=== PATIENT | male | born 1995 | race Caucasian/White ===

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

== ENCOUNTER 2017-09-07 07:53 | Inpatient (IN) | payer MEDICAID ==
--- NOTE | 2017-09-07 08:22 | C.PDOC ---
History Of Present Illness 22 Y/O MALE PRESENTS TO ED WITH C/O NEW ONSET "HEART POUNDING" X 4 DAYS. "FEELS LIKE IT'S BEATING REALLY HARD". PATIENT CURRENTLY W RESIDUAL SX BUT NOT INTENSE PRIOR. INTERMIT. DENIES HEART RACING, ASSOC CP, DIZZY, [place]. 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 CONCERN POSSIBLE UTI DUE TO CLOUDY URINE. NO FEVER, ABD PAIN OR ANY OTHER COMPLAINT AT THIS TIME. NEPHRO @ [facility] "BUT I NO LONGER TO GO HER, I NEED A NEW RN ASSESSMENT" PMD SALEEB EXAM NAD NONTOXIC HEENT NEG LUNGS CTA B/L NO W/R/R CV RRR ABD SOFT NT ND NO R/G REMAINDER NEG Time Seen by Provider: 09/07/17 08:07 Chief Complaint (Nursing): Palpitations History Per: Patient History/Exam Limitations: no limitations Onset/Duration Of Symptoms: Days Current Symptoms Are (Timing): Still Present Past Medical History Reviewed: Historical Data, Nursing Documentation, Vital Signs Vital Signs: Last Vital Signs Temp 98.5 F 09/07/17 10:42 Pulse 63 09/07/17 10:42 Resp 18 09/07/17 10:42 BP 151/94 H 09/07/17 10:42 Pulse Ox 100 09/07/17 10:42 - Medical History PMH: Pneumonia, Chronic Kidney Disease Surgical History: No Surg Hx Family History: States: No Known Family Hx - Social History Hx Tobacco Use: No Hx Alcohol Use: No Hx Substance Use: No - Immunization History Hx Tetanus Toxoid Vaccination: (Unk) Hx Influenza Vaccination: No Hx Pneumococcal Vaccination: Yes Review Of Systems Constitutional: Negative for: Fever, Chills Cardiovascular: Positive for: Palpitations. Negative for: Chest Pain Respiratory: Negative for: Cough, Shortness of Breath Gastrointestinal: Negative for: Nausea, Vomiting, Abdominal Pain Skin: Negative for: Rash Physical Exam - Physical Exam Appears: Non-toxic, No Acute Distress Skin: Warm, Dry, No Rash Head: Atraumatic, Normacephalic Eye(s): bilateral: Normal Inspection Oral Mucosa: Moist Neck: Normal ROM, Supple Cardiovascular: Rhythm Regular Respiratory: Normal Breath Sounds, No Rales, No Rhonchi, No Wheezing Gastrointestinal/Abdominal: Soft, No Tenderness, No Guarding, No Rebound Extremity: Normal ROM, Capillary Refill (<2 Seconds) Neurological/Psych: Oriented x3, Normal Speech, Normal Cognition ED Course And Treatment - Laboratory Results Result Diagrams: 09/07/17 08:46 09/07/17 08:46 ECG: Interpreted By Me ECG Rhythm: Sinus Rhythm ECG Interpretation: Normal Interpretation Of ECG: TWI v2 Rate From EC (BPM) O2 Sat by Pulse Oximetry: 100 (RA) Progress - Re-Evaluation Re-evaluation Note: 09/07/17 09:34 exam unch VSS WORSENING BUN/CREAT COMPARED TO BASELINE, 2016. PT WO CURRENT RN ASSESSMENT D/W DR JONES C/F PMD. AWARE OF ER FINDINGS, WILL ADMIT. REQUESTS RENAL US. CONSULT DR STODDARD. 09/07/17 09:[address] CHEYENNE STODDARD, STATES DR. TANVIR STODDARD IS TANK SETTER TODAY, TO WAIT FOR HIS CALL BACK. DR STODDARD WAS PAGED @937 09/07/17 11:07 D/W DR Zully STODDARD AWARE OF ER FINDINGS WILL CONSULT - Data Reviewed Data Reviewed: Lab, Diagnostic imaging, EKG, Old records Disposition Counseled Patient/Family Regarding: Studies Performed, Diagnosis - Disposition Disposition: HOSPITALIZED Disposition Time: 09:37 Condition: STABLE - POA Present On Arrival: None - Clinical Impression Clinical Impression: Acute on chronic renal insufficiency, Palpitations - Scribe Statement The provider has reviewed the documentation as recorded by the Scribe Joni Jansen All medical record entries made by the Scribe were at my direction and personally dictated by me. I have reviewed the chart and agree that the record accurately reflects my personal performance of the history, physical exam, medical decision making, and the department course for this patient. I have also personally directed, reviewed, and agree with the discharge instructions and disposition. Decision To Admit - Pt Status Changed To: Hospital Disposition Of: Inpatient - Admit Certification Admit to Inpatient:: After my assessment, the patient will require hospitalization for at least two midnights. This is because of the severity of symptoms shown, intensity of services needed, and/or the medical risk in this patient being treated as an outpatient. - InPatient: Physician Admission Certification: I certify that this patient requires 2 or more midnights of care for the following reason:: SEE NOTE - . Bed Request Type: Telemetry Admitting Physician: Amaya Jones Patient Diagnosis: Acute on chronic renal insufficiency, Palpitations
[2017-09-07 08:46] LABS: VENOUS BLOOD GAS BASE EXCESS -7.5 mmol/L (0.0-2.0); VENOUS BLOOD GAS PCO2 37 mmHg (40-60); VENOUS BLOOD GAS PO2 42 mm/Hg (30-55)
--- NOTE | 2017-09-07 08:46 | RAD ---
PROCEDURE: CHEST RADIOGRAPH, 1 VIEW HISTORY: SOB COMPARISON: 11/30/2015 FINDINGS: LUNGS: Clear. PLEURA: No pneumothorax or pleural fluid seen. CARDIOVASCULAR: Normal. OSSEOUS STRUCTURES: No significant abnormalities. VISUALIZED UPPER ABDOMEN: Normal. OTHER FINDINGS: None. IMPRESSION: No active disease.
[2017-09-07 08:52] LABS: BASO # 0.1 K/uL (0.0-0.2); BASO % 0.9 % (0.0-2.0); EOS # 0.2 K/uL (0.0-0.7); EOS % 2.8 % (0.0-4.0); HEMOGLOBIN 10.7 g/dL (12.0-18.0); LYMPH # 1.7 K/uL (1.0-4.3); LYMPH % 29.3 % (20.0-40.0); MEAN CELL VOLUME 80.4 fL (80.0-94.0); MEAN CORPUSCULAR HEMOGLOBIN 27.6 pg (27.0-31.0); MEAN CORPUSCULAR HGB CONC 34.3 g/dL (33.0-37.0); MEAN PLATELET VOLUME 8.6 fL (7.2-11.7); MONO # 0.3 K/uL (0.0-0.8); MONO % 5.4 % (0.0-10.0); NEUT # 3.6 K/uL (1.8-7.0); NEUT % 61.6 % (50.0-75.0); RBC 3.89 Mil/uL (4.40-5.90); RED CELL DISTRIBUTION WIDTH 13.3 % (11.5-14.5); WHITE BLOOD COUNT 5.9 K/uL (4.8-10.8)
[2017-09-07 09:00] LABS: SQUAMOUS EPITHIAL < 1 /hpf (0-5); URINE BACTERIA OCC (<OCC); URINE BILIRUBIN NEGATIVE (NEGATIVE); URINE BLOOD 2+ (NEGATIVE); URINE CLARITY Hazy (Clear); URINE COLOR Red (YELLOW); URINE GLUCOSE (UA) NORMAL (Normal); URINE LEUKOCYTE ESTERASE 3+ Leu/uL (Negative); URINE PROTEIN 2+ mg/dL (NEGATIVE); URINE UROBILINOGEN NORMAL mg/dL (0.2-1.0)
[2017-09-07 09:12] LABS: ALB/GLOB RATIO 1.3 (1.0-2.1); ALBUMIN 4.6 g/dL (3.5-5.0); ALT/SGPT 21 U/L (21-72); AST/SGOT 23 U/L (17-59); BLOOD UREA NITROGEN 63 mg/dL (9-20)
[2017-09-07 09:22] LABS: GFR AFRICAN-AMERICAN 10; GFR NON-AFRICAN AMERICAN 9
--- NOTE | 2017-09-07 10:49 | US ---
Renal ultrasound History: Elevated creatinine level. Comparison: None available. Technique: Real-time sonography was performed through the abdomen. Findings: Right kidney: 14.5 x 8.5 x 8.4 centimeters. Moderate to severe right renal hydronephrosis. Thinning of the parenchymal cortex. Increased echogenicity of the renal parenchymal cortex suggestive for medical renal disease. Left kidney: 15.4 x 7.7 x 9.8 centimeters. Moderate to severe left renal hydronephrosis. Thinning of the parenchymal cortex. Increased echogenicity the renal parenchymal cortex suggestive for medical renal disease. Distended and thick-walled urinary bladder which appears somewhat coarse and trabeculated in appearance. Visualized aorta grossly preserved. Impression: 1. Moderate to severe bilateral renal hydronephrosis. 2. Cortical parenchymal thinning with increased echogenicity of the renal parenchymal cortex suggestive for medical renal disease. Clinical correlation. 3. Distended and thick-walled urinary bladder which appears somewhat coarse and trabeculated in appearance. Clinical correlation.
--- NOTE | 2017-09-07 12:31 | CP.PCM.HP ---
History of Present Illness - History of Present Illness History of Present Illness: pt came to er for sob and palpitation Present on Admission - Present on Admission Any Indicators Present on Admission: Yes Urinary Catheter: Yes Review of Systems - Review of Systems Systems not reviewed;Unavailable: Acuity of Condition, Unstable Vital Signs Review of Systems: bp hi - Constitutional Constitutional: As Per HPI - EENT Eyes: As Per HPI Ears: As Per HPI Nose/Mouth/Throat: As Per HPI - Cardiovascular Cardiovascular: Dyspnea, Palpitations - Respiratory Respiratory: Dyspnea - Gastrointestinal Gastrointestinal: As Per HPI - Genitourinary Additional comments: incontinanace - Reproductive: Male Reproductive:Male: As Per HPI - Musculoskeletal Musculoskeletal: As Per HPI - Integumentary Integumentary: As Per HPI - Neurological Neurological: As Per HPI - Psychiatric Psychiatric: As Per HPI - Endocrine Endocrine: As Per HPI Past Patient History - Infectious Disease Hx of Infectious Diseases: None - Past Medical History & Family History Past Medical History?: Yes - Past Social History Smoking Status: Never Smoked - CARDIAC Hx Cardiac Disorders: Yes Hx Hypertension: Yes - PULMONARY Hx Respiratory Disorders: Yes Hx Pneumonia: Yes - NEUROLOGICAL Hx Neurological Disorder: Yes (SEE COMMENT) Other/Comment: Spina Bifida, Tethered Spinal Cord - HEENT Hx HEENT Problems: No - RENAL Hx Chronic Kidney Disease: Yes - ENDOCRINE/METABOLIC Hx Endocrine Disorders: No - HEMATOLOGICAL/ONCOLOGICAL Hx Blood Disorders: No - INTEGUMENTARY Hx Dermatological Problems: No - MUSCULOSKELETAL/RHEUMATOLOGICAL Hx Musculoskeletal Disorders: No Hx Falls: No - GASTROINTESTINAL Hx Gastrointestinal Disorders: No - GENITOURINARY/GYNECOLOGICAL Hx Genitourinary Disorders: Yes Hx Urinary Tract Infection: Yes Other/Comment: SELF CATHETERIZE - PSYCHIATRIC Hx Psychophysiologic Disorder: No Hx Substance Use: No - SURGICAL HISTORY Hx Surgeries: Yes Other/Comment: Spinal cord repair - ANESTHESIA Hx Anesthesia: Yes Hx Anesthesia Reactions: No Meds Allergies/Adverse Reactions: Allergies Allergy/AdvReac Type Severity Reaction Status Date / Time No Known Allergies Allergy Verified 09/07/17 08:06 Physical Exam - Constitutional Appears: No Acute Distress - Head Exam Head Exam: ATRAUMATIC - Eye Exam Eye Exam: Normal appearance Pupil Exam: NORMAL ACCOMODATION - ENT Exam ENT Exam: Mucous Membranes Moist - Neck Exam Neck exam: Positive for: Normal Inspection - Respiratory Exam Respiratory Exam: Decreased Breath Sounds - Cardiovascular Exam Cardiovascular Exam: REGULAR RHYTHM - GI/Abdominal Exam GI & Abdominal Exam: Normal Bowel Sounds - Rectal Exam Rectal Exam: NORMAL INSPECTION - Exam Exam: NORMAL INSPECTION - Extremities Exam Extremities exam: Positive for: normal inspection - Back Exam Back exam: NORMAL INSPECTION - Neurological Exam Neurological exam: Alert, Normal Gait, Oriented x3 - Psychiatric Exam Psychiatric exam: Normal Affect - Skin Skin Exam: Normal Color Results - Vital Signs Recent Vital Signs: Last Vital Signs Temp 97.9 F 09/07/17 11:13 Pulse 61 09/07/17 11:22 Resp 18 09/07/17 11:13 BP 162/106 H 09/07/17 11:13 Pulse Ox 100 09/07/17 11:13 - Labs Result Diagrams: 09/07/17 08:46 09/07/17 08:46 Labs: Laboratory Results - last 24 hr 09/07/17 09/07/17 09/07/17 08:41 08:46 08:46 WBC 5.9 RBC 3.89 L Hgb 10.7 L D Hct 31.3 L MCV 80.4 MCH 27.6 MCHC 34.3 RDW 13.3 Plt Count 281 MPV 8.6 Neut % (Auto) 61.6 Lymph % (Auto) 29.3 [place] % (Auto) 5.4 Eos % (Auto) 2.8 Baso % (Auto) 0.9 Neut # (Auto) 3.6 Lymph # (Auto) 1.7 [place] # (Auto) 0.3 Eos # (Auto) 0.2 Baso # (Auto) 0.1 pO2 42 VBG pH 7.30 L VBG pCO2 37 L VBG HCO3 18.4 VBG Total CO2 19.3 L VBG O2 Sat (Calc) 80.6 H VBG Base Excess -7.5 L VBG Potassium 3.5 L Sodium 142.0 Chloride 111.0 H Glucose 98 Lactate 0.6 L Potassium Carbon Dioxide Anion Gap BUN Creatinine Est GFR ( Amer) Est GFR (Non-Af Amer) Random Glucose Calcium Phosphorus Magnesium Total Bilirubin AST ALT Alkaline Phosphatase Troponin I Total Protein Albumin Globulin Albumin/Globulin Ratio Venous Blood Potassium 3.5 L Urine Color Red Urine Clarity Hazy Urine pH 6.0 Ur Specific [place] 1.005 Urine Protein 2+ H Urine Glucose (UA) Normal Urine Ketones Negative Urine Blood 2+ H Urine Nitrate Negative Urine Bilirubin Negative Urine Urobilinogen Normal Ur Leukocyte Esterase 3+ H Urine WBC (Auto) 529 H Urine RBC (Auto) 31 H Ur Squamous Epith Cells < 1 Urine Bacteria Occ H 09/07/17 08:46 WBC RBC Hgb Hct MCV MCH MCHC RDW Plt Count MPV Neut % (Auto) Lymph % (Auto) [place] % (Auto) Eos % (Auto) Baso % (Auto) Neut # (Auto) Lymph # (Auto) [place] # (Auto) Eos # (Auto) Baso # (Auto) pO2 VBG pH VBG pCO2 VBG HCO3 VBG Total CO2 VBG O2 Sat (Calc) VBG Base Excess VBG Potassium Sodium 143 Chloride 107 Glucose Lactate Potassium 3.7 Carbon Dioxide 18 L Anion Gap 22 H BUN 63 H Creatinine 8.1 H* Est GFR ( Amer) 10 Est GFR (Non-Af Amer) 9 Random Glucose 105 Calcium 9.0 Phosphorus 7.8 H Magnesium 2.1 Total Bilirubin 0.7 AST 23 ALT 21 D Alkaline Phosphatase 121 Troponin I < 0.0120 Total Protein 8.1 Albumin 4.6 Globulin 3.5 Albumin/Globulin Ratio 1.3 Venous Blood Potassium Urine Color Urine Clarity Urine pH Ur Specific [place] Urine Protein Urine Glucose (UA) Urine Ketones Urine Blood Urine Nitrate Urine Bilirubin Urine Urobilinogen Ur Leukocyte Esterase Urine WBC (Auto) Urine RBC (Auto) Ur Squamous Epith Cells Urine Bacteria Assessment & Plan - Assessment and Plan (Free Text) Assessment: acute uti ac on renal faitiur aneamia htn Plan: as per orders - Date & Time Date: 09/07/17 Time: 12:33
[2017-09-07] MEDS: Sodium Chloride 0.45% 1,000 ML IV SCH (12:58)
--- NOTE | 2017-09-07 13:53 | CP.PCM.CON ---
History of Present Illness - History of Present Illness History of Present Illness: This patient who is 22 years of age male who presented with palpitation and he was found to have high BUN/creatinine. Patient with DX of spina Bifida with neurogenic bladder and he has been follow- up by nephrology at the [facility] in [place]. And he was told that he has serum creatinine elevated around 3 but not to this level 8 as noted today pt. catherize him self every three hr. last one now and more than liter drained Patient has no nausea or vomiting no diarrhea reported PMH neurogenic bladder ckd? spina bifida Review of Systems - Constitutional Constitutional: absent: Anorexia, Chills - EENT Nose/Mouth/Throat: absent: Epistaxis - Cardiovascular Cardiovascular: absent: Acrocyanosis - Respiratory Respiratory: absent: Cough - Gastrointestinal Gastrointestinal: Coffee Ground Emesis - Genitourinary Genitourinary: As Per HPI - Musculoskeletal Musculoskeletal: absent: Arthralgias, Atrophy, Loss of Height, Muscle Weakness - Neurological Neurological: absent: Abnormal Movements, Confusion, Focal Weakness - Endocrine Endocrine: absent: Change in Body Appearance - Hematologic/Lymphatic Hematologic: absent: Easy Bleeding Past Patient History - Infectious Disease Hx of Infectious Diseases: None - Past Medical History & Family History Past Medical History?: Yes - Past Social History Smoking Status: Never Smoked - CARDIAC Hx Cardiac Disorders: Yes Hx Hypertension: Yes - PULMONARY Hx Respiratory Disorders: Yes Hx Pneumonia: Yes - NEUROLOGICAL Hx Neurological Disorder: Yes (SEE COMMENT) Other/Comment: Spina Bifida, Tethered Spinal Cord - HEENT Hx HEENT Problems: No - RENAL Hx Chronic Kidney Disease: Yes - ENDOCRINE/METABOLIC Hx Endocrine Disorders: No - HEMATOLOGICAL/ONCOLOGICAL Hx Blood Disorders: No - INTEGUMENTARY Hx Dermatological Problems: No - MUSCULOSKELETAL/RHEUMATOLOGICAL Hx Musculoskeletal Disorders: No Hx Falls: No - GASTROINTESTINAL Hx Gastrointestinal Disorders: No - GENITOURINARY/GYNECOLOGICAL Hx Genitourinary Disorders: Yes Hx Urinary Tract Infection: Yes Other/Comment: SELF CATHETERIZE - PSYCHIATRIC Hx Psychophysiologic Disorder: No Hx Substance Use: No - SURGICAL HISTORY Hx Surgeries: Yes Other/Comment: Spinal cord repair - ANESTHESIA Hx Anesthesia: Yes Hx Anesthesia Reactions: No Meds Allergies/Adverse Reactions: Allergies Allergy/AdvReac Type Severity Reaction Status Date / Time No Known Allergies Allergy Verified 09/07/17 08:06 - Medications Medications: Current Medications Amlodipine Besylate (Norvasc) 5 mg PO DAILY [facility] Last Admin: 09/07/17 12:28 Dose: 5 mg Calcitriol (Rocaltrol) 0.25 mcg PO TID [facility] Ciprofloxacin (Cipro 400mg/200ml Dsw) 400 mg in 200 mls @ 200 mls/hr IVPB DAILY [facility] PRN Reason: Protocol Sodium Chloride (Sodium Chloride 0.45%) 1,000 mls @ 80 mls/hr IV .[id number] [facility] Last Admin: 09/07/17 12:58 Dose: 80 mls/hr Oxybutynin Chloride (Ditropan Tab) 5 mg PO TID [facility] Sodium Bicarbonate (Sodium Bicarbonate Tab) 325 mg PO TID [facility] Physical Exam - Constitutional Appears: No Acute Distress - ENT Exam ENT Exam: Mucous Membranes Moist - Neck Exam Neck exam: Negative for: Lymphadenopathy - Respiratory Exam Respiratory Exam: NORMAL BREATHING PATTERN - Cardiovascular Exam Cardiovascular Exam: REGULAR RHYTHM, RRR. absent: Gallop, JVD, Rubs - GI/Abdominal Exam GI & Abdominal Exam: Normal Bowel Sounds - Extremities Exam Extremities exam: Negative for: calf tenderness - Back Exam Back exam: absent: CVA tenderness (L) - Neurological Exam Neurological exam: Alert, Normal Gait - Psychiatric Exam Psychiatric exam: Normal Affect Results - Vital Signs Recent Vital Signs: Last Vital Signs Temp 97.9 F 09/07/17 11:13 Pulse 61 09/07/17 11:22 Resp 18 09/07/17 11:13 BP 162/106 H 09/07/17 11:13 Pulse Ox 100 09/07/17 11:13 - Labs Result Diagrams: 09/07/17 08:46 09/07/17 08:46 Labs: Laboratory Results - last 24 hr 09/07/17 09/07/17 09/07/17 08:41 08:46 08:46 WBC 5.9 RBC 3.89 L Hgb 10.7 L D Hct 31.3 L MCV 80.4 MCH 27.6 MCHC 34.3 RDW 13.3 Plt Count 281 MPV 8.6 Neut % (Auto) 61.6 Lymph % (Auto) 29.3 [place] % (Auto) 5.4 Eos % (Auto) 2.8 Baso % (Auto) 0.9 Neut # (Auto) 3.6 Lymph # (Auto) 1.7 [place] # (Auto) 0.3 Eos # (Auto) 0.2 Baso # (Auto) 0.1 pO2 42 VBG pH 7.30 L VBG pCO2 37 L VBG HCO3 18.4 VBG Total CO2 19.3 L VBG O2 Sat (Calc) 80.6 H VBG Base Excess -7.5 L VBG Potassium 3.5 L Sodium 142.0 Chloride 111.0 H Glucose 98 Lactate 0.6 L Potassium Carbon Dioxide Anion Gap BUN Creatinine Est GFR ( Amer) Est GFR (Non-Af Amer) Random Glucose Calcium Phosphorus Magnesium Total Bilirubin AST ALT Alkaline Phosphatase Troponin I Total Protein Albumin Globulin Albumin/Globulin Ratio Venous Blood Potassium 3.5 L Urine Color Red Urine Clarity Hazy Urine pH 6.0 Ur Specific [place] 1.005 Urine Protein 2+ H Urine Glucose (UA) Normal Urine Ketones Negative Urine Blood 2+ H Urine Nitrate Negative Urine Bilirubin Negative Urine Urobilinogen Normal Ur Leukocyte Esterase 3+ H Urine WBC (Auto) 529 H Urine RBC (Auto) 31 H Ur Squamous Epith Cells < 1 Urine Bacteria Occ H 09/07/17 08:46 WBC RBC Hgb Hct MCV MCH MCHC RDW Plt Count MPV Neut % (Auto) Lymph % (Auto) [place] % (Auto) Eos % (Auto) Baso % (Auto) Neut # (Auto) Lymph # (Auto) [place] # (Auto) Eos # (Auto) Baso # (Auto) pO2 VBG pH VBG pCO2 VBG HCO3 VBG Total CO2 VBG O2 Sat (Calc) VBG Base Excess VBG Potassium Sodium 143 Chloride 107 Glucose Lactate Potassium 3.7 Carbon Dioxide 18 L Anion Gap 22 H BUN 63 H Creatinine 8.1 H* Est GFR ( Amer) 10 Est GFR (Non-Af Amer) 9 Random Glucose 105 Calcium 9.0 Phosphorus 7.8 H Magnesium 2.1 Total Bilirubin 0.7 AST 23 ALT 21 D Alkaline Phosphatase 121 Troponin I < 0.0120 Total Protein 8.1 Albumin 4.6 Globulin 3.5 Albumin/Globulin Ratio 1.3 Venous Blood Potassium Urine Color Urine Clarity Urine pH Ur Specific [place] Urine Protein Urine Glucose (UA) Urine Ketones Urine Blood Urine Nitrate Urine Bilirubin Urine Urobilinogen Ur Leukocyte Esterase Urine WBC (Auto) Urine RBC (Auto) Ur Squamous Epith Cells Urine Bacteria Assessment & Plan (1) Acute on chronic renal insufficiency Assessment and Plan: acute on chronic CKD3?? obtructive uropathy henry. hydronephrosis secondary to neurogenic bladder pt. refused to have catheter now ,he is catharizing him self evry hour phos.,pth bmp in AM no need for HD now Status: Acute
[2017-09-07] MEDS: Ciprofloxacin 400mg/200ml D5W 400 MG/200 ML BAG IVPB SCH (14:06)
[2017-09-07] MEDS: SODIUM BICARBONATE 325 MG PO SCH (17:54)
[2017-09-07] MEDS: Bisacodyl 5mg EC Tab PO SCH (21:23)
[2017-09-08] MEDS: Sodium Chloride 0.45% 1,000 ML IV SCH ×3 (01:00→14:15)
[2017-09-08] MEDS: Ciprofloxacin 400mg/200ml D5W 400 MG/200 ML BAG IVPB SCH (09:10)
[2017-09-08] MEDS: SODIUM BICARBONATE 325 MG PO SCH ×3 (09:13→17:20)
[2017-09-08 09:15] LABS: ALB/GLOB RATIO 1.4 (1.0-2.1); ALBUMIN 4.5 g/dL (3.5-5.0); CALCIUM 9.1 mg/dl (8.6-10.4)
--- NOTE | 2017-09-08 09:39 | CP.PCM.PN ---
Subjective - Date & Time of Evaluation Date of Evaluation: 09/08/17 Time of Evaluation: 09:36 - Subjective Subjective: c/o of nausea he[place]ack afraid to eate Objective - Vital Signs/Intake and Output Vital Signs (last 24 hours): Temp Pulse Resp BP Pulse Ox 98 F 63 20 137/83 100 09/08/17 07:00 09/08/17 07:00 09/08/17 07:00 09/08/17 07:00 09/08/17 07:00 Intake and Output: 09/08/17 09/08/17 06:59 18:59 Intake Total 1640 Output Total 6520 Balance -4935 - Medications Medications: Current Medications Acetaminophen (Tylenol 325mg Tab) 650 mg PO Q6H PRN PRN Reason: Pain, moderate (4-7) Last Admin: 09/08/17 09:06 Dose: 650 mg Amlodipine Besylate (Norvasc) 10 mg PO DAILY [facility] Last Admin: 09/08/17 09:05 Dose: 10 mg Bisacodyl (Dulcolax) 10 mg PO HS [facility] Last Admin: 09/07/17 21:23 Dose: 10 mg Calcitriol (Rocaltrol) 0.25 mcg PO TID [facility] Last Admin: 09/08/17 09:08 Dose: 0.25 mcg Home Med (Patient's Own Medication) 1 tab PO TID [facility] Last Admin: 09/08/17 09:13 Dose: 1 tab Ciprofloxacin (Cipro 400mg/200ml Dsw) 400 mg in 200 mls @ 200 mls/hr IVPB DAILY [facility] PRN Reason: Protocol Last Admin: 09/08/17 09:10 Dose: 200 mls/hr Sodium Chloride (Sodium Chloride 0.45%) 1,000 mls @ 80 mls/hr IV .[id number] [facility] Last Admin: 09/08/17 03:04 Dose: 80 mls/hr Ondansetron HCl (Zofran Inj) 4 mg IVP Q6 PRN PRN Reason: Nausea/Vomiting Last Admin: 09/08/17 00:08 Dose: 4 mg Oxybutynin Chloride (Ditropan Tab) 5 mg PO TID [facility] Last Admin: 09/07/17 17:17 Dose: 5 mg - Labs Labs: 09/07/17 08:46 09/08/17 08:47 - Constitutional Appears: Non-toxic - Head Exam Head Exam: NORMAL INSPECTION - Eye Exam Eye Exam: Normal appearance Pupil Exam: NORMAL ACCOMODATION - ENT Exam ENT Exam: Normal Exam - Respiratory Exam Respiratory Exam: NORMAL BREATHING PATTERN - Cardiovascular Exam Cardiovascular Exam: REGULAR RHYTHM - GI/Abdominal Exam GI & Abdominal Exam: Soft - Exam Exam: NORMAL INSPECTION - Extremities Exam Extremities Exam: Normal Inspection - Back Exam Back Exam: NORMAL INSPECTION - Neurological Exam Neurological Exam: Alert, Normal Gait, Oriented x3 - Psychiatric Exam Psychiatric exam: Normal Affect - Skin Skin Exam: Normal Color Assessment and Plan - Assessment and Plan (Free Text) Assessment: ac on chronic renal failiur some improvement [place] uti Plan: cont curent treatment
--- NOTE | 2017-09-08 16:24 | CP.PCM.PN ---
Subjective - Date & Time of Evaluation Date of Evaluation: 09/08/17 Time of Evaluation: 16:23 - Subjective Subjective: renal follow up note no events overnight, cardoza + vss heent normal no jvd s1s2 present no resp distress abd soft BS+ skin normal psy cooperative cardoza + ao times 3, no fnd A&P: SHANEL/CKD/htn/spina bifida i have ordered a stat cmp today monitor I&Os no signs of uremia or volume overload bp ok Objective - Vital Signs/Intake and Output Vital Signs (last 24 hours): Temp Pulse Resp BP Pulse Ox 98 F 63 20 130/71 100 09/08/17 07:00 09/08/17 07:00 09/08/17 07:00 09/08/17 14:04 09/08/17 07:00 Intake and Output: 09/08/17 09/08/17 06:59 18:59 Intake Total 1640 Output Total 6504 2300 Balance -4935 -2300 - Medications Medications: Current Medications Acetaminophen (Tylenol 325mg Tab) 650 mg PO Q6H PRN PRN Reason: Pain, moderate (4-7) Last Admin: 09/08/17 09:06 Dose: 650 mg Amlodipine Besylate (Norvasc) 10 mg PO DAILY [facility] Last Admin: 09/08/17 09:05 Dose: 10 mg Bisacodyl (Dulcolax) 10 mg PO HS [facility] Last Admin: 09/07/17 21:23 Dose: 10 mg Calcitriol (Rocaltrol) 0.25 mcg PO TID [facility] Last Admin: 09/08/17 14:11 Dose: 0.25 mcg Enalapril Maleate (Vasotec) 10 mg PO DAILY [facility] Last Admin: 09/08/17 14:04 Dose: 10 mg Home Med (Patient's Own Medication) 1 tab PO TID [facility] Last Admin: 09/08/17 14:04 Dose: 1 tab Ciprofloxacin (Cipro 400mg/200ml Dsw) 400 mg in 200 mls @ 200 mls/hr IVPB DAILY [facility] PRN Reason: Protocol Last Admin: 09/08/17 09:10 Dose: 200 mls/hr Sodium Chloride (Sodium Chloride 0.45%) 1,000 mls @ 80 mls/hr IV .[id number] [facility] Last Admin: 09/08/17 14:15 Dose: 80 mls/hr Ondansetron HCl (Zofran Inj) 4 mg IVP Q6 PRN PRN Reason: Nausea/Vomiting Last Admin: 09/08/17 00:08 Dose: 4 mg Oxybutynin Chloride (Ditropan Tab) 5 mg PO TID [facility] Last Admin: 09/08/17 14:16 Dose: 5 mg - Labs Labs: 09/07/17 08:46 09/08/17 08:47
[2017-09-08] MEDS ORDERED: Oxycodone/Acetaminophen 5/325 mg Tab PO ONE (21:00)
[2017-09-08] MEDS: Bisacodyl 5mg EC Tab PO SCH (21:56)
[2017-09-09] MEDS: Sodium Chloride 0.45% 1,000 ML IV SCH ×3 (02:00→15:30)
[2017-09-09 08:23] LABS: URINE BACTERIA MANY (<OCC); URINE BILIRUBIN NEGATIVE (NEGATIVE); URINE BLOOD 1+ (NEGATIVE); URINE CLARITY Hazy (Clear); URINE GLUCOSE (UA) NORMAL (Normal); URINE LEUKOCYTE ESTERASE 3+ Leu/uL (Negative); URINE PROTEIN 3+ mg/dL (NEGATIVE); URINE UROBILINOGEN NORMAL mg/dL (0.2-1.0)
[2017-09-09 08:27] LABS: CALCIUM 9.1 mg/dl (8.6-10.4)
[2017-09-09 09:04] LABS: URINE COLOR YELLOW (YELLOW)
[2017-09-09] MEDS: SODIUM BICARBONATE 325 MG PO SCH ×3 (10:14→17:15)
[2017-09-09] MEDS: Ciprofloxacin 400mg/200ml D5W 400 MG/200 ML BAG IVPB SCH (10:16)
--- NOTE | 2017-09-09 10:36 | CP.PCM.PN ---
Subjective - Date & Time of Evaluation Date of Evaluation: 09/09/17 Time of Evaluation: 10:33 - Subjective Subjective: still has infection urin pain flank has foly cath on Objective - Vital Signs/Intake and Output Vital Signs (last 24 hours): Temp Pulse Resp BP Pulse Ox 97.7 F 64 20 129/71 100 09/08/17 23:10 09/08/17 23:10 09/08/17 23:10 09/09/17 10:11 09/08/17 23:10 Intake and Output: 09/09/17 09/09/17 06:59 18:59 Intake Total 1650 Output Total 4725 Balance -3075 - Medications Medications: Current Medications Acetaminophen (Tylenol 325mg Tab) 650 mg PO Q6H PRN PRN Reason: Pain, moderate (4-7) Last Admin: 09/08/17 09:06 Dose: 650 mg Amlodipine Besylate (Norvasc) 10 mg PO DAILY [facility] Last Admin: 09/09/17 10:12 Dose: 10 mg Bisacodyl (Dulcolax) 10 mg PO HS [facility] Last Admin: 09/08/17 21:56 Dose: 10 mg Calcitriol (Rocaltrol) 0.25 mcg PO TID [facility] Last Admin: 09/09/17 10:12 Dose: 0.25 mcg Enalapril Maleate (Vasotec) 10 mg PO DAILY [facility] Last Admin: 09/09/17 10:11 Dose: 10 mg Home Med (Patient's Own Medication) 1 tab PO TID [facility] Last Admin: 09/09/17 10:14 Dose: 1 tab Ciprofloxacin (Cipro 400mg/200ml Dsw) 400 mg in 200 mls @ 200 mls/hr IVPB DAILY [facility] PRN Reason: Protocol Last Admin: 09/09/17 10:16 Dose: 200 mls/hr Sodium Chloride (Sodium Chloride 0.45%) 1,000 mls @ 80 mls/hr IV .[id number] [facility] Last Admin: 09/09/17 03:15 Dose: 80 mls/hr Ceftriaxone Sodium (Rocephin Iv 1 Gm Duplex) 50 mls @ 100 mls/hr IVPB DAILY [facility] PRN Reason: Protocol Ondansetron HCl (Zofran Inj) 4 mg IVP Q6 PRN PRN Reason: Nausea/Vomiting Last Admin: 09/08/17 00:08 Dose: 4 mg Oxybutynin Chloride (Ditropan Tab) 5 mg PO TID [facility] Last Admin: 09/09/17 10:13 Dose: 5 mg - Labs Labs: 09/07/17 08:46 09/09/17 07:43 - Constitutional Appears: In Acute Distress - Head Exam Head Exam: NORMAL INSPECTION - Eye Exam Eye Exam: Normal appearance Pupil Exam: NORMAL ACCOMODATION - ENT Exam ENT Exam: Normal Exam - Neck Exam Neck Exam: Normal Inspection - Respiratory Exam Respiratory Exam: Clear to Ausculation Bilateral - Cardiovascular Exam Cardiovascular Exam: REGULAR RHYTHM - GI/Abdominal Exam GI & Abdominal Exam: Tenderness Additional comments: flank - Extremities Exam Extremities Exam: Normal Inspection - Back Exam Back Exam: NORMAL INSPECTION - Neurological Exam Neurological Exam: Alert, Oriented x3 - Psychiatric Exam Psychiatric exam: Normal Affect - Skin Skin Exam: Normal Color Assessment and Plan - Assessment and Plan (Free Text) Assessment: ac pyelonephritis ac kidney failiur on chronic spina bifida aneamia Plan: add rocephin for klepsiela infection
[2017-09-09] MEDS ORDERED: cefTRIAXone IV 1 gm in Dextros 50 ML IVPB SCH (11:30)
[2017-09-09] MEDS: Bisacodyl 5mg EC Tab PO SCH (21:52)
[2017-09-09] MEDS: Cefepime IV 1 gm in Dextrose 1 GM/50 ML BAG IVPB SCH (21:52)
[2017-09-10] MEDS: Sodium Chloride 0.45% 1,000 ML IV SCH (06:02)
[2017-09-10] MEDS: SODIUM BICARBONATE 325 MG PO SCH (09:43)
--- NOTE | 2017-09-10 11:59 | CP.PCM.CON ---
History of Present Illness - History of Present Illness History of Present Illness: 22 Y/O MALE PRESENTS TO ED WITH C/O NEW ONSET "HEART POUNDING" X 4 DAYS. "FEELS LIKE IT'S BEATING REALLY HARD". PATIENT CURRENTLY W RESIDUAL SX BUT NOT INTENSE PRIOR. INTERMIT. DENIES HEART RACING, ASSOC CP, DIZZY, NV. 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 CONCERN POSSIBLE UTI DUE TO CLOUDY URINE. NO FEVER, ABD PAIN OR ANY OTHER COMPLAINT AT THIS TIME. Review of Systems - Review of Systems All systems: reviewed and no additional remarkable complaints except Past Patient History - Infectious Disease Hx of Infectious Diseases: None - Past Medical History & Family History Past Medical History?: Yes - Past Social History Smoking Status: Never Smoked - CARDIAC Hx Cardiac Disorders: Yes Hx Hypertension: Yes - PULMONARY Hx Respiratory Disorders: Yes Hx Pneumonia: Yes - NEUROLOGICAL Hx Neurological Disorder: Yes (SEE COMMENT) Other/Comment: Spina Bifida, Tethered Spinal Cord - HEENT Hx HEENT Problems: No - RENAL Hx Chronic Kidney Disease: Yes - ENDOCRINE/METABOLIC Hx Endocrine Disorders: No - HEMATOLOGICAL/ONCOLOGICAL Hx Blood Disorders: No - INTEGUMENTARY Hx Dermatological Problems: No - MUSCULOSKELETAL/RHEUMATOLOGICAL Hx Musculoskeletal Disorders: No Hx Falls: No - GASTROINTESTINAL Hx Gastrointestinal Disorders: No - GENITOURINARY/GYNECOLOGICAL Hx Genitourinary Disorders: Yes Hx Urinary Tract Infection: Yes Other/Comment: SELF CATHETERIZE - PSYCHIATRIC Hx Psychophysiologic Disorder: No Hx Substance Use: No - SURGICAL HISTORY Hx Surgeries: Yes Other/Comment: Spinal cord repair - ANESTHESIA Hx Anesthesia: Yes Hx Anesthesia Reactions: No Meds Allergies/Adverse Reactions: Allergies Allergy/AdvReac Type Severity Reaction Status Date / Time No Known Allergies Allergy Verified 09/07/17 08:06 - Medications Medications: Current Medications Acetaminophen (Tylenol 325mg Tab) 650 mg PO Q6H PRN PRN Reason: Pain, moderate (4-7) Last Admin: 09/08/17 09:06 Dose: 650 mg Amlodipine Besylate (Norvasc) 10 mg PO DAILY [facility] Last Admin: 09/10/17 09:43 Dose: 10 mg Bisacodyl (Dulcolax) 10 mg PO HS [facility] Last Admin: 09/09/17 21:52 Dose: Not Given Calcitriol (Rocaltrol) 0.25 mcg PO TID [facility] Last Admin: 09/10/17 09:43 Dose: 0.25 mcg Home Med (Patient's Own Medication) 1 tab PO TID [facility] Last Admin: 09/10/17 09:43 Dose: 1 tab Sodium Chloride (Sodium Chloride 0.45%) 1,000 mls @ 80 mls/hr IV .[id number] [facility] Last Admin: 09/10/17 06:02 Dose: 80 mls/hr Cefepime HCl (Maxipime Iv 1 Gm Premix) 1 gm in 50 mls @ 100 mls/hr IVPB Q24H [facility] PRN Reason: Protocol Last Admin: 09/09/17 21:52 Dose: 100 mls/hr Ondansetron HCl (Zofran Inj) 4 mg IVP Q6 PRN PRN Reason: Nausea/Vomiting Last Admin: 09/08/17 00:08 Dose: 4 mg Oxybutynin Chloride (Ditropan Tab) 5 mg PO TID [facility] Last Admin: 09/10/17 09:43 Dose: 5 mg Physical Exam - Constitutional Appears: Chronically Ill - Head Exam Head Exam: ATRAUMATIC - Eye Exam Eye Exam: absent: Scleral icterus - ENT Exam ENT Exam: Mucous Membranes Dry, Normal External Ear Exam - Neck Exam Neck exam: Negative for: Lymphadenopathy - Respiratory Exam Respiratory Exam: Decreased Breath Sounds - Cardiovascular Exam Cardiovascular Exam: REGULAR RHYTHM - GI/Abdominal Exam GI & Abdominal Exam: Diminished Bowel Sounds, Soft. absent: Tenderness - Rectal Exam Rectal Exam: Deferred - Exam Exam: NORMAL INSPECTION - Extremities Exam Extremities exam: Negative for: pedal edema - Back Exam Back exam: absent: CVA tenderness (L), CVA tenderness (R) - Neurological Exam Neurological exam: Alert, CN II-XII Intact, Motor Sensory Deficit, Oriented x3 - Psychiatric Exam Psychiatric exam: Anxious - Skin Skin Exam: Dry Results - Vital Signs Recent Vital Signs: Last Vital Signs Temp 98.1 F 09/10/17 07:00 Pulse 65 09/10/17 07:00 Resp 20 09/10/17 07:00 BP 117/67 09/10/17 09:43 Pulse Ox 98 09/10/17 07:00 - Labs Result Diagrams: 09/07/17 08:46 09/09/17 07:43 Assessment & Plan (1) Spina bifida Status: Acute (2) Acute on chronic renal insufficiency Status: Acute (3) CKD (chronic kidney disease) Status: Acute (4) Urinary tract infection Status: Acute - Assessment and Plan (Free Text) Plan: iv rx ordered for uti non ESBL cont rx iv then po for 14 days
--- NOTE | 2017-09-10 13:08 | CP.PCM.PN ---
Subjective - Date & Time of Evaluation Date of Evaluation: 09/10/17 Time of Evaluation: 13:04 - Subjective Subjective: Nephrology Consultation Note Assessment: Stable Chronic Kidney Disease (N18.5) Stage 5 with ? mg proteinuria (R80.9) likely due to chronic obstructive uropathy neurogenic bladder, hx of spina bifida Anemia (D64.9), Hyperphosphatemia (E83.39), Secondary Hyperparathyroidism (E21.1 ), HTN (I12.9), metabolic acidosis UTI Plan No acute need for renal replacement therapy at this time but will need soon, pt was made aware. check labs today. Hypertension control with meds as ordered. hold ACEI/ARB due to advanced renal insuff Monitor Input/Output, daily weights and renal function with basic metabolic panel added nephrovite, iron supplements, sodium bicarb 1300mg TID and phos binders calcitriol lowered to 3 times/week continue with IVF Check urine analysis, spot protein/creatinine and albumin/creatinine ratio Check for 25-OH vitamin D, iPTH, phosphorus level. Iron studies as TSAT, Ferritin. Check Hep B and Hep C serology Dose meds/antibiotics for reduced GFR. Avoid fleets enema/magnesium based laxatives. Avoid nephrotoxins/NSAIDs/ iodinated contrast (unless needed emergently) Glycemic control Further work up for as per primary team Thanks for allowing me to participate in care of your patient. Will follow patient with you. Please call if any Qs. had d/w team Dr Julio Perez Office: [phone] Subjective: Noted events overnight. Patients feels okay. Denies chest pain, palpitation, shortness of breath, leg swelling. All other negative. making plenty of urine. self intermittent catheterization at home every 3-4 hrs. 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 reports decreased appetite x 1 month, denies loss of weight Physical Examination: General Appearance: Comfortable, in no acute respiratory distress, co-operative . Vitals reviewed and noted as below Head; Atraumatic, normocephalic ENT: no ulcers no thrush. Tongue is midline. Oropharynx: no rash or ulcers. EYES: Pupils are equal, round and reactive to light accommodation. Eye muscles and extraocular movement intact. Sclera is anicteric. Neck; supple no lymphadenopathy, no thyromegaly or bruit Lungs: Normal respiratory rate/effort. Breath sounds bilateral equal and clear Heart: Normal rate. s1s2 normal. No rub or gallop. Extremities: no edema. No varicose veins Neurological: Patient is alert, awake and oriented to person, place and time. No focal deficit. Strength bilateral appropriate and equal Skin: Warm and dry. Normal turgor. No rash. Palpitation: Normal elasticity for age Abdomen: Abdomen is soft. Bowel sounds +. There is no abdominal tenderness, no guarding/rigidity no organomegaly Psych: normal insight and normal affect/mood MSK: no joint tenderness or swelling. Digits and nails normal, no deformity : kidney or bladder not palpable. has cardoza Labs/imaging reviewed. Past medical history, past surgical history, family history, social history, allergy reviewed and noted as below Family hx: no hx of CKD. Rest non-contributory renal imaging: b/l moderate to sever hydronephrosis Objective - Vital Signs/Intake and Output Vital Signs (last 24 hours): Temp Pulse Resp BP Pulse Ox 98.1 F 65 20 117/67 98 09/10/17 07:00 09/10/17 07:00 09/10/17 07:00 09/10/17 09:43 09/10/17 07:00 Intake and Output: 09/10/17 09/10/17 06:59 18:59 Intake Total 1610 Output Total 4175 Balance -2565 - Medications Medications: Current Medications Acetaminophen (Tylenol 325mg Tab) 650 mg PO Q6H PRN PRN Reason: Pain, moderate (4-7) Last Admin: 09/08/17 09:06 Dose: 650 mg Amlodipine Besylate (Norvasc) 10 mg PO DAILY [facility] Last Admin: 09/10/17 09:43 Dose: 10 mg Bisacodyl (Dulcolax) 10 mg PO HS [facility] Last Admin: 09/09/17 21:52 Dose: Not Given Calcitriol (Rocaltrol) 0.25 mcg PO TTS [facility] Ferrous Gluconate (Fergon) 324 mg PO TID [facility] Sodium Chloride (Sodium Chloride 0.45%) 1,000 mls @ 80 mls/hr IV .[id number] [facility] Last Admin: 09/10/17 06:02 Dose: 80 mls/hr Cefepime HCl (Maxipime Iv 1 Gm Premix) 1 gm in 50 mls @ 100 mls/hr IVPB Q24H [facility] PRN Reason: Protocol Last Admin: 09/09/17 21:52 Dose: 100 mls/hr Ondansetron HCl (Zofran Inj) 4 mg IVP Q6 PRN PRN Reason: Nausea/Vomiting Last Admin: 09/08/17 00:08 Dose: 4 mg Oxybutynin Chloride (Ditropan Tab) 5 mg PO TID [facility] Last Admin: 09/10/17 09:43 Dose: 5 mg Sevelamer Carbonate (Renvela) 800 mg PO TIDCC [facility] Sodium Bicarbonate (Sodium Bicarbonate Tab) 1,300 mg PO TID [facility] Vitamin B Complex/Vit C/Folic Acid (Nephro-Edilberto) 1 tab PO 0800 [facility] - Labs Labs: 09/07/17 08:46 09/09/17 07:43
[2017-09-10 14:15] LABS: BASO # 0.1 K/uL (0.0-0.2); BASO % 1.9 % (0.0-2.0); EOS # 0.2 K/uL (0.0-0.7); EOS % 3.9 % (0.0-4.0); HEMOGLOBIN 10.2 g/dL (12.0-18.0); LYMPH # 1.3 K/uL (1.0-4.3); LYMPH % 30.3 % (20.0-40.0); MEAN CELL VOLUME 80.6 fL (80.0-94.0); MEAN CORPUSCULAR HEMOGLOBIN 27.7 pg (27.0-31.0); MEAN CORPUSCULAR HGB CONC 34.4 g/dL (33.0-37.0); MEAN PLATELET VOLUME 9.7 fL (7.2-11.7); MONO # 0.4 K/uL (0.0-0.8); MONO % 8.5 % (0.0-10.0); NEUT # 2.4 K/uL (1.8-7.0); NEUT % 55.4 % (50.0-75.0); NRBC % 0.1 % (0.0-2.0); RBC 3.69 Mil/uL (4.40-5.90); RED CELL DISTRIBUTION WIDTH 13.6 % (11.5-14.5); WHITE BLOOD COUNT 4.3 K/uL (4.8-10.8)
[2017-09-10 14:38] LABS: IRON 39 ug/dL (49-181)
[2017-09-10 14:42] LABS: BLOOD UREA NITROGEN 68 mg/dL (9-20); CALCIUM 8.6 mg/dl (8.6-10.4); GFR AFRICAN-AMERICAN 10; GFR NON-AFRICAN AMERICAN 8
[2017-09-10 15:00] LABS: % IRON SATURATION 15 (20-55); TOTAL IRON BINDING CAPACITY 259 ug/dL (250-450)
[2017-09-10 15:24] LABS: HEPATITIS B SURFACE AG Negative (NEGATIVE)
[2017-09-10 15:29] LABS: HEPATITIS B CORE AB NEGATIVE (NEGATIVE)
[2017-09-10 15:41] LABS: HEPATITIS C ANTIBODY NEGATIVE (NEGATIVE)
--- NOTE | 2017-09-10 16:43 | CP.PCM.PN ---
Subjective - Date & Time of Evaluation Date of Evaluation: 09/10/17 Time of Evaluation: 16:41 - Subjective Subjective: LESS FLANK PAIN LESS NAUSEA KLEBSIELA INF URIN Objective - Vital Signs/Intake and Output Vital Signs (last 24 hours): Temp Pulse Resp BP Pulse Ox 97.9 F 59 L 20 100/54 L 100 09/10/17 15:22 09/10/17 15:22 09/10/17 15:22 09/10/17 15:22 09/10/17 15:22 Intake and Output: 09/10/17 09/10/17 06:59 18:59 Intake Total 1610 Output Total 4175 2250 Balance -2565 -2250 - Medications Medications: Current Medications Acetaminophen (Tylenol 325mg Tab) 650 mg PO Q6H PRN PRN Reason: Pain, moderate (4-7) Last Admin: 09/08/17 09:06 Dose: 650 mg Amlodipine Besylate (Norvasc) 10 mg PO DAILY [facility] Last Admin: 09/10/17 09:43 Dose: 10 mg Bisacodyl (Dulcolax) 10 mg PO HS [facility] Last Admin: 09/09/17 21:52 Dose: Not Given Calcitriol (Rocaltrol) 0.25 mcg PO TTS [facility] Ferrous Gluconate (Fergon) 324 mg PO TID [facility] Last Admin: 09/10/17 14:26 Dose: 324 mg Cefepime HCl (Maxipime Iv 1 Gm Premix) 1 gm in 50 mls @ 100 mls/hr IVPB Q24H [facility] PRN Reason: Protocol Last Admin: 09/09/17 21:52 Dose: 100 mls/hr Ondansetron HCl (Zofran Inj) 4 mg IVP Q6 PRN PRN Reason: Nausea/Vomiting Last Admin: 09/08/17 00:08 Dose: 4 mg Oxybutynin Chloride (Ditropan Tab) 5 mg PO TID [facility] Last Admin: 09/10/17 14:26 Dose: 5 mg Sevelamer Carbonate (Renvela) 800 mg PO TIDCC [facility] Sodium Bicarbonate (Sodium Bicarbonate Tab) 1,300 mg PO TID [facility] Last Admin: 09/10/17 14:26 Dose: 1,300 mg Vitamin B Complex/Vit C/Folic Acid (Nephro-Edilberto) 1 tab PO 0800 [facility] - Labs Labs: 09/10/17 14:05 09/10/17 14:05 - Constitutional Appears: Non-toxic - Head Exam Head Exam: NORMAL INSPECTION - Eye Exam Eye Exam: Normal appearance Pupil Exam: NORMAL ACCOMODATION - ENT Exam ENT Exam: Normal Exam - Neck Exam Neck Exam: Full ROM - Respiratory Exam Respiratory Exam: Clear to Ausculation Bilateral - Cardiovascular Exam Cardiovascular Exam: REGULAR RHYTHM - GI/Abdominal Exam GI & Abdominal Exam: Normal Bowel Sounds - Rectal Exam Rectal Exam: NORMAL INSPECTION - Exam Exam: NORMAL INSPECTION - Back Exam Back Exam: NORMAL INSPECTION - Neurological Exam Neurological Exam: Oriented x3 - Psychiatric Exam Psychiatric exam: Normal Mood - Skin Skin Exam: Normal Color Assessment and Plan - Assessment and Plan (Free Text) Assessment: AC UTI KLEBSIELA INFECTION AC ON CHRONIC KINEY F Plan: PER ORDERS
--- NOTE | 2017-09-10 17:54 | CARD ---
APPROVED REPORT EKG Measurement Heart [id number] NM [id number] <Conclusion> Sinus bradycardia Otherwise normal ECG
--- NOTE | 2017-09-10 17:55 | CARD ---
APPROVED REPORT EKG Measurement Heart [id number] [place] [id number] [id number] <Conclusion> Normal sinus rhythm Minimal voltage criteria for LVH, may be normal variant Borderline ECG
[2017-09-10] MEDS: Bisacodyl 5mg EC Tab PO SCH (21:22)
[2017-09-10] MEDS: Cefepime IV 1 gm in Dextrose 1 GM/50 ML BAG IVPB SCH (21:23)
[2017-09-11 07:54] LABS: BASO # 0.1 K/uL (0.0-0.2); BASO % 1.2 % (0.0-2.0); EOS # 0.3 K/uL (0.0-0.7); EOS % 5.9 % (0.0-4.0); HEMOGLOBIN 10.2 g/dL (12.0-18.0); LYMPH # 1.7 K/uL (1.0-4.3); LYMPH % 32.7 % (20.0-40.0); MEAN CELL VOLUME 79.6 fL (80.0-94.0); MEAN CORPUSCULAR HEMOGLOBIN 27.8 pg (27.0-31.0); MEAN CORPUSCULAR HGB CONC 34.9 g/dL (33.0-37.0); MEAN PLATELET VOLUME 8.7 fL (7.2-11.7); MONO # 0.4 K/uL (0.0-0.8); MONO % 7.9 % (0.0-10.0); NEUT # 2.7 K/uL (1.8-7.0); NEUT % 52.3 % (50.0-75.0); NRBC % 0.1 % (0.0-2.0); RBC 3.65 Mil/uL (4.40-5.90); RED CELL DISTRIBUTION WIDTH 13.2 % (11.5-14.5); WHITE BLOOD COUNT 5.1 K/uL (4.8-10.8)
[2017-09-11 09:14] LABS: CALCIUM 9.1 mg/dl (8.6-10.4)
[2017-09-11] MEDS: Multivitamin Vitamin B Complex (Nephro-Vite) Tab PO SCH (09:33)
--- NOTE | 2017-09-11 12:24 | CP.PCM.PN ---
Subjective - Date & Time of Evaluation Date of Evaluation: 09/11/17 Time of Evaluation: 12:22 - Subjective Subjective: seen today with nephrology feels beter but creatini is worse will need perotineal dialysis explained to pt Objective - Vital Signs/Intake and Output Vital Signs (last 24 hours): Temp Pulse Resp BP Pulse Ox 98.0 F 62 20 129/78 97 09/11/17 08:53 09/11/17 08:53 09/11/17 08:53 09/11/17 08:53 09/11/17 08:53 Intake and Output: 09/11/17 09/11/17 06:59 18:59 Intake Total 1220 Output Total 3600 Balance -2380 - Medications Medications: Current Medications Acetaminophen (Tylenol 325mg Tab) 650 mg PO Q6H PRN PRN Reason: Pain, moderate (4-7) Last Admin: 09/08/17 09:06 Dose: 650 mg Amlodipine Besylate (Norvasc) 10 mg PO DAILY [facility] Last Admin: 09/11/17 09:29 Dose: 10 mg Bisacodyl (Dulcolax) 10 mg PO HS [facility] Last Admin: 09/10/17 21:22 Dose: 10 mg Calcitriol (Rocaltrol) 0.25 mcg PO TTS [facility] Last Admin: 09/11/17 09:29 Dose: 0.25 mcg Ferrous Gluconate (Fergon) 324 mg PO TID [facility] Last Admin: 09/11/17 09:40 Dose: 324 mg Cefepime HCl (Maxipime Iv 1 Gm Premix) 1 gm in 50 mls @ 100 mls/hr IVPB Q24H [facility] PRN Reason: Protocol Last Admin: 09/10/17 21:23 Dose: 100 mls/hr Ondansetron HCl (Zofran Inj) 4 mg IVP Q6 PRN PRN Reason: Nausea/Vomiting Last Admin: 09/10/17 18:14 Dose: 4 mg Oxybutynin Chloride (Ditropan Tab) 5 mg PO TID [facility] Last Admin: 09/11/17 09:40 Dose: 5 mg Sevelamer Carbonate (Renvela) 1,600 mg PO TIDCC [facility] Last Admin: 09/11/17 12:05 Dose: 1,600 mg Sodium Bicarbonate (Sodium Bicarbonate Tab) 1,300 mg PO TID [facility] Last Admin: 09/11/17 09:28 Dose: 1,300 mg Vitamin B Complex/Vit C/Folic Acid (Nephro-Edilberto) 1 tab PO 0800 [facility] Last Admin: 09/11/17 09:33 Dose: 1 tab - Labs Labs: 09/11/17 07:45 09/11/17 07:45 - Constitutional Appears: Non-toxic - Head Exam Head Exam: NORMAL INSPECTION - Eye Exam Eye Exam: Normal appearance Pupil Exam: NORMAL ACCOMODATION - ENT Exam ENT Exam: Mucous Membranes Moist - Neck Exam Neck Exam: Normal Inspection - Respiratory Exam Respiratory Exam: NORMAL BREATHING PATTERN - Cardiovascular Exam Cardiovascular Exam: REGULAR RHYTHM - GI/Abdominal Exam GI & Abdominal Exam: Normal Bowel Sounds - Extremities Exam Extremities Exam: Full ROM - Back Exam Back Exam: NORMAL INSPECTION - Neurological Exam Neurological Exam: Oriented x3 - Psychiatric Exam Psychiatric exam: Normal Affect Assessment and Plan - Assessment and Plan (Free Text) Assessment: ac uti klebseila ac on chronic renal failiur cont curent treatment Plan: as per orders
--- NOTE | 2017-09-11 12:50 | CP.PCM.PN ---
Subjective - Date & Time of Evaluation Date of Evaluation: 09/11/17 Time of Evaluation: 09:00 - Subjective Subjective: seen on rounds cultures reviewed Objective - Vital Signs/Intake and Output Vital Signs (last 24 hours): Temp Pulse Resp BP Pulse Ox 98.0 F 62 20 129/78 97 09/11/17 08:53 09/11/17 08:53 09/11/17 08:53 09/11/17 08:53 09/11/17 08:53 Intake and Output: 09/11/17 09/11/17 06:59 18:59 Intake Total 1220 Output Total 3600 Balance -2380 - Medications Medications: Current Medications Acetaminophen (Tylenol 325mg Tab) 650 mg PO Q6H PRN PRN Reason: Pain, moderate (4-7) Last Admin: 09/08/17 09:06 Dose: 650 mg Amlodipine Besylate (Norvasc) 10 mg PO DAILY [facility] Last Admin: 09/11/17 09:29 Dose: 10 mg Bisacodyl (Dulcolax) 10 mg PO HS [facility] Last Admin: 09/10/17 21:22 Dose: 10 mg Calcitriol (Rocaltrol) 0.25 mcg PO TTS [facility] Last Admin: 09/11/17 09:29 Dose: 0.25 mcg Ferrous Gluconate (Fergon) 324 mg PO TID [facility] Last Admin: 09/11/17 09:40 Dose: 324 mg Cefepime HCl (Maxipime Iv 1 Gm Premix) 1 gm in 50 mls @ 100 mls/hr IVPB Q24H [facility] PRN Reason: Protocol Last Admin: 09/10/17 21:23 Dose: 100 mls/hr Ondansetron HCl (Zofran Inj) 4 mg IVP Q6 PRN PRN Reason: Nausea/Vomiting Last Admin: 09/10/17 18:14 Dose: 4 mg Oxybutynin Chloride (Ditropan Tab) 5 mg PO TID [facility] Last Admin: 09/11/17 09:40 Dose: 5 mg Sevelamer Carbonate (Renvela) 1,600 mg PO TIDCC [facility] Last Admin: 09/11/17 12:05 Dose: 1,600 mg Sodium Bicarbonate (Sodium Bicarbonate Tab) 1,300 mg PO TID [facility] Last Admin: 09/11/17 09:28 Dose: 1,300 mg Vitamin B Complex/Vit C/Folic Acid (Nephro-Edilberto) 1 tab PO 0800 [facility] Last Admin: 09/11/17 09:33 Dose: 1 tab - Labs Labs: 09/11/17 07:45 09/11/17 07:45 - Constitutional Appears: Well - Head Exam Head Exam: ATRAUMATIC, NORMAL INSPECTION, NORMOCEPHALIC - Eye Exam Eye Exam: EOMI, Normal appearance, PERRL Pupil Exam: NORMAL ACCOMODATION, PERRL - ENT Exam ENT Exam: Mucous Membranes Moist, Normal Exam - Neck Exam Neck Exam: Full ROM, Normal Inspection. absent: Lymphadenopathy - Respiratory Exam Respiratory Exam: Clear to Ausculation Bilateral, NORMAL BREATHING PATTERN - Cardiovascular Exam Cardiovascular Exam: REGULAR RHYTHM, +S1, +S2. absent: Murmur - GI/Abdominal Exam GI & Abdominal Exam: Soft, Normal Bowel Sounds. absent: Tenderness - Rectal Exam Rectal Exam: NORMAL INSPECTION - Exam Exam: NORMAL INSPECTION - Extremities Exam Extremities Exam: Full ROM, Normal Capillary Refill, Normal Inspection. absent : Joint Swelling, Pedal Edema - Back Exam Back Exam: NORMAL INSPECTION - Neurological Exam Neurological Exam: Alert, Awake, CN II-XII Intact, Normal Gait, Oriented x3 - Psychiatric Exam Psychiatric exam: Normal Affect, Normal Mood - Skin Skin Exam: Dry, Intact, Normal Color, Warm Assessment and Plan (1) Spina bifida Status: Acute (2) Acute on chronic renal insufficiency Status: Acute (3) CKD (chronic kidney disease) Status: Acute (4) Urinary tract infection Status: Acute - Assessment and Plan (Free Text) Assessment: cont antibiotics
[2017-09-11 14:11] LABS: SQUAMOUS EPITHIAL < 1 /hpf (0-5); URINE BACTERIA RARE (<OCC)
[2017-09-11 14:18] LABS: URINE BILIRUBIN NEGATIVE (NEGATIVE); URINE CLARITY Hazy (Clear); URINE COLOR YELLOW (YELLOW); URINE GLUCOSE (UA) 100 mg/dL (Normal)
[2017-09-11 14:19] LABS: URINE BLOOD LARGE (NEGATIVE); URINE LEUKOCYTE ESTERASE MODERATE Leu/uL (Negative); URINE PROTEIN 100 mg/dL (NEGATIVE); URINE UROBILINOGEN 0.2 mg/dL (0.2-1.0)
--- NOTE | 2017-09-11 16:54 | CP.PCM.PN ---
Subjective - Date & Time of Evaluation Date of Evaluation: 09/11/17 Time of Evaluation: 16:52 - Subjective Subjective: Nephrology Consultation Note Assessment: Stable Chronic Kidney Disease (N18.5) Stage 5 with ? mg proteinuria (R80.9) likely due to chronic obstructive uropathy neurogenic bladder, hx of spina bifida Anemia (D64.9), Hyperphosphatemia (E83.39), Secondary Hyperparathyroidism (E21.1 ), HTN (I12.9), metabolic acidosis UTI Plan dialysis options d/w pt and he is interested in PD. once okay from ID perspective in regards to UTI treatment, surgery consult for PD catheter insertion. can be planned as outpt as well. will plan for PD initiation in next few weeks. written material about HD/PD provided to pt. repeat UA and urine cx. Hypertension control with meds as ordered. hold ACEI/ARB due to advanced renal insuff Monitor Input/Output, daily weights and renal function with basic metabolic panel added nephrovite, iron supplements, sodium bicarb 1300mg TID and phos binders calcitriol lowered to 3 times/week Check urine analysis, spot protein/creatinine and albumin/creatinine ratio Check for 25-OH vitamin D, iPTH, phosphorus level. Iron studies as TSAT, Ferritin. Check Hep B and Hep C serology Dose meds/antibiotics for reduced GFR. Avoid fleets enema/magnesium based laxatives. Avoid nephrotoxins/NSAIDs/ iodinated contrast (unless needed emergently) Glycemic control Further work up for as per primary team Thanks for allowing me to participate in care of your patient. Will follow patient with you. Please call if any Qs. had d/w team Dr Julio Perez Office: [phone] Subjective: Noted events overnight. Patients feels okay. Denies chest pain, palpitation, shortness of breath, leg swelling. All other negative. making plenty of urine. self intermittent catheterization at home every 3-4 hrs. 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 reports decreased appetite x 1 month, denies loss of weight Physical Examination: General Appearance: Comfortable, in no acute respiratory distress, co-operative . Vitals reviewed and noted as below Head; Atraumatic, normocephalic ENT: no ulcers no thrush. Tongue is midline. Oropharynx: no rash or ulcers. EYES: Pupils are equal, round and reactive to light accommodation. Eye muscles and extraocular movement intact. Sclera is anicteric. Neck; supple no lymphadenopathy, no thyromegaly or bruit Lungs: Normal respiratory rate/effort. Breath sounds bilateral equal and clear Heart: Normal rate. s1s2 normal. No rub or gallop. Extremities: no edema. No varicose veins Neurological: Patient is alert, awake and oriented to person, place and time. No focal deficit. Strength bilateral appropriate and equal Skin: Warm and dry. Normal turgor. No rash. Palpitation: Normal elasticity for age Abdomen: Abdomen is soft. Bowel sounds +. There is no abdominal tenderness, no guarding/rigidity no organomegaly Psych: normal insight and normal affect/mood MSK: no joint tenderness or swelling. Digits and nails normal, no deformity : kidney or bladder not palpable. has cardoza Labs/imaging reviewed. Past medical history, past surgical history, family history, social history, allergy reviewed and noted as below Family hx: no hx of CKD. Rest non-contributory renal imaging: b/l moderate to sever hydronephrosis Objective - Vital Signs/Intake and Output Vital Signs (last 24 hours): Temp Pulse Resp BP Pulse Ox 98.3 F 71 20 110/60 98 09/11/17 16:15 09/11/17 16:15 09/11/17 16:15 09/11/17 16:15 09/11/17 16:15 Intake and Output: 09/11/17 09/11/17 06:59 18:59 Intake Total 1220 660 Output Total 3600 1800 Balance -2380 -1140 - Medications Medications: Current Medications Acetaminophen (Tylenol 325mg Tab) 650 mg PO Q6H PRN PRN Reason: Pain, moderate (4-7) Last Admin: 09/08/17 09:06 Dose: 650 mg Amlodipine Besylate (Norvasc) 10 mg PO DAILY [facility] Last Admin: 09/11/17 09:29 Dose: 10 mg Bisacodyl (Dulcolax) 10 mg PO HS [facility] Last Admin: 09/10/17 21:22 Dose: 10 mg Calcitriol (Rocaltrol) 0.25 mcg PO TTS [facility] Last Admin: 09/11/17 09:29 Dose: 0.25 mcg Ferrous Gluconate (Fergon) 324 mg PO TID [facility] Last Admin: 09/11/17 13:30 Dose: 324 mg Cefepime HCl (Maxipime Iv 1 Gm Premix) 1 gm in 50 mls @ 100 mls/hr IVPB Q24H [facility] PRN Reason: Protocol Last Admin: 09/10/17 21:23 Dose: 100 mls/hr Ondansetron HCl (Zofran Inj) 4 mg IVP Q6 PRN PRN Reason: Nausea/Vomiting Last Admin: 09/10/17 18:14 Dose: 4 mg Oxybutynin Chloride (Ditropan Tab) 5 mg PO TID [facility] Last Admin: 09/11/17 13:29 Dose: 5 mg Sevelamer Carbonate (Renvela) 1,600 mg PO TIDCC [facility] Last Admin: 09/11/17 12:05 Dose: 1,600 mg Sodium Bicarbonate (Sodium Bicarbonate Tab) 1,300 mg PO TID [facility] Last Admin: 09/11/17 13:30 Dose: 1,300 mg Vitamin B Complex/Vit C/Folic Acid (Nephro-Edilberto) 1 tab PO 0800 [facility] Last Admin: 09/11/17 09:33 Dose: 1 tab - Labs Labs: 09/11/17 07:45 09/11/17 07:45
[2017-09-11] MEDS: Cefepime IV 1 gm in Dextrose 1 GM/50 ML BAG IVPB SCH (21:15)
[2017-09-11] MEDS: Bisacodyl 5mg EC Tab PO SCH (21:15)
[2017-09-12 08:03] LABS: URINE BACTERIA MOD (<OCC); URINE BILIRUBIN NEGATIVE (NEGATIVE); URINE BLOOD 2+ (NEGATIVE); URINE CLARITY Hazy (Clear); URINE COLOR Yellow (YELLOW); URINE GLUCOSE (UA) NORMAL (Normal); URINE LEUKOCYTE ESTERASE 3+ Leu/uL (Negative); URINE PROTEIN 2+ mg/dL (NEGATIVE); URINE UROBILINOGEN NORMAL mg/dL (0.2-1.0)
[2017-09-12 08:10] LABS: CALCIUM 9.3 mg/dl (8.6-10.4)
[2017-09-12] MEDS: Multivitamin Vitamin B Complex (Nephro-Vite) Tab PO SCH (08:11)
--- NOTE | 2017-09-12 10:33 | CP.PCM.PN ---
Subjective - Date & Time of Evaluation Date of Evaluation: 09/12/17 Time of Evaluation: 10:30 - Subjective Subjective: feels sharp chest pain l side increase with deep breath still has burning urin repeat ua still infection Objective - Vital Signs/Intake and Output Vital Signs (last 24 hours): Temp Pulse Resp BP Pulse Ox 97.9 F 72 20 100/64 98 09/12/17 07:00 09/12/17 07:00 09/12/17 07:00 09/12/17 07:00 09/12/17 07:00 Intake and Output: 09/12/17 09/12/17 06:59 18:59 Intake Total 100 Output Total 3750 Balance -3650 - Medications Medications: Current Medications Acetaminophen (Tylenol 325mg Tab) 650 mg PO Q6H PRN PRN Reason: Pain, moderate (4-7) Last Admin: 09/08/17 09:06 Dose: 650 mg Bisacodyl (Dulcolax) 10 mg PO HS [facility] Last Admin: 09/11/17 21:15 Dose: Not Given Calcitriol (Rocaltrol) 0.25 mcg PO TTS [facility] Last Admin: 09/11/17 09:29 Dose: 0.25 mcg Ferrous Gluconate (Fergon) 324 mg PO TID [facility] Last Admin: 09/12/17 09:59 Dose: 324 mg Cefepime HCl (Maxipime Iv 1 Gm Premix) 1 gm in 50 mls @ 100 mls/hr IVPB Q24H [facility] PRN Reason: Protocol Last Admin: 09/11/17 21:15 Dose: 100 mls/hr Ondansetron HCl (Zofran Inj) 4 mg IVP Q6 PRN PRN Reason: Nausea/Vomiting Last Admin: 09/10/17 18:14 Dose: 4 mg Oxybutynin Chloride (Ditropan Tab) 5 mg PO TID [facility] Last Admin: 09/12/17 09:59 Dose: 5 mg Sevelamer Carbonate (Renvela) 1,600 mg PO TIDCC [facility] Last Admin: 09/12/17 08:11 Dose: 1,600 mg Sodium Bicarbonate (Sodium Bicarbonate Tab) 1,300 mg PO TID [facility] Last Admin: 09/12/17 09:59 Dose: 1,300 mg Vitamin B Complex/Vit C/Folic Acid (Nephro-Edilberto) 1 tab PO 0800 [facility] Last Admin: 09/12/17 08:11 Dose: 1 tab - Labs Labs: 09/11/17 07:45 09/12/17 06:51 - Constitutional Appears: Non-toxic - Head Exam Head Exam: NORMAL INSPECTION - Eye Exam Eye Exam: Normal appearance Pupil Exam: NORMAL ACCOMODATION - ENT Exam ENT Exam: Mucous Membranes Moist - Neck Exam Neck Exam: Full ROM - Respiratory Exam Respiratory Exam: Decreased Breath Sounds - Cardiovascular Exam Cardiovascular Exam: REGULAR RHYTHM - GI/Abdominal Exam GI & Abdominal Exam: Soft - Extremities Exam Extremities Exam: Full ROM - Back Exam Back Exam: NORMAL INSPECTION - Neurological Exam Neurological Exam: Normal Gait, Oriented x3 - Psychiatric Exam Psychiatric exam: Normal Affect - Skin Skin Exam: Normal Color Assessment and Plan - Assessment and Plan (Free Text) Assessment: uti klebsiela infection spina bifida real failiur cont current treatment
--- NOTE | 2017-09-12 12:18 | CP.PCM.PN ---
Subjective - Date & Time of Evaluation Date of Evaluation: 09/12/17 Time of Evaluation: 12:17 - Subjective Subjective: Nephrology Consultation Note Assessment: Stable Chronic Kidney Disease (N18.5) Stage 5 with ? mg proteinuria (R80.9) likely due to chronic obstructive uropathy neurogenic bladder, hx of spina bifida Anemia (D64.9), Hyperphosphatemia (E83.39), Secondary Hyperparathyroidism (E21.1 ), HTN (I12.9), metabolic acidosis UTI Plan dialysis options d/w pt and he is interested in PD. once okay from ID perspective in regards to UTI treatment, surgery consult for PD catheter insertion. can be planned as outpt as well. will plan for PD initiation in next few weeks. written material about HD/PD provided to pt. Hypertension control with meds as ordered. hold ACEI/ARB due to advanced renal insuff.d/c norvasc as well Monitor Input/Output, daily weights and renal function with basic metabolic panel added nephrovite, iron supplements, sodium bicarb 1300mg TID and phos binders calcitriol lowered to 3 times/week Check urine analysis, spot protein/creatinine and albumin/creatinine ratio Dose meds/antibiotics for reduced GFR. Avoid fleets enema/magnesium based laxatives. Avoid nephrotoxins/NSAIDs/ iodinated contrast (unless needed emergently) Glycemic control Further work up for as per primary team Thanks for allowing me to participate in care of your patient. Will follow patient with you. Please call if any Qs. had d/w team Dr Julio Perez Office: [phone] Subjective: Noted events overnight. Patients feels okay. Denies chest pain, palpitation, shortness of breath, leg swelling. All other negative. making plenty of urine. self intermittent catheterization at home every 3-4 hrs. 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 reports decreased appetite x 1 month, denies loss of weight. feels appetite better except AM nausea. able to eat 3 meals/day Physical Examination: General Appearance: Comfortable, in no acute respiratory distress, co-operative . Vitals reviewed and noted as below Head; Atraumatic, normocephalic ENT: no ulcers no thrush. Tongue is midline. Oropharynx: no rash or ulcers. EYES: Pupils are equal, round and reactive to light accommodation. Eye muscles and extraocular movement intact. Sclera is anicteric. Neck; supple no lymphadenopathy, no thyromegaly or bruit Lungs: Normal respiratory rate/effort. Breath sounds bilateral equal and clear Heart: Normal rate. s1s2 normal. No rub or gallop. Extremities: no edema. No varicose veins Neurological: Patient is alert, awake and oriented to person, place and time. No focal deficit. Strength bilateral appropriate and equal Skin: Warm and dry. Normal turgor. No rash. Palpitation: Normal elasticity for age Abdomen: Abdomen is soft. Bowel sounds +. There is no abdominal tenderness, no guarding/rigidity no organomegaly Psych: normal insight and normal affect/mood MSK: no joint tenderness or swelling. Digits and nails normal, no deformity : kidney or bladder not palpable. has cardoza Labs/imaging reviewed. Past medical history, past surgical history, family history, social history, allergy reviewed and noted as below Family hx: no hx of CKD. Rest non-contributory renal imaging: b/l moderate to sever hydronephrosis Objective - Vital Signs/Intake and Output Vital Signs (last 24 hours): Temp Pulse Resp BP Pulse Ox 97.9 F 72 20 100/64 98 09/12/17 07:00 09/12/17 07:00 09/12/17 07:00 09/12/17 07:00 09/12/17 07:00 Intake and Output: 09/12/17 09/12/17 06:59 18:59 Intake Total 100 Output Total 3750 Balance -3650 - Medications Medications: Current Medications Acetaminophen (Tylenol 325mg Tab) 650 mg PO Q6H PRN PRN Reason: Pain, moderate (4-7) Last Admin: 09/08/17 09:06 Dose: 650 mg Bisacodyl (Dulcolax) 10 mg PO HS [facility] Last Admin: 09/11/17 21:15 Dose: Not Given Calcitriol (Rocaltrol) 0.25 mcg PO TTS [facility] Last Admin: 09/11/17 09:29 Dose: 0.25 mcg Ferrous Gluconate (Fergon) 324 mg PO TID [facility] Last Admin: 09/12/17 09:59 Dose: 324 mg Cefepime HCl (Maxipime Iv 1 Gm Premix) 1 gm in 50 mls @ 100 mls/hr IVPB Q24H [facility] PRN Reason: Protocol Last Admin: 09/11/17 21:15 Dose: 100 mls/hr Ondansetron HCl (Zofran Inj) 4 mg IVP Q6 PRN PRN Reason: Nausea/Vomiting Last Admin: 09/10/17 18:14 Dose: 4 mg Oxybutynin Chloride (Ditropan Tab) 5 mg PO TID [facility] Last Admin: 09/12/17 09:59 Dose: 5 mg Sevelamer Carbonate (Renvela) 1,600 mg PO TIDCC [facility] Last Admin: 09/12/17 08:11 Dose: 1,600 mg Sodium Bicarbonate (Sodium Bicarbonate Tab) 1,300 mg PO TID [facility] Last Admin: 09/12/17 09:59 Dose: 1,300 mg Vitamin B Complex/Vit C/Folic Acid (Nephro-Edilberto) 1 tab PO 0800 [facility] Last Admin: 09/12/17 08:11 Dose: 1 tab - Labs Labs: 09/11/17 07:45 09/12/17 06:51
[2017-09-12] MEDS: Bisacodyl 5mg EC Tab PO SCH (21:39)
[2017-09-12] MEDS: Cefepime IV 1 gm in Dextrose 1 GM/50 ML BAG IVPB SCH (21:39)
[2017-09-13] MEDS: Multivitamin Vitamin B Complex (Nephro-Vite) Tab PO SCH (08:12)
--- NOTE | 2017-09-13 11:36 | CP.PCM.PN ---
Subjective - Date & Time of Evaluation Date of Evaluation: 09/13/17 Time of Evaluation: 11:34 - Subjective Subjective: Nephrology Consultation Note Assessment: Stable Chronic Kidney Disease (N18.5) Stage 5 with 3 gm proteinuria (R80.9) likely due to chronic obstructive uropathy neurogenic bladder, hx of spina bifida Anemia (D64.9), Hyperphosphatemia (E83.39), Secondary Hyperparathyroidism (E21.1 ), HTN (I12.9), metabolic acidosis UTI Plan dialysis options d/w pt and he is interested in PD. urine cx negative, surgery consult for PD catheter insertion if able to do before d/c otherwise can be planned as outpt as well. will plan for PD initiation in next few weeks. written material about HD/PD provided to pt. he has no further questions on PD. he is motivated and willing to do PD. Hypertension control with meds as ordered. hold ACEI/ARB due to advanced renal insuff.d/c norvasc as well Monitor Input/Output, daily weights and renal function with basic metabolic panel added nephrovite, iron supplements, sodium bicarb 1300mg TID and phos binders calcitriol lowered to 3 times/week Dose meds/antibiotics for reduced GFR. Avoid fleets enema/magnesium based laxatives. Avoid nephrotoxins/NSAIDs/ iodinated contrast (unless needed emergently) Glycemic control Further work up for as per primary team Thanks for allowing me to participate in care of your patient. Will follow patient with you. Please call if any Qs. had d/w team Dr Julio Perez Office: [phone] Subjective: Noted events overnight. Patients feels okay. Denies chest pain, palpitation, shortness of breath, leg swelling. All other negative. making plenty of urine. self intermittent catheterization at home every 3-4 hrs. 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 reports decreased appetite x 1 month, denies loss of weight. feels appetite better except AM nausea. able to eat 3 meals/day Physical Examination: General Appearance: Comfortable, in no acute respiratory distress, co-operative . Vitals reviewed and noted as below Head; Atraumatic, normocephalic ENT: no ulcers no thrush. Tongue is midline. Oropharynx: no rash or ulcers. EYES: Pupils are equal, round and reactive to light accommodation. Eye muscles and extraocular movement intact. Sclera is anicteric. Neck; supple no lymphadenopathy, no thyromegaly or bruit Lungs: Normal respiratory rate/effort. Breath sounds bilateral equal and clear Heart: Normal rate. s1s2 normal. No rub or gallop. Extremities: no edema. No varicose veins Neurological: Patient is alert, awake and oriented to person, place and time. No focal deficit. Strength bilateral appropriate and equal Skin: Warm and dry. Normal turgor. No rash. Palpitation: Normal elasticity for age Abdomen: Abdomen is soft. Bowel sounds +. There is no abdominal tenderness, no guarding/rigidity no organomegaly Psych: normal insight and normal affect/mood MSK: no joint tenderness or swelling. Digits and nails normal, no deformity : kidney or bladder not palpable. has cardoza Labs/imaging reviewed. Past medical history, past surgical history, family history, social history, allergy reviewed and noted as below Family hx: no hx of CKD. Rest non-contributory renal imaging: b/l moderate to sever hydronephrosis Objective - Vital Signs/Intake and Output Vital Signs (last 24 hours): Temp Pulse Resp BP Pulse Ox 98.0 F 59 L 20 126/80 100 09/13/17 07:55 09/13/17 07:55 09/13/17 07:55 09/13/17 07:55 09/13/17 07:55 Intake and Output: 09/13/17 09/13/17 06:59 18:59 Output Total 3950 Balance -3950 - Medications Medications: Current Medications Acetaminophen (Tylenol 325mg Tab) 650 mg PO Q6H PRN PRN Reason: Pain, moderate (4-7) Last Admin: 09/08/17 09:06 Dose: 650 mg Bisacodyl (Dulcolax) 10 mg PO HS [facility] Last Admin: 09/12/17 21:39 Dose: Not Given Calcitriol (Rocaltrol) 0.25 mcg PO TTS [facility] Last Admin: 09/13/17 09:34 Dose: 0.25 mcg Ferrous Gluconate (Fergon) 324 mg PO TID [facility] Last Admin: 09/13/17 09:34 Dose: 324 mg Cefepime HCl (Maxipime Iv 1 Gm Premix) 1 gm in 50 mls @ 100 mls/hr IVPB Q24H [facility] PRN Reason: Protocol Last Admin: 09/12/17 21:39 Dose: 100 mls/hr Ondansetron HCl (Zofran Inj) 4 mg IVP Q6 PRN PRN Reason: Nausea/Vomiting Last Admin: 09/13/17 08:12 Dose: 4 mg Oxybutynin Chloride (Ditropan Tab) 5 mg PO TID [facility] Last Admin: 09/13/17 09:34 Dose: 5 mg Sevelamer Carbonate (Renvela) 1,600 mg PO TIDCC [facility] Last Admin: 09/13/17 08:12 Dose: 1,600 mg Sodium Bicarbonate (Sodium Bicarbonate Tab) 1,300 mg PO TID [facility] Last Admin: 09/13/17 09:34 Dose: 1,300 mg Vitamin B Complex/Vit C/Folic Acid (Nephro-Edilberto) 1 tab PO 0800 [facility] Last Admin: 09/13/17 08:12 Dose: 1 tab - Labs Labs: 09/11/17 07:45 09/12/17 06:51
--- NOTE | 2017-09-13 13:20 | CP.PCM.CON ---
<Adán Cope - Last Filed: 09/13/17 13:34> History of Present Illness - History of Present Illness History of Present Illness: General Surgery Consult Note for Dr. Michael CC: heart palpitations, chest pain, and SOB 22M patient with PMHx of spina bifida and chronic kidney disease presents to [facility] with heart palpitations, chest pain and SOB. Patient states chest pain began last sunday (09/06/17). Pain is described as sharp, waxing and waning, and 1/10 on pain scale. Pain is localized to the Left 5th rib- mid-axillary and does not radiate. Pain worsens with deep inspiration and is relieved with the blood pressure medicine administered at the hospital. General surgery consulted for peritoneal dialysis catheter insertion. At time of examination patient denied chest pain, SOB, abdominal pain, n/v/d. 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 Fam Hx: Father- diabetes, hernia sx, and pacemaker. Mother- high BP, Aunt ( father's side)-kidney failure. Hospitalizations: pneumonia 2016 at [facility] Meds: see MAR Review of Systems - Review of Systems Review of Systems: 12 pt ROS unremarkable, except as stated in HPI Past Patient History - Infectious Disease Hx of Infectious Diseases: None - Past Medical History & Family History Past Medical History?: Yes - Past Social History Smoking Status: Never Smoked - CARDIAC Hx Cardiac Disorders: Yes Hx Hypertension: Yes - PULMONARY Hx Respiratory Disorders: Yes Hx Pneumonia: Yes - NEUROLOGICAL Hx Neurological Disorder: Yes (SEE COMMENT) Other/Comment: Spina Bifida, Tethered Spinal Cord - HEENT Hx HEENT Problems: No - RENAL Hx Chronic Kidney Disease: Yes - ENDOCRINE/METABOLIC Hx Endocrine Disorders: No - HEMATOLOGICAL/ONCOLOGICAL Hx Blood Disorders: No - INTEGUMENTARY Hx Dermatological Problems: No - MUSCULOSKELETAL/RHEUMATOLOGICAL Hx Musculoskeletal Disorders: No Hx Falls: No - GASTROINTESTINAL Hx Gastrointestinal Disorders: No - GENITOURINARY/GYNECOLOGICAL Hx Genitourinary Disorders: Yes Hx Urinary Tract Infection: Yes Other/Comment: SELF CATHETERIZE - PSYCHIATRIC Hx Psychophysiologic Disorder: No Hx Substance Use: No - SURGICAL HISTORY Hx Surgeries: Yes Other/Comment: Spinal cord repair - ANESTHESIA Hx Anesthesia: Yes Hx Anesthesia Reactions: No Meds Allergies/Adverse Reactions: Allergies Allergy/AdvReac Type Severity Reaction Status Date / Time No Known Allergies Allergy Verified 09/07/17 08:06 - Medications Medications: Current Medications Acetaminophen (Tylenol 325mg Tab) 650 mg PO Q6H PRN PRN Reason: Pain, moderate (4-7) Last Admin: 09/08/17 09:06 Dose: 650 mg Bisacodyl (Dulcolax) 10 mg PO HS [facility] Last Admin: 09/12/17 21:39 Dose: Not Given Calcitriol (Rocaltrol) 0.25 mcg PO TTS [facility] Last Admin: 09/13/17 09:34 Dose: 0.25 mcg Ferrous Gluconate (Fergon) 324 mg PO TID [facility] Last Admin: 09/13/17 13:13 Dose: 324 mg Cefepime HCl (Maxipime Iv 1 Gm Premix) 1 gm in 50 mls @ 100 mls/hr IVPB Q24H [facility] PRN Reason: Protocol Last Admin: 09/12/17 21:39 Dose: 100 mls/hr Ondansetron HCl (Zofran Inj) 4 mg IVP Q6 PRN PRN Reason: Nausea/Vomiting Last Admin: 09/13/17 08:12 Dose: 4 mg Oxybutynin Chloride (Ditropan Tab) 5 mg PO TID [facility] Last Admin: 09/13/17 13:13 Dose: 5 mg Sevelamer Carbonate (Renvela) 1,600 mg PO TIDCC [facility] Last Admin: 09/13/17 11:49 Dose: 1,600 mg Sodium Bicarbonate (Sodium Bicarbonate Tab) 1,300 mg PO TID [facility] Last Admin: 09/13/17 13:13 Dose: 1,300 mg Vitamin B Complex/Vit C/Folic Acid (Nephro-Edilberto) 1 tab PO 0800 [facility] Last Admin: 09/13/17 08:12 Dose: 1 tab Physical Exam - Constitutional Appears: Non-toxic, No Acute Distress - Head Exam Head Exam: NORMOCEPHALIC - Eye Exam Eye Exam: Normal appearance - ENT Exam ENT Exam: Mucous Membranes Moist - Respiratory Exam Respiratory Exam: NORMAL BREATHING PATTERN - Cardiovascular Exam Cardiovascular Exam: +S1, +S2 - GI/Abdominal Exam GI & Abdominal Exam: Soft. absent: Distended, Firm, Guarding, Rigid, Tenderness - Neurological Exam Neurological exam: Alert, Oriented x3 - Psychiatric Exam Psychiatric exam: Normal Mood - Skin Skin Exam: Dry, Intact, Warm Results - Vital Signs Recent Vital Signs: Last Vital Signs Temp 98.0 F 09/13/17 07:55 Pulse 59 L 09/13/17 07:55 Resp 20 09/13/17 07:55 BP 126/80 09/13/17 07:55 Pulse Ox 100 09/13/17 07:55 - Labs Result Diagrams: 09/11/17 07:45 09/12/17 06:51 Assessment & Plan - Assessment and Plan (Free Text) Assessment: 22M with CKD Plan: Will plan for peritoneal dialysis catheter insertion on Sunday09/17/2017 Keep NPO p MN on 09/16/2017 F/u labs Hold anti-coagulation prior to surgery D/w Dr. Fernanda Nick PGY3 <Michael Michael B - Last Filed: 09/13/17 21:10> Results - Vital Signs Recent Vital Signs: Last Vital Signs Temp 97.4 F L 09/13/17 15:31 Pulse 64 09/13/17 15:31 Resp 18 09/13/17 15:31 BP 112/71 09/13/17 15:31 Pulse Ox 99 09/13/17 15:31 - Labs Result Diagrams: 09/11/17 07:45 09/12/17 06:51 Attending/Attestation - Attestation I have personally seen and examined this patient.: Yes I have fully participated in the care of the patient.: Yes I have reviewed all pertinent clinical information: Yes Notes (Text): Pt was seen and examined at bedside Agree with above note and assessment Pt with ESRD and UTI Abdomen : Soft, NT, ND Labs and radiology reviewed Ass: ESRD, UTI Plan: Elective Lap Peritoneal Dialysis catheter placement C.w current mx OR on Sunday Consent Plan d.w pt in detail Risk and benefit explained in detail.
[2017-09-13 16:34] VITALS: BP 112/71; PULSE 64; RESP 18; TEMP 97.4; O2SAT 99
--- NOTE | 2017-09-13 18:04 | CP.PCM.PN ---
Subjective - Date & Time of Evaluation Date of Evaluation: 09/13/17 Time of Evaluation: 18:01 - Subjective Subjective: pt feels beter vss lung cleare [id number] abd soft urin culture neg seen by steffanie for abdominal acsis for dialysis Objective - Vital Signs/Intake and Output Vital Signs (last 24 hours): Temp Pulse Resp BP Pulse Ox 97.4 F L 64 18 112/71 99 09/13/17 15:31 09/13/17 15:31 09/13/17 15:31 09/13/17 15:31 09/13/17 15:31 Intake and Output: 09/13/17 09/13/17 06:59 18:59 Intake Total 400 Output Total 3950 1700 Balance -3950 -1300 - Medications Medications: Current Medications Acetaminophen (Tylenol 325mg Tab) 650 mg PO Q6H PRN PRN Reason: Pain, moderate (4-7) Last Admin: 09/08/17 09:06 Dose: 650 mg Bisacodyl (Dulcolax) 10 mg PO HS [facility] Last Admin: 09/12/17 21:39 Dose: Not Given Calcitriol (Rocaltrol) 0.25 mcg PO TTS [facility] Last Admin: 09/13/17 09:34 Dose: 0.25 mcg Ferrous Gluconate (Fergon) 324 mg PO TID [facility] Last Admin: 09/13/17 17:37 Dose: 324 mg Cefepime HCl (Maxipime Iv 1 Gm Premix) 1 gm in 50 mls @ 100 mls/hr IVPB Q24H [facility] PRN Reason: Protocol Last Admin: 09/12/17 21:39 Dose: 100 mls/hr Ondansetron HCl (Zofran Inj) 4 mg IVP Q6 PRN PRN Reason: Nausea/Vomiting Last Admin: 09/13/17 08:12 Dose: 4 mg Oxybutynin Chloride (Ditropan Tab) 5 mg PO TID [facility] Last Admin: 09/13/17 17:37 Dose: 5 mg Sevelamer Carbonate (Renvela) 1,600 mg PO TIDCC [facility] Last Admin: 09/13/17 17:37 Dose: 1,600 mg Sodium Bicarbonate (Sodium Bicarbonate Tab) 1,300 mg PO TID [facility] Last Admin: 09/13/17 17:37 Dose: 1,300 mg Vitamin B Complex/Vit C/Folic Acid (Nephro-Edilberto) 1 tab PO 0800 [facility] Last Admin: 09/13/17 08:12 Dose: 1 tab - Labs Labs: 09/11/17 07:45 09/12/17 06:51 - Constitutional Appears: Non-toxic - Head Exam Head Exam: NORMAL INSPECTION - Eye Exam Eye Exam: Normal appearance Pupil Exam: NORMAL ACCOMODATION - ENT Exam ENT Exam: Normal Exam - Neck Exam Neck Exam: Normal Inspection - Respiratory Exam Respiratory Exam: Clear to Ausculation Bilateral - Cardiovascular Exam Cardiovascular Exam: REGULAR RHYTHM - GI/Abdominal Exam GI & Abdominal Exam: Normal Bowel Sounds - Rectal Exam Rectal Exam: NORMAL INSPECTION - Exam Exam: NORMAL INSPECTION External exam: NORMAL EXTERNAL EXAM - Extremities Exam Extremities Exam: Normal Capillary Refill - Back Exam Back Exam: NORMAL INSPECTION - Neurological Exam Neurological Exam: Normal Gait, Oriented x3 - Psychiatric Exam Psychiatric exam: Normal Affect - Skin Skin Exam: Normal Color Assessment and Plan - Assessment and Plan (Free Text) Assessment: ac uti improved ac on crf will need dialysis spina bifida Plan: will d/c home today to see steffanie on sunday
--- NOTE | 2017-09-13 18:04 | CP.PCM.PN ---
Subjective - Date & Time of Evaluation Date of Evaluation: 09/13/17 Time of Evaluation: 09:00 - Subjective Subjective: events noted cultures repeated will need dialysis - options discussed Objective - Vital Signs/Intake and Output Vital Signs (last 24 hours): Temp Pulse Resp BP Pulse Ox 97.4 F L 64 18 112/71 99 09/13/17 15:31 09/13/17 15:31 09/13/17 15:31 09/13/17 15:31 09/13/17 15:31 Intake and Output: 09/13/17 09/13/17 06:59 18:59 Intake Total 400 Output Total 3950 1700 Balance -3950 -1300 - Medications Medications: Current Medications Acetaminophen (Tylenol 325mg Tab) 650 mg PO Q6H PRN PRN Reason: Pain, moderate (4-7) Last Admin: 09/08/17 09:06 Dose: 650 mg Bisacodyl (Dulcolax) 10 mg PO HS [facility] Last Admin: 09/12/17 21:39 Dose: Not Given Calcitriol (Rocaltrol) 0.25 mcg PO TTS [facility] Last Admin: 09/13/17 09:34 Dose: 0.25 mcg Ferrous Gluconate (Fergon) 324 mg PO TID [facility] Last Admin: 09/13/17 17:37 Dose: 324 mg Cefepime HCl (Maxipime Iv 1 Gm Premix) 1 gm in 50 mls @ 100 mls/hr IVPB Q24H [facility] PRN Reason: Protocol Last Admin: 09/12/17 21:39 Dose: 100 mls/hr Ondansetron HCl (Zofran Inj) 4 mg IVP Q6 PRN PRN Reason: Nausea/Vomiting Last Admin: 09/13/17 08:12 Dose: 4 mg Oxybutynin Chloride (Ditropan Tab) 5 mg PO TID [facility] Last Admin: 09/13/17 17:37 Dose: 5 mg Sevelamer Carbonate (Renvela) 1,600 mg PO TIDCC [facility] Last Admin: 09/13/17 17:37 Dose: 1,600 mg Sodium Bicarbonate (Sodium Bicarbonate Tab) 1,300 mg PO TID [facility] Last Admin: 09/13/17 17:37 Dose: 1,300 mg Vitamin B Complex/Vit C/Folic Acid (Nephro-Edilberto) 1 tab PO 0800 [facility] Last Admin: 09/13/17 08:12 Dose: 1 tab - Labs Labs: 09/11/17 07:45 09/12/17 06:51 - Constitutional Appears: Non-toxic, Chronically Ill - Head Exam Head Exam: NORMOCEPHALIC - Eye Exam Eye Exam: PERRL - ENT Exam ENT Exam: Mucous Membranes Dry - Neck Exam Neck Exam: absent: Lymphadenopathy - Respiratory Exam Respiratory Exam: Decreased Breath Sounds - Cardiovascular Exam Cardiovascular Exam: REGULAR RHYTHM - GI/Abdominal Exam GI & Abdominal Exam: Distended - Rectal Exam Rectal Exam: Deferred - Exam Exam: NORMAL INSPECTION - Extremities Exam Extremities Exam: absent: Pedal Edema - Back Exam Back Exam: absent: CVA tenderness (L), CVA tenderness (R) - Neurological Exam Neurological Exam: Alert, Awake, Oriented x3 Assessment and Plan (1) Spina bifida Status: Acute (2) Acute on chronic renal insufficiency Status: Acute (3) CKD (chronic kidney disease) Status: Acute (4) Urinary tract infection Status: Acute - Assessment and Plan (Free Text) Assessment: cont iv then po antibiotics
== END 2017-09-13 19:11 | disposition home or self-care (01) | DRG 316 ==
LOC: C.ER 07:53 → C.9E 09:40 → C.6T 10:07
PROVIDERS: ADMIT Internal Medicine; ATTEND Internal Medicine
DX: N17.9 Acute kidney failure, unspecified (principal); N39.0 Urinary tract infection, site not specified; Q05.9 Spina bifida, unspecified; I12.0 Hypertensive chronic kidney disease with stage 5 chronic kidney disease or end stage renal disease; N31.9 Neuromuscular dysfunction of bladder, unspecified; E87.2 Acidosis; N18.5 Chronic kidney disease, stage 5; N25.81 Secondary hyperparathyroidism of renal origin; E83.39 Other disorders of phosphorus metabolism; N13.30 Unspecified hydronephrosis; D64.9 Anemia, unspecified; Z87.440 Personal history of urinary (tract) infections; Z87.01 Personal history of pneumonia (recurrent); Z83.3 Family history of diabetes mellitus

== ENCOUNTER 2017-09-17 09:39 | Day surgery (SDC) | payer MEDICAID ==
[2017-09-17 11:22] LABS: CALCIUM 9.5 mg/dl (8.6-10.4)
[2017-09-17] MEDS ORDERED: Lidocaine/Epinephrine 1% 1:100000 10 ML IJ ONE (16:34)
[2017-09-17] MEDS ORDERED: ceFAZolin IV 1 gm in Dextrose 2 GM/100 ML BAG IVPB ONE (16:34)
[2017-09-17] MEDS ORDERED: Bupivacaine 0.25% 20 ML INJ IJ ONE (16:34)
[2017-09-17] MEDS ORDERED: Midazolam 2 MG/2 ML VIAL ONE (16:55)
[2017-09-17] MEDS ORDERED: Succinylcholine Chloride 20 mg/ml Syr (5 ml) IV ONE (16:56)
[2017-09-17] MEDS ORDERED: Propofol 10 mg/ml Inj (20 ML) ONE ×2 (16:56→17:18)
[2017-09-17] MEDS ORDERED: Rocuronium 10 mg/ml (5 ml) ONE (16:56)
[2017-09-17] MEDS ORDERED: Neostigmine Methylsulfate 3mg/3ml Syringe IV ONE (17:51)
[2017-09-17] MEDS ORDERED: HYDROmorphone 0.5 mg/0.5 ml ISec IVP ONE (18:15)
[2017-09-17] MEDS: HYDROmorphone 0.5 mg/0.5 ml ISec IVP PRN ×3 (18:33→19:14)
[2017-09-17 19:04] VITALS: O2SAT 99
[2017-09-17] MEDS ORDERED: HYDROmorphone 0.5 mg/0.5 ml ISec IVP PRN (19:54)
[2017-09-17] MEDS ORDERED: HYDROmorphone 1 mg/ml ISec IVP STA (19:55)
[2017-09-17] MEDS ORDERED: HYDROmorphone 1 mg/ml ISec ONE (19:56)
[2017-09-17] MEDS ORDERED: Oxycodone/Acetaminophen 5/325 mg Tab PO PRN (19:58)
--- NOTE | 2017-09-17 20:10 | PCM.SURG1 ---
Surgeon's Initial Post Op Note - Surgeon's Notes Surgeon: Dr. Michael Plastic Surgery Manager: Dr. Cope PGY3 Type of Anesthesia: General Endo Pre-Operative Diagnosis: ESRD Operative Findings: see operative report Post-Operative Diagnosis: see operative report Operation Performed: pertioneal dialysis catheter insertion. omentopexy Specimen/Specimens Removed: none Estimated Blood Loss: EBL {In ML}: 30 Blood Products Given: N/A Drains Used: No Drains Post-Op Condition: Good Date of Surgery/Procedure: 09/17/17 Time of Surgery/Procedure: 16:30
[2017-09-17 21:09] VITALS: BP 151/105; PULSE 76; RESP 6; TEMP 98.4
--- NOTE | 2017-09-18 21:41 | OP ---
PROCEDURE DATE: 09/17/2017 PREOPERATIVE DIAGNOSES: 1. End-stage renal disease. 2. Spina bifida. POSTOPERATIVE DIAGNOSES: 1. End-stage renal disease. 2. Spina bifida. PROCEDURES DONE: 1. Laparoscopic peritoneal dialysis catheter placement. 2. Laparoscopic omentopexy. SURGEON: Michael Michael MD. ASSISTANTS: ÓSCAR Machado and Adán Cope, PGY-2 resident. TYPE OF ANESTHESIA: General endotracheal tube anesthesia. ESTIMATED BLOOD LOSS: Around 10 mL. DRAIN: The peritoneal catheter was placed to gravity drain. PATHOLOGY: None. COMPLICATIONS: None. INTRAOPERATIVE FINDINGS: The patient had very thin omentum, and there was no abnormality detected in the abdomen. INTRAOPERATIVE STEPS: The 22-year-old male who was diagnosed with end-stage renal disease and the patient needed home dialysis because the patient is in college. The patient was consented for laparoscopic peritoneal dialysis catheter placement, brought to the OR, placed supine on the operating table. After induction of the anesthesia, the abdomen was prepped and draped in the usual sterile fashion. The right upper quadrant incision was made after incising the skin, subcutaneous tissue, and the fascia. The peritoneal cavity was entered. Pneumo was created. Another two 5 mm port was placed in the right upper quadrant and right flank and now the incision was made in the left upper quadrant and 8 mm port was placed tangentially. The catheter was turned over to make sure both cushions of the catheter stay in the fascial level and the catheter was situated in the pelvis. The pelvic fixation suture was taken with 2-0 Prolene to prevent the movement of the pelvis and now the omentum was very thin and omentum was taken in the upper part of the abdomen and sutured with anterior abdominal wall with the transfascial fixation, and after proper hemostasis, all the ports were taken under vision. Pneumo was deflated. Now the catheter at the subcutaneous level was tunneled again to bring out from the fresh small incision, and port site was closed at all the port site with 2-0 Vicryl and skin with 4-0 Monocryl. The catheter was fixed to the subcu at the 8 mm port site with 2-0 silk suture and dry sterile dressing was applied. The patient tolerated the procedure well. Count of the instrument and gauze was correct. There was no apparent complication. The patient was extubated in the OR and sent to the postanesthesia care unit in stable condition. Michael Michael MD
== END 2017-09-17 20:55 | disposition home or self-care (01) ==
LOC: C.SDS 09:39
PROVIDERS: ATTEND Surgery Surgical Critical Care
DX: N18.6 End stage renal disease (principal); Q05.9 Spina bifida, unspecified
CPT/HCPCS: 36415; 49324; 49326; 80048; J0690; J1170; J2001; J2250; J2405; J2704; J2710; J3010; J7040

== ENCOUNTER 2017-10-01 12:26 | Inpatient (IN) | payer MEDICAID ==
[2017-10-01 12:36] VITALS: BMI 25.5
[2017-10-01] MEDS ORDERED: Sodium Chloride 0.9% 500 ML IV ONE ×2 (13:13→13:25)
[2017-10-01] MEDS ORDERED: Morphine 4 MG/ML VIAL ONE (13:25)
[2017-10-01 13:47] LABS: BASO % 0.3 % (0.0-2.0); EOS % 0.7 % (0.0-4.0); HEMOGLOBIN 10.9 g/dL (12.0-18.0); LYMPH % 14.6 % (20.0-40.0); MEAN CELL VOLUME 79.8 fL (80.0-94.0); MEAN CORPUSCULAR HEMOGLOBIN 27.7 pg (27.0-31.0); MEAN CORPUSCULAR HGB CONC 34.7 g/dL (33.0-37.0); MEAN PLATELET VOLUME 8.3 fL (7.2-11.7); MONO # 0.4 K/uL (0.0-0.8); MONO % 6.2 % (0.0-10.0); NEUT # 5.5 K/uL (1.8-7.0); NEUT % 78.2 % (50.0-75.0); NRBC % 0.1 % (0.0-2.0); RBC 3.93 Mil/uL (4.40-5.90)
--- NOTE | 2017-10-01 13:47 | RAD ---
Date of service: 10/01/2017 PROCEDURE: Radiographs of the chest and abdomen (obstructive series) HISTORY: abd pain COMPARISON: Correlations made to CT scan of the abdomen pelvis dated 11/27/2015. TECHNIQUE: AP radiograph of the chest, with upright and supine radiographs of the abdomen. FINDINGS: CHEST: Lungs: Clear. Cardiovascular: Normal size heart. No pulmonary vascular congestion. Pleura: No pleural fluid. No pneumothorax. Other findings: None. ABDOMEN AND PELVIS: Bowel: Prominent amount of retained colonic stool. Free air: None. Bones: Bifid L4 and L5 posterior elements. Other findings: Left sided abdominal peritoneal dialysis catheter with tip in the pelvis. IMPRESSION: Unremarkable radiographs of chest and abdomen. Prominent amount of retained colonic stool.
[2017-10-01 14:05] LABS: ALB/GLOB RATIO 1.3 (1.0-2.1); ALBUMIN 4.7 g/dL (3.5-5.0)
--- NOTE | 2017-10-01 14:35 | CT ---
Date of service: 10/01/2017 PROCEDURE: CT Abdomen and Pelvis without intravenous contrast HISTORY: RLQ x 2 days, ? AP COMPARISON: 11/27/2015. TECHNIQUE: CT scan of the abdomen and pelvis was performed without administration of intravenous contrast. Oral contrast was not administered. Coronal and sagittal reformatted images were obtained. . Radiation dose: Total exam DLP = 512.72 mGy-cm. This CT exam was performed using one or more of the following dose reduction techniques: Automated exposure control, adjustment of the mA and/or kV according to patient size, and/or use of iterative reconstruction technique. FINDINGS: LOWER THORAX: The visualized lungs are clear. LIVER: Normal in size. No intrahepatic ductal dilatation. GALLBLADDER AND BILE DUCTS: No calcified gallstones. No biliary dilatation PANCREAS: Normal in size. No ductal dilatation. SPLEEN: There is mild splenomegaly. ADRENALS: Normal in size. No discrete nodule. KIDNEYS AND URETERS: Normal in size without nephrolithiasis. Severe bilateral hydronephrosis, progressed since the prior examination. VASCULATURE: No aortic aneurysm. BOWEL: The small bowel loops are normal in caliber. There is large amount of stool in the colon with fecal impaction in the sigmoid colon and rectum. No bowel dilatation or wall thickening. No bowel obstruction. APPENDIX: Normal appendix. PERITONEUM: No free fluid. No free air. A left-sided drainage catheter terminates in the right lower quadrant. LYMPH NODES: No enlarged lymph nodes. BLADDER: The urinary bladder is well distended and there is severe circumferential mural thickening of the urinary bladder wall. There are bilateral large diverticula. REPRODUCTIVE: The prostate gland is normal in size BONES: No acute fracture. Again seen are osseous changes of renal osteodystrophy. OTHER FINDINGS: None. IMPRESSION: 1. No acute abdominal or pelvic abnormality. 2. Interval progression of bilateral hydronephrosis, now most severe. 3. Severe constipation and fecal impaction in the sigmoid colon and rectum. 4. Chronic cystitis. 5. Mild splenomegaly.
--- NOTE | 2017-10-01 14:49 | C.PDOC ---
History Of Present Illness 22 year old male, whose PMHx includes spina bifida, presents to the ED for evaluation of right lower quadrant abdominal pain which has been worsening over the past 2 days. Patient had a peritoneal dialysis catheter placed in his left lower abdomen on 09/17/17. 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 Patient has had multiple stool impactions in the past due to spina bifida, and often needs to self disimpact. Patient states he took Miralax and Lactulose aggressively yesterday without passing stool today. Patient has been taking Percocet occasionally for his back pain over the last 2 weeks, which has been making his constipation worse. Patient takes Colace twice/day. Patient states he has normal rectal and perineal sensation. He denies fever, chills. Time Seen by Provider: 10/01/17 13:03 Chief Complaint (Nursing): Abdominal Pain History Per: Patient History/Exam Limitations: no limitations Onset/Duration Of Symptoms: Days Current Symptoms Are (Timing): Still Present Location Of Pain/Discomfort: RLQ Quality Of Discomfort: "Pain" Associated Symptoms: Constipation. denies: Fever, Chills Additional History Per: Patient Past Medical History Reviewed: Historical Data, Nursing Documentation, Vital Signs Vital Signs: Last Vital Signs Temp 98.5 F 10/01/17 12:36 Pulse 87 10/01/17 15:08 Resp 18 10/01/17 15:08 BP 151/96 H 10/01/17 15:08 Pulse Ox 95 10/01/17 15:40 - Medical History PMH: HTN, Pneumonia, Chronic Kidney Disease Surgical History: No Surg Hx Family History: States: Unknown Family Hx - Social History Hx Tobacco Use: No Hx Alcohol Use: No Hx Substance Use: No - Immunization History Hx Tetanus Toxoid Vaccination: (Unk) Hx Influenza Vaccination: No Hx Pneumococcal Vaccination: Yes Review Of Systems Constitutional: Negative for: Fever, Chills Gastrointestinal: Positive for: Abdominal Pain (right lower quadrant ), Constipation Physical Exam - Physical Exam Appears: Non-toxic, Other (in moderate distress ) Skin: Normal Color, Warm, Dry Head: Atraumatic, Normacephalic Eye(s): bilateral: Normal Inspection Oral Mucosa: Moist Neck: Supple Chest: Symmetrical, No Deformity, No Tenderness Cardiovascular: Rhythm Regular, No Murmur Respiratory: Normal Breath Sounds, No Rales, No Rhonchi, No Wheezing Gastrointestinal/Abdominal: Soft, Tenderness (right lower quadrant ), No Guarding, No Rebound, No Other (psoas sign ) Extremity: Normal ROM, Capillary Refill (less than 2 seconds ) Neurological/Psych: Oriented x3, Normal Speech, Normal Cognition ED Course And Treatment - Laboratory Results Result Diagrams: 10/01/17 13:44 10/01/17 13:44 Lab Interpretation: Abnormal (c/w Peritoneal dialysis, creat down from baseline 8.8 prior to starting dialysis. K+ wnl) O2 Sat by Pulse Oximetry: 95 (on RA) Pulse Ox Interpretation: Normal - Radiology CXR: Interpreted by Me CXR Interpretation: Yes: No Acute Disease - Other Rad abd x 2 X-Ray: Interpreted by Me (+FOS (more in RLQ)) Progress Note: Bloodwork, urinalysis, Obstructive Series Abdomen, CT A/P ordered. Morphine IVP, Toradol IVP, and IV Fluids given. Case discussed with surgical scrub technologist, who will evaluate the patient at bedside. [id number]: enema with Fleets x 2, Soap Suds enema with protracted dwell times without satisfactory BM. 1744: d/w Dr. Amaya Jones- prior adm MD for Dr. Marianna li to admit. Will write agressive bowel regimen and NO narcotics as inpt. Reevaluation Time: 14:47 Reassessment Condition: Improved Medical Decision Making Medical Decision Making: constipation more in RLQ and NO AP (CT visualized as normal) Avoid laxatives with Mg+ in dialysis Unable to digitally disempact (Unreachable) and no relief with enemas. LOW susp of peritonitis as pt with focused and not generalized abd discomfort, no fever nor leukocytosis PD: ? effectiveness after 2 weeks of therapy with persistently elevated creat outpatient f/u w PMD/Renal Acute on chronic constipation and rectal/sigmoid impaction recent exacerbation due to dietary indescretions/poor insight (5 hot dogs on 12 of September) and recent increased use of Percocet for chronic back pains and placement of LLQ Abd PD Catheter. Disposition Doctor Will See Patient In The: Hospital Counseled Patient/Family Regarding: Studies Performed, Diagnosis - Disposition Referrals: Amaya Jones MD [Staff Provider] - Michael Michael MD [Staff Provider] - Disposition: HOSPITALIZED Disposition Time: 14:49 Condition: GOOD Additional Instructions: Take lactulose to relieve your constipation: Take 30 cc's (one tablespoon) every 2 hours until satisfactory bowel movement and constipation relieved. Chronic Constipation: Avoid narcotic pain relievers like Percocet- VERY STRONG and provoke SEVERE Constipation Take Colace 100 mg tablets twice a day to help PREVENT constipation Diet and exercise changes: Eat 7 fresh fruits and vegetables a day Avoid rice/bread which are VERY constipating. Prescriptions: Docusate [Colace] 100 mg PO BID #60 cap Lactulose 20 gm PO TID PRN #200 ml PRN Reason: Constipation Instructions: Kidney Failure, Constipation, Adult (DC) Forms: [employer] ([place]) - Clinical Impression Clinical Impression: Constipation, CKD (chronic kidney disease), Peritoneal dialysis catheter in place, Fecal impaction of colon - Scribe Statement The provider has reviewed the documentation as recorded by the Scribe (Noemí Vera) Provider Attestation: All medical record entries made by the Scribe were at my direction and personally dictated by me. I have reviewed the chart and agree that the record accurately reflects my personal performance of the history, physical exam, medical decision making, and the department course for this patient. I have also personally directed, reviewed, and agree with the discharge instructions and disposition.
[2017-10-01 14:54] LABS: URINE BILIRUBIN NEGATIVE (NEGATIVE); URINE BLOOD 1+ (NEGATIVE); URINE CLARITY Hazy (Clear); URINE COLOR Yellow (YELLOW); URINE GLUCOSE (UA) NORMAL (Normal); URINE LEUKOCYTE ESTERASE 3+ Leu/uL (Negative); URINE PROTEIN 2+ mg/dL (NEGATIVE); URINE UROBILINOGEN NORMAL mg/dL (0.2-1.0)
[2017-10-01 15:07] LABS: SQUAMOUS EPITHIAL 3 /hpf (0-5); URINE AMORPHOUS SEDIMENT MODERATE /ul (<OCC); URINE BACTERIA MANY (<OCC)
[2017-10-01] MEDS ORDERED: Lidocaine 2% Jelly (Uro-Jet) ONE (15:13)
--- NOTE | 2017-10-01 15:49 | CP.PCM.CON ---
<Serafin Johnson - Last Filed: 10/01/17 15:40> History of Present Illness - History of Present Illness History of Present Illness: General Surgery Consult Note for Dr. Michael CC: Abdominal Pain This is a 22M patient with PMHx of spina bifida and chronic kidney disease presents to [facility] with abdominal pain for 2 days. He reports that yesterday the pain was in his back. However today it is in his right lower quadrant. He reports that he can feel his peritoneal dialysis catheter and that the pain is at the tip of his catheter. He denies any fevers or chills at home. At time of examination patient denied chest pain, SOB, abdominal pain, n/v/d. 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 Fam Hx: Father- diabetes, hernia sx, and pacemaker. Mother- high BP, Aunt ( father's side)-kidney failure. Hospitalizations: pneumonia 2016 at [facility] Meds: see MAR Review of Systems - Review of Systems All systems: reviewed and no additional remarkable complaints except - Constitutional Constitutional: absent: Anorexia, Chills - EENT Eyes: absent: Blurred Vision, Change in Vision - Cardiovascular Cardiovascular: absent: Chest Pain, Dyspnea - Respiratory Respiratory: absent: Cough, Dyspnea - Gastrointestinal Gastrointestinal: absent: Belching, Heartburn, Nausea, Vomiting - Genitourinary Genitourinary: absent: Difficulty Urinating, Dysuria - Integumentary Integumentary: absent: Dry Skin, Skin Pain Past Patient History - Infectious Disease Hx of Infectious Diseases: None - Past Medical History & Family History Past Medical History?: Yes - Past Social History Smoking Status: Never Smoked - CARDIAC Hx Hypertension: Yes - PULMONARY Hx Pneumonia: Yes - NEUROLOGICAL Hx Neurological Disorder: Yes (SEE COMMENT) Other/Comment: Spina Bifida, Tethered Spinal Cord - HEENT Hx HEENT Problems: No - RENAL Hx Chronic Kidney Disease: Yes - ENDOCRINE/METABOLIC Hx Endocrine Disorders: No - HEMATOLOGICAL/ONCOLOGICAL Hx Blood Disorders: No - INTEGUMENTARY Hx Dermatological Problems: No - MUSCULOSKELETAL/RHEUMATOLOGICAL Hx Musculoskeletal Disorders: No Hx Falls: No Other/Comment: Spina Bipida - GASTROINTESTINAL Hx Gastrointestinal Disorders: No - GENITOURINARY/GYNECOLOGICAL Hx Genitourinary Disorders: Yes Hx Urinary Tract Infection: Yes Other/Comment: SELF CATHETERIZE - PSYCHIATRIC Hx Substance Use: No - SURGICAL HISTORY Hx Surgeries: Yes Other/Comment: Spinal cord repair - ANESTHESIA Hx Anesthesia: Yes Hx Anesthesia Reactions: No Meds Home Medications: Home Medication List Medication Instructions Recorded Confirmed Type Docusate [Colace] 100 mg PO BID #60 cap 10/01/17 Rx Lactulose 20 gm PO TID PRN #200 ml 10/01/17 Rx Allergies/Adverse Reactions: Allergies Allergy/AdvReac Type Severity Reaction Status Date / Time No Known Allergies Allergy Verified 10/01/17 12:34 Physical Exam - Constitutional Appears: Non-toxic, No Acute Distress - Head Exam Head Exam: ATRAUMATIC, NORMOCEPHALIC - Eye Exam Eye Exam: EOMI, Normal appearance - ENT Exam ENT Exam: Mucous Membranes Moist - Respiratory Exam Respiratory Exam: NORMAL BREATHING PATTERN - Cardiovascular Exam Cardiovascular Exam: REGULAR RHYTHM. absent: +S1, +S2 - GI/Abdominal Exam GI & Abdominal Exam: Soft, Tenderness. absent: Distended, Firm, Guarding, Hernia, Rebound, Rigid - Back Exam Back exam: NORMAL INSPECTION - Neurological Exam Neurological exam: Alert, Oriented x3 - Psychiatric Exam Psychiatric exam: Normal Affect, Normal Mood - Skin Skin Exam: Dry, Intact Results - Vital Signs Recent Vital Signs: Last Vital Signs Temp 98.5 F 10/01/17 12:36 Pulse 87 10/01/17 15:08 Resp 18 10/01/17 15:08 BP 151/96 H 10/01/17 15:08 Pulse Ox 95 10/01/17 15:38 - Labs Result Diagrams: 10/01/17 13:44 10/01/17 13:44 Labs: Laboratory Results - last 24 hr 10/01/17 10/01/17 10/01/17 13:44 13:44 14:20 WBC 7.0 RBC 3.93 L Hgb 10.9 L Hct 31.3 L MCV 79.8 L MCH 27.7 MCHC 34.7 RDW 13.0 Plt Count 267 D MPV 8.3 Neut % (Auto) 78.2 H Lymph % (Auto) 14.6 L Sac % (Auto) 6.2 Eos % (Auto) 0.7 Baso % (Auto) 0.3 Neut # (Auto) 5.5 Lymph # (Auto) 1.0 Sac # (Auto) 0.4 Eos # (Auto) 0.0 Baso # (Auto) 0.0 Sodium 144 Potassium 4.1 Chloride 100 Carbon Dioxide 24 Anion Gap 24 H BUN 48 H Creatinine 7.8 H* Est GFR ( Amer) 11 Est GFR (Non-Af Amer) 9 Random Glucose 111 H Calcium 10.0 Total Bilirubin 0.7 AST 13 L D ALT 16 L Alkaline Phosphatase 111 Total Protein 8.4 H Albumin 4.7 Globulin 3.7 Albumin/Globulin Ratio 1.3 Lipase 92 Urine Color Yellow Urine Clarity Hazy Urine pH 6.0 Ur Specific [place] 1.008 Urine Protein 2+ H Urine Glucose (UA) Normal Urine Ketones Negative Urine Blood 1+ H Urine Nitrate Positive H Urine Bilirubin Negative Urine Urobilinogen Normal Ur Leukocyte Esterase 3+ H Urine WBC (Auto) 95 H Urine RBC (Auto) 10 H Ur Squamous Epith Cells 3 Amorphous Sediment Moderate H Urine Bacteria Many H - Imaging and Cardiology CT scan - abdomen Status: Image reviewed by me, Report reviewed by me Assessment & Plan - Assessment and Plan (Free Text) Assessment: 22M with spinabifida on dialysis presenting with abdominal pain likely secondary to constipation Plan: NPO except meds IVF Pain control Soap suds enema Further recs per Dr. Fernanda Johnson PGY3 <Michael Michael - Last Filed: 10/02/17 14:46> Meds - Medications Medications: Current Medications Acetaminophen (Tylenol 325mg Tab) 650 mg PO Q6 PRN PRN Reason: Temp > 101.0 Last Admin: 10/01/17 21:22 Dose: 650 mg Metronidazole (Flagyl) 500 mg in 100 mls @ 100 mls/hr IVPB Q8H SIMONE PRN Reason: Protocol Last Admin: 10/02/17 12:49 Dose: 100 mls/hr Cefepime HCl (Maxipime Iv 1 Gm Premix) 1 gm in 50 mls @ 100 mls/hr IVPB DAILY SIMONE PRN Reason: Protocol Last Admin: 10/02/17 09:45 Dose: 100 mls/hr Ketorolac Tromethamine (Toradol) 15 mg IVP Q6 PRN PRN Reason: Pain, moderate (4-7) Last Admin: 10/01/17 20:56 Dose: 15 mg Ondansetron HCl (Zofran Inj) 4 mg IVP Q6 PRN PRN Reason: Nausea/Vomiting Last Admin: 10/01/17 20:55 Dose: 4 mg Results - Vital Signs Recent Vital Signs: Last Vital Signs Temp 97.9 F 10/02/17 07:40 Pulse 72 10/02/17 07:40 Resp 20 10/02/17 07:40 BP 121/71 10/02/17 07:40 Pulse Ox 99 10/02/17 07:40 - Labs Result Diagrams: 10/01/17 13:44 10/01/17 13:44 Labs: Laboratory Results - last 24 hr 10/01/17 14:20 Urine Color Yellow Urine Clarity Hazy Urine pH 6.0 Ur Specific [place] 1.008 Urine Protein 2+ H Urine Glucose (UA) Normal Urine Ketones Negative Urine Blood 1+ H Urine Nitrate Positive H Urine Bilirubin Negative Urine Urobilinogen Normal Ur Leukocyte Esterase 3+ H Urine WBC (Auto) 95 H Urine RBC (Auto) 10 H Ur Squamous Epith Cells 3 Amorphous Sediment Moderate H Urine Bacteria Many H Attending/Attestation - Attestation I have personally seen and examined this patient.: Yes I have fully participated in the care of the patient.: Yes I have reviewed all pertinent clinical information: Yes Notes (Text): Pt was seen and examined at bedside Agree with above note and assessment Pt with upper abdominal pain and Nausea Abdomen: Soft, mild tender. Non distended Labs and radiology reviewed Ass: Severe Constipation Golytely clear liquid diet Avoid narcotics Plan d.w pt in detail Risk and benefit explained in detail.
[2017-10-01] MEDS ORDERED: HYDROmorphone 0.5 mg/0.5 ml ISec IVP PRN (16:03)
[2017-10-01] MEDS ORDERED: POLYETHYLENE GLYCOL 3350 17 GM/Dose PACKET PO SCH (18:00)
--- NOTE | 2017-10-01 18:37 | CP.PCM.HP ---
History of Present Illness - History of Present Illness History of Present Illness: pt came in abd pain unable to move his bowel for 2 weeks feels cold Present on Admission - Present on Admission Any Indicators Present on Admission: No Review of Systems - Review of Systems Systems not reviewed;Unavailable: Acuity of Condition - Constitutional Constitutional: Fatigue - EENT Eyes: As Per HPI Ears: As Per HPI Nose/Mouth/Throat: As Per HPI - Cardiovascular Cardiovascular: As Per HPI - Respiratory Respiratory: As Per HPI - Gastrointestinal Gastrointestinal: Abdominal Pain, Bloating, Change in Stool Character, Constipation Additional comments: fecal impaction - Genitourinary Genitourinary: As Per HPI Additional comments: had abdominal cath put in for peritonial dialysis - Reproductive: Male Reproductive:Male: As Per HPI - Musculoskeletal Musculoskeletal: As Per HPI - Integumentary Integumentary: As Per HPI - Neurological Neurological: As Per HPI - Psychiatric Psychiatric: As Per HPI - Endocrine Endocrine: As Per HPI - Hematologic/Lymphatic Hematologic: As Per HPI Past Patient History - Infectious Disease Hx of Infectious Diseases: None - Past Medical History & Family History Past Medical History?: Yes - Past Social History Smoking Status: Never Smoked - CARDIAC Hx Hypertension: Yes - PULMONARY Hx Pneumonia: Yes - NEUROLOGICAL Hx Neurological Disorder: Yes (SEE COMMENT) Other/Comment: Spina Bifida, Tethered Spinal Cord - HEENT Hx HEENT Problems: No - RENAL Hx Chronic Kidney Disease: Yes - ENDOCRINE/METABOLIC Hx Endocrine Disorders: No - HEMATOLOGICAL/ONCOLOGICAL Hx Blood Disorders: No - INTEGUMENTARY Hx Dermatological Problems: No - MUSCULOSKELETAL/RHEUMATOLOGICAL Hx Musculoskeletal Disorders: No Hx Falls: No Other/Comment: Spina Bipida - GASTROINTESTINAL Hx Gastrointestinal Disorders: No - GENITOURINARY/GYNECOLOGICAL Hx Genitourinary Disorders: Yes Hx Urinary Tract Infection: Yes Other/Comment: SELF CATHETERIZE - PSYCHIATRIC Hx Substance Use: No - SURGICAL HISTORY Hx Surgeries: Yes Other/Comment: Spinal cord repair - ANESTHESIA Hx Anesthesia: Yes Hx Anesthesia Reactions: No Meds Home Medications: Home Medication List Medication Instructions Recorded Confirmed Type Docusate [Colace] 100 mg PO BID #60 cap 10/01/17 Rx Lactulose 20 gm PO TID PRN #200 ml 10/01/17 Rx Allergies/Adverse Reactions: Allergies Allergy/AdvReac Type Severity Reaction Status Date / Time No Known Allergies Allergy Verified 10/01/17 12:34 Physical Exam - Constitutional Appears: In Acute Distress - Head Exam Head Exam: ATRAUMATIC - Eye Exam Eye Exam: Normal appearance Pupil Exam: NORMAL ACCOMODATION - ENT Exam ENT Exam: Mucous Membranes Moist - Neck Exam Neck exam: Positive for: Full Rom - Respiratory Exam Respiratory Exam: NORMAL BREATHING PATTERN - Cardiovascular Exam Cardiovascular Exam: REGULAR RHYTHM - GI/Abdominal Exam GI & Abdominal Exam: Distended, Tenderness - Rectal Exam Rectal Exam: Fecal Impaction - Exam Exam: NORMAL INSPECTION - Back Exam Back exam: NORMAL INSPECTION - Neurological Exam Neurological exam: Alert, Normal Gait, Oriented x3 - Psychiatric Exam Psychiatric exam: Normal Affect - Skin Skin Exam: Dry, Normal Color Results - Vital Signs Recent Vital Signs: Last Vital Signs Temp 99.2 F 10/01/17 17:41 Pulse 76 10/01/17 17:41 Resp 18 10/01/17 17:41 BP 141/83 10/01/17 17:41 Pulse Ox 100 10/01/17 17:41 - Labs Result Diagrams: 10/01/17 13:44 10/01/17 13:44 Labs: Laboratory Results - last 24 hr 10/01/17 10/01/17 10/01/17 13:44 13:44 14:20 WBC 7.0 RBC 3.93 L Hgb 10.9 L Hct 31.3 L MCV 79.8 L MCH 27.7 MCHC 34.7 RDW 13.0 Plt Count 267 D MPV 8.3 Neut % (Auto) 78.2 H Lymph % (Auto) 14.6 L [place] % (Auto) 6.2 Eos % (Auto) 0.7 Baso % (Auto) 0.3 Neut # (Auto) 5.5 Lymph # (Auto) 1.0 [place] # (Auto) 0.4 Eos # (Auto) 0.0 Baso # (Auto) 0.0 Sodium 144 Potassium 4.1 Chloride 100 Carbon Dioxide 24 Anion Gap 24 H BUN 48 H Creatinine 7.8 H* Est GFR ( Amer) 11 Est GFR (Non-Af Amer) 9 Random Glucose 111 H Calcium 10.0 Total Bilirubin 0.7 AST 13 L D ALT 16 L Alkaline Phosphatase 111 Total Protein 8.4 H Albumin 4.7 Globulin 3.7 Albumin/Globulin Ratio 1.3 Lipase 92 Urine Color Yellow Urine Clarity Hazy Urine pH 6.0 Ur Specific [place] 1.008 Urine Protein 2+ H Urine Glucose (UA) Normal Urine Ketones Negative Urine Blood 1+ H Urine Nitrate Positive H Urine Bilirubin Negative Urine Urobilinogen Normal Ur Leukocyte Esterase 3+ H Urine WBC (Auto) 95 H Urine RBC (Auto) 10 H Ur Squamous Epith Cells 3 Amorphous Sediment Moderate H Urine Bacteria Many H Assessment & Plan - Assessment and Plan (Free Text) Assessment: acute abd pain fecal impaction renal failiure aneamia Plan: gi consult nephrology consult - Date & Time Date: 10/01/17 Time: 18:40
[2017-10-01] MEDS ORDERED: Magnesium Citrate Oral SOL (300 ml) PO ONE (19:01)
[2017-10-01] MEDS ORDERED: Magnesium Citrate Oral SOL (300 ml) ONE ×2 (20:14→20:40)
[2017-10-01] MEDS ORDERED: Mineral Oil Enema 135 ml RC ONE (21:00)
[2017-10-01] MEDS ORDERED: metroNIDAZOLE IV 500 mg/100 ml 500 MG/100 ML BAG ONE (21:29)
[2017-10-01] MEDS: metroNIDAZOLE IV 500 mg/100 ml 500 MG/100 ML BAG IVPB SCH (22:19)
[2017-10-02] MEDS: metroNIDAZOLE IV 500 mg/100 ml 500 MG/100 ML BAG IVPB SCH ×3 (04:37→21:29)
[2017-10-02] MEDS ORDERED: Mineral Oil Enema 135 ml RC ONE (06:00)
[2017-10-02] MEDS ORDERED: Peg-Electrolyte Oral Soln 4L (Golytely) PO ONE (06:54)
--- NOTE | 2017-10-02 07:28 | CP.PCM.PN ---
<Serafin Johnson - Last Filed: 10/02/17 07:26> Subjective - Date & Time of Evaluation Date of Evaluation: 10/02/17 Time of Evaluation: 07:26 - Subjective Subjective: General Surgery Progress Note for Dr. Michael This 22M was seen and examine this AM at bedside. No acute events overnight. He reports small volume BM after receiving an enema. He reports he has not received go-lytly yet. No new complaints at this time. Reports minor improvement in pain. Objective - Vital Signs/Intake and Output Vital Signs (last 24 hours): Temp Pulse Resp BP Pulse Ox 99.4 F 92 H 20 136/77 100 10/02/17 00:00 10/02/17 00:00 10/02/17 00:00 10/02/17 00:00 10/02/17 00:00 - Medications Medications: Current Medications Acetaminophen (Tylenol 325mg Tab) 650 mg PO Q6 PRN PRN Reason: Temp > 101.0 Last Admin: 10/01/17 21:22 Dose: 650 mg Metronidazole (Flagyl) 500 mg in 100 mls @ 100 mls/hr IVPB Q8H SIMONE PRN Reason: Protocol Last Admin: 10/02/17 04:37 Dose: 100 mls/hr Cefepime HCl 1 gm/ Sodium (Chloride) 50 mls @ 100 mls/hr IVPB DAILY SIMONE PRN Reason: Protocol Ketorolac Tromethamine (Toradol) 15 mg IVP Q6 PRN PRN Reason: Pain, moderate (4-7) Last Admin: 10/01/17 20:56 Dose: 15 mg Ondansetron HCl (Zofran Inj) 4 mg IVP Q6 PRN PRN Reason: Nausea/Vomiting Last Admin: 10/01/17 20:55 Dose: 4 mg - Labs Labs: 10/01/17 13:44 10/01/17 13:44 - Constitutional Appears: Non-toxic, No Acute Distress - Head Exam Head Exam: ATRAUMATIC, NORMOCEPHALIC - Eye Exam Eye Exam: EOMI - ENT Exam ENT Exam: Mucous Membranes Moist - Respiratory Exam Respiratory Exam: NORMAL BREATHING PATTERN - Cardiovascular Exam Cardiovascular Exam: +S1, +S2 - GI/Abdominal Exam GI & Abdominal Exam: Soft, Tenderness. absent: Distended, Firm, Guarding, Rigid - Neurological Exam Neurological Exam: Alert, Awake - Psychiatric Exam Psychiatric exam: Normal Affect, Normal Mood - Skin Skin Exam: Dry, Intact Assessment and Plan - Assessment and Plan (Free Text) Assessment: 22M with neurodeficits secondary to spina bifida, with renal failure presenting with severe constipation. Golytley Soap suds enemas q6 NPO IVF Avoid narcotics Further recs per Dr. Fernanda Betancourt Emilematti PGY3 <Michael Michael - Last Filed: 10/02/17 14:51> Objective - Vital Signs/Intake and Output Vital Signs (last 24 hours): Temp Pulse Resp BP Pulse Ox 97.9 F 72 20 121/71 99 10/02/17 07:40 10/02/17 07:40 10/02/17 07:40 10/02/17 07:40 10/02/17 07:40 - Medications Medications: Current Medications Acetaminophen (Tylenol 325mg Tab) 650 mg PO Q6 PRN PRN Reason: Temp > 101.0 Last Admin: 10/01/17 21:22 Dose: 650 mg Metronidazole (Flagyl) 500 mg in 100 mls @ 100 mls/hr IVPB Q8H SIMONE PRN Reason: Protocol Last Admin: 10/02/17 12:49 Dose: 100 mls/hr Cefepime HCl (Maxipime Iv 1 Gm Premix) 1 gm in 50 mls @ 100 mls/hr IVPB DAILY SIMONE PRN Reason: Protocol Last Admin: 10/02/17 09:45 Dose: 100 mls/hr Ketorolac Tromethamine (Toradol) 15 mg IVP Q6 PRN PRN Reason: Pain, moderate (4-7) Last Admin: 10/01/17 20:56 Dose: 15 mg Ondansetron HCl (Zofran Inj) 4 mg IVP Q6 PRN PRN Reason: Nausea/Vomiting Last Admin: 10/01/17 20:55 Dose: 4 mg - Labs Labs: 10/01/17 13:44 10/01/17 13:44 Attending/Attestation - Attestation I have personally seen and examined this patient.: Yes I have fully participated in the care of the patient.: Yes I have reviewed all pertinent clinical information, including history, physical exam and plan: Yes Notes (Text): Pt was seen and examined at bedside Agree with above note and assessment Pt is improving clinically Pt had BM and passing gas Pt can be DC home today with Colace and Miralax. Plan d.w pt in detail
--- NOTE | 2017-10-02 09:18 | CP.PCM.CON ---
History of Present Illness - History of Present Illness History of Present Illness: GI Fellow PGY4, Consult note. Consulted for severe constipation and fecal impaction. Joey Plunkett is a very pleasant 22yo M with hx of Spina Bifida, neurogenic bladder cause ESRD on PD presenting with worsening abdominal pain and fever. Patient had PD placed recently, and requiring opiate pain meds. He has had constipation before and usually uses Miralax, lactulose, and Colace. For the last two weeks he has not had a BM and had not been using laxatives except for colace until two days ago. 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 He received an enema without good effect. Now, he has been given GoLytely. He admits passing flatus and denies n/v. PMHx - see above. PSHx - PD cath, back surgery for Spina Bifida at . 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 Denies alcohol and tobacco. 12pt ROS completed and negative except for above. Past Patient History - Infectious Disease Hx of Infectious Diseases: None - Past Medical History & Family History Past Medical History?: Yes - Past Social History Smoking Status: Never Smoked - CARDIAC Hx Hypertension: Yes - PULMONARY Hx Pneumonia: Yes - NEUROLOGICAL Hx Neurological Disorder: Yes (SEE COMMENT) Other/Comment: Spina Bifida, Tethered Spinal Cord - HEENT Hx HEENT Problems: No - RENAL Hx Chronic Kidney Disease: Yes - ENDOCRINE/METABOLIC Hx Endocrine Disorders: No - HEMATOLOGICAL/ONCOLOGICAL Hx Blood Disorders: No - INTEGUMENTARY Hx Dermatological Problems: No - MUSCULOSKELETAL/RHEUMATOLOGICAL Hx Musculoskeletal Disorders: No Hx Falls: No Other/Comment: Spina Bipida - GASTROINTESTINAL Hx Gastrointestinal Disorders: No - GENITOURINARY/GYNECOLOGICAL Hx Genitourinary Disorders: Yes Hx Urinary Tract Infection: Yes Other/Comment: SELF CATHETERIZE - PSYCHIATRIC Hx Substance Use: No - SURGICAL HISTORY Hx Surgeries: Yes Other/Comment: Spinal cord repair - ANESTHESIA Hx Anesthesia: Yes Hx Anesthesia Reactions: No Meds Home Medications: Home Medication List Medication Instructions Recorded Confirmed Type Docusate [Colace] 100 mg PO BID #60 cap 10/01/17 Rx Lactulose 20 gm PO TID PRN #200 ml 10/01/17 Rx Allergies/Adverse Reactions: Allergies Allergy/AdvReac Type Severity Reaction Status Date / Time No Known Allergies Allergy Verified 10/01/17 12:34 - Medications Medications: Current Medications Acetaminophen (Tylenol 325mg Tab) 650 mg PO Q6 PRN PRN Reason: Temp > 101.0 Last Admin: 10/01/17 21:22 Dose: 650 mg Metronidazole (Flagyl) 500 mg in 100 mls @ 100 mls/hr IVPB Q8H SIMONE PRN Reason: Protocol Last Admin: 10/02/17 04:37 Dose: 100 mls/hr Cefepime HCl 1 gm/ Sodium (Chloride) 50 mls @ 100 mls/hr IVPB DAILY SIMONE PRN Reason: Protocol Ketorolac Tromethamine (Toradol) 15 mg IVP Q6 PRN PRN Reason: Pain, moderate (4-7) Last Admin: 10/01/17 20:56 Dose: 15 mg Ondansetron HCl (Zofran Inj) 4 mg IVP Q6 PRN PRN Reason: Nausea/Vomiting Last Admin: 10/01/17 20:55 Dose: 4 mg Physical Exam - Constitutional Appears: Well, Non-toxic, No Acute Distress - Head Exam Head Exam: ATRAUMATIC, NORMAL INSPECTION - Eye Exam Eye Exam: EOMI, Normal appearance - ENT Exam ENT Exam: Mucous Membranes Moist, Normal Exam - Respiratory Exam Respiratory Exam: Clear to Auscultation Bilateral, NORMAL BREATHING PATTERN. absent: Wheezes - Cardiovascular Exam Cardiovascular Exam: REGULAR RHYTHM, +S1, +S2 - GI/Abdominal Exam GI & Abdominal Exam: Normal Bowel Sounds, Soft, Tenderness. absent: Distended - Rectal Exam Rectal Exam: Deferred - Extremities Exam Extremities exam: Positive for: normal inspection - Neurological Exam Neurological exam: Alert, CN II-XII Intact, Oriented x3 - Psychiatric Exam Psychiatric exam: Normal Affect, Normal Mood - Skin Skin Exam: Dry, Normal Color Results - Vital Signs Recent Vital Signs: Last Vital Signs Temp 97.9 F 10/02/17 07:40 Pulse 72 10/02/17 07:40 Resp 20 10/02/17 07:40 BP 121/71 10/02/17 07:40 Pulse Ox 99 10/02/17 07:40 - Labs Result Diagrams: 10/01/17 13:44 10/01/17 13:44 Labs: Laboratory Results - last 24 hr 10/01/17 10/01/17 10/01/17 13:44 13:44 14:20 WBC 7.0 RBC 3.93 L Hgb 10.9 L Hct 31.3 L MCV 79.8 L MCH 27.7 MCHC 34.7 RDW 13.0 Plt Count 267 D MPV 8.3 Neut % (Auto) 78.2 H Lymph % (Auto) 14.6 L [place] % (Auto) 6.2 Eos % (Auto) 0.7 Baso % (Auto) 0.3 Neut # (Auto) 5.5 Lymph # (Auto) 1.0 [place] # (Auto) 0.4 Eos # (Auto) 0.0 Baso # (Auto) 0.0 Sodium 144 Potassium 4.1 Chloride 100 Carbon Dioxide 24 Anion Gap 24 H BUN 48 H Creatinine 7.8 H* Est GFR ( Amer) 11 Est GFR (Non-Af Amer) 9 Random Glucose 111 H Calcium 10.0 Total Bilirubin 0.7 AST 13 L D ALT 16 L Alkaline Phosphatase 111 Total Protein 8.4 H Albumin 4.7 Globulin 3.7 Albumin/Globulin Ratio 1.3 Lipase 92 Urine Color Yellow Urine Clarity Hazy Urine pH 6.0 Ur Specific [place] 1.008 Urine Protein 2+ H Urine Glucose (UA) Normal Urine Ketones Negative Urine Blood 1+ H Urine Nitrate Positive H Urine Bilirubin Negative Urine Urobilinogen Normal Ur Leukocyte Esterase 3+ H Urine WBC (Auto) 95 H Urine RBC (Auto) 10 H Ur Squamous Epith Cells 3 Amorphous Sediment Moderate H Urine Bacteria Many H Assessment & Plan - Assessment and Plan (Free Text) Assessment: 22M with hx of spina bifida presenting with fecal impaction #Fecal impaction #Chronic constipation #Neurogenic bladder - self cath #Hydronephrosis #ESRD on PD #Presumed Chronic microcytic anemia due to CKD. Plan: -Afeb/HDS -continue supportive care -Continue GoLytely -Continue as needed mineral oil or soap suds enema. AVOID Sodium/phos fleet enemas in this ESRD patient. -If no progress after GoLytely we will need to do colonoscopy tomorrow for disimpaction. -Educated on consistent use of Miralax at home to avoid constipation.
[2017-10-02] MEDS: Cefepime IV 1 gm in Dextrose 1 GM/50 ML BAG IVPB SCH (09:45)
--- NOTE | 2017-10-02 11:31 | CP.PCM.CON ---
History of Present Illness - History of Present Illness History of Present Illness: Nephrology Consultation Note Assessment: Stable fecal impaction, severe constipation ? UTI b/l severe hydronephrosis Chronic Kidney Disease (N18.5) Stage 5 with 3 gm proteinuria (R80.9) likely due to chronic obstructive uropathy neurogenic bladder, hx of spina bifida Anemia (D64.9), Hyperphosphatemia (E83.39), Secondary Hyperparathyroidism (E21.1 ), HTN (I12.9), metabolic acidosis Plan plan for PD initiation in next few weeks as outpt. no acute need for it at present Hypertension control without meds Monitor Input/Output, daily weights and renal function with basic metabolic panel indwelling cardoza catheter ordered ID and GI following plan for phos binder once GI symptoms better defer iron supplements due to constipation bicarb and Hb acceptable Dose meds/antibiotics for reduced GFR. Avoid fleets enema/magnesium based laxatives. Avoid nephrotoxins/NSAIDs/ iodinated contrast (unless needed emergently) Glycemic control Further work up for as per primary team Thanks for allowing me to participate in care of your patient. Will follow patient with you. Please call if any Qs. had d/w team Dr Julio Perez Office: [phone] CC: pain abdomen reason for consult: ESRD HPI: pt is a 22 M with CKD 5 (s/p PD catheter 09/17/[address] Michael) due to chronic obstructive uropathy managed by pt as self intermittent catheterization at home, spina bifida neurogenic bladder came with severe constipation, fecal impaction and pain abdomen. pt now has BM and feels better but still c/o pain abdomen makes urine. appetite low. febrile on day of presentation pt had started going to outpt HD unit and got catheter flushed once ROS: Denies chest pain, palpitation, shortness of breath, leg swelling. All other negative. making plenty of urine. self intermittent catheterization at home. 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 reports decreased appetite x 1 month, denies loss of weight. Physical Examination: General Appearance: Comfortable, in no acute respiratory distress, co-operative . Vitals reviewed and noted as below Head; Atraumatic, normocephalic ENT: no ulcers no thrush. Tongue is midline. Oropharynx: no rash or ulcers. EYES: Pupils are equal, round and reactive to light accommodation. Eye muscles and extraocular movement intact. Sclera is anicteric. Neck; supple no lymphadenopathy, no thyromegaly or bruit Lungs: Normal respiratory rate/effort. Breath sounds bilateral equal and clear Heart: Normal rate. s1s2 normal. No rub or gallop. Extremities: no edema. No varicose veins Neurological: Patient is alert, awake and oriented to person, place and time. No focal deficit. Strength bilateral appropriate and equal Skin: Warm and dry. Normal turgor. No rash. Palpitation: Normal elasticity for age Abdomen: Abdomen is soft. Bowel sounds +. There is mild abdominal tenderness, no guarding/rigidity no organomegaly. has PD catheter, exit site clean Psych: normal insight and normal affect/mood MSK: no joint tenderness or swelling. Digits and nails normal, no deformity : kidney not palpable. bladder distended Labs/imaging reviewed. Past medical history, past surgical history, family history, social history, allergy reviewed and noted as below Family hx: no hx of CKD. Rest non-contributory renal imaging: b/l severe hydronephrosis last TSAT 15% Ferritin 130 Vit D 27 PTH 353 Past Patient History - Infectious Disease Hx of Infectious Diseases: None - Past Medical History & Family History Past Medical History?: Yes - Past Social History Smoking Status: Never Smoked - CARDIAC Hx Hypertension: Yes - PULMONARY Hx Pneumonia: Yes - NEUROLOGICAL Hx Neurological Disorder: Yes (SEE COMMENT) Other/Comment: Spina Bifida, Tethered Spinal Cord - HEENT Hx HEENT Problems: No - RENAL Hx Chronic Kidney Disease: Yes - ENDOCRINE/METABOLIC Hx Endocrine Disorders: No - HEMATOLOGICAL/ONCOLOGICAL Hx Blood Disorders: No - INTEGUMENTARY Hx Dermatological Problems: No - MUSCULOSKELETAL/RHEUMATOLOGICAL Hx Musculoskeletal Disorders: No Hx Falls: No Other/Comment: Spina Bipida - GASTROINTESTINAL Hx Gastrointestinal Disorders: No - GENITOURINARY/GYNECOLOGICAL Hx Genitourinary Disorders: Yes Hx Urinary Tract Infection: Yes Other/Comment: SELF CATHETERIZE - PSYCHIATRIC Hx Substance Use: No - SURGICAL HISTORY Hx Surgeries: Yes Other/Comment: Spinal cord repair - ANESTHESIA Hx Anesthesia: Yes Hx Anesthesia Reactions: No Meds Home Medications: Home Medication List Medication Instructions Recorded Confirmed Type Docusate [Colace] 100 mg PO BID #60 cap 10/01/17 Rx Lactulose 20 gm PO TID PRN #200 ml 10/01/17 Rx Allergies/Adverse Reactions: Allergies Allergy/AdvReac Type Severity Reaction Status Date / Time No Known Allergies Allergy Verified 10/01/17 12:34 - Medications Medications: Current Medications Acetaminophen (Tylenol 325mg Tab) 650 mg PO Q6 PRN PRN Reason: Temp > 101.0 Last Admin: 10/01/17 21:22 Dose: 650 mg Metronidazole (Flagyl) 500 mg in 100 mls @ 100 mls/hr IVPB Q8H SIMONE PRN Reason: Protocol Last Admin: 10/02/17 04:37 Dose: 100 mls/hr Cefepime HCl (Maxipime Iv 1 Gm Premix) 1 gm in 50 mls @ 100 mls/hr IVPB DAILY SIMONE PRN Reason: Protocol Last Admin: 10/02/17 09:45 Dose: 100 mls/hr Ketorolac Tromethamine (Toradol) 15 mg IVP Q6 PRN PRN Reason: Pain, moderate (4-7) Last Admin: 10/01/17 20:56 Dose: 15 mg Ondansetron HCl (Zofran Inj) 4 mg IVP Q6 PRN PRN Reason: Nausea/Vomiting Last Admin: 10/01/17 20:55 Dose: 4 mg Results - Vital Signs Recent Vital Signs: Last Vital Signs Temp 97.9 F 10/02/17 07:40 Pulse 72 10/02/17 07:40 Resp 20 10/02/17 07:40 BP 121/71 10/02/17 07:40 Pulse Ox 99 10/02/17 07:40 - Labs Result Diagrams: 10/01/17 13:44 10/01/17 13:44 Labs: Laboratory Results - last 24 hr 10/01/17 10/01/17 10/01/17 13:44 13:44 14:20 WBC 7.0 RBC 3.93 L Hgb 10.9 L Hct 31.3 L MCV 79.8 L MCH 27.7 MCHC 34.7 RDW 13.0 Plt Count 267 D MPV 8.3 Neut % (Auto) 78.2 H Lymph % (Auto) 14.6 L [place] % (Auto) 6.2 Eos % (Auto) 0.7 Baso % (Auto) 0.3 Neut # (Auto) 5.5 Lymph # (Auto) 1.0 [place] # (Auto) 0.4 Eos # (Auto) 0.0 Baso # (Auto) 0.0 Sodium 144 Potassium 4.1 Chloride 100 Carbon Dioxide 24 Anion Gap 24 H BUN 48 H Creatinine 7.8 H* Est GFR ( Amer) 11 Est GFR (Non-Af Amer) 9 Random Glucose 111 H Calcium 10.0 Total Bilirubin 0.7 AST 13 L D ALT 16 L Alkaline Phosphatase 111 Total Protein 8.4 H Albumin 4.7 Globulin 3.7 Albumin/Globulin Ratio 1.3 Lipase 92 Urine Color Yellow Urine Clarity Hazy Urine pH 6.0 Ur Specific [place] 1.008 Urine Protein 2+ H Urine Glucose (UA) Normal Urine Ketones Negative Urine Blood 1+ H Urine Nitrate Positive H Urine Bilirubin Negative Urine Urobilinogen Normal Ur Leukocyte Esterase 3+ H Urine WBC (Auto) 95 H Urine RBC (Auto) 10 H Ur Squamous Epith Cells 3 Amorphous Sediment Moderate H Urine Bacteria Many H
--- NOTE | 2017-10-02 12:06 | CP.PCM.PN ---
Subjective - Date & Time of Evaluation Date of Evaluation: 10/02/17 Time of Evaluation: 12:05 - Subjective Subjective: pt had fever 102 last night had watery bowel movements this morning abd alma panterajamir Objective - Vital Signs/Intake and Output Vital Signs (last 24 hours): Temp Pulse Resp BP Pulse Ox 97.9 F 72 20 121/71 99 10/02/17 07:40 10/02/17 07:40 10/02/17 07:40 10/02/17 07:40 10/02/17 07:40 - Medications Medications: Current Medications Acetaminophen (Tylenol 325mg Tab) 650 mg PO Q6 PRN PRN Reason: Temp > 101.0 Last Admin: 10/01/17 21:22 Dose: 650 mg Metronidazole (Flagyl) 500 mg in 100 mls @ 100 mls/hr IVPB Q8H SIMONE PRN Reason: Protocol Last Admin: 10/02/17 04:37 Dose: 100 mls/hr Cefepime HCl (Maxipime Iv 1 Gm Premix) 1 gm in 50 mls @ 100 mls/hr IVPB DAILY SIMONE PRN Reason: Protocol Last Admin: 10/02/17 09:45 Dose: 100 mls/hr Ketorolac Tromethamine (Toradol) 15 mg IVP Q6 PRN PRN Reason: Pain, moderate (4-7) Last Admin: 10/01/17 20:56 Dose: 15 mg Ondansetron HCl (Zofran Inj) 4 mg IVP Q6 PRN PRN Reason: Nausea/Vomiting Last Admin: 10/01/17 20:55 Dose: 4 mg - Labs Labs: 10/01/17 13:44 10/01/17 13:44 - Constitutional Appears: In Acute Distress - Head Exam Head Exam: NORMOCEPHALIC - Eye Exam Pupil Exam: NORMAL ACCOMODATION - ENT Exam ENT Exam: Mucous Membranes Moist - Neck Exam Neck Exam: Full ROM - Respiratory Exam Respiratory Exam: Clear to Ausculation Bilateral - Cardiovascular Exam Cardiovascular Exam: REGULAR RHYTHM - GI/Abdominal Exam GI & Abdominal Exam: Tenderness - Rectal Exam Rectal Exam: Deferred - Extremities Exam Extremities Exam: Normal Inspection - Back Exam Back Exam: NORMAL INSPECTION - Neurological Exam Neurological Exam: Alert, Normal Gait, Oriented x3 - Psychiatric Exam Psychiatric exam: Normal Mood - Skin Skin Exam: Normal Color Assessment and Plan - Assessment and Plan (Free Text) Assessment: ac abd pain fecal impaction fevere r/o sepses renal failiur Plan: as per orders
--- NOTE | 2017-10-02 12:50 | CP.PCM.CON ---
History of Present Illness - History of Present Illness History of Present Illness: 22M patient with PMHx of spina bifida and chronic kidney disease presents to [facility] with abdominal pain for 2 days. He reports that yesterday the pain was in his back. However today it is in his right lower quadrant. He reports that he can feel his peritoneal dialysis catheter and that the pain is at the tip of his catheter. 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 Fam Hx: Father- diabetes, hernia sx, and pacemaker. Mother- high BP, Aunt ( father's side)-kidney failure. Hospitalizations: pneumonia 2016 at [facility] Meds: see MAR Review of Systems - Review of Systems All systems: reviewed and no additional remarkable complaints except - Constitutional Constitutional: absent: Anorexia, Chills - EENT Eyes: absent: Blurred Vision, Change in Vision - Cardiovascular Cardiovascular: absent: Chest Pain, Dyspnea - Respiratory Respiratory: absent: Cough, Dyspnea - Gastrointestinal Gastrointestinal: absent: Belching, Heartburn, Nausea, Vomiting - Genitourinary Genitourinary: absent: Difficulty Urinating, Dysuria - Integumentary Integumentary: absent: Dry Skin, Skin Pain Past Patient History - Infectious Disease Hx of Infectious Diseases: None - Past Medical History & Family History Past Medical History?: Yes - Past Social History Smoking Status: Never Smoked - CARDIAC Hx Hypertension: Yes - PULMONARY Hx Pneumonia: Yes - NEUROLOGICAL Hx Neurological Disorder: Yes (SEE COMMENT) Other/Comment: Spina Bifida, Tethered Spinal Cord - HEENT Hx HEENT Problems: No - RENAL Hx Chronic Kidney Disease: Yes - ENDOCRINE/METABOLIC Hx Endocrine Disorders: No - HEMATOLOGICAL/ONCOLOGICAL Hx Blood Disorders: No - INTEGUMENTARY Hx Dermatological Problems: No - MUSCULOSKELETAL/RHEUMATOLOGICAL Hx Musculoskeletal Disorders: No Hx Falls: No Other/Comment: Spina Bipida - GASTROINTESTINAL Hx Gastrointestinal Disorders: No - GENITOURINARY/GYNECOLOGICAL Hx Genitourinary Disorders: Yes Hx Urinary Tract Infection: Yes Other/Comment: SELF CATHETERIZE - PSYCHIATRIC Hx Substance Use: No - SURGICAL HISTORY Hx Surgeries: Yes Other/Comment: Spinal cord repair - ANESTHESIA Hx Anesthesia: Yes Hx Anesthesia Reactions: No Meds Home Medications: Home Medication List Medication Instructions Recorded Confirmed Type Docusate [Colace] 100 mg PO BID #60 cap 10/01/17 Rx Lactulose 20 gm PO TID PRN #200 ml 10/01/17 Rx Allergies/Adverse Reactions: Allergies Allergy/AdvReac Type Severity Reaction Status Date / Time No Known Allergies Allergy Verified 10/01/17 12:34 - Medications Medications: Current Medications Acetaminophen (Tylenol 325mg Tab) 650 mg PO Q6 PRN PRN Reason: Temp > 101.0 Last Admin: 10/01/17 21:22 Dose: 650 mg Metronidazole (Flagyl) 500 mg in 100 mls @ 100 mls/hr IVPB Q8H SIMONE PRN Reason: Protocol Last Admin: 10/02/17 04:37 Dose: 100 mls/hr Cefepime HCl (Maxipime Iv 1 Gm Premix) 1 gm in 50 mls @ 100 mls/hr IVPB DAILY SIMONE PRN Reason: Protocol Last Admin: 10/02/17 09:45 Dose: 100 mls/hr Ketorolac Tromethamine (Toradol) 15 mg IVP Q6 PRN PRN Reason: Pain, moderate (4-7) Last Admin: 10/01/17 20:56 Dose: 15 mg Ondansetron HCl (Zofran Inj) 4 mg IVP Q6 PRN PRN Reason: Nausea/Vomiting Last Admin: 10/01/17 20:55 Dose: 4 mg Physical Exam - Constitutional Appears: Chronically Ill - Head Exam Head Exam: NORMAL INSPECTION - Eye Exam Eye Exam: PERRL - ENT Exam ENT Exam: Mucous Membranes Dry - Neck Exam Neck exam: Negative for: Lymphadenopathy - Respiratory Exam Respiratory Exam: Decreased Breath Sounds - Cardiovascular Exam Cardiovascular Exam: REGULAR RHYTHM - GI/Abdominal Exam GI & Abdominal Exam: Diminished Bowel Sounds - Rectal Exam Rectal Exam: Deferred - Exam Exam: NORMAL INSPECTION - Extremities Exam Extremities exam: Negative for: pedal edema - Back Exam Back exam: absent: CVA tenderness (L), CVA tenderness (R) - Neurological Exam Neurological exam: Alert, CN II-XII Intact, Oriented x3, Reflexes Normal - Psychiatric Exam Psychiatric exam: Normal Mood - Skin Skin Exam: Dry Results - Vital Signs Recent Vital Signs: Last Vital Signs Temp 97.9 F 10/02/17 07:40 Pulse 72 10/02/17 07:40 Resp 20 10/02/17 07:40 BP 121/71 10/02/17 07:40 Pulse Ox 99 10/02/17 07:40 - Labs Result Diagrams: 10/01/17 13:44 10/01/17 13:44 Labs: Laboratory Results - last 24 hr 10/01/17 10/01/17 10/01/17 13:44 13:44 14:20 WBC 7.0 RBC 3.93 L Hgb 10.9 L Hct 31.3 L MCV 79.8 L MCH 27.7 MCHC 34.7 RDW 13.0 Plt Count 267 D MPV 8.3 Neut % (Auto) 78.2 H Lymph % (Auto) 14.6 L [place] % (Auto) 6.2 Eos % (Auto) 0.7 Baso % (Auto) 0.3 Neut # (Auto) 5.5 Lymph # (Auto) 1.0 [place] # (Auto) 0.4 Eos # (Auto) 0.0 Baso # (Auto) 0.0 Sodium 144 Potassium 4.1 Chloride 100 Carbon Dioxide 24 Anion Gap 24 H BUN 48 H Creatinine 7.8 H* Est GFR ( Amer) 11 Est GFR (Non-Af Amer) 9 Random Glucose 111 H Calcium 10.0 Total Bilirubin 0.7 AST 13 L D ALT 16 L Alkaline Phosphatase 111 Total Protein 8.4 H Albumin 4.7 Globulin 3.7 Albumin/Globulin Ratio 1.3 Lipase 92 Urine Color Yellow Urine Clarity Hazy Urine pH 6.0 Ur Specific [place] 1.008 Urine Protein 2+ H Urine Glucose (UA) Normal Urine Ketones Negative Urine Blood 1+ H Urine Nitrate Positive H Urine Bilirubin Negative Urine Urobilinogen Normal Ur Leukocyte Esterase 3+ H Urine WBC (Auto) 95 H Urine RBC (Auto) 10 H Ur Squamous Epith Cells 3 Amorphous Sediment Moderate H Urine Bacteria Many H Assessment & Plan (1) CKD (chronic kidney disease) Status: Acute (2) Fecal impaction of colon Status: Acute (3) Peritoneal dialysis catheter in place Status: Acute (4) Abdominal pain Status: Acute (5) Acute on chronic renal insufficiency Status: Acute (6) Fever Status: Acute - Assessment and Plan (Free Text) Assessment: cont iv antibiotics
[2017-10-02] MEDS ORDERED: Bisacodyl 5mg EC Tab PO ONE (18:00)
[2017-10-03] MEDS: metroNIDAZOLE IV 500 mg/100 ml 500 MG/100 ML BAG IVPB SCH ×3 (04:44→20:36)
[2017-10-03] MEDS: Cefepime IV 1 gm in Dextrose 1 GM/50 ML BAG IVPB SCH (09:49)
--- NOTE | 2017-10-03 10:57 | CP.PCM.PN ---
Subjective - Date & Time of Evaluation Date of Evaluation: 10/03/17 Time of Evaluation: 10:52 - Subjective Subjective: Progress Note for Dr Michael 22M seen and evaluated this morning at bedside. No acute events overnight. Pt had 10 bowel movements yesterday, none today. Still complaining of mild lower quadrant pain that has improved. Denies f/c, n/v/d. Objective - Vital Signs/Intake and Output Vital Signs (last 24 hours): Temp Pulse Resp BP Pulse Ox 98 F 51 L 20 137/91 H 100 10/03/17 07:39 10/03/17 07:39 10/03/17 07:39 10/03/17 07:39 10/03/17 07:39 Intake and Output: 10/03/17 10/03/17 06:59 18:59 Output Total 1500 Balance -1500 - Medications Medications: Current Medications Acetaminophen (Tylenol 325mg Tab) 650 mg PO Q6 PRN PRN Reason: Temp > 101.0 Last Admin: 10/02/17 17:15 Dose: 650 mg Metronidazole (Flagyl) 500 mg in 100 mls @ 100 mls/hr IVPB Q8H SIMONE PRN Reason: Protocol Last Admin: 10/03/17 04:44 Dose: 100 mls/hr Ketorolac Tromethamine (Toradol) 15 mg IVP Q6 PRN PRN Reason: Pain, moderate (4-7) Last Admin: 10/02/17 18:37 Dose: 15 mg Ondansetron HCl (Zofran Inj) 4 mg IVP Q6 PRN PRN Reason: Nausea/Vomiting Last Admin: 10/03/17 07:38 Dose: 4 mg - Labs Labs: 10/01/17 13:44 10/01/17 13:44 - Constitutional Appears: Well, Non-toxic, No Acute Distress - Head Exam Head Exam: ATRAUMATIC, NORMAL INSPECTION, NORMOCEPHALIC - Respiratory Exam Respiratory Exam: Clear to Ausculation Bilateral, NORMAL BREATHING PATTERN - Cardiovascular Exam Cardiovascular Exam: REGULAR RHYTHM, +S1, +S2. absent: Murmur - GI/Abdominal Exam GI & Abdominal Exam: Soft, Tenderness, Normal Bowel Sounds - Neurological Exam Neurological Exam: Alert, Awake, Oriented x3 - Psychiatric Exam Psychiatric exam: Normal Affect, Normal Mood Assessment and Plan - Assessment and Plan (Free Text) Assessment: 22M w/ fecal impaction Plan: Per GI - no colonoscopy today, abdominal xray ordered if no improvement GI will do colonoscopy Clear liquids today Monitor bowel function C/w IV antibiotics per ID further recs per Dr. Andriy Ross PGY1
--- NOTE | 2017-10-03 11:22 | CP.PCM.PN ---
Subjective - Date & Time of Evaluation Date of Evaluation: 10/03/17 Time of Evaluation: 11:20 - Subjective Subjective: feels codie moved his bowel few huy less discomfort no fever Objective - Vital Signs/Intake and Output Vital Signs (last 24 hours): Temp Pulse Resp BP Pulse Ox 98 F 51 L 20 137/91 H 100 10/03/17 07:39 10/03/17 07:39 10/03/17 07:39 10/03/17 07:39 10/03/17 07:39 Intake and Output: 10/03/17 10/03/17 06:59 18:59 Output Total 1500 Balance -1500 - Medications Medications: Current Medications Acetaminophen (Tylenol 325mg Tab) 650 mg PO Q6 PRN PRN Reason: Temp > 101.0 Last Admin: 10/02/17 17:15 Dose: 650 mg Metronidazole (Flagyl) 500 mg in 100 mls @ 100 mls/hr IVPB Q8H SIMONE PRN Reason: Protocol Last Admin: 10/03/17 04:44 Dose: 100 mls/hr Ketorolac Tromethamine (Toradol) 15 mg IVP Q6 PRN PRN Reason: Pain, moderate (4-7) Last Admin: 10/02/17 18:37 Dose: 15 mg Ondansetron HCl (Zofran Inj) 4 mg IVP Q6 PRN PRN Reason: Nausea/Vomiting Last Admin: 10/03/17 07:38 Dose: 4 mg - Labs Labs: 10/01/17 13:44 10/01/17 13:44 - Constitutional Appears: Non-toxic - Head Exam Head Exam: NORMAL INSPECTION - Eye Exam Eye Exam: Normal appearance Pupil Exam: NORMAL ACCOMODATION - ENT Exam ENT Exam: Normal Exam - Neck Exam Neck Exam: Full ROM - Respiratory Exam Respiratory Exam: Clear to Ausculation Bilateral - Cardiovascular Exam Cardiovascular Exam: REGULAR RHYTHM - GI/Abdominal Exam GI & Abdominal Exam: Tenderness - Extremities Exam Extremities Exam: Full ROM, Normal Capillary Refill - Neurological Exam Neurological Exam: Alert, Normal Gait, Oriented x3 - Psychiatric Exam Psychiatric exam: Normal Affect - Skin Skin Exam: Normal Color Assessment and Plan - Assessment and Plan (Free Text) Assessment: ac abd pain s/p fecal impaction fever Plan: cont as per orders
--- NOTE | 2017-10-03 12:22 | CP.PCM.PN ---
Subjective - Date & Time of Evaluation Date of Evaluation: 10/03/17 Time of Evaluation: 08:15 - Subjective Subjective: GI Fellow PGY4, Progress note. Patient seen and examined. No Complaints or acute overnight events. Patient had several BMs lastnight. Improved abdominal pain, distension. 12pt ROS completed and negative except for above. Objective - Vital Signs/Intake and Output Vital Signs (last 24 hours): Temp Pulse Resp BP Pulse Ox 98 F 51 L 20 137/91 H 100 10/03/17 07:39 10/03/17 07:39 10/03/17 07:39 10/03/17 07:39 10/03/17 07:39 Intake and Output: 10/03/17 10/03/17 06:59 18:59 Output Total 1500 Balance -1500 - Medications Medications: Current Medications Acetaminophen (Tylenol 325mg Tab) 650 mg PO Q6 PRN PRN Reason: Temp > 101.0 Last Admin: 10/02/17 17:15 Dose: 650 mg Metronidazole (Flagyl) 500 mg in 100 mls @ 100 mls/hr IVPB Q8H SIMONE PRN Reason: Protocol Last Admin: 10/03/17 04:44 Dose: 100 mls/hr Ketorolac Tromethamine (Toradol) 15 mg IVP Q6 PRN PRN Reason: Pain, moderate (4-7) Last Admin: 10/02/17 18:37 Dose: 15 mg Ondansetron HCl (Zofran Inj) 4 mg IVP Q6 PRN PRN Reason: Nausea/Vomiting Last Admin: 10/03/17 07:38 Dose: 4 mg - Labs Labs: 10/01/17 13:44 10/01/17 13:44 - Constitutional Appears: Well, Non-toxic, No Acute Distress - Head Exam Head Exam: ATRAUMATIC, NORMAL INSPECTION - Eye Exam Eye Exam: EOMI, Normal appearance - ENT Exam ENT Exam: Mucous Membranes Moist, Normal Exam - Respiratory Exam Respiratory Exam: Clear to Ausculation Bilateral, NORMAL BREATHING PATTERN. absent: Wheezes - Cardiovascular Exam Cardiovascular Exam: REGULAR RHYTHM, +S1, +S2 - GI/Abdominal Exam GI & Abdominal Exam: Soft, Normal Bowel Sounds. absent: Tenderness - Extremities Exam Extremities Exam: Normal Inspection - Neurological Exam Neurological Exam: Awake, CN II-XII Intact, Oriented x3 - Psychiatric Exam Psychiatric exam: Normal Affect, Normal Mood - Skin Skin Exam: Dry, Intact Assessment and Plan - Assessment and Plan (Free Text) Assessment: 22M with hx of spina bifida presenting with fecal impaction #Fecal impaction #Chronic constipation #UTI #Neurogenic bladder - self cath #Hydronephrosis #ESRD on PD #Presumed Chronic microcytic anemia due to CKD. Plan: -Afeb/HDS -CT abdomen findings noted. -continue supportive care -Continue osmotic laxatives, Miralax. -Dulcolax -Abdominal xray tomorrow to evaluate stool content compared to admission. -Clear liquid diet. -NPO past midnight for possible colonoscopy if xray does not show improvement in stool content. -Continue as needed mineral oil or soap suds enema. AVOID Sodium/phos and Mg citrate fleet enemas in this ESRD patient. -Educated on consistent use of Miralax at home to avoid constipation.
[2017-10-03] MEDS ORDERED: POLYETHYLENE GLYCOL 3350 17 GM/Dose PACKET PO SCH (12:30)
[2017-10-03] MEDS ORDERED: Bisacodyl 5mg EC Tab PO ONE (12:42)
[2017-10-03] MEDS ORDERED: Peg-Electrolyte Oral Soln 4L (Golytely) PO ONE (12:43)
--- NOTE | 2017-10-03 14:43 | CP.PCM.PN ---
Subjective - Date & Time of Evaluation Date of Evaluation: 10/03/17 Time of Evaluation: 14:42 - Subjective Subjective: Nephrology Consultation Note Assessment: Stable fecal impaction, severe constipation ? UTI b/l severe hydronephrosis Chronic Kidney Disease (N18.5) Stage 5 with 3 gm proteinuria (R80.9) likely due to chronic obstructive uropathy neurogenic bladder, hx of spina bifida Anemia (D64.9), Hyperphosphatemia (E83.39), Secondary Hyperparathyroidism (E21.1 ), HTN (I12.9), metabolic acidosis Plan plan for PD initiation in next few weeks as outpt. no acute need for it at present Hypertension control without meds Monitor Input/Output, daily weights and renal function with basic metabolic panel indwelling cardoza catheter ordered ID and GI following plan for phos binder once GI symptoms better defer iron supplements due to constipation bicarb and Hb acceptable Dose meds/antibiotics for reduced GFR. Avoid fleets enema/magnesium based laxatives. Avoid nephrotoxins/NSAIDs/ iodinated contrast (unless needed emergently) Glycemic control Further work up for as per primary team Thanks for allowing me to participate in care of your patient. Will follow patient with you. Please call if any Qs. had d/w team Dr Julio Perez Office: [phone] CC: pain abdomen reason for consult: ESRD HPI: pt is a 22 M with CKD 5 (s/p PD catheter 09/17/[address] Michael) due to chronic obstructive uropathy managed by pt as self intermittent catheterization at home, spina bifida neurogenic bladder came with severe constipation, fecal impaction and pain abdomen. pt now has BM and feels better but still c/o pain abdomen makes urine. appetite low. febrile on day of presentation pt had started going to outpt HD unit and got catheter flushed once ROS: Denies chest pain, palpitation, shortness of breath, leg swelling. All other negative. making plenty of urine. self intermittent catheterization at home. 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 reports decreased appetite x 1 month, denies loss of weight. feels better. had BM. Physical Examination: General Appearance: Comfortable, in no acute respiratory distress, co-operative . Vitals reviewed and noted as below Head; Atraumatic, normocephalic ENT: no ulcers no thrush. Tongue is midline. Oropharynx: no rash or ulcers. EYES: Pupils are equal, round and reactive to light accommodation. Eye muscles and extraocular movement intact. Sclera is anicteric. Neck; supple no lymphadenopathy, no thyromegaly or bruit Lungs: Normal respiratory rate/effort. Breath sounds bilateral equal and clear Heart: Normal rate. s1s2 normal. No rub or gallop. Extremities: no edema. No varicose veins Neurological: Patient is alert, awake and oriented to person, place and time. No focal deficit. Strength bilateral appropriate and equal Skin: Warm and dry. Normal turgor. No rash. Palpitation: Normal elasticity for age Abdomen: Abdomen is soft. Bowel sounds +. There is no abdominal tenderness, no guarding/rigidity no organomegaly. has PD catheter, exit site clean Psych: normal insight and normal affect/mood MSK: no joint tenderness or swelling. Digits and nails normal, no deformity : kidney not palpable. has cardoza Labs/imaging reviewed. Past medical history, past surgical history, family history, social history, allergy reviewed and noted as below Family hx: no hx of CKD. Rest non-contributory renal imaging: b/l severe hydronephrosis last TSAT 15% Ferritin 130 Vit D 27 PTH 353 Objective - Vital Signs/Intake and Output Vital Signs (last 24 hours): Temp Pulse Resp BP Pulse Ox 98 F 51 L 20 137/91 H 100 10/03/17 07:39 10/03/17 07:39 10/03/17 07:39 10/03/17 07:39 10/03/17 07:39 Intake and Output: 10/03/17 10/03/17 06:59 18:59 Output Total 1500 Balance -1500 - Medications Medications: Current Medications Acetaminophen (Tylenol 325mg Tab) 650 mg PO Q6 PRN PRN Reason: Temp > 101.0 Last Admin: 10/02/17 17:15 Dose: 650 mg Metronidazole (Flagyl) 500 mg in 100 mls @ 100 mls/hr IVPB Q8H SIMONE PRN Reason: Protocol Last Admin: 10/03/17 12:42 Dose: 100 mls/hr Ketorolac Tromethamine (Toradol) 15 mg IVP Q6 PRN PRN Reason: Pain, moderate (4-7) Last Admin: 10/02/17 18:37 Dose: 15 mg Ondansetron HCl (Zofran Inj) 4 mg IVP Q6 PRN PRN Reason: Nausea/Vomiting Last Admin: 10/03/17 14:06 Dose: 4 mg - Labs Labs: 10/01/17 13:44 10/01/17 13:44
--- NOTE | 2017-10-03 17:09 | CP.PCM.PN ---
Subjective - Date & Time of Evaluation Date of Evaluation: 10/03/17 Time of Evaluation: 10:00 - Subjective Subjective: events noted cultures neg thus far temps down Objective - Vital Signs/Intake and Output Vital Signs (last 24 hours): Temp Pulse Resp BP Pulse Ox 98.1 F 54 L 20 150/88 100 10/03/17 15:35 10/03/17 15:35 10/03/17 15:35 10/03/17 15:35 10/03/17 15:35 Intake and Output: 10/03/17 10/03/17 06:59 18:59 Output Total 1500 1025 Balance -1500 -1025 - Medications Medications: Current Medications Acetaminophen (Tylenol 325mg Tab) 650 mg PO Q6 PRN PRN Reason: Temp > 101.0 Last Admin: 10/02/17 17:15 Dose: 650 mg Metronidazole (Flagyl) 500 mg in 100 mls @ 100 mls/hr IVPB Q8H SIMONE PRN Reason: Protocol Last Admin: 10/03/17 12:42 Dose: 100 mls/hr Ketorolac Tromethamine (Toradol) 15 mg IVP Q6 PRN PRN Reason: Pain, moderate (4-7) Last Admin: 10/02/17 18:37 Dose: 15 mg Ondansetron HCl (Zofran Inj) 4 mg IVP Q6 PRN PRN Reason: Nausea/Vomiting Last Admin: 10/03/17 14:06 Dose: 4 mg - Labs Labs: 10/01/17 13:44 10/01/17 13:44 - Constitutional Appears: Non-toxic, Chronically Ill - Head Exam Head Exam: NORMOCEPHALIC - Eye Exam Eye Exam: PERRL - ENT Exam ENT Exam: Mucous Membranes Dry - Neck Exam Neck Exam: absent: Lymphadenopathy - Respiratory Exam Respiratory Exam: Decreased Breath Sounds - Cardiovascular Exam Cardiovascular Exam: REGULAR RHYTHM - GI/Abdominal Exam GI & Abdominal Exam: Distended Assessment and Plan (1) CKD (chronic kidney disease) Status: Acute (2) Fecal impaction of colon Status: Acute (3) Peritoneal dialysis catheter in place Status: Acute (4) Abdominal pain Status: Acute (5) Acute on chronic renal insufficiency Status: Acute (6) Fever Status: Acute
[2017-10-04] MEDS: metroNIDAZOLE IV 500 mg/100 ml 500 MG/100 ML BAG IVPB SCH ×3 (04:29→22:02)
[2017-10-04 07:10] LABS: BASO % 0.9 % (0.0-2.0); EOS # 0.3 K/uL (0.0-0.7); EOS % 5.8 % (0.0-4.0); HEMOGLOBIN 8.7 g/dL (12.0-18.0); LYMPH # 1.2 K/uL (1.0-4.3); LYMPH % 25.3 % (20.0-40.0); MEAN CELL VOLUME 79.8 fL (80.0-94.0); MEAN CORPUSCULAR HEMOGLOBIN 27.6 pg (27.0-31.0); MEAN CORPUSCULAR HGB CONC 34.6 g/dL (33.0-37.0); MEAN PLATELET VOLUME 8.9 fL (7.2-11.7); MONO # 0.4 K/uL (0.0-0.8); MONO % 8.3 % (0.0-10.0); NEUT # 2.9 K/uL (1.8-7.0); NEUT % 59.7 % (50.0-75.0); RBC 3.17 Mil/uL (4.40-5.90); RED CELL DISTRIBUTION WIDTH 12.2 % (11.5-14.5); WHITE BLOOD COUNT 4.9 K/uL (4.8-10.8)
[2017-10-04 07:29] LABS: ALB/GLOB RATIO 1.3 (1.0-2.1); ALBUMIN 3.6 g/dL (3.5-5.0)
--- NOTE | 2017-10-04 07:49 | CP.PCM.PN ---
Subjective - Date & Time of Evaluation Date of Evaluation: 10/04/17 Time of Evaluation: 07:45 - Subjective Subjective: Progress Note for Dr. Michael 22M seen and evaluated this morning at bedside. Pt is to go for colonoscopy tomorrow. No acute events overnight. 3 loose BM and passing flatus overnight. No complaints of pain in the lower quadrant. Denies f/c, n/v, SOB, CP, or urinary symptoms. Objective - Vital Signs/Intake and Output Vital Signs (last 24 hours): Temp Pulse Resp BP Pulse Ox 98 F 56 L 20 146/88 99 10/03/17 23:28 10/03/17 23:28 10/03/17 23:28 10/03/17 23:28 10/03/17 23:28 Intake and Output: 10/04/17 10/04/17 06:59 18:59 Output Total 1000 Balance -1000 - Medications Medications: Current Medications Acetaminophen (Tylenol 325mg Tab) 650 mg PO Q6 PRN PRN Reason: Temp > 101.0 Last Admin: 10/02/17 17:15 Dose: 650 mg Metronidazole (Flagyl) 500 mg in 100 mls @ 100 mls/hr IVPB Q8H SIMONE PRN Reason: Protocol Last Admin: 10/04/17 04:29 Dose: 100 mls/hr Ketorolac Tromethamine (Toradol) 15 mg IVP Q6 PRN PRN Reason: Pain, moderate (4-7) Last Admin: 10/02/17 18:37 Dose: 15 mg Ondansetron HCl (Zofran Inj) 4 mg IVP Q6 PRN PRN Reason: Nausea/Vomiting Last Admin: 10/03/17 22:29 Dose: 4 mg - Labs Labs: 10/04/17 07:00 10/04/17 07:00 - Constitutional Appears: Well, Non-toxic, No Acute Distress - Head Exam Head Exam: ATRAUMATIC, NORMAL INSPECTION, NORMOCEPHALIC - Respiratory Exam Respiratory Exam: Clear to Ausculation Bilateral, NORMAL BREATHING PATTERN - Cardiovascular Exam Cardiovascular Exam: REGULAR RHYTHM, +S1, +S2. absent: Murmur - GI/Abdominal Exam GI & Abdominal Exam: Soft, Tenderness, Normal Bowel Sounds - Rectal Exam Rectal Exam: Deferred - Neurological Exam Neurological Exam: Alert, Awake, Oriented x3 - Psychiatric Exam Psychiatric exam: Normal Affect, Normal Mood - Skin Skin Exam: Dry, Intact, Normal Color, Warm Assessment and Plan - Assessment and Plan (Free Text) Assessment: 22M w/ fecal impaction Plan: Monitor bowel function Moreno 1200cc output GI recs - NPO for colonoscopy tomorrow IV Abx per ID c/w pain management further recs per Dr. Fernnada Ross PGY1
[2017-10-04] MEDS ORDERED: Ferric Sodium Gluconat Complex 62.5 mg/5 ml Vial IVPB SCH (10:00)
[2017-10-04] MEDS ORDERED: Epoetin Alfa 4000 UNIT/ML Inj SC SCH (10:00)
--- NOTE | 2017-10-04 10:32 | CP.PCM.PN ---
Subjective - Date & Time of Evaluation Date of Evaluation: 10/04/17 Time of Evaluation: 07:25 - Subjective Subjective: GI Fellow PGY4, progress note. Abdominal pain is improving but still present. Had watery BMs yesterday with GoLytely. Denies nausea, vomiting, fever. 12pt ROS negative except for above. Objective - Vital Signs/Intake and Output Vital Signs (last 24 hours): Temp Pulse Resp BP Pulse Ox 98.4 F 58 L 20 123/74 100 10/04/17 08:40 10/04/17 08:40 10/04/17 08:40 10/04/17 08:40 10/04/17 08:40 Intake and Output: 10/04/17 10/04/17 06:59 18:59 Output Total 1000 Balance -1000 - Medications Medications: Current Medications Acetaminophen (Tylenol 325mg Tab) 650 mg PO Q6 PRN PRN Reason: Temp > 101.0 Last Admin: 10/02/17 17:15 Dose: 650 mg Epoetin Sundar (Procrit) 8,000 unit SC TTS SIMONE Metronidazole (Flagyl) 500 mg in 100 mls @ 100 mls/hr IVPB Q8H SIMONE PRN Reason: Protocol Last Admin: 10/04/17 04:29 Dose: 100 mls/hr Ferric Sodium Gluconate Complex 125 mg/ Sodium Chloride 110 mls @ 110 mls/hr IVPB 1600 SIMONE Stop: 10/11/17 16:01 Ketorolac Tromethamine (Toradol) 15 mg IVP Q6 PRN PRN Reason: Pain, moderate (4-7) Last Admin: 10/02/17 18:37 Dose: 15 mg Mineral Oil (Fleet Mineral Oil Enema) 135 ml RC ONCE ONE Stop: 10/04/17 10:27 Ondansetron HCl (Zofran Inj) 4 mg IVP Q6 PRN PRN Reason: Nausea/Vomiting Last Admin: 10/03/17 22:29 Dose: 4 mg - Labs Labs: 10/04/17 07:00 10/04/17 07:00 - Constitutional Appears: Non-toxic, No Acute Distress - Head Exam Head Exam: ATRAUMATIC, NORMAL INSPECTION - Eye Exam Eye Exam: Normal appearance - ENT Exam ENT Exam: Normal Exam - Respiratory Exam Respiratory Exam: Clear to Ausculation Bilateral, NORMAL BREATHING PATTERN. absent: Wheezes - Cardiovascular Exam Cardiovascular Exam: REGULAR RHYTHM, +S1, +S2 - GI/Abdominal Exam GI & Abdominal Exam: Soft, Normal Bowel Sounds. absent: Distended, Tenderness - Extremities Exam Extremities Exam: Normal Inspection - Neurological Exam Neurological Exam: Alert, CN II-XII Intact, Oriented x3 - Psychiatric Exam Psychiatric exam: Normal Affect, Normal Mood - Skin Skin Exam: Dry, Normal Color Assessment and Plan - Assessment and Plan (Free Text) Assessment: 22M with hx of spina bifida presenting with fecal impaction #Fecal impaction #Chronic constipation #UTI #Neurogenic bladder - self cath #Hydronephrosis #ESRD on PD #Presumed Chronic microcytic anemia due to CKD. Plan: -Afeb/HDS -CT abdomen findings noted. -continue supportive care -Abd xray improved but still with dilation no official read yet. -Mineral enema -Clear liquid diet. -NPO past midnight for colonoscopy tomorrow. No colonoscopy today, still with stool contents on xray. -Continue as needed mineral oil or soap suds enema. AVOID Sodium/phos and Mg citrate fleet enemas in this ESRD patient. -Educated on consistent use of Miralax at home to avoid constipation.
[2017-10-04] MEDS ORDERED: Mineral Oil Enema 135 ml RC ONE (10:45)
--- NOTE | 2017-10-04 11:03 | RAD ---
Date of service: 10/04/2017 HISTORY: Constipation, colonic stool COMPARISON: CT scan of the abdomen pelvis dated 10/01/2017. FINDINGS: BOWEL: Interval decrease in amount of retained stool. No obstruction. No free air. BONES: Bifid L4 and L5 posterior elements. OTHER FINDINGS: Left-sided abdominal peritoneal dialysis catheter redemonstrated. IMPRESSION: Decrease in amount of retained colonic stool.
[2017-10-04] MEDS ORDERED: Magnesium Citrate Oral SOL (300 ml) PO ONE (13:00)
--- NOTE | 2017-10-04 13:30 | CP.PCM.PN ---
Subjective - Date & Time of Evaluation Date of Evaluation: 10/04/17 Time of Evaluation: 13:28 - Subjective Subjective: Nephrology Consultation Note Assessment: Stable fecal impaction, severe constipation ? UTI b/l severe hydronephrosis Chronic Kidney Disease (N18.5) Stage 5 with 3 gm proteinuria (R80.9) likely due to chronic obstructive uropathy neurogenic bladder, hx of spina bifida Anemia (D64.9), Hyperphosphatemia (E83.39), Secondary Hyperparathyroidism (E21.1 ), HTN (I12.9), metabolic acidosis Plan plan for PD initiation in next few weeks as outpt. no acute need for it at present Hypertension control without meds Monitor Input/Output, daily weights and renal function with basic metabolic panel indwelling cardoza catheter ordered ID and GI following plan for phos binder once GI symptoms better defer oral iron supplements due to constipation. started IV iron and epogen bicarb and Hb acceptable Dose meds/antibiotics for reduced GFR. Avoid fleets enema/magnesium based laxatives. Avoid nephrotoxins/NSAIDs/ iodinated contrast (unless needed emergently) Glycemic control Further work up for as per primary team Thanks for allowing me to participate in care of your patient. Will follow patient with you. Please call if any Qs. had d/w team Dr Julio Perez Office: [phone] CC: pain abdomen better reason for consult: ESRD HPI: pt is a 22 M with CKD 5 (s/p PD catheter 09/17/[address] Michael) due to chronic obstructive uropathy managed by pt as self intermittent catheterization at home, spina bifida neurogenic bladder came with severe constipation, fecal impaction and pain abdomen. pt now has BM and feels better but still c/o pain abdomen makes urine. appetite low. febrile on day of presentation pt had started going to outpt HD unit and got catheter flushed once ROS: Denies chest pain, palpitation, shortness of breath, leg swelling. All other negative. making plenty of urine. self intermittent catheterization at home. 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 reports decreased appetite x 1 month, denies loss of weight. feels better. had BM. Physical Examination: General Appearance: Comfortable, in no acute respiratory distress, co-operative . Vitals reviewed and noted as below Head; Atraumatic, normocephalic ENT: no ulcers no thrush. Tongue is midline. Oropharynx: no rash or ulcers. EYES: Pupils are equal, round and reactive to light accommodation. Eye muscles and extraocular movement intact. Sclera is anicteric. Neck; supple no lymphadenopathy, no thyromegaly or bruit Lungs: Normal respiratory rate/effort. Breath sounds bilateral equal and clear Heart: Normal rate. s1s2 normal. No rub or gallop. Extremities: no edema. No varicose veins Neurological: Patient is alert, awake and oriented to person, place and time. No focal deficit. Strength bilateral appropriate and equal Skin: Warm and dry. Normal turgor. No rash. Palpitation: Normal elasticity for age Abdomen: Abdomen is soft. Bowel sounds +. There is no abdominal tenderness, no guarding/rigidity no organomegaly. has PD catheter, exit site clean Psych: normal insight and normal affect/mood MSK: no joint tenderness or swelling. Digits and nails normal, no deformity : kidney not palpable. has cardoza Labs/imaging reviewed. Past medical history, past surgical history, family history, social history, allergy reviewed and noted as below Family hx: no hx of CKD. Rest non-contributory renal imaging: b/l severe hydronephrosis last TSAT 15% Ferritin 130 Vit D 27 PTH 353 Objective - Vital Signs/Intake and Output Vital Signs (last 24 hours): Temp Pulse Resp BP Pulse Ox 98.4 F 58 L 20 123/74 100 10/04/17 08:40 10/04/17 08:40 10/04/17 08:40 10/04/17 08:40 10/04/17 08:40 Intake and Output: 10/04/17 10/04/17 06:59 18:59 Output Total 1000 Balance -1000 - Medications Medications: Current Medications Acetaminophen (Tylenol 325mg Tab) 650 mg PO Q6 PRN PRN Reason: Temp > 101.0 Last Admin: 10/02/17 17:15 Dose: 650 mg Bisacodyl (Dulcolax) 10 mg PO ONCE ONE Stop: 10/04/17 18:01 Epoetin Sundar (Procrit) 8,000 unit SC TTS SIMONE Last Admin: 10/04/17 11:46 Dose: 8,000 unit Metronidazole (Flagyl) 500 mg in 100 mls @ 100 mls/hr IVPB Q8H SIMONE PRN Reason: Protocol Last Admin: 10/04/17 04:29 Dose: 100 mls/hr Ferric Sodium Gluconate Complex 125 mg/ Sodium Chloride 110 mls @ 110 mls/hr IVPB 1600 SIMONE Stop: 10/11/17 16:01 Ketorolac Tromethamine (Toradol) 15 mg IVP Q6 PRN PRN Reason: Pain, moderate (4-7) Last Admin: 10/02/17 18:37 Dose: 15 mg Ondansetron HCl (Zofran Inj) 4 mg IVP Q6 PRN PRN Reason: Nausea/Vomiting Last Admin: 10/03/17 22:29 Dose: 4 mg - Labs Labs: 10/04/17 07:00 10/04/17 07:00
[2017-10-04] MEDS: Ferric Sodium Gluconat Complex 125 MG in Sodium Chloride 0.9% 100 ML IVPB SCH (17:57)
[2017-10-04] MEDS ORDERED: metroNIDAZOLE IV 500 mg/100 ml 500 MG/100 ML BAG IV SCH (18:00)
[2017-10-04] MEDS ORDERED: Bisacodyl 5mg EC Tab PO ONE (18:00)
--- NOTE | 2017-10-04 18:22 | CP.PCM.PN ---
Subjective - Date & Time of Evaluation Date of Evaluation: 10/04/17 Time of Evaluation: 18:19 - Subjective Subjective: hbg droped to 8.5 able to go to bathroom will have colonoscopy in am culters pending Objective - Vital Signs/Intake and Output Vital Signs (last 24 hours): Temp Pulse Resp BP Pulse Ox 98.2 F 59 L 20 128/83 100 10/04/17 15:00 10/04/17 15:00 10/04/17 15:00 10/04/17 15:00 10/04/17 15:00 Intake and Output: 10/04/17 10/04/17 06:59 18:59 Intake Total 920 Output Total 1000 1075 Balance -1000 -155 - Medications Medications: Current Medications Acetaminophen (Tylenol 325mg Tab) 650 mg PO Q6 PRN PRN Reason: Temp > 101.0 Last Admin: 10/02/17 17:15 Dose: 650 mg Epoetin Sundar (Procrit) 8,000 unit SC TTS SIMONE Last Admin: 10/04/17 11:46 Dose: 8,000 unit Metronidazole (Flagyl) 500 mg in 100 mls @ 100 mls/hr IVPB Q8H SIMONE PRN Reason: Protocol Last Admin: 10/04/17 13:31 Dose: 100 mls/hr Ferric Sodium Gluconate Complex 125 mg/ Sodium Chloride 110 mls @ 110 mls/hr IVPB 1600 SIMONE Stop: 10/11/17 16:01 Last Admin: 10/04/17 17:57 Dose: 110 mls/hr Ketorolac Tromethamine (Toradol) 15 mg IVP Q6 PRN PRN Reason: Pain, moderate (4-7) Last Admin: 10/02/17 18:37 Dose: 15 mg Ondansetron HCl (Zofran Inj) 4 mg IVP Q6 PRN PRN Reason: Nausea/Vomiting Last Admin: 10/03/17 22:29 Dose: 4 mg - Labs Labs: 10/04/17 07:00 10/04/17 07:00 - Constitutional Appears: Non-toxic - Head Exam Head Exam: NORMAL INSPECTION - Eye Exam Eye Exam: Normal appearance Pupil Exam: NORMAL ACCOMODATION - ENT Exam ENT Exam: Normal Exam - Respiratory Exam Respiratory Exam: Clear to Ausculation Bilateral - Cardiovascular Exam Cardiovascular Exam: REGULAR RHYTHM - GI/Abdominal Exam GI & Abdominal Exam: Tenderness - Rectal Exam Rectal Exam: NORMAL INSPECTION - Exam Exam: NORMAL INSPECTION - Extremities Exam Extremities Exam: Normal Capillary Refill - Back Exam Back Exam: NORMAL INSPECTION - Skin Skin Exam: Pallor Assessment and Plan - Assessment and Plan (Free Text) Assessment: aneamia renal failiur stool impaction constipation Plan: as per orders
[2017-10-05] MEDS: metroNIDAZOLE IV 500 mg/100 ml 500 MG/100 ML BAG IVPB SCH (04:32)
[2017-10-05 07:35] LABS: EOS # 0.2 K/uL (0.0-0.7); EOS % 4.5 % (0.0-4.0); HEMOGLOBIN 9.1 g/dL (12.0-18.0); LYMPH # 1.2 K/uL (1.0-4.3); LYMPH % 25.5 % (20.0-40.0); MEAN CELL VOLUME 79.8 fL (80.0-94.0); MEAN CORPUSCULAR HEMOGLOBIN 27.4 pg (27.0-31.0); MEAN CORPUSCULAR HGB CONC 34.3 g/dL (33.0-37.0); MEAN PLATELET VOLUME 8.7 fL (7.2-11.7); MONO # 0.3 K/uL (0.0-0.8); RBC 3.31 Mil/uL (4.40-5.90); RED CELL DISTRIBUTION WIDTH 12.5 % (11.5-14.5); WHITE BLOOD COUNT 4.8 K/uL (4.8-10.8)
[2017-10-05 08:24] VITALS: O2SAT 100
[2017-10-05 08:55] LABS: ALB/GLOB RATIO 1.2 (1.0-2.1); ALBUMIN 3.7 g/dL (3.5-5.0); CALCIUM 9.2 mg/dl (8.6-10.4)
[2017-10-05] MEDS ORDERED: Sodium Chloride 0.9% 1,000 ML IV SCH (09:45)
[2017-10-05] MEDS ORDERED: Propofol 10 mg/ml Inj (20 ML) ONE ×3 (10:07→10:50)
[2017-10-05] MEDS ORDERED: cefTRIAXone IV 1 gm in Dextros 50 ML IVPB STA ×2 (10:53→12:17)
--- NOTE | 2017-10-05 10:54 | CP.PCM.PN ---
Subjective - Date & Time of Evaluation Date of Evaluation: 10/05/17 Time of Evaluation: 10:52 - Subjective Subjective: having coloscopy has urinary infection Objective - Vital Signs/Intake and Output Vital Signs (last 24 hours): Temp Pulse Resp BP Pulse Ox 98.3 F 60 20 135/81 100 10/05/17 10:37 10/05/17 10:37 10/05/17 10:37 10/05/17 10:37 10/05/17 10:37 Intake and Output: 10/05/17 10/05/17 06:59 18:59 Intake Total 450 0 Output Total 2800 Balance -2350 0 - Medications Medications: Current Medications Acetaminophen (Tylenol 325mg Tab) 650 mg PO Q6 PRN PRN Reason: Temp > 101.0 Last Admin: 10/02/17 17:15 Dose: 650 mg Epoetin Sundar (Procrit) 8,000 unit SC TTS SIMONE Last Admin: 10/04/17 11:46 Dose: 8,000 unit Metronidazole (Flagyl) 500 mg in 100 mls @ 100 mls/hr IVPB Q8H SIMONE PRN Reason: Protocol Last Admin: 10/05/17 04:32 Dose: 100 mls/hr Ferric Sodium Gluconate Complex 125 mg/ Sodium Chloride 110 mls @ 110 mls/hr IVPB 1600 SIMONE Stop: 10/11/17 16:01 Last Admin: 10/04/17 17:57 Dose: 110 mls/hr Sodium Chloride (Sodium Chloride 0.9%) 1,000 mls @ 10 mls/hr IV .Q24H SIMONE Ondansetron HCl (Zofran Inj) 4 mg IVP Q6 PRN PRN Reason: Nausea/Vomiting Last Admin: 10/04/17 18:51 Dose: 4 mg - Labs Labs: 10/05/17 07:21 10/05/17 07:21 - Constitutional Appears: Non-toxic - Head Exam Head Exam: NORMAL INSPECTION - Eye Exam Eye Exam: Normal appearance Pupil Exam: NORMAL ACCOMODATION - ENT Exam ENT Exam: Mucous Membranes Moist - Neck Exam Neck Exam: Normal Inspection - Respiratory Exam Respiratory Exam: Clear to Ausculation Bilateral - Cardiovascular Exam Cardiovascular Exam: REGULAR RHYTHM - GI/Abdominal Exam GI & Abdominal Exam: Tenderness, Normal Bowel Sounds - Extremities Exam Extremities Exam: Full ROM - Back Exam Back Exam: NORMAL INSPECTION - Neurological Exam Neurological Exam: Normal Gait - Psychiatric Exam Psychiatric exam: Normal Affect - Skin Skin Exam: Normal Color Assessment and Plan - Assessment and Plan (Free Text) Assessment: abd pain ac urosepses s/p fecal impaction add iv rocephin Plan: start
[2017-10-05 12:03] VITALS: RESP 20
--- NOTE | 2017-10-05 12:35 | CP.PCM.PN ---
Subjective - Date & Time of Evaluation Date of Evaluation: 10/05/17 Time of Evaluation: 12:33 - Subjective Subjective: Nephrology Consultation Note Assessment: Stable fecal impaction, severe constipation ? UTI b/l severe hydronephrosis Chronic Kidney Disease (N18.5) Stage 5 with 3 gm proteinuria (R80.9) likely due to chronic obstructive uropathy neurogenic bladder, hx of spina bifida Anemia (D64.9), Hyperphosphatemia (E83.39), Secondary Hyperparathyroidism (E21.1 ), HTN (I12.9), metabolic acidosis Plan plan for PD initiation in next few weeks as outpt. no acute need for it at present Hypertension control without meds Monitor Input/Output, daily weights and renal function with basic metabolic panel indwelling cardoza catheter ordered ID and GI following plan for phos binder once GI symptoms better, switched to phoslo 667 mg 2 cap TID with meals at d/c as pt felt constipated with renvela defer oral iron supplements due to constipation. started IV iron and epogen bicarb and Hb acceptable. can continue with sodium bicarb 650 mg bid and calcitriol 0.25 mcg 3 times a week at d/c Dose meds/antibiotics for reduced GFR. Avoid phos based fleets enema/magnesium based laxatives. Avoid nephrotoxins/NSAIDs/ iodinated contrast (unless needed emergently) Glycemic control Further work up for as per primary team Thanks for allowing me to participate in care of your patient. Will follow patient with you. Please call if any Qs. had d/w team Dr Julio Perez Office: [phone] CC: pain abdomen better reason for consult: ESRD HPI: pt is a 22 M with CKD 5 (s/p PD catheter 09/17/[address] Michael) due to chronic obstructive uropathy managed by pt as self intermittent catheterization at home, spina bifida neurogenic bladder came with severe constipation, fecal impaction and pain abdomen. pt now has BM and feels better but still c/o pain abdomen makes urine. appetite low. febrile on day of presentation pt had started going to outpt HD unit and got catheter flushed once ROS: Denies chest pain, palpitation, shortness of breath, leg swelling. All other negative. making plenty of urine. self intermittent catheterization at home. used to f/up with a peds personal assistant. reports decreased appetite x 1 month, denies loss of weight. feels better. had BM. s/p colonoscopy 10/05/17 Physical Examination: General Appearance: Comfortable, in no acute respiratory distress, co-operative . Vitals reviewed and noted as below Head; Atraumatic, normocephalic ENT: no ulcers no thrush. Tongue is midline. Oropharynx: no rash or ulcers. EYES: Pupils are equal, round and reactive to light accommodation. Eye muscles and extraocular movement intact. Sclera is anicteric. Neck; supple no lymphadenopathy, no thyromegaly or bruit Lungs: Normal respiratory rate/effort. Breath sounds bilateral equal and clear Heart: Normal rate. s1s2 normal. No rub or gallop. Extremities: no edema. No varicose veins Neurological: Patient is alert, awake and oriented to person, place and time. No focal deficit. Strength bilateral appropriate and equal Skin: Warm and dry. Normal turgor. No rash. Palpitation: Normal elasticity for age Abdomen: Abdomen is soft. Bowel sounds +. There is no abdominal tenderness, no guarding/rigidity no organomegaly. has PD catheter, exit site clean Psych: normal insight and normal affect/mood MSK: no joint tenderness or swelling. Digits and nails normal, no deformity : kidney not palpable. has cardoza Labs/imaging reviewed. Past medical history, past surgical history, family history, social history, allergy reviewed and noted as below Family hx: no hx of CKD. Rest non-contributory renal imaging: b/l severe hydronephrosis last TSAT 15% Ferritin 130 Vit D 27 PTH 353 Objective - Vital Signs/Intake and Output Vital Signs (last 24 hours): Temp Pulse Resp BP Pulse Ox 98 F 59 L 20 140/80 100 10/05/17 12:00 10/05/17 12:00 10/05/17 12:00 10/05/17 12:00 10/05/17 12:00 Intake and Output: 10/05/17 10/05/17 06:59 18:59 Intake Total 450 375 Output Total 2800 950 Balance -8660 -575 - Medications Medications: Current Medications Acetaminophen (Tylenol 325mg Tab) 650 mg PO Q6 PRN PRN Reason: Temp > 101.0 Last Admin: 10/02/17 17:15 Dose: 650 mg Epoetin Sundar (Procrit) 8,000 unit SC TTS [facility] Last Admin: 10/04/17 11:46 Dose: 8,000 unit Metronidazole (Flagyl) 500 mg in 100 mls @ 100 mls/hr IVPB Q8H SIMONE PRN Reason: Protocol Last Admin: 10/05/17 04:32 Dose: 100 mls/hr Ferric Sodium Gluconate Complex 125 mg/ Sodium Chloride 110 mls @ 110 mls/hr IVPB 1600 SIMONE Stop: 10/11/17 16:01 Last Admin: 10/04/17 17:57 Dose: 110 mls/hr Sodium Chloride (Sodium Chloride 0.9%) 1,000 mls @ 10 mls/hr IV .Q24H [facility] Ceftriaxone Sodium (Rocephin Iv 1 Gm Duplex) 50 mls @ 100 mls/hr IVPB STAT STA PRN Reason: Protocol Stop: 10/05/17 12:46 Ondansetron HCl (Zofran Inj) 4 mg IVP Q6 PRN PRN Reason: Nausea/Vomiting Last Admin: 10/04/17 18:51 Dose: 4 mg Polyethylene Glycol (Miralax) 17 gm PO BID SIMONE - Labs Labs: 10/05/17 07:21 10/05/17 07:21
[2017-10-05] MEDS ORDERED: metroNIDAZOLE IV 500 mg/100 ml 500 MG/100 ML BAG IVPB SCH (13:15)
[2017-10-05 15:38] VITALS: BP 137/75; PULSE 73; TEMP 98.1
[2017-10-05] MEDS: Ferric Sodium Gluconat Complex 125 MG in Sodium Chloride 0.9% 100 ML IVPB SCH (16:18)
--- NOTE | 2017-10-05 16:35 | CP.PCM.PN ---
Subjective - Date & Time of Evaluation Date of Evaluation: 10/05/17 Time of Evaluation: 16:35 Objective - Vital Signs/Intake and Output Vital Signs (last 24 hours): Temp Pulse Resp BP Pulse Ox 98.1 F 73 20 137/75 100 10/05/17 15:35 10/05/17 15:35 10/05/17 15:35 10/05/17 15:35 10/05/17 15:35 Intake and Output: 10/05/17 10/05/17 06:59 18:59 Intake Total 450 375 Output Total 2800 1825 Balance -2350 -1450 - Medications Medications: Current Medications Acetaminophen (Tylenol 325mg Tab) 650 mg PO Q6 PRN PRN Reason: Temp > 101.0 Last Admin: 10/02/17 17:15 Dose: 650 mg Epoetin Sundar (Procrit) 8,000 unit SC TTS [facility] Last Admin: 10/04/17 11:46 Dose: 8,000 unit Ferric Sodium Gluconate Complex 125 mg/ Sodium Chloride 110 mls @ 110 mls/hr IVPB 1600 SIMONE Stop: 10/11/17 16:01 Last Admin: 10/05/17 16:18 Dose: Not Given Sodium Chloride (Sodium Chloride 0.9%) 1,000 mls @ 10 mls/hr IV .Q24H SIMONE Metronidazole (Flagyl) 500 mg in 100 mls @ 100 mls/hr IVPB Q8H SIMONE PRN Reason: Protocol Last Admin: 10/05/17 14:07 Dose: 100 mls/hr Ondansetron HCl (Zofran Inj) 4 mg IVP Q6 PRN PRN Reason: Nausea/Vomiting Last Admin: 10/04/17 18:51 Dose: 4 mg Polyethylene Glycol (Miralax) 17 gm PO BID SIMONE - Labs Labs: 10/05/17 07:21 10/05/17 07:21 Assessment and Plan - Assessment and Plan (Free Text) Assessment: FOLLOW UP WITH DR MADDEN AND DR HAMEED IN 1-2 WEEK ---CALL FOR APPOINTMENT Take lactulose to relieve your constipation: Take 30 cc's (one tablespoon) every 2 hours until satisfactory bowel movement and constipation relieved. Chronic Constipation: Avoid narcotic pain relievers like Percocet- VERY STRONG and provoke SEVERE Constipation Take Colace 100 mg tablets twice a day to help PREVENT constipation Diet and exercise changes: Eat 7 fresh fruits and vegetables a day Avoid rice/bread which are VERY constipating. NEW PRESCRIPTION GIVEN FROM [facility] PHOSLO 667 MG 2 CAP TID NEPHROVITE 1 TAB DAILY SODIUM BICARB 650 MG 1 TAB BID ACTIVITY TOLERATED CALL DR MADDEN OR GO TO THE EMERGENCY ROOM IF SYMPTOM RETURN OR WORSENING
[2017-10-05] MEDS ORDERED: POLYETHYLENE GLYCOL 3350 17 GM/Dose PACKET PO SCH (18:00)
== END 2017-10-05 16:55 | disposition home or self-care (01) | DRG 551 ==
LOC: C.ER 12:26 → C.9E 16:52 → C.5S 21:56
PROVIDERS: ADMIT Internal Medicine; ATTEND Internal Medicine
PROC: 0D9E8ZX Drainage of Large Intestine, Via Natural or Artificial Opening Endoscopic, Diagnostic (ICD-10-PCS; 2017-10-05)
PROC: 0DBE8ZX Excision of Large Intestine, Via Natural or Artificial Opening Endoscopic, Diagnostic (ICD-10-PCS; principal; 2017-10-05 10:35)
DX: K59.09 Other constipation (principal); N17.9 Acute kidney failure, unspecified; Q05.9 Spina bifida, unspecified; I12.0 Hypertensive chronic kidney disease with stage 5 chronic kidney disease or end stage renal disease; N18.6 End stage renal disease; N31.2 Flaccid neuropathic bladder, not elsewhere classified; N13.30 Unspecified hydronephrosis; E87.2 Acidosis; N39.0 Urinary tract infection, site not specified; N25.81 Secondary hyperparathyroidism of renal origin; N13.8 Other obstructive and reflux uropathy; D63.1 Anemia in chronic kidney disease; Z99.2 Dependence on renal dialysis

== ENCOUNTER 2017-10-10 13:12 | Emergency (ER) | payer MEDICAID ==
[2017-10-10 13:12] VITALS: BMI 25.5
[2017-10-10] MEDS ORDERED: Morphine 4 MG/ML VIAL ONE (14:16)
--- NOTE | 2017-10-10 14:26 | RAD ---
Date of service: 10/10/2017 PROCEDURE: CHEST RADIOGRAPH, 1 VIEW HISTORY: Pain upon deep breathing, h/o Peritoneal catheter COMPARISON: 09/07/2017 FINDINGS: LUNGS: Clear. PLEURA: No pneumothorax or pleural fluid seen. CARDIOVASCULAR: Normal. OSSEOUS STRUCTURES: No significant abnormalities. VISUALIZED UPPER ABDOMEN: Normal. OTHER FINDINGS: None. IMPRESSION: No active disease.
[2017-10-10 14:34] LABS: BASO # 0.1 K/uL (0.0-0.2); BASO % 0.5 % (0.0-2.0); EOS # 0.1 K/uL (0.0-0.7); EOS % 1.2 % (0.0-4.0); HEMOGLOBIN 11.3 g/dL (12.0-18.0); LYMPH # 1.2 K/uL (1.0-4.3); LYMPH % 12.3 % (20.0-40.0); MEAN CELL VOLUME 81.4 fL (80.0-94.0); MEAN CORPUSCULAR HEMOGLOBIN 27.5 pg (27.0-31.0); MEAN CORPUSCULAR HGB CONC 33.8 g/dL (33.0-37.0); MEAN PLATELET VOLUME 7.8 fL (7.2-11.7); MONO # 0.4 K/uL (0.0-0.8); MONO % 4.3 % (0.0-10.0); NEUT # 7.8 K/uL (1.8-7.0); NEUT % 81.7 % (50.0-75.0); RBC 4.1 Mil/uL (4.40-5.90); RED CELL DISTRIBUTION WIDTH 12.8 % (11.5-14.5); WHITE BLOOD COUNT 9.5 K/uL (4.8-10.8)
[2017-10-10 14:49] LABS: INR 1.3; PROTHROMBIN TIME 13.8 SECONDS (9.7-12.2)
[2017-10-10 15:11] LABS: ALBUMIN 4.6 g/dL (3.5-5.0); CALCIUM 9.7 mg/dl (8.6-10.4)
[2017-10-10 15:12] LABS: ALB/GLOB RATIO 1.4 (1.0-2.1)
[2017-10-10] MEDS ORDERED: Iohexol 240 (50 ml) PO STA (15:34)
[2017-10-10] MEDS ORDERED: Iohexol 240 (50 ml) ONE (15:39)
--- NOTE | 2017-10-10 16:12 | CP.PCM.CON ---
<Adán Cope - Last Filed: 10/10/17 16:16> History of Present Illness - History of Present Illness History of Present Illness: 22M w/ PMH of spina bifida and CKD S/P peritoneal dialysis catheter placement POD8 presents to [facility] ED with sharp, constant, generalized, abdominal pain that started today while at the dialysis center. He reports his pain began suddenly after an attempt to flush his peritoneal dialysis catheter. He reports noticing clots coming out during the flushing process. He denies vomiting although experiencing nausea. Denies headache/dizzines, chest pain, SOB. Denies fever, chill, or night sweats. 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 Fam Hx: Father- diabetes, hernia sx, and pacemaker. Mother- high BP, Aunt ( father's side)-kidney failure. Hospitalizations: pneumonia 2016 at [facility] Meds: see MAR Review of Systems - Review of Systems Review of Systems: 12pt ROS unremarkable except as stated in HPI Past Patient History - Infectious Disease Hx of Infectious Diseases: None - Past Medical History & Family History Past Medical History?: Yes - Past Social History Smoking Status: Never Smoked - CARDIAC Hx Hypertension: Yes - PULMONARY Hx Pneumonia: Yes - NEUROLOGICAL Hx Neurological Disorder: Yes Other/Comment: Spina Bifida, Tethered Spinal Cord - HEENT Hx HEENT Problems: No - RENAL Hx Chronic Kidney Disease: Yes Hx Dialysis: Yes Type of Dialysis Access: Peritoneal Dialysis Hx Neurogenic Bladder: Yes Hx Renal Failure: Yes - ENDOCRINE/METABOLIC Hx Endocrine Disorders: No - HEMATOLOGICAL/ONCOLOGICAL Hx Blood Disorders: No - INTEGUMENTARY Hx Dermatological Problems: No - MUSCULOSKELETAL/RHEUMATOLOGICAL Hx Musculoskeletal Disorders: No Hx Falls: No Other/Comment: Spina Bipida - GASTROINTESTINAL Hx Gastrointestinal Disorders: No - GENITOURINARY/GYNECOLOGICAL Hx Genitourinary Disorders: Yes Hx Urinary Tract Infection: Yes Other/Comment: SELF CATHETERIZE - PSYCHIATRIC Hx Substance Use: No - SURGICAL HISTORY Hx Surgeries: Yes Other/Comment: Spinal cord repair (Spina Bifida) - ANESTHESIA Hx Anesthesia: Yes Hx Anesthesia Reactions: No Meds Allergies/Adverse Reactions: Allergies Allergy/AdvReac Type Severity Reaction Status Date / Time No Known Allergies Allergy Verified 10/01/17 12:34 Physical Exam - Constitutional Appears: Agitated - Head Exam Head Exam: ATRAUMATIC, NORMAL INSPECTION, NORMOCEPHALIC - Eye Exam Eye Exam: EOMI - ENT Exam ENT Exam: Mucous Membranes Moist, Normal Exam - Respiratory Exam Respiratory Exam: NORMAL BREATHING PATTERN. absent: Chest Wall Tenderness, Decreased Breath Sounds, Wheezes - Cardiovascular Exam Cardiovascular Exam: REGULAR RHYTHM, +S1, +S2. absent: Bradycardia, Tachycardia - GI/Abdominal Exam GI & Abdominal Exam: Normal Bowel Sounds, Soft. absent: Firm, Tenderness - Rectal Exam Rectal Exam: Deferred - Extremities Exam Extremities exam: Positive for: normal inspection - Neurological Exam Neurological exam: Alert, Normal Gait, Oriented x3 - Psychiatric Exam Psychiatric exam: Normal Affect, Normal Mood - Skin Skin Exam: Dry, Intact, Normal Color, Warm Results - Vital Signs Recent Vital Signs: Last Vital Signs Temp 97.9 F 10/10/17 15:30 Pulse 88 10/10/17 15:30 Resp 20 10/10/17 15:30 BP 122/77 10/10/17 15:30 Pulse Ox 100 10/10/17 15:30 - Labs Result Diagrams: 10/10/17 14:28 10/10/17 14:28 Labs: Laboratory Results - last 24 hr 10/10/17 10/10/17 10/10/17 14:28 14:28 14:28 WBC 9.5 D RBC 4.10 L Hgb 11.3 L D Hct 33.3 L MCV 81.4 MCH 27.5 MCHC 33.8 RDW 12.8 Plt Count 329 D MPV 7.8 Neut % (Auto) 81.7 H Lymph % (Auto) 12.3 L [place] % (Auto) 4.3 Eos % (Auto) 1.2 Baso % (Auto) 0.5 Neut # (Auto) 7.8 H Lymph # (Auto) 1.2 [place] # (Auto) 0.4 Eos # (Auto) 0.1 Baso # (Auto) 0.1 PT 13.8 H INR 1.3 APTT 35 H Sodium 143 Potassium 4.2 Chloride 106 Carbon Dioxide 22 Anion Gap 19 BUN 35 H Creatinine 7.2 H Est GFR ( Amer) 12 Est GFR (Non-Af Amer) 10 Random Glucose 99 Calcium 9.7 Total Bilirubin 0.3 AST 15 L D ALT 13 L D Alkaline Phosphatase 101 Total Protein 7.9 Albumin 4.6 Globulin 3.3 Albumin/Globulin Ratio 1.4 Lipase 148 Assessment & Plan - Assessment and Plan (Free Text) Assessment: 22M presents with generalized abdominal pain s/p peritoneal dialysis placement POD 8 Plan: CT abdomen/pelvis with Oral Contrast flush PD catheter with Cathflo analgesics PRN f/u with Dr. Michael in office on 10/11 D/w Dr. Fernanda Nick PGY3 <Michael Michael B - Last Filed: 10/12/17 10:56> Results - Vital Signs Recent Vital Signs: Last Vital Signs Temp 99.9 F H 10/10/17 18:54 Pulse 97 H 10/10/17 18:54 Resp 16 10/10/17 18:54 BP 143/88 10/10/17 18:54 Pulse Ox 100 10/10/17 18:58 - Labs Result Diagrams: 10/10/17 14:28 10/10/17 14:28 Attending/Attestation - Attestation I have personally seen and examined this patient.: Yes I have fully participated in the care of the patient.: Yes I have reviewed all pertinent clinical information: Yes Notes (Text): Pt was seen and examined at bedside Agree with above note and assessment Pt with abdominal pain after PD Catheter aspiration At present, No abdominal pain Catheter is working with saline flush Use Cathflo if needed Pt can be DC home f.u in office Plan d.w pt in detail Risk and benefit explained in detail.
--- NOTE | 2017-10-10 17:20 | CT ---
Date of service: 10/10/2017 PROCEDURE: CT Abdomen and Pelvis with contrast HISTORY: PD catheter placement COMPARISON: 10/01/2017 TECHNIQUE: CT scan of the abdomen and pelvis was performed without administration of intravenous contrast. Oral contrast was administered. Coronal and sagittal reformatted images were obtained. Radiation dose: Total exam DLP = 475.55 mGy-cm. This CT exam was performed using one or more of the following dose reduction techniques: Automated exposure control, adjustment of the mA and/or kV according to patient size, and/or use of iterative reconstruction technique. FINDINGS: LOWER THORAX: The lung bases are clear. Small left pleural effusion. LIVER: There is mild hepatomegaly. No gross lesion or ductal dilatation. GALLBLADDER AND BILE DUCTS: No calcified gallstones. PANCREAS: Normal in size. No gross lesion or ductal dilatation. SPLEEN: Mild splenomegaly. ADRENALS: No discrete nodule. KIDNEYS AND URETERS: There is renal cortical atrophy. There is redemonstration of severe bilateral hydronephrosis and severe dilatation of renal pelves, worse on the left. No nephrolithiasis. VASCULATURE: Unremarkable. No aortic aneurysm. BOWEL: The small bowel loops are normal in caliber. There is moderate amount of stool in the colon. No bowel dilatation or obstruction. APPENDIX: Normal appendix. PERITONEUM: No free fluid. No free air. There is interval placement of a peritoneal dialysis catheter terminating in the right lower quadrant. LYMPH NODES: No enlarged lymph nodes. BLADDER: There is severe circumferential mural thickening of the urinary bladder wall. REPRODUCTIVE: Unremarkable. BONES: No acute fracture. Osseous changes of renal osteodystrophy. OTHER FINDINGS: None. IMPRESSION: 1. No acute abdominal or pelvic abnormality. 2. Left-sided peritoneal dialysis catheter terminates in the right lower quadrant. 3. Severe bilateral hydronephrosis with dilatation of renal pelves, worse on the left. 4. Mild hepatosplenomegaly. 5. Osseous changes of renal osteodystrophy. 6. Small left pleural effusion.
--- NOTE | 2017-10-10 18:50 | C.PDOC ---
History Of Present Illness Pt went to a center to have his recently placed peritoneal dialysis catheter flushed. They had difficulty flushing it and the pt developed pain. Time Seen by Provider: 10/10/17 13:30 Chief Complaint (Nursing): Abdominal Pain History Per: Patient Onset/Duration Of Symptoms: Hrs (today) Current Symptoms Are (Timing): Still Present Severity: Moderate Quality Of Discomfort: "Pain" Exacerbating Factors: Movement, Deep Breaths Additional History Per: Prior Records Past Medical History Reviewed: Historical Data, Nursing Documentation, Vital Signs Vital Signs: Last Vital Signs Temp 97.9 F 10/10/17 15:30 Pulse 94 H 10/10/17 17:45 Resp 18 10/10/17 17:45 BP 134/87 10/10/17 17:45 Pulse Ox 100 10/10/17 17:45 - Medical History PMH: HTN, Pneumonia, Chronic Kidney Disease Other PMH: Spina Bifida Other Surgeries: PD catheter placement - [facility] Procedures DRAINAGE OF LARGE INTESTINE, ENDO, DIAGN (10/01/17) EXCISION OF LARGE INTESTINE, ENDO, DIAGN (10/01/17) Family History: States: Unknown Family Hx - Social History Hx Tobacco Use: No Hx Alcohol Use: No Hx Substance Use: No - Immunization History Hx Tetanus Toxoid Vaccination: (Unk) Hx Influenza Vaccination: No Hx Pneumococcal Vaccination: Yes Review Of Systems Except As Marked, All Systems Reviewed And Found Negative. Constitutional: Negative for: Fever, Weakness Respiratory: Negative for: Shortness of Breath Gastrointestinal: Positive for: Nausea, Abdominal Pain. Negative for: Vomiting Musculoskeletal: Negative for: Neck Pain, Back Pain Skin: Negative for: Rash Physical Exam - Physical Exam Appears: Chronically Ill, Other (Uncomfortable) Skin: Normal Color, Warm, Dry Head: Atraumatic, Normacephalic Eye(s): bilateral: PERRL, EOMI Neck: Normal ROM, Supple Chest: Symmetrical, No Deformity Cardiovascular: Rhythm Regular Respiratory: Normal Breath Sounds, No Accessory Muscle Use Gastrointestinal/Abdominal: Soft, Tenderness (very mild), No Distention, No Guarding, No Rebound Back: No CVA Tenderness Extremity: Normal ROM, No Pedal Edema, No Calf Tenderness Neurological/Psych: Oriented x3, Normal Motor, Normal Sensation ED Course And Treatment - Laboratory Results Result Diagrams: 10/10/17 14:28 10/10/17 14:28 Lab Interpretation: No Changes Compared To Prior Results O2 Sat by Pulse Oximetry: 100 Pulse Ox Interpretation: Normal - Radiology CXR: Viewed By Me, Read By Radiologist CXR Interpretation: Yes: No Acute Disease - CT Scan/US CT abd/pelv Other Rad Studies (CT/US): Read By Radiologist, Radiology Report Reviewed CT/US Interpretation: IMPRESSION: 1. No acute abdominal or pelvic abnormality. 2. Left-sided peritoneal dialysis catheter terminates in the right lower quadrant. 3. Severe bilateral hydronephrosis with dilatation of renal pelves, worse on the left. 4. Mild hepatosplenomegaly. 5. Osseous changes of renal osteodystrophy. 6. Small left pleural effusion. Progress Note: Pt was seen by the surgical assist who injected TPA into catheter. Pt states that pain has not improved after procedure. Disposition Discussed With DrSunshine: Michael Michael Comment: I discussed with him pt's presentation and test results. He states that it is safe to discharge pt home even though pain has not resolved. He will see pt in his office tomorrow. Doctor Will See Patient In The: Office Counseled Patient/Family Regarding: Studies Performed, Diagnosis, Need For Followup - Disposition Referrals: Michael Michael MD [Staff Provider] - Disposition: HOME/ ROUTINE Disposition Time: 18:55 Condition: FAIR Additional Instructions: Follow up with your surgeon tomorrow. Return to the ER if you develop fever, vomiting, worsening of symptoms or if you have any other concerns. Instructions: Peritoneal Dialysis Catheter Placement (DC) - Clinical Impression Clinical Impression: Abdominal pain, Peritoneal dialysis catheter in situ
[2017-10-10 18:55] VITALS: BP 143/88; PULSE 97; RESP 16; TEMP 99.9
[2017-10-10 18:56] VITALS: O2SAT 100
== END 2017-10-10 19:13 | disposition home or self-care (01) ==
LOC: C.ER 13:12
DX: R10.84 Generalized abdominal pain (principal); Z99.2 Dependence on renal dialysis
CPT/HCPCS: 71045; 74176; 80053; 83690; 85025; 85610; 85730; 96374; 96375; 96376; 99285; C9113; J2270; J2405; J2997; Q9966

== ENCOUNTER 2017-10-15 15:13 | Inpatient (IN) | payer MEDICAID ==
[2017-10-15 15:13] VITALS: BMI 25.5
[2017-10-15] MEDS ORDERED: Sodium Chloride 0.9% 1,000 ML IV ONE (15:44)
[2017-10-15] MEDS ORDERED: Morphine 4 MG/ML VIAL ONE (16:06)
[2017-10-15] MEDS ORDERED: Sodium Chloride 0.9% 1,000 ML ONE (16:06)
[2017-10-15 16:07] LABS: BASO # 0.1 K/uL (0.0-0.2); BASO % 0.5 % (0.0-2.0); EOS # 0.1 K/uL (0.0-0.7); EOS % 1.1 % (0.0-4.0); HEMOGLOBIN 11.2 g/dL (12.0-18.0); LYMPH # 2.3 K/uL (1.0-4.3); LYMPH % 18.2 % (20.0-40.0); MEAN CELL VOLUME 80.5 fL (80.0-94.0); MEAN CORPUSCULAR HEMOGLOBIN 27.5 pg (27.0-31.0); MEAN CORPUSCULAR HGB CONC 34.2 g/dL (33.0-37.0); MEAN PLATELET VOLUME 7.9 fL (7.2-11.7); MONO # 0.5 K/uL (0.0-0.8); NEUT # 9.7 K/uL (1.8-7.0); NEUT % 76.2 % (50.0-75.0); RBC 4.06 Mil/uL (4.40-5.90); RED CELL DISTRIBUTION WIDTH 13.2 % (11.5-14.5); WHITE BLOOD COUNT 12.7 K/uL (4.8-10.8)
--- NOTE | 2017-10-15 16:36 | RAD ---
Date of service: 10/15/2017 PROCEDURE: Radiographs of the chest and abdomen (obstructive series) HISTORY: Abdominal pain COMPARISON: Comparison made with prior chest radiograph and CT scan abdomen pelvis 10/10/2017 both dated yoli 10/10/2017 TECHNIQUE: AP radiograph of the chest, with upright and supine radiographs of the abdomen. FINDINGS: CHEST: Lungs: Clear. Cardiovascular: Normal size heart. No pulmonary vascular congestion. Pleura: No pleural fluid. No pneumothorax. Other findings: None. ABDOMEN AND PELVIS: Bowel: Unremarkable bowel gas pattern. Findings suggest mild ileus . In addition, there is a moderate amount of stool seen in the right colon suggesting mild localized fecal retention/constipation. Free air: None. Bones: Unremarkable. Other findings: In situ peritoneal dialysis catheter again noted. IMPRESSION: Unremarkable radiographs of chest. In situ peritoneal dialysis catheter again noted. Mild ileus with what also appears represent mild localized fecal retention constipation right colon.
[2017-10-15 16:38] LABS: ALB/GLOB RATIO 1.2 (1.0-2.1); ALBUMIN 4.6 g/dL (3.5-5.0); CALCIUM 9.7 mg/dl (8.6-10.4)
[2017-10-15 17:07] LABS: URINE BACTERIA OCC (<OCC); URINE BILIRUBIN NEGATIVE (NEGATIVE); URINE BLOOD 1+ (NEGATIVE); URINE CLARITY Hazy (Clear); URINE COLOR Yellow (YELLOW); URINE GLUCOSE (UA) NORMAL (Normal); URINE LEUKOCYTE ESTERASE 3+ Leu/uL (Negative); URINE PROTEIN 2+ mg/dL (NEGATIVE); URINE UROBILINOGEN NORMAL mg/dL (0.2-1.0)
--- NOTE | 2017-10-15 17:44 | C.PDOC ---
History Of Present Illness 22 y/o male with PMHx of spina bifida, presents to the ED complaining of abdominal pain, worsened after attempting peritoneal dialysis in the outpatient center today. Patient has had multiple recent evals for the same, most recently on 10/10. He has extensive history of recurrent UTIs and chronic constipation, and self-catheterizes at home due to PMHx of spina bifida and atonic bladder. Patient states he had a UTI recently, though urine was not checked here on the last visit. 10/10 CT scan was remarkable only for extensive constipation. Patient reports using minimal narcotics for his chronic back pain. States he has been taking Miralax at home, but has loose stools. Otherwise patient has no chest pain, SOB, fever, chills, nausea, vomiting, weakness, numbness, or other complaints. Time Seen by Provider: 10/15/17 15:36 Chief Complaint (Nursing): Abdominal Pain History Per: Patient History/Exam Limitations: no limitations Onset/Duration Of Symptoms: Days Current Symptoms Are (Timing): Worse Associated Symptoms: Constipation Past Medical History Reviewed: Historical Data, Nursing Documentation, Vital Signs Vital Signs: Last Vital Signs Temp 100.1 F H 10/15/17 17:39 Pulse 95 H 10/15/17 17:39 Resp 18 10/15/17 17:39 BP 127/73 10/15/17 17:39 Pulse Ox 98 10/15/17 18:05 - Medical History PMH: HTN, Pneumonia, Chronic Kidney Disease Other PMH: Spina bifida, neurogenic bladder - [facility] Procedures DRAINAGE OF LARGE INTESTINE, ENDO, DIAGN (10/01/17) EXCISION OF LARGE INTESTINE, ENDO, DIAGN (10/01/17) Family History: States: Unknown Family Hx - Social History Hx Tobacco Use: No Hx Alcohol Use: No Hx Substance Use: No - Immunization History Hx Tetanus Toxoid Vaccination: (Unk) Hx Influenza Vaccination: No Hx Pneumococcal Vaccination: Yes Review Of Systems Except As Marked, All Systems Reviewed And Found Negative. Constitutional: Negative for: Fever, Chills, Sweats Cardiovascular: Negative for: Chest Pain Respiratory: Negative for: Shortness of Breath Gastrointestinal: Positive for: Abdominal Pain, Constipation. Negative for: Nausea, Vomiting, Diarrhea Physical Exam - Physical Exam Appears: In Acute Distress (in moderate to severe distress) Skin: Normal Color, Warm, Dry Head: Atraumatic, Normacephalic Eye(s): bilateral: Normal Inspection Oral Mucosa: Moist Neck: Normal ROM, Supple Chest: Symmetrical Cardiovascular: Rhythm Regular, No Murmur Respiratory: Normal Breath Sounds, No Rales, No Rhonchi, No Wheezing Gastrointestinal/Abdominal: Bowel Sounds (Dull to percussion throughout, diminished bowel sounds), Soft, Tenderness (diffuse abdominal tenderness), No Guarding, Other (PD catheter in LLQ, no surrounding erythema) Extremity: Bilateral: Atraumatic, Normal Color And Temperature Neurological/Psych: Oriented x3, Normal Speech ED Course And Treatment - Laboratory Results Result Diagrams: 10/15/17 16:03 10/15/17 16:03 Lab Interpretation: Abnormal (UA 371 WBC's) O2 Sat by Pulse Oximetry: 98 (RA) Pulse Ox Interpretation: Normal - Radiology CXR: Interpreted by Me CXR Interpretation: Yes: No Acute Disease - Other Rad abd x 2 X-Ray: Interpreted by Me (+ icn), Read By Radiologist (increased stool, ilius) Progress Note: rocephin IV, morphine Reevaluation Time: 18:07 Reassessment Condition: Improved - Physician Consult Information Time Consulting Physician Contacted: 18:04 Physician Contacted: Amaya Jones Outcome Of Conversation: 1700: d/w Surgical Eze- will consult. 1800: d/w Dr. Amaya Jones- PMD-ok to admit. Medical Decision Making Medical Decision Making: Initial Impression: 22 y/o male with abd pain, worsened s/p peritoneal dialysis Initial Plan: * Labs * EKG * X-ray obstructive series * IV fluids * Morphine 6 mg IVP Labs reviewed, WBC elevated at 13k. Paged Dr. Jones to consult DDX: SBP: failed manipulations of the peritoneal dialysis catheter increased risk 2 g Rocephin IV empirically BC and UC sent consider culture of peritoneal fluid UTI/Pyelo: Chronic UTI, leukocytosis, may be Pyelo Chronic constipation: related to diet/immobility/chronic narcotics large stool and ilius on belly films agressive bowel regimen Disposition Doctor Will See Patient In The: Hospital Counseled Patient/Family Regarding: Studies Performed, Diagnosis - Disposition Disposition: HOSPITALIZED Disposition Time: 18:10 Condition: GOOD Forms: C-nario (Bengali) - Clinical Impression Clinical Impression: Peritoneal dialysis catheter in situ, Abdominal discomfort, UTI (urinary tract infection) - Scribe Statement The provider has reviewed the documentation as recorded by the Scribe (Lili Mora) Provider Attestation: All medical record entries made by the Scribe were at my direction and personally dictated by me. I have reviewed the chart and agree that the record accurately reflects my personal performance of the history, physical exam, medical decision making, and the department course for this patient. I have also personally directed, reviewed, and agree with the discharge instructions and disposition.
--- NOTE | 2017-10-15 17:50 | CP.PCM.CON ---
<Adán Cope - Last Filed: 10/15/17 20:53> History of Present Illness - History of Present Illness History of Present Illness: 22M with PMH of spina bifida and CKD s/p peritoneal dialysis catheter placement [id number] presents with persistent nonradiating, sharp lower abdominal pain that began last night. Patient experienced 2 bouts of non-bloody bilious vomiting overnight with associated nausea. He slight aching pain worsene upon completion of his miralax prescription 2 days ago. Pain worsens with deep breaths and rapid breathing. His last BM was 2 nights ago. Patient reports chills and night sweats beginning last night associated with his pain. His symptoms worsened acutely this morning after attempt to flush his dialysis catheter at the dialysis center. PMH: spina bifida, CKD PSH: spina bifida surgery, PDC placement NKDA Review of Systems - Review of Systems Review of Systems: 12 point ROS reviewed and unremarkable except as stated in HPI Past Patient History - Infectious Disease Hx of Infectious Diseases: None - Past Medical History & Family History Past Medical History?: Yes - Past Social History Smoking Status: Never Smoked - CARDIAC Hx Hypertension: Yes - PULMONARY Hx Pneumonia: Yes - NEUROLOGICAL Hx Neurological Disorder: Yes Other/Comment: Spina Bifida, Tethered Spinal Cord - HEENT Hx HEENT Problems: No - RENAL Hx Chronic Kidney Disease: Yes - ENDOCRINE/METABOLIC Hx Endocrine Disorders: No - HEMATOLOGICAL/ONCOLOGICAL Hx Blood Disorders: No - INTEGUMENTARY Hx Dermatological Problems: No - MUSCULOSKELETAL/RHEUMATOLOGICAL Hx Musculoskeletal Disorders: No Hx Falls: No Other/Comment: Spina Bipida - GASTROINTESTINAL Hx Gastrointestinal Disorders: No - GENITOURINARY/GYNECOLOGICAL Hx Genitourinary Disorders: Yes Hx Urinary Tract Infection: Yes Other/Comment: SELF CATHETERIZE - PSYCHIATRIC Hx Psychophysiologic Disorder: No Hx Substance Use: No - SURGICAL HISTORY Hx Surgeries: Yes Other/Comment: Spinal cord repair (Spina Bifida) - ANESTHESIA Hx Anesthesia: Yes Hx Anesthesia Reactions: No Meds Allergies/Adverse Reactions: Allergies Allergy/AdvReac Type Severity Reaction Status Date / Time No Known Allergies Allergy Verified 10/01/17 12:34 Physical Exam - Constitutional Appears: No Acute Distress, Agitated - Head Exam Head Exam: ATRAUMATIC, NORMAL INSPECTION, NORMOCEPHALIC - Eye Exam Eye Exam: EOMI - ENT Exam ENT Exam: Mucous Membranes Moist, Normal Exam - Respiratory Exam Respiratory Exam: NORMAL BREATHING PATTERN. absent: Decreased Breath Sounds, Respiratory Distress - Cardiovascular Exam Cardiovascular Exam: REGULAR RHYTHM, +S1, +S2. absent: Bradycardia, Irregular Rhythm - GI/Abdominal Exam GI & Abdominal Exam: Guarding, Tenderness. absent: Distended, Organomegaly, Pulsatile Mass - Neurological Exam Neurological exam: Alert, Oriented x3 - Psychiatric Exam Psychiatric exam: Normal Affect, Normal Mood - Skin Skin Exam: Dry, Intact, Normal Color, Warm Results - Vital Signs Recent Vital Signs: Last Vital Signs Temp 100.1 F H 10/15/17 17:39 Pulse 95 H 10/15/17 17:39 Resp 18 10/15/17 17:39 BP 127/73 10/15/17 17:39 Pulse Ox 98 10/15/17 15:21 - Labs Result Diagrams: 10/15/17 16:03 10/15/17 16:03 Labs: Laboratory Results - last 24 hr 10/15/17 10/15/17 10/15/17 16:03 16:03 16:40 WBC 12.7 H RBC 4.06 L Hgb 11.2 L Hct 32.7 L MCV 80.5 MCH 27.5 MCHC 34.2 RDW 13.2 Plt Count 548 H D MPV 7.9 Neut % (Auto) 76.2 H Lymph % (Auto) 18.2 L [place] % (Auto) 4.0 Eos % (Auto) 1.1 Baso % (Auto) 0.5 Neut # (Auto) 9.7 H Lymph # (Auto) 2.3 [place] # (Auto) 0.5 Eos # (Auto) 0.1 Baso # (Auto) 0.1 Sodium 143 Potassium 3.7 Chloride 102 Carbon Dioxide 21 L Anion Gap 24 H BUN 57 H Creatinine 8.1 H* Est GFR ( Amer) 10 Est GFR (Non-Af Amer) 9 Random Glucose 160 H Calcium 9.7 Total Bilirubin 0.5 AST 12 L ALT 18 L D Alkaline Phosphatase 94 Total Protein 8.3 Albumin 4.6 Globulin 3.7 Albumin/Globulin Ratio 1.2 Lipase 133 Urine Color Yellow Urine Clarity Hazy Urine pH 6.0 Ur Specific [place] 1.010 Urine Protein 2+ H Urine Glucose (UA) Normal Urine Ketones Negative Urine Blood 1+ H Urine Nitrate Negative Urine Bilirubin Negative Urine Urobilinogen Normal Ur Leukocyte Esterase 3+ H Urine WBC (Auto) 371 H Urine RBC (Auto) 20 H Urine Bacteria Occ H Assessment & Plan - Assessment and Plan (Free Text) Assessment: 22M presents with persistent lower abdominal pain 2/2 clogged peritoneal dialysis catheter Plan: NPO past midnight IV abx analgesics prn OR in AM for removal of peritoneal dialysis catheter Patient opting for AV Fistula creation further recs as per Dr. Brigido Nick PGY3 <Michael Michael - Last Filed: 10/17/17 16:47> Meds - Medications Medications: Current Medications Acetaminophen (Tylenol 325mg Tab) 650 mg PO Q6 PRN PRN Reason: Fever >100.4 F Last Admin: 10/16/17 20:15 Dose: 650 mg Amlodipine Besylate (Norvasc) 5 mg PO DAILY [facility] Last Admin: 10/17/17 10:49 Dose: 5 mg Calcitriol (Rocaltrol) 0.25 mcg PO MWF [facility] Last Admin: 10/17/17 10:00 Dose: 0.25 mcg Calcium Acetate (Phoslo) 667 mg PO TIDCC [facility] Last Admin: 10/17/17 12:24 Dose: Not Given Epoetin Sundar (Procrit) 10,000 unit SC TTS [facility] Heparin Sodium (Porcine) (Heparin) 5,000 units SC Q12 [facility] Last Admin: 10/17/17 10:49 Dose: Not Given Hydromorphone HCl (Dilaudid) 0.5 mg IVP Q15M PRN PRN Reason: Pain, severe (8-10) Stop: 10/17/17 17:00 Last Admin: 10/17/17 15:26 Dose: 0.5 mg Ciprofloxacin (Cipro 400mg/200ml Dsw) 400 mg in 200 mls @ 133 mls/hr IVPB Q24H [facility] PRN Reason: Protocol Last Admin: 10/16/17 20:48 Dose: 133 mls/hr Metronidazole (Flagyl) 250 mg in 50 mls @ 100 mls/hr IVPB Q8H [facility] PRN Reason: Protocol Stop: 10/20/17 21:01 Last Admin: 10/17/17 13:00 Dose: 50 mls Morphine Sulfate (Morphine) 2 mg IV Q6 PRN PRN Reason: Pain, severe (8-10) Ondansetron HCl (Zofran Inj) 4 mg IVP Q6H PRN PRN Reason: nausea/vomiting Last Admin: 10/15/17 21:53 Dose: 4 mg Ondansetron HCl (Zofran Inj) 4 mg IVP ONCE PRN PRN Reason: Nausea/Vomiting Stop: 10/17/17 17:00 Oxycodone HCl (Oxycodone Immediate Release Tab) 5 mg PO Q6 PRN PRN Reason: Pain, moderate (4-7) Last Admin: 10/17/17 09:03 Dose: 5 mg Polyethylene Glycol (Miralax) 17 gm PO QPM SIMONE Sodium Bicarbonate (Sodium Bicarbonate Tab) 1,300 mg PO BID SIMONE Last Admin: 10/17/17 10:49 Dose: 1,300 mg Vitamin B Complex/Vit C/Folic Acid (Nephro-Edilberto) 1 tab PO 0800 SIMONE Last Admin: 10/17/17 08:08 Dose: Not Given Results - Vital Signs Recent Vital Signs: Last Vital Signs Temp 98.2 F 10/17/17 08:00 Pulse 77 10/17/17 08:00 Resp 20 10/17/17 08:00 BP 141/92 H 10/17/17 08:00 Pulse Ox 98 10/17/17 08:00 - Labs Result Diagrams: 10/17/17 06:22 10/17/17 06:22 Labs: Laboratory Results - last 24 hr 10/17/17 10/17/17 06:22 06:22 WBC 9.8 RBC 3.25 L Hgb 8.9 L Hct 25.7 L MCV 79.1 L MCH 27.5 MCHC 34.8 RDW 13.5 Plt Count 321 MPV 8.1 Sodium 140 Potassium 3.6 Chloride 104 Carbon Dioxide 20 L Anion Gap 19 BUN 57 H Creatinine 7.2 H Est GFR ( Amer) 12 Est GFR (Non-Af Amer) 10 Random Glucose 106 Calcium 9.3 Phosphorus 6.7 H Attending/Attestation - Attestation I have personally seen and examined this patient.: Yes I have fully participated in the care of the patient.: Yes I have reviewed all pertinent clinical information: Yes Notes (Text): Pt was seen and examined at bedside Agree with above note and assessment Pt with Lower abdominal pain and tenderness Abdomen : Soft, distended, Mild tender Labs and radiology reviewed Ass: Malfunctioning PD catheter Plan :OR for Lap PD catheter removal tomorrow IV antibiotics Consent NPO, IVF Plan d.w pt in detail Risk and benefit explained in detail.
[2017-10-15] MEDS ORDERED: cefTRIAXone IV 1 gm in Dextros 50 ML IV ONE (18:01)
[2017-10-15] MEDS ORDERED: cefTRIAXone IV 1 gm in Dextros 50 ML IVPB ONE ×2 (18:57→19:15)
[2017-10-15] MEDS: Ciprofloxacin 400mg/200ml D5W 400 MG/200 ML BAG IVPB SCH (21:29)
[2017-10-15] MEDS ORDERED: Ciprofloxacin 400mg/200ml D5W 400 MG/200 ML BAG IVPB ONE (21:31)
[2017-10-15] MEDS: HYDROmorphone 0.5 mg/0.5 ml ISec IVP PRN (21:52)
[2017-10-15] MEDS: metroNIDAZOLE IV 250mg/50 ml 250 MG/50 ML BAG IVPB SCH (23:00)
[2017-10-16] MEDS: HYDROmorphone 0.5 mg/0.5 ml ISec IVP PRN ×5 (05:16→17:11)
[2017-10-16] MEDS: metroNIDAZOLE IV 250mg/50 ml 250 MG/50 ML BAG IVPB SCH ×3 (05:19→20:07)
[2017-10-16] MEDS ORDERED: Dextrose 5%/0.45% NS 1,000 ML IV SCH (06:00)
[2017-10-16 06:05] LABS: HEMOGLOBIN 9.5 g/dL (12.0-18.0); MEAN CELL VOLUME 79.3 fL (80.0-94.0); MEAN CORPUSCULAR HEMOGLOBIN 27.6 pg (27.0-31.0); MEAN CORPUSCULAR HGB CONC 34.8 g/dL (33.0-37.0); MEAN PLATELET VOLUME 8.1 fL (7.2-11.7); RBC 3.43 Mil/uL (4.40-5.90); RED CELL DISTRIBUTION WIDTH 13.2 % (11.5-14.5); WHITE BLOOD COUNT 10.2 K/uL (4.8-10.8)
[2017-10-16 07:16] LABS: CALCIUM 9.6 mg/dl (8.6-10.4)
[2017-10-16] MEDS ORDERED: Bupivacaine 0.25% 20 ML INJ IJ ONE (07:26)
[2017-10-16] MEDS ORDERED: Lidocaine/Epinephrine 1% 1:100000 10 ML IJ ONE (07:27)
[2017-10-16] MEDS ORDERED: Midazolam 2 MG/2 ML VIAL ONE (08:12)
[2017-10-16] MEDS ORDERED: Propofol 10 mg/ml Inj (20 ML) ONE (08:12)
[2017-10-16] MEDS ORDERED: Succinylcholine Chloride 20 mg/ml Syr (5 ml) IV ONE (08:15)
[2017-10-16] MEDS ORDERED: Rocuronium 10 mg/ml (10 ml) ONE (08:15)
[2017-10-16] MEDS ORDERED: HYDROmorphone 0.5 mg/0.5 ml ISec IVP PRN (08:23)
[2017-10-16] MEDS ORDERED: Neostigmine Methylsulfate 3mg/3ml Syringe IV ONE (09:52)
--- NOTE | 2017-10-16 10:22 | PCM.SURG1 ---
Surgeon's Initial Post Op Note - Surgeon's Notes Surgeon: Dr. Michael Integration Consultant: Dr. Lima PGY-4, Ren Brasher OMS-III Type of Anesthesia: General Endo, Local Pre-Operative Diagnosis: Non functioning peritoneal dialysis catheter Operative Findings: Extensive small bowel adhesions, pelvic abscess, severe foreign body inflammatory reaction Post-Operative Diagnosis: Pelvic abscess, extensive adhesions, foreign body reaction due to peritoneal dialysis catheter Operation Performed: Laparoscopic removal of peritoneal dialysis catheter, lysis of adhesions, drainage of pelvic abscess Specimen/Specimens Removed: Tenckhoff catheter, abscess capsule Estimated Blood Loss: EBL {In ML}: 10 Blood Products Given: N/A Drains Used: Jesús Post-Op Condition: Fair Date of Surgery/Procedure: 10/16/17 Time of Surgery/Procedure: 08:00
--- NOTE | 2017-10-16 10:52 | CP.PCM.HP ---
History of Present Illness - History of Present Illness History of Present Illness: pt came to ed for abd pain vomiting and fever Present on Admission - Present on Admission Any Indicators Present on Admission: No Review of Systems - Review of Systems Systems not reviewed;Unavailable: Acuity of Condition - Constitutional Constitutional: Excessive Sweating, Fatigue - EENT Eyes: As Per HPI Ears: As Per HPI Nose/Mouth/Throat: As Per HPI - Cardiovascular Cardiovascular: As Per HPI - Respiratory Respiratory: As Per HPI - Gastrointestinal Gastrointestinal: Abdominal Pain, Change in Bowel Habits, Nausea, Vomiting - Genitourinary Genitourinary: Dysuria, Flank Pain, Urinary Frequency, Freq UTI - Musculoskeletal Musculoskeletal: As Per HPI - Integumentary Integumentary: As Per HPI - Neurological Neurological: As Per HPI - Psychiatric Psychiatric: As Per HPI - Endocrine Endocrine: As Per HPI - Hematologic/Lymphatic Hematologic: As Per HPI Past Patient History - Infectious Disease Hx of Infectious Diseases: None - Past Medical History & Family History Past Medical History?: Yes - Past Social History Smoking Status: Never Smoked - CARDIAC Hx Hypertension: No - PULMONARY Hx Pneumonia: Yes - NEUROLOGICAL Hx Neurological Disorder: Yes Other/Comment: Spina Bifida, Tethered Spinal Cord - HEENT Hx HEENT Problems: No - RENAL Hx Chronic Kidney Disease: Yes Type of Dialysis Access: PD cath - ENDOCRINE/METABOLIC Hx Endocrine Disorders: No - HEMATOLOGICAL/ONCOLOGICAL Hx Blood Disorders: No - INTEGUMENTARY Hx Dermatological Problems: No - MUSCULOSKELETAL/RHEUMATOLOGICAL Hx Musculoskeletal Disorders: No Hx Falls: No Other/Comment: Spina Bipida - GASTROINTESTINAL Hx Gastrointestinal Disorders: No - GENITOURINARY/GYNECOLOGICAL Hx Genitourinary Disorders: Yes Hx Urinary Tract Infection: Yes Other/Comment: SELF CATHETERIZE - PSYCHIATRIC Hx Psychophysiologic Disorder: No Hx Substance Use: No - SURGICAL HISTORY Hx Surgeries: Yes Other/Comment: Spinal cord repair (Spina Bifida) - ANESTHESIA Hx Anesthesia: Yes Hx Anesthesia Reactions: No Hx Malignant Hyperthermia: No Has any member of the family had a problem w/ anesthesia?: No Meds Allergies/Adverse Reactions: Allergies Allergy/AdvReac Type Severity Reaction Status Date / Time No Known Allergies Allergy Verified 10/01/17 12:34 Physical Exam - Constitutional Appears: In Acute Distress - Head Exam Head Exam: ATRAUMATIC - Eye Exam Eye Exam: Normal appearance Pupil Exam: NORMAL ACCOMODATION - ENT Exam ENT Exam: Normal Exam - Neck Exam Neck exam: Positive for: Normal Inspection - Respiratory Exam Respiratory Exam: NORMAL BREATHING PATTERN - GI/Abdominal Exam GI & Abdominal Exam: Diminished Bowel Sounds, Distended, Normal Bowel Sounds, Tenderness - Extremities Exam Extremities exam: Positive for: normal inspection - Back Exam Back exam: NORMAL INSPECTION Results - Vital Signs Recent Vital Signs: Last Vital Signs Temp 97 F L 10/16/17 09:52 Pulse 76 10/16/17 10:15 Resp 18 10/16/17 10:15 BP 147/84 10/16/17 10:15 Pulse Ox 100 10/16/17 10:15 - Labs Result Diagrams: 10/16/17 05:57 10/16/17 05:57 Labs: Laboratory Results - last 24 hr 10/15/17 10/15/17 10/15/17 16:03 16:03 16:40 WBC 12.7 H RBC 4.06 L Hgb 11.2 L Hct 32.7 L MCV 80.5 MCH 27.5 MCHC 34.2 RDW 13.2 Plt Count 548 H D MPV 7.9 Neut % (Auto) 76.2 H Lymph % (Auto) 18.2 L [place] % (Auto) 4.0 Eos % (Auto) 1.1 Baso % (Auto) 0.5 Neut # (Auto) 9.7 H Lymph # (Auto) 2.3 [place] # (Auto) 0.5 Eos # (Auto) 0.1 Baso # (Auto) 0.1 APTT Sodium 143 Potassium 3.7 Chloride 102 Carbon Dioxide 21 L Anion Gap 24 H BUN 57 H Creatinine 8.1 H* Est GFR ( Amer) 10 Est GFR (Non-Af Amer) 9 Random Glucose 160 H Calcium 9.7 Total Bilirubin 0.5 AST 12 L ALT 18 L D Alkaline Phosphatase 94 Total Protein 8.3 Albumin 4.6 Globulin 3.7 Albumin/Globulin Ratio 1.2 Lipase 133 Urine Color Yellow Urine Clarity Hazy Urine pH 6.0 Ur Specific [place] 1.010 Urine Protein 2+ H Urine Glucose (UA) Normal Urine Ketones Negative Urine Blood 1+ H Urine Nitrate Negative Urine Bilirubin Negative Urine Urobilinogen Normal Ur Leukocyte Esterase 3+ H Urine WBC (Auto) 371 H Urine RBC (Auto) 20 H Urine Bacteria Occ H 10/16/17 10/16/17 10/16/17 05:57 05:57 05:57 WBC 10.2 RBC 3.43 L Hgb 9.5 L Hct 27.2 L MCV 79.3 L MCH 27.6 MCHC 34.8 RDW 13.2 Plt Count 359 D MPV 8.1 Neut % (Auto) Lymph % (Auto) [place] % (Auto) Eos % (Auto) Baso % (Auto) Neut # (Auto) Lymph # (Auto) [place] # (Auto) Eos # (Auto) Baso # (Auto) APTT 34 Sodium 140 Potassium 4.3 Chloride 104 Carbon Dioxide 19 L Anion Gap 21 H BUN 57 H Creatinine 7.0 H Est GFR ( Amer) 12 Est GFR (Non-Af Amer) 10 Random Glucose 111 H Calcium 9.6 Total Bilirubin AST ALT Alkaline Phosphatase Total Protein Albumin Globulin Albumin/Globulin Ratio Lipase Urine Color Urine Clarity Urine pH Ur Specific [place] Urine Protein Urine Glucose (UA) Urine Ketones Urine Blood Urine Nitrate Urine Bilirubin Urine Urobilinogen Ur Leukocyte Esterase Urine WBC (Auto) Urine RBC (Auto) Urine Bacteria Assessment & Plan - Assessment and Plan (Free Text) Assessment: ac abd pain vomiting renal failiure failiur of peritoneal dialysis fever r/o sepses Plan: or today - Date & Time Date: 10/16/17
[2017-10-16] MEDS ORDERED: Epoetin Alfa 4000 UNIT/ML Inj SC SCH (11:15)
--- NOTE | 2017-10-16 15:30 | CP.PCM.CON ---
History of Present Illness - History of Present Illness History of Present Illness: Nephrology Consultation Note Assessment: critical PD catheter dysfunction with extensive foreign body reaction and ? pelvic abscess s/p removal 10/16/17 b/l severe hydronephrosis Chronic Kidney Disease (N18.5) Stage 5 with 3 gm proteinuria (R80.9) likely due to chronic obstructive uropathy neurogenic bladder, hx of spina bifida Anemia (D64.9), Hyperphosphatemia (E83.39), Secondary Hyperparathyroidism (E21.1 ), HTN (I12.9), metabolic acidosis Plan no acute need for dialysis at present. vascular consult for AVF. hopefully can wait for AVF to mature for dialysis initiation Hypertension controlled usually without meds, will monitor and add norvasc 5 mg if needed Monitor Input/Output, daily weights and renal function with basic metabolic panel indwelling cardoza catheter ordered plan for phos binder once GI symptoms better, as phoslo 667 mg 2 cap TID with meals, check phos level in AM defer oral iron supplements due to constipation. started epogen. IV iron deferred due to concerns for infection added sodium bicarb 1300 mg bid and calcitriol 0.25 mcg 3 times a week at d/c Dose meds/antibiotics for reduced GFR. Avoid phos based fleets enema/magnesium based laxatives. Avoid nephrotoxins/NSAIDs/ iodinated contrast (unless needed emergently) Glycemic control Further work up for as per primary team Thanks for allowing me to participate in care of your patient. Will follow patient with you. Please call if any Qs. had d/w team Dr Julio Perez Office: [phone] CC: pain abdomen reason for consult: ESRD HPI: pt is a 22 M with CKD 5 (s/p PD catheter 09/17/[address] Michael) due to chronic obstructive uropathy managed by pt as self intermittent catheterization at home, spina bifida neurogenic bladder came with worsening pain abdomen with fever/chills s/p PD catheter removal 10/16/17. pt feels better now. pt had PD catheter dysfunction, s/p tPA but yesterday wasn't functioning again and had significant pain with flushing in PD unit. he doesn't want PD and rather wants HD makes urine. appetite low for last 2 days otherwise had gotten better. 10/16/17: PD catheter was removed as intra-op showed extensive foreign body reaction and ? pelvic abscess ROS: Denies chest pain, palpitation, shortness of breath, leg swelling. All other negative. making urine. self intermittent catheterization at home. reports decreased appetite x 2 better but better earlier, denies loss of weight. s/p colonoscopy 10/05/17 Physical Examination: General Appearance: Comfortable, in no acute respiratory distress, co-operative . Vitals reviewed and noted as below Head; Atraumatic, normocephalic ENT: no ulcers no thrush. Tongue is midline. Oropharynx: no rash or ulcers. EYES: Pupils are equal, round and reactive to light accommodation. Eye muscles and extraocular movement intact. Sclera is anicteric. Neck; supple no lymphadenopathy, no thyromegaly or bruit Lungs: Normal respiratory rate/effort. Breath sounds bilateral equal and clear Heart: Normal rate. s1s2 normal. No rub or gallop. Extremities: no edema. No varicose veins Neurological: Patient is alert, awake and oriented to person, place and time. No focal deficit. Strength bilateral appropriate and equal Skin: Warm and dry. Normal turgor. No rash. Palpitation: Normal elasticity for age Abdomen: Abdomen is soft. Bowel sounds +. There is abdominal tenderness, no guarding/rigidity no organomegaly. has drain + Psych: normal insight and normal affect/mood MSK: no joint tenderness or swelling. Digits and nails normal, no deformity : kidney not palpable. has cardoza Labs/imaging reviewed. Past medical history, past surgical history, family history, social history, allergy reviewed and noted as below Family hx: no hx of CKD. Rest non-contributory renal imaging: b/l severe hydronephrosis last TSAT 15% Ferritin 130 Vit D 27 PTH 353 Past Patient History - Infectious Disease Hx of Infectious Diseases: None - Past Medical History & Family History Past Medical History?: Yes - Past Social History Smoking Status: Never Smoked - CARDIAC Hx Hypertension: No - PULMONARY Hx Pneumonia: Yes - NEUROLOGICAL Hx Neurological Disorder: Yes Other/Comment: Spina Bifida, Tethered Spinal Cord - HEENT Hx HEENT Problems: No - RENAL Hx Chronic Kidney Disease: Yes Type of Dialysis Access: PD cath - ENDOCRINE/METABOLIC Hx Endocrine Disorders: No - HEMATOLOGICAL/ONCOLOGICAL Hx Blood Disorders: No - INTEGUMENTARY Hx Dermatological Problems: No - MUSCULOSKELETAL/RHEUMATOLOGICAL Hx Musculoskeletal Disorders: No Hx Falls: No Other/Comment: Spina Bipida - GASTROINTESTINAL Hx Gastrointestinal Disorders: No - GENITOURINARY/GYNECOLOGICAL Hx Genitourinary Disorders: Yes Hx Urinary Tract Infection: Yes Other/Comment: SELF CATHETERIZE - PSYCHIATRIC Hx Psychophysiologic Disorder: No Hx Substance Use: No - SURGICAL HISTORY Hx Surgeries: Yes Other/Comment: Spinal cord repair (Spina Bifida) - ANESTHESIA Hx Anesthesia: Yes Hx Anesthesia Reactions: No Hx Malignant Hyperthermia: No Has any member of the family had a problem w/ anesthesia?: No Meds Allergies/Adverse Reactions: Allergies Allergy/AdvReac Type Severity Reaction Status Date / Time No Known Allergies Allergy Verified 10/01/17 12:34 - Medications Medications: Current Medications Acetaminophen (Tylenol 325mg Tab) 650 mg PO Q6 PRN PRN Reason: Fever >100.4 F Last Admin: 10/16/17 01:20 Dose: 650 mg Epoetin Sundar (Procrit) 4,000 unit SC TTS [facility] Heparin Sodium (Porcine) (Heparin) 5,000 units SC Q12 [facility] Last Admin: 10/16/17 09:51 Dose: Not Given Hydromorphone HCl (Dilaudid) 0.5 mg IVP Q6H PRN PRN Reason: Pain, moderate (4-7) Last Admin: 10/16/17 05:16 Dose: 0.5 mg Ciprofloxacin (Cipro 400mg/200ml Dsw) 400 mg in 200 mls @ 133 mls/hr IVPB Q24H [facility] PRN Reason: Protocol Last Admin: 10/15/17 21:29 Dose: 133 mls/hr Metronidazole (Flagyl) 250 mg in 50 mls @ 100 mls/hr IVPB Q8H [facility] PRN Reason: Protocol Stop: 10/20/17 21:01 Last Admin: 10/16/17 14:00 Dose: 100 mls/hr Dextrose/Sodium Chloride (Dextrose 5%/0.45% Ns 1000 Ml) 1,000 mls @ 80 mls/hr IV .[id number] [facility] Last Admin: 10/16/17 05:21 Dose: 80 mls/hr Ondansetron HCl (Zofran Inj) 4 mg IVP Q6H PRN PRN Reason: nausea/vomiting Last Admin: 10/15/17 21:53 Dose: 4 mg Sodium Bicarbonate (Sodium Bicarbonate Tab) 1,300 mg PO BID [facility] Last Admin: 10/16/17 12:12 Dose: 1,300 mg Vitamin B Complex/Vit C/Folic Acid (Nephro-Edilberto) 1 tab PO 0800 [facility] Results - Vital Signs Recent Vital Signs: Last Vital Signs Temp 97 F L 10/16/17 11:53 Pulse 81 10/16/17 11:45 Resp 13 10/16/17 11:45 BP 147/90 10/16/17 11:45 Pulse Ox 99 10/16/17 11:45 - Labs Result Diagrams: 10/16/17 05:57 10/16/17 05:57 Labs: Laboratory Results - last 24 hr 10/15/17 10/15/17 10/15/17 16:03 16:03 16:40 WBC 12.7 H RBC 4.06 L Hgb 11.2 L Hct 32.7 L MCV 80.5 MCH 27.5 MCHC 34.2 RDW 13.2 Plt Count 548 H D MPV 7.9 Neut % (Auto) 76.2 H Lymph % (Auto) 18.2 L Cecil % (Auto) 4.0 Eos % (Auto) 1.1 Baso % (Auto) 0.5 Neut # (Auto) 9.7 H Lymph # (Auto) 2.3 Cecil # (Auto) 0.5 Eos # (Auto) 0.1 Baso # (Auto) 0.1 APTT Sodium 143 Potassium 3.7 Chloride 102 Carbon Dioxide 21 L Anion Gap 24 H BUN 57 H Creatinine 8.1 H* Est GFR ( Amer) 10 Est GFR (Non-Af Amer) 9 Random Glucose 160 H Calcium 9.7 Total Bilirubin 0.5 AST 12 L ALT 18 L D Alkaline Phosphatase 94 Total Protein 8.3 Albumin 4.6 Globulin 3.7 Albumin/Globulin Ratio 1.2 Lipase 133 Urine Color Yellow Urine Clarity Hazy Urine pH 6.0 Ur Specific [place] 1.010 Urine Protein 2+ H Urine Glucose (UA) Normal Urine Ketones Negative Urine Blood 1+ H Urine Nitrate Negative Urine Bilirubin Negative Urine Urobilinogen Normal Ur Leukocyte Esterase 3+ H Urine WBC (Auto) 371 H Urine RBC (Auto) 20 H Urine Bacteria Occ H 10/16/17 10/16/17 10/16/17 05:57 05:57 05:57 WBC 10.2 RBC 3.43 L Hgb 9.5 L Hct 27.2 L MCV 79.3 L MCH 27.6 MCHC 34.8 RDW 13.2 Plt Count 359 D MPV 8.1 Neut % (Auto) Lymph % (Auto) Cecil % (Auto) Eos % (Auto) Baso % (Auto) Neut # (Auto) Lymph # (Auto) Cecil # (Auto) Eos # (Auto) Baso # (Auto) APTT 34 Sodium 140 Potassium 4.3 Chloride 104 Carbon Dioxide 19 L Anion Gap 21 H BUN 57 H Creatinine 7.0 H Est GFR ( Amer) 12 Est GFR (Non-Af Amer) 10 Random Glucose 111 H Calcium 9.6 Total Bilirubin AST ALT Alkaline Phosphatase Total Protein Albumin Globulin Albumin/Globulin Ratio Lipase Urine Color Urine Clarity Urine pH Ur Specific [place] Urine Protein Urine Glucose (UA) Urine Ketones Urine Blood Urine Nitrate Urine Bilirubin Urine Urobilinogen Ur Leukocyte Esterase Urine WBC (Auto) Urine RBC (Auto) Urine Bacteria
[2017-10-16 15:43] VITALS: RESP 20
[2017-10-16] MEDS: oxyCODONE 5 mg Immediate Release Tab PO PRN (18:54)
[2017-10-16] MEDS: Ciprofloxacin 400mg/200ml D5W 400 MG/200 ML BAG IVPB SCH (20:48)
[2017-10-17] MEDS: oxyCODONE 5 mg Immediate Release Tab PO PRN ×3 (02:29→20:05)
[2017-10-17] MEDS: metroNIDAZOLE IV 250mg/50 ml 250 MG/50 ML BAG IVPB SCH ×3 (04:45→21:21)
--- NOTE | 2017-10-17 05:09 | OP ---
Copied To: Michael Michael MD Attending MD: Michael Michael MD PROCEDURE DATE: 10/16/2017 PREOPERATIVE DIAGNOSES: 1. Malfunctioning peritoneal dialysis catheter. 2. Abdominal pain. POSTOPERATIVE DIAGNOSES: 1. Malfunctioning peritoneal dialysis catheter. 2. Pelvic abscess. 3. Extensive postinfectious adhesion. PROCEDURES DONE: 1. Removal of peritoneal dialysis catheter. 2. Laparoscopic extensive lysis of adhesion. 3. Laparoscopic drainage of pelvic abscess. SURGEON: Michael Michael MD AUXILIARY POWERPLANT OPERATOR: Nina Lima DO, PGY-4 resident. ANESTHESIA: General endotracheal tube anesthesia. ESTIMATED BLOOD LOSS: Around 20 mL. DRAIN: A 19-Armenian Brake drain was placed. COMPLICATIONS: None. INTRAOPERATIVE FINDINGS: The patient had a pelvic abscess with extensive peritoneal adhesion of the small bowel to the anterior abdominal wall, omentum to the anterior abdominal wall. The peritoneal dialysis catheter was taken out from the subcu dermal, and it was sent off the table for the pathology. Complications none. DESCRIPTION OF PROCEDURE: On intraoperative steps, this is a 22-year-old male who was diagnosed with a malfunctioning of the peritoneal dialysis catheter. The patient was consented for removal of the peritoneal catheter. The patient was brought to the OR, placed supine on the operating table. After induction of the anesthesia, the abdomen was prepped and draped in the usual sterile fashion. The laparoscopy was done after entering the peritoneal cavity from the right upper quadrant incision, and the patient was found to have extensive peritoneal adhesion. First, extensive lysis of adhesion was done. There was a pus in the left paracolic gutter that was drained. There was a pelvic abscess that was also drained, and the pelvic abscess cavity wall was debrided and it was sent off the table for the pathology. After that, the catheter was taken out. The peritoneal cavity was suction irrigated. After proper hemostasis, a 19-Armenian Jesús drain was placed, and the drain was secured to the skin. All the ports were taken out under vision. Pneumo was deflated. Umbilical port site and all the port sites were closed in two layers, subcu with a 2-0 Vicryl, skin with a 4-0 Monocryl. Dry sterile dressing was applied. The patient tolerated the procedure well. Counts of the instruments and gauze were correct. There were no apparent complications. The patient was extubated in the OR and sent to the postanesthesia care unit in stable condition. Michael Michael MD
[2017-10-17 06:31] LABS: HEMOGLOBIN 8.9 g/dL (12.0-18.0); MEAN CELL VOLUME 79.1 fL (80.0-94.0); MEAN CORPUSCULAR HEMOGLOBIN 27.5 pg (27.0-31.0); MEAN CORPUSCULAR HGB CONC 34.8 g/dL (33.0-37.0); MEAN PLATELET VOLUME 8.1 fL (7.2-11.7); RBC 3.25 Mil/uL (4.40-5.90); RED CELL DISTRIBUTION WIDTH 13.5 % (11.5-14.5); WHITE BLOOD COUNT 9.8 K/uL (4.8-10.8)
[2017-10-17 07:41] LABS: CALCIUM 9.3 mg/dl (8.6-10.4)
[2017-10-17] MEDS: Multivitamin Vitamin B Complex (Nephro-Vite) Tab PO SCH (08:08)
--- NOTE | 2017-10-17 11:16 | CP.PCM.PN ---
Subjective - Date & Time of Evaluation Date of Evaluation: 10/17/17 Time of Evaluation: 11:14 - Subjective Subjective: had surgery removal of abd peritoneal dialysis cath c/o of alot of abd pain has drin drainig sanguinous fluid Objective - Vital Signs/Intake and Output Vital Signs (last 24 hours): Temp Pulse Resp BP Pulse Ox 98.2 F 77 20 141/92 H 98 10/17/17 08:00 10/17/17 08:00 10/17/17 08:00 10/17/17 08:00 10/17/17 08:00 Intake and Output: 10/17/17 10/17/17 06:59 18:59 Intake Total 650 260 Output Total 460 1560 Balance 190 -1300 - Medications Medications: Current Medications Acetaminophen (Tylenol 325mg Tab) 650 mg PO Q6 PRN PRN Reason: Fever >100.4 F Last Admin: 10/16/17 20:15 Dose: 650 mg Amlodipine Besylate (Norvasc) 5 mg PO DAILY [facility] Last Admin: 10/17/17 10:49 Dose: 5 mg Calcitriol (Rocaltrol) 0.25 mcg PO MWF [facility] Last Admin: 10/17/17 10:00 Dose: 0.25 mcg Calcium Acetate (Phoslo) 667 mg PO TIDCC [facility] Epoetin Sundar (Procrit) 10,000 unit SC TTS [facility] Heparin Sodium (Porcine) (Heparin) 5,000 units SC Q12 [facility] Last Admin: 10/17/17 10:49 Dose: Not Given Ciprofloxacin (Cipro 400mg/200ml Dsw) 400 mg in 200 mls @ 133 mls/hr IVPB Q24H [facility] PRN Reason: Protocol Last Admin: 10/16/17 20:48 Dose: 133 mls/hr Metronidazole (Flagyl) 250 mg in 50 mls @ 100 mls/hr IVPB Q8H [facility] PRN Reason: Protocol Stop: 10/20/17 21:01 Last Admin: 10/17/17 04:45 Dose: 100 mls/hr Ondansetron HCl (Zofran Inj) 4 mg IVP Q6H PRN PRN Reason: nausea/vomiting Last Admin: 10/15/17 21:53 Dose: 4 mg Oxycodone HCl (Oxycodone Immediate Release Tab) 5 mg PO Q6 PRN PRN Reason: Pain, moderate (4-7) Last Admin: 10/17/17 09:03 Dose: 5 mg Sodium Bicarbonate (Sodium Bicarbonate Tab) 1,300 mg PO BID [facility] Last Admin: 10/17/17 10:49 Dose: 1,300 mg Vitamin B Complex/Vit C/Folic Acid (Nephro-Edilberto) 1 tab PO 0800 [facility] Last Admin: 10/17/17 08:08 Dose: Not Given - Labs Labs: 10/17/17 06:22 10/17/17 06:22 APTT 34 SECONDS (21-34) 10/16/17 05:57 - Constitutional Appears: Non-toxic, In Acute Distress - Head Exam Head Exam: NORMAL INSPECTION - Eye Exam Eye Exam: Normal appearance Pupil Exam: NORMAL ACCOMODATION - ENT Exam ENT Exam: Normal Exam - Neck Exam Neck Exam: Full ROM - Respiratory Exam Respiratory Exam: Decreased Breath Sounds - Cardiovascular Exam Cardiovascular Exam: REGULAR RHYTHM - GI/Abdominal Exam GI & Abdominal Exam: Tenderness, Diminished Bowel Sounds - Extremities Exam Extremities Exam: Normal Inspection - Back Exam Back Exam: NORMAL INSPECTION - Psychiatric Exam Psychiatric exam: Depressed - Skin Skin Exam: Normal Color Assessment and Plan - Assessment and Plan (Free Text) Assessment: acute urosepses renal failiur removal of non functioning abd cath pain spina bifida Plan: as per orders
[2017-10-17] MEDS ORDERED: HEPARIN-NS 5,000 UNITS/500 ML 5,000 UNIT/500 ML BAG IV ONE (11:55)
--- NOTE | 2017-10-17 12:08 | CP.PCM.PN ---
Subjective - Date & Time of Evaluation Date of Evaluation: 10/17/17 Time of Evaluation: 12:07 - Subjective Subjective: Nephrology Consultation Note Assessment: stable PD catheter dysfunction with extensive foreign body reaction and ? pelvic abscess s/p removal 10/16/17 b/l severe hydronephrosis Chronic Kidney Disease (N18.5) Stage 5 with 3 gm proteinuria (R80.9) likely due to chronic obstructive uropathy neurogenic bladder, hx of spina bifida Anemia (D64.9), Hyperphosphatemia (E83.39), Secondary Hyperparathyroidism (E21.1 ), HTN (I12.9), metabolic acidosis Plan no acute need for dialysis at present. vascular consult for AVF appreciated. hopefully can wait for AVF to mature for dialysis initiation Hypertension control; added norvasc 5 mg for now Monitor Input/Output, daily weights and renal function with basic metabolic panel indwelling cardoza catheter continue added phoslo 667 mg 1 cap TID with meals defer oral iron supplements due to constipation. started epogen. IV iron deferred due to concerns for infection added sodium bicarb 1300 mg bid and calcitriol 0.25 mcg 3 times a week at d/c Dose meds/antibiotics for reduced GFR. Avoid phos based fleets enema/magnesium based laxatives. Avoid nephrotoxins/NSAIDs/ iodinated contrast (unless needed emergently) Glycemic control Further work up for as per primary team Thanks for allowing me to participate in care of your patient. Will follow patient with you. Please call if any Qs. had d/w team Dr Julio Perez Office: [phone] CC: pain abdomen reason for consult: ESRD HPI: pt is a 22 M with CKD 5 (s/p PD catheter 09/17/[address] Michael) due to chronic obstructive uropathy managed by pt as self intermittent catheterization at home, spina bifida neurogenic bladder came with worsening pain abdomen with fever/chills s/p PD catheter removal 10/16/17. pt feels better now. pt had PD catheter dysfunction, s/p tPA but yesterday wasn't functioning again and had significant pain with flushing in PD unit. he doesn't want PD and rather wants HD makes urine. appetite low for last 2 days otherwise had gotten better. 10/16/17: PD catheter was removed as intra-op showed extensive foreign body reaction and ? pelvic abscess ROS: Denies chest pain, palpitation, leg swelling. c/o pain abdomen and SOB due to pain All other negative. making urine. self intermittent catheterization at home. Physical Examination: General Appearance: uncomfortable, in no acute respiratory distress, co- operative . Vitals reviewed and noted as below Head; Atraumatic, normocephalic ENT: no ulcers no thrush. Tongue is midline. Oropharynx: no rash or ulcers. EYES: Pupils are equal, round and reactive to light accommodation. Eye muscles and extraocular movement intact. Sclera is anicteric. Neck; supple no lymphadenopathy, no thyromegaly or bruit Lungs: Normal respiratory rate/effort. Breath sounds bilateral equal and clear Heart: Normal rate. s1s2 normal. No rub or gallop. Extremities: no edema. No varicose veins Neurological: Patient is alert, awake and oriented to person, place and time. No focal deficit. Strength bilateral appropriate and equal Skin: Warm and dry. Normal turgor. No rash. Palpitation: Normal elasticity for age Abdomen: Abdomen is soft. Bowel sounds +. There is abdominal tenderness, no guarding/rigidity no organomegaly. has drain + Psych: normal insight and normal affect/mood MSK: no joint tenderness or swelling. Digits and nails normal, no deformity : kidney not palpable. has cardoza Labs/imaging reviewed. Past medical history, past surgical history, family history, social history, allergy reviewed and noted as below Family hx: no hx of CKD. Rest non-contributory renal imaging: b/l severe hydronephrosis last TSAT 15% Ferritin 130 Vit D 27 PTH 353 Objective - Vital Signs/Intake and Output Vital Signs (last 24 hours): Temp Pulse Resp BP Pulse Ox 98.2 F 77 20 141/92 H 98 10/17/17 08:00 10/17/17 08:00 10/17/17 08:00 10/17/17 08:00 10/17/17 08:00 Intake and Output: 10/17/17 10/17/17 06:59 18:59 Intake Total 650 260 Output Total 460 1560 Balance 190 -1300 - Medications Medications: Current Medications Acetaminophen (Tylenol 325mg Tab) 650 mg PO Q6 PRN PRN Reason: Fever >100.4 F Last Admin: 10/16/17 20:15 Dose: 650 mg Amlodipine Besylate (Norvasc) 5 mg PO DAILY [facility] Last Admin: 10/17/17 10:49 Dose: 5 mg Calcitriol (Rocaltrol) 0.25 mcg PO MWF [facility] Last Admin: 10/17/17 10:00 Dose: 0.25 mcg Calcium Acetate (Phoslo) 667 mg PO TIDCC [facility] Epoetin Sundar (Procrit) 10,000 unit SC TTS [facility] Heparin Sodium (Porcine) (Heparin) 5,000 units SC Q12 [facility] Last Admin: 10/17/17 10:49 Dose: Not Given Ciprofloxacin (Cipro 400mg/200ml Dsw) 400 mg in 200 mls @ 133 mls/hr IVPB Q24H [facility] PRN Reason: Protocol Last Admin: 10/16/17 20:48 Dose: 133 mls/hr Metronidazole (Flagyl) 250 mg in 50 mls @ 100 mls/hr IVPB Q8H [facility] PRN Reason: Protocol Stop: 10/20/17 21:01 Last Admin: 10/17/17 04:45 Dose: 100 mls/hr Morphine Sulfate (Morphine) 2 mg IV Q6 PRN PRN Reason: Pain, severe (8-10) Ondansetron HCl (Zofran Inj) 4 mg IVP Q6H PRN PRN Reason: nausea/vomiting Last Admin: 10/15/17 21:53 Dose: 4 mg Oxycodone HCl (Oxycodone Immediate Release Tab) 5 mg PO Q6 PRN PRN Reason: Pain, moderate (4-7) Last Admin: 10/17/17 09:03 Dose: 5 mg Sodium Bicarbonate (Sodium Bicarbonate Tab) 1,300 mg PO BID [facility] Last Admin: 10/17/17 10:49 Dose: 1,300 mg Vitamin B Complex/Vit C/Folic Acid (Nephro-Edilberto) 1 tab PO 0800 [facility] Last Admin: 10/17/17 08:08 Dose: Not Given - Labs Labs: 10/17/17 06:22 10/17/17 06:22 APTT 34 SECONDS (21-34) 10/16/17 05:57
[2017-10-17] MEDS ORDERED: Sodium Chloride 0.9% 500 ML IV ONE (12:45)
[2017-10-17] MEDS ORDERED: Propofol 10 mg/ml Inj (20 ML) ONE ×2 (12:55→13:22)
[2017-10-17] MEDS ORDERED: Midazolam 2 MG/2 ML VIAL ONE (12:55)
--- NOTE | 2017-10-17 15:03 | PCM.SURG1 ---
Surgeon's Initial Post Op Note - Surgeon's Notes Surgeon: Dr. Mandel Soaker: Dr. Cope PGY3, Brandy SAMPSON Type of Anesthesia: General LMA Pre-Operative Diagnosis: ESRD Operative Findings: see op report Post-Operative Diagnosis: same Operation Performed: Left AVF creation Specimen/Specimens Removed: none Estimated Blood Loss: EBL {In ML}: 10 Blood Products Given: N/A Drains Used: No Drains Post-Op Condition: Good Date of Surgery/Procedure: 10/17/17 Time of Surgery/Procedure: 14:00
[2017-10-17] MEDS: HYDROmorphone 0.5 mg/0.5 ml ISec IVP PRN ×2 (15:11→15:26)
--- NOTE | 2017-10-17 15:11 | VASCLAB ---
Date of service: 10/17/2017 PROCEDURE: Bilateral Upper Extremity Venous Mapping HISTORY: Vein mapping, ESRD, Pre-op AV Fistula PRIORS: None. TECHNIQUE: Bilateral upper extremity, internal jugular, subclavian, axillary, brachial, ulnar, radial, basilic and upper cephalic veins were evaluated. Flow was assessed with color Doppler, compressibility, assessment of phasic flow and augmentation response. Report prepared by BRICE Martinez FINDINGS: RIGHT: 1. Internal Jugular Vein: Compressibility - Fully compressible: Thrombus - None : Flow - Phasic 2. Subclavian Vein:Compressibility - Fully compressible: Thrombus - None : Flow - Phasic 3. Axillary Vein: Compressibility - Fully compressible: Thrombus - None 4. Brachial Vein: Compressibility - Fully compressible: Thrombus - None 5. Ulnar Vein:Compressibility - Fully compressible: Thrombus - None 6. Radial Vein:Compressibility - Fully compressible: Thrombus - None 7. Cephalic Vein: Compressibility - Fully compressible: thrombus - None 7.1. Upper Arm: Proximal Diameter: 0.25cm. Mid Diameter: 0.31cm. Distal Diameter: 0.19cm. 7.2. Forearm: Proximal Diameter: 0.19cm. Mid Diameter:0.17cm. Distal Diameter: 0.28cm 8. Basilic Vein:Compressibility - Fully compressible: thrombus - None 8.1. Upper Arm:Proximal Diameter: 0.46cm. Mid Diameter: 0.52cm. Distal Diameter: 0.47cm. 8.2. Forearm: Proximal Diameter: 0.34cm. Mid Diameter:0.28cm. Distal Diameter: 0.37cm. LEFT: 1. Internal Jugular Vein: Compressibility - Fully compressible: Thrombus - None : Flow - Phasic 2. Subclavian Vein:Compressibility - Fully compressible: Thrombus - None : Flow - Phasic 3. Axillary Vein: Compressibility - Fully compressible: Thrombus - None 4. Brachial Vein: Compressibility - Fully compressible: Thrombus - None 5. Ulnar Vein:Compressibility - Fully compressible: Thrombus - None 6. Radial Vein:Compressibility - Fully compressible: Thrombus - None 7. Cephalic Vein: Compressibility - Fully compressible: thrombus - None 7.1. Upper Arm: Proximal Diameter: 0.34cm. Mid Diameter: 0.34cm. Distal Diameter: 0.28cm. 7.2. Forearm: Proximal Diameter: 0.40cm. Mid Diameter:0.36cm. Distal Diameter: 0.36cm 8. Basilic Vein:Compressibility - Fully compressible: thrombus - None 8.1. Upper Arm:Proximal Diameter: 0.75cm. Mid Diameter: 0.71cm. Distal Diameter: 0.52cm. 8.2. Forearm: Proximal Diameter: 0.26cm. Mid Diameter:0.20cm. Distal Diameter: 0.23cm. OTHER FINDINGS: Right: None. Left: None. IMPRESSION: Please refer to the above listed measurements for vein size. No evidence of venous thrombosis in bilateral upper extremities.
[2017-10-17] MEDS ORDERED: POLYETHYLENE GLYCOL 3350 17 GM/Dose PACKET PO SCH (18:00)
[2017-10-17] MEDS: Ciprofloxacin 400mg/200ml D5W 400 MG/200 ML BAG IVPB SCH (21:28)
--- NOTE | 2017-10-18 01:19 | OP ---
Copied To: Tom Mandel Jr., MD Attending MD: Tom Mandel Jr., MD PROCEDURE DATE: 10/17/2017 PREOPERATIVE DIAGNOSIS: Renal failure. POSTOPERATIVE DIAGNOSIS: Renal failure. PROCEDURE CARRIED OUT: Brachial median antecubital vein fistula, left elbow. SURGEON: Tom Mandel Jr., MD POWER SUPPLY ENGINEER: Adán Cope DO ANESTHESIOLOGIST: Yahir Reeves MD INDICATIONS: The patient is a young man with renal insufficiency, failed PD catheter, soon required dialysis. OPERATIVE FINDINGS: Initially, there was no vein seen at the wrist that was of adequate size. We then created a fistula at the elbow in a bidirectional fashion with flow both going up the cephalic vein and going down the cephalic vein in the forearm. DESCRIPTION OF PROCEDURE: The patient was given general anesthesia and intravenous antibiotics. The veins were marked on the skin. An incision was made directly over these, and a [id number] anastomosis was then done. It was constructed in such a way that flow both went up the cephalic vein and down the cephalic vein after we disrupted the valves. After hemostasis was obtained, the wound was then closed with 5-0 nylon sutures. Blood loss for the procedure was 20 mL. Heparin was given and loupe magnification was used. Tom Mandel Jr., MD cc: Julio Perez MD
[2017-10-18] MEDS: oxyCODONE 5 mg Immediate Release Tab PO PRN ×4 (02:06→22:34)
[2017-10-18] MEDS: metroNIDAZOLE IV 250mg/50 ml 250 MG/50 ML BAG IVPB SCH ×3 (05:06→20:00)
[2017-10-18 07:31] LABS: HEMOGLOBIN 9.1 g/dL (12.0-18.0); MEAN CELL VOLUME 79.6 fL (80.0-94.0); MEAN CORPUSCULAR HEMOGLOBIN 27.4 pg (27.0-31.0); MEAN CORPUSCULAR HGB CONC 34.5 g/dL (33.0-37.0); MEAN PLATELET VOLUME 8.4 fL (7.2-11.7); RBC 3.31 Mil/uL (4.40-5.90); RED CELL DISTRIBUTION WIDTH 13.3 % (11.5-14.5); WHITE BLOOD COUNT 8.1 K/uL (4.8-10.8)
[2017-10-18 07:44] LABS: CALCIUM 9.2 mg/dl (8.6-10.4)
--- NOTE | 2017-10-18 07:52 | CP.PCM.PN ---
Subjective - Date & Time of Evaluation Date of Evaluation: 10/18/17 Time of Evaluation: 06:30 - Subjective Subjective: Patient seen and examined this morning. No acute events over night. Reports slight abdominal pain in LLQ.ANDRADE drain had 30cc/24hr serosanguinousfluid. + thrill in L arm. Objective - Vital Signs/Intake and Output Vital Signs (last 24 hours): Temp Pulse Resp BP Pulse Ox 98.4 F 88 20 151/86 H 98 10/18/17 00:00 10/18/17 03:00 10/18/17 03:00 10/18/17 03:00 10/18/17 03:00 Intake and Output: 10/18/17 10/18/17 06:59 18:59 Intake Total 650 Output Total 1880 Balance -1230 - Medications Medications: Current Medications Acetaminophen (Tylenol 325mg Tab) 650 mg PO Q6 PRN PRN Reason: Fever >100.4 F Last Admin: 10/16/17 20:15 Dose: 650 mg Amlodipine Besylate (Norvasc) 5 mg PO DAILY [facility] Last Admin: 10/17/17 10:49 Dose: 5 mg Calcitriol (Rocaltrol) 0.25 mcg PO MWF [facility] Last Admin: 10/17/17 10:00 Dose: 0.25 mcg Calcium Acetate (Phoslo) 667 mg PO TIDCC [facility] Last Admin: 10/17/17 17:08 Dose: 667 mg Epoetin Sundar (Procrit) 10,000 unit SC TTS [facility] Heparin Sodium (Porcine) (Heparin) 5,000 units SC Q12 [facility] Last Admin: 10/17/17 21:20 Dose: 5,000 units Ciprofloxacin (Cipro 400mg/200ml Dsw) 400 mg in 200 mls @ 133 mls/hr IVPB Q24H [facility] PRN Reason: Protocol Last Admin: 10/17/17 21:28 Dose: 133 mls/hr Metronidazole (Flagyl) 250 mg in 50 mls @ 100 mls/hr IVPB Q8H [facility] PRN Reason: Protocol Stop: 10/20/17 21:01 Last Admin: 10/18/17 05:06 Dose: 100 mls/hr Morphine Sulfate (Morphine) 2 mg IV Q6 PRN PRN Reason: Pain, severe (8-10) Last Admin: 10/18/17 06:20 Dose: 2 mg Ondansetron HCl (Zofran Inj) 4 mg IVP Q6H PRN PRN Reason: nausea/vomiting Last Admin: 10/15/17 21:53 Dose: 4 mg Oxycodone HCl (Oxycodone Immediate Release Tab) 5 mg PO Q6 PRN PRN Reason: Pain, moderate (4-7) Last Admin: 10/18/17 02:06 Dose: 5 mg Polyethylene Glycol (Miralax) 17 gm PO QPM [facility] Last Admin: 10/17/17 17:08 Dose: 17 gm Senna/Docusate Sodium (Senokot S 50 Mg-8.6 Mg) 2 tab PO DAILY [facility] Sodium Bicarbonate (Sodium Bicarbonate Tab) 1,300 mg PO BID [facility] Last Admin: 10/17/17 17:18 Dose: 1,300 mg Vitamin B Complex/Vit C/Folic Acid (Nephro-Edilberto) 1 tab PO 0800 [facility] Last Admin: 10/17/17 08:08 Dose: Not Given - Labs Labs: 10/18/17 07:23 10/18/17 07:23 APTT 34 SECONDS (21-34) 10/16/17 05:57 - Constitutional Appears: No Acute Distress - Eye Exam Eye Exam: EOMI, Normal appearance - ENT Exam ENT Exam: Mucous Membranes Moist - Respiratory Exam Respiratory Exam: NORMAL BREATHING PATTERN - Cardiovascular Exam Cardiovascular Exam: +S1, +S2 - GI/Abdominal Exam GI & Abdominal Exam: Soft, Tenderness. absent: Distended, Firm, Guarding, Rigid - Extremities Exam Additional comments: +thrill - Neurological Exam Neurological Exam: Alert, Awake, Oriented x3 - Psychiatric Exam Psychiatric exam: Normal Mood - Skin Skin Exam: Dry, Intact, Warm Assessment and Plan - Assessment and Plan (Free Text) Assessment: 22M s/p removal of PD catheter POD 2 s/p L AVF creation POD1 Plan: Renal diet Analgesics prn ANDRADE drain removed this AM Palpable thrill in L Arm Clear for d/c from surgical standpoint Further recs per Dr. Tequila Nick PGY3
[2017-10-18] MEDS: Multivitamin Vitamin B Complex (Nephro-Vite) Tab PO SCH (08:29)
[2017-10-18] MEDS ORDERED: EPOETIN ALFA 4,000 UNIT/ML ML Dialysis SC SCH (10:00)
[2017-10-18] MEDS: EPOETIN ALFA 10,000 UNIT/ML ML SC SCH (10:18)
[2017-10-18] MEDS: Docusate-Senna 50 mg-8.6 mg Tab PO SCH (10:54)
--- NOTE | 2017-10-18 14:00 | CARD ---
APPROVED REPORT Date of service: 10/15/2017 EKG Measurement Heart [id number] <Conclusion> Normal sinus rhythm Normal ECG
[2017-10-18] MEDS ORDERED: oxyCODONE 5 mg Immediate Release Tab PO PRN ×2 (14:30→14:40)
[2017-10-18] MEDS ORDERED: Magnesium Hydroxide Susp 30 ml UD PO ONE (14:33)
--- NOTE | 2017-10-18 17:15 | CP.PCM.PN ---
Subjective - Date & Time of Evaluation Date of Evaluation: 10/18/17 Time of Evaluation: 17:13 - Subjective Subjective: Nephrology Consultation Note Assessment: stable PD catheter dysfunction with extensive foreign body reaction and ? pelvic abscess s/p removal 10/16/17 b/l severe hydronephrosis with UTI Chronic Kidney Disease (N18.5) Stage 5 with 3 gm proteinuria (R80.9) likely due to chronic obstructive uropathy neurogenic bladder, hx of spina bifida Anemia (D64.9), Hyperphosphatemia (E83.39), Secondary Hyperparathyroidism (E21.1 ), HTN (I12.9), metabolic acidosis Plan no acute need for dialysis at present. vascular consult for AVF appreciated. hopefully can wait for AVF (10/17/[address] Mandel) to mature for dialysis initiation Hypertension control; added norvasc 5 mg for now Monitor Input/Output, daily weights and renal function with basic metabolic panel indwelling cardoza catheter continue added phoslo 667 mg 1 cap TID with meals defer oral iron supplements due to constipation. started epogen. IV iron deferred due to concerns for infection added sodium bicarb 1300 mg bid and calcitriol 0.25 mcg 3 times a week at d/c cipro switched to rocephin as UTI and K.pneumo resistant to cipro Dose meds/antibiotics for reduced GFR. Avoid phos based fleets enema/magnesium based laxatives. Avoid nephrotoxins/NSAIDs/ iodinated contrast (unless needed emergently) Glycemic control Further work up for as per primary team Thanks for allowing me to participate in care of your patient. Will follow patient with you. Please call if any Qs. had d/w team Dr Julio Perez Office: [phone] CC: pain abdomen reason for consult: ESRD HPI: pt is a 22 M with CKD 5 (s/p PD catheter 09/17/[address] Michael) due to chronic obstructive uropathy managed by pt as self intermittent catheterization at home, spina bifida neurogenic bladder came with worsening pain abdomen with fever/chills s/p PD catheter removal 10/16/17. pt feels better now. pt had PD catheter dysfunction, s/p tPA but yesterday wasn't functioning again and had significant pain with flushing in PD unit. he doesn't want PD and rather wants HD makes urine. appetite low for last 2 days otherwise had gotten better. 10/16/17: PD catheter was removed as intra-op showed extensive foreign body reaction and ? pelvic abscess ROS: Denies chest pain, palpitation, leg swelling. improved pain abdomen All other negative. making urine. self intermittent catheterization at home. Physical Examination: General Appearance: comfortable, in no acute respiratory distress, co-operative . Vitals reviewed and noted as below Head; Atraumatic, normocephalic ENT: no ulcers no thrush. Tongue is midline. Oropharynx: no rash or ulcers. EYES: Pupils are equal, round and reactive to light accommodation. Eye muscles and extraocular movement intact. Sclera is anicteric. Neck; supple no lymphadenopathy, no thyromegaly or bruit Lungs: Normal respiratory rate/effort. Breath sounds bilateral equal and clear Heart: Normal rate. s1s2 normal. No rub or gallop. Extremities: no edema. No varicose veins Neurological: Patient is alert, awake and oriented to person, place and time. No focal deficit. Strength bilateral appropriate and equal Skin: Warm and dry. Normal turgor. No rash. Palpitation: Normal elasticity for age Abdomen: Abdomen is soft. Bowel sounds +. There is abdominal tenderness, no guarding/rigidity no organomegaly. Psych: normal insight and normal affect/mood MSK: no joint tenderness or swelling. Digits and nails normal, no deformity : kidney not palpable. has cardoza Labs/imaging reviewed. Past medical history, past surgical history, family history, social history, allergy reviewed and noted as below Family hx: no hx of CKD. Rest non-contributory renal imaging: b/l severe hydronephrosis last TSAT 15% Ferritin 130 Vit D 27 PTH 353 Objective - Vital Signs/Intake and Output Vital Signs (last 24 hours): Temp Pulse Resp BP Pulse Ox 98.3 F 81 20 135/85 99 10/18/17 16:29 10/18/17 16:29 10/18/17 16:29 10/18/17 16:29 10/18/17 16:29 Intake and Output: 10/18/17 10/18/17 06:59 18:59 Intake Total 650 440 Output Total 1880 1800 Balance -1230 -1360 - Medications Medications: Current Medications Acetaminophen (Tylenol 325mg Tab) 650 mg PO Q6 PRN PRN Reason: Fever >100.4 F Last Admin: 10/16/17 20:15 Dose: 650 mg Amlodipine Besylate (Norvasc) 5 mg PO DAILY [facility] Last Admin: 10/18/17 10:19 Dose: 5 mg Calcitriol (Rocaltrol) 0.25 mcg PO MWF [facility] Last Admin: 10/17/17 10:00 Dose: 0.25 mcg Calcium Acetate (Phoslo) 667 mg PO TIDCC [facility] Last Admin: 10/18/17 11:49 Dose: 667 mg Epoetin Sundar (Procrit) 10,000 unit SC TTS [facility] Last Admin: 10/18/17 10:18 Dose: 10,000 unit Heparin Sodium (Porcine) (Heparin) 5,000 units SC Q12 [facility] Last Admin: 10/18/17 10:19 Dose: 5,000 units Metronidazole (Flagyl) 250 mg in 50 mls @ 100 mls/hr IVPB Q8H [facility] PRN Reason: Protocol Stop: 10/20/17 21:01 Last Admin: 10/18/17 13:14 Dose: 100 mls/hr Ceftriaxone Sodium 1 gm/ (Sodium Chloride) 100 mls @ 100 mls/hr IVPB DAILY [facility] PRN Reason: Protocol Stop: 10/24/17 10:59 Last Admin: 10/18/17 10:53 Dose: 100 mls/hr Morphine Sulfate (Morphine) 2 mg IV Q6 PRN PRN Reason: Pain, severe (8-10) Last Admin: 10/18/17 13:13 Dose: 2 mg Ondansetron HCl (Zofran Inj) 4 mg IVP Q6H PRN PRN Reason: nausea/vomiting Last Admin: 10/15/17 21:53 Dose: 4 mg Oxycodone HCl (Oxycodone Immediate Release Tab) 15 mg PO Q6 PRN PRN Reason: Pain, moderate (4-7) Last Admin: 10/18/17 15:55 Dose: 15 mg Polyethylene Glycol (Miralax) 17 gm PO BID [facility] Senna/Docusate Sodium (Senokot S 50 Mg-8.6 Mg) 2 tab PO DAILY [facility] Last Admin: 10/18/17 10:54 Dose: Not Given Sodium Bicarbonate (Sodium Bicarbonate Tab) 1,300 mg PO BID [facility] Last Admin: 10/18/17 10:18 Dose: 1,300 mg Vitamin B Complex/Vit C/Folic Acid (Nephro-Edilberto) 1 tab PO 0800 [facility] Last Admin: 10/18/17 08:29 Dose: 1 tab - Labs Labs: 10/18/17 07:23 10/18/17 07:23 APTT 34 SECONDS (21-34) 10/16/17 05:57
[2017-10-18] MEDS: POLYETHYLENE GLYCOL 3350 17 GM/Dose PACKET PO SCH (17:33)
--- NOTE | 2017-10-18 18:06 | CP.PCM.PN ---
Subjective - Date & Time of Evaluation Date of Evaluation: 10/18/17 Time of Evaluation: 18:04 - Subjective Subjective: pt c/o of abd pain did not move his bowel for few days Objective - Vital Signs/Intake and Output Vital Signs (last 24 hours): Temp Pulse Resp BP Pulse Ox 98.3 F 81 20 135/85 99 10/18/17 16:29 10/18/17 16:29 10/18/17 16:29 10/18/17 16:29 10/18/17 16:29 Intake and Output: 10/18/17 10/18/17 06:59 18:59 Intake Total 650 440 Output Total 1880 1800 Balance -1230 -1360 - Medications Medications: Current Medications Acetaminophen (Tylenol 325mg Tab) 650 mg PO Q6 PRN PRN Reason: Fever >100.4 F Last Admin: 10/16/17 20:15 Dose: 650 mg Amlodipine Besylate (Norvasc) 5 mg PO DAILY [facility] Last Admin: 10/18/17 10:19 Dose: 5 mg Calcitriol (Rocaltrol) 0.25 mcg PO MWF [facility] Last Admin: 10/17/17 10:00 Dose: 0.25 mcg Calcium Acetate (Phoslo) 667 mg PO TIDCC [facility] Last Admin: 10/18/17 17:33 Dose: 667 mg Epoetin Sundar (Procrit) 10,000 unit SC TTS [facility] Last Admin: 10/18/17 10:18 Dose: 10,000 unit Heparin Sodium (Porcine) (Heparin) 5,000 units SC Q12 [facility] Last Admin: 10/18/17 10:19 Dose: 5,000 units Metronidazole (Flagyl) 250 mg in 50 mls @ 100 mls/hr IVPB Q8H [facility] PRN Reason: Protocol Stop: 10/20/17 21:01 Last Admin: 10/18/17 13:14 Dose: 100 mls/hr Ceftriaxone Sodium 1 gm/ (Sodium Chloride) 100 mls @ 100 mls/hr IVPB DAILY [facility] PRN Reason: Protocol Stop: 10/24/17 10:59 Last Admin: 10/18/17 10:53 Dose: 100 mls/hr Morphine Sulfate (Morphine) 2 mg IV Q6 PRN PRN Reason: Pain, severe (8-10) Last Admin: 10/18/17 13:13 Dose: 2 mg Ondansetron HCl (Zofran Inj) 4 mg IVP Q6H PRN PRN Reason: nausea/vomiting Last Admin: 10/15/17 21:53 Dose: 4 mg Oxycodone HCl (Oxycodone Immediate Release Tab) 15 mg PO Q6 PRN PRN Reason: Pain, moderate (4-7) Last Admin: 10/18/17 15:55 Dose: 15 mg Polyethylene Glycol (Miralax) 17 gm PO BID [facility] Last Admin: 10/18/17 17:33 Dose: 17 gm Senna/Docusate Sodium (Senokot S 50 Mg-8.6 Mg) 2 tab PO DAILY [facility] Last Admin: 10/18/17 10:54 Dose: Not Given Sodium Bicarbonate (Sodium Bicarbonate Tab) 1,300 mg PO BID [facility] Last Admin: 10/18/17 17:33 Dose: 1,300 mg Vitamin B Complex/Vit C/Folic Acid (Nephro-Edilberto) 1 tab PO 0800 [facility] Last Admin: 10/18/17 08:29 Dose: 1 tab - Labs Labs: 10/18/17 07:23 10/18/17 07:23 APTT 34 SECONDS (21-34) 10/16/17 05:57 - Constitutional Appears: In Acute Distress - Head Exam Head Exam: NORMAL INSPECTION - Eye Exam Eye Exam: Normal appearance - ENT Exam ENT Exam: Mucous Membranes Moist - Neck Exam Neck Exam: Normal Inspection - Respiratory Exam Respiratory Exam: Decreased Breath Sounds - Cardiovascular Exam Cardiovascular Exam: REGULAR RHYTHM - GI/Abdominal Exam GI & Abdominal Exam: Guarding, Tenderness - Back Exam Back Exam: NORMAL INSPECTION - Neurological Exam Neurological Exam: Alert, Awake, Normal Gait, Oriented x3 - Psychiatric Exam Psychiatric exam: Normal Mood - Skin Skin Exam: Normal Color Assessment and Plan - Assessment and Plan (Free Text) Assessment: abd pain renal f ac uti spina bifida constipation Plan: as per orders
--- NOTE | 2017-10-18 20:04 | CP.PCM.CON ---
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 Fam Hx: Father- diabetes, hernia sx, and pacemaker. Mother- high BP, Aunt ( father's side)-kidney failure. Hospitalizations: pneumonia 2016 at [facility] Meds: see MAR Review of Systems - Review of Systems All systems: reviewed and no additional remarkable complaints except - Constitutional Constitutional: absent: Anorexia, Chills - EENT Eyes: absent: Blurred Vision, Change in Vision - Cardiovascular Cardiovascular: absent: Chest Pain, Dyspnea - Respiratory Respiratory: absent: Cough, Dyspnea - Gastrointestinal Gastrointestinal: absent: Belching, Heartburn, Nausea, Vomiting - Genitourinary Genitourinary: absent: Difficulty Urinating, Dysuria - Integumentary Integumentary: absent: Dry Skin, Skin Pain Past Patient History - Infectious Disease Hx of Infectious Diseases: None - Past Medical History & Family History Past Medical History?: Yes - Past Social History Smoking Status: Never Smoked - CARDIAC Hx Hypertension: No - PULMONARY Hx Pneumonia: Yes - NEUROLOGICAL Hx Neurological Disorder: Yes Other/Comment: Spina Bifida, Tethered Spinal Cord - HEENT Hx HEENT Problems: No - RENAL Hx Chronic Kidney Disease: Yes Type of Dialysis Access: PD cath - ENDOCRINE/METABOLIC Hx Endocrine Disorders: No - HEMATOLOGICAL/ONCOLOGICAL Hx Blood Disorders: No - INTEGUMENTARY Hx Dermatological Problems: No - MUSCULOSKELETAL/RHEUMATOLOGICAL Hx Musculoskeletal Disorders: No Hx Falls: No Other/Comment: Spina Bipida - GASTROINTESTINAL Hx Gastrointestinal Disorders: No - GENITOURINARY/GYNECOLOGICAL Hx Genitourinary Disorders: Yes Hx Urinary Tract Infection: Yes Other/Comment: SELF CATHETERIZE - PSYCHIATRIC Hx Psychophysiologic Disorder: No Hx Substance Use: No - SURGICAL HISTORY Hx Surgeries: Yes Other/Comment: Spinal cord repair (Spina Bifida) - ANESTHESIA Hx Anesthesia: Yes Hx Anesthesia Reactions: No Hx Malignant Hyperthermia: No Has any member of the family had a problem w/ anesthesia?: No Meds Allergies/Adverse Reactions: Allergies Allergy/AdvReac Type Severity Reaction Status Date / Time No Known Allergies Allergy Verified 10/01/17 12:34 - Medications Medications: Current Medications Acetaminophen (Tylenol 325mg Tab) 650 mg PO Q6 PRN PRN Reason: Fever >100.4 F Last Admin: 10/16/17 20:15 Dose: 650 mg Amlodipine Besylate (Norvasc) 5 mg PO DAILY [facility] Last Admin: 10/18/17 10:19 Dose: 5 mg Calcitriol (Rocaltrol) 0.25 mcg PO MWF [facility] Last Admin: 10/17/17 10:00 Dose: 0.25 mcg Calcium Acetate (Phoslo) 667 mg PO TIDCC [facility] Last Admin: 10/18/17 17:33 Dose: 667 mg Epoetin Sundar (Procrit) 10,000 unit SC TTS [facility] Last Admin: 10/18/17 10:18 Dose: 10,000 unit Heparin Sodium (Porcine) (Heparin) 5,000 units SC Q12 [facility] Last Admin: 10/18/17 10:19 Dose: 5,000 units Metronidazole (Flagyl) 250 mg in 50 mls @ 100 mls/hr IVPB Q8H [facility] PRN Reason: Protocol Stop: 10/20/17 21:01 Last Admin: 10/18/17 20:00 Dose: 100 mls/hr Ceftriaxone Sodium 1 gm/ (Sodium Chloride) 100 mls @ 100 mls/hr IVPB DAILY [facility] PRN Reason: Protocol Stop: 10/24/17 10:59 Last Admin: 10/18/17 10:53 Dose: 100 mls/hr Morphine Sulfate (Morphine) 2 mg IV Q6 PRN PRN Reason: Pain, severe (8-10) Last Admin: 10/18/17 19:56 Dose: 2 mg Ondansetron HCl (Zofran Inj) 4 mg IVP Q6H PRN PRN Reason: nausea/vomiting Last Admin: 10/15/17 21:53 Dose: 4 mg Oxycodone HCl (Oxycodone Immediate Release Tab) 15 mg PO Q6 PRN PRN Reason: Pain, moderate (4-7) Last Admin: 10/18/17 15:55 Dose: 15 mg Polyethylene Glycol (Miralax) 17 gm PO BID [facility] Last Admin: 10/18/17 17:33 Dose: 17 gm Senna/Docusate Sodium (Senokot S 50 Mg-8.6 Mg) 2 tab PO DAILY [facility] Last Admin: 10/18/17 10:54 Dose: Not Given Sodium Bicarbonate (Sodium Bicarbonate Tab) 1,300 mg PO BID [facility] Last Admin: 10/18/17 17:33 Dose: 1,300 mg Vitamin B Complex/Vit C/Folic Acid (Nephro-Edilberto) 1 tab PO 0800 [facility] Last Admin: 10/18/17 08:29 Dose: 1 tab Physical Exam - Constitutional Appears: No Acute Distress - Head Exam Head Exam: ATRAUMATIC, NORMOCEPHALIC - Eye Exam Eye Exam: absent: Scleral icterus - ENT Exam ENT Exam: Mucous Membranes Dry - Neck Exam Neck exam: Negative for: Lymphadenopathy - Respiratory Exam Respiratory Exam: Decreased Breath Sounds - Cardiovascular Exam Cardiovascular Exam: REGULAR RHYTHM - GI/Abdominal Exam GI & Abdominal Exam: Diminished Bowel Sounds, Soft. absent: Tenderness - Rectal Exam Rectal Exam: Deferred Results - Vital Signs Recent Vital Signs: Last Vital Signs Temp 98.3 F 10/18/17 16:29 Pulse 81 10/18/17 16:29 Resp 20 10/18/17 16:29 BP 135/85 10/18/17 16:29 Pulse Ox 99 10/18/17 16:29 - Labs Result Diagrams: 10/18/17 07:23 10/18/17 07:23 Labs: Laboratory Results - last 24 hr 10/18/17 10/18/17 10/18/17 07:23 07:23 16:53 WBC 8.1 RBC 3.31 L Hgb 9.1 L Hct 26.4 L MCV 79.6 L MCH 27.4 MCHC 34.5 RDW 13.3 Plt Count 343 MPV 8.4 Sodium 141 Potassium 3.7 Chloride 103 Carbon Dioxide 20 L Anion Gap 22 H BUN 58 H Creatinine 7.2 H Est GFR ( Amer) 12 Est GFR (Non-Af Amer) 10 POC Glucose (mg/dL) 91 Random Glucose 104 Calcium 9.2 Assessment & Plan (1) Abdominal discomfort Status: Acute (2) UTI (urinary tract infection) Status: Acute (3) CKD (chronic kidney disease) Status: Acute - Assessment and Plan (Free Text) Assessment: cont iv rx as ordered
[2017-10-19] MEDS: metroNIDAZOLE IV 250mg/50 ml 250 MG/50 ML BAG IVPB SCH ×3 (05:02→21:17)
[2017-10-19] MEDS: oxyCODONE 5 mg Immediate Release Tab PO PRN ×3 (05:27→19:37)
[2017-10-19] MEDS: Multivitamin Vitamin B Complex (Nephro-Vite) Tab PO SCH (08:08)
--- NOTE | 2017-10-19 08:37 | CP.PCM.PN ---
Subjective - Date & Time of Evaluation Date of Evaluation: 10/19/17 Time of Evaluation: 06:55 - Subjective Subjective: Vascular surgery progress note for Dr. Mandel, General surgery progress note for Dr. Kruse patient seen and examined this am at bedside. No acute events overnight per nursing. Patient states that the pain in his stomach is improving and that he has no complaints with his arm. Patient endorses BM and flatus last night and denies f/c/n/v. Objective - Vital Signs/Intake and Output Vital Signs (last 24 hours): Temp Pulse Resp BP Pulse Ox 97.3 F L 80 20 148/90 99 10/19/17 08:00 10/19/17 08:00 10/19/17 08:00 10/19/17 08:00 10/19/17 08:00 Intake and Output: 10/19/17 10/19/17 06:59 18:59 Intake Total 660 Output Total 2700 Balance -2040 - Medications Medications: Current Medications Acetaminophen (Tylenol 325mg Tab) 650 mg PO Q6 PRN PRN Reason: Fever >100.4 F Last Admin: 10/16/17 20:15 Dose: 650 mg Amlodipine Besylate (Norvasc) 5 mg PO DAILY [facility] Last Admin: 10/18/17 10:19 Dose: 5 mg Calcitriol (Rocaltrol) 0.25 mcg PO MWF [facility] Last Admin: 10/19/17 08:07 Dose: 0.25 mcg Calcium Acetate (Phoslo) 667 mg PO TIDCC [facility] Last Admin: 10/19/17 08:08 Dose: 667 mg Epoetin Sundar (Procrit) 10,000 unit SC TTS [facility] Last Admin: 10/18/17 10:18 Dose: 10,000 unit Heparin Sodium (Porcine) (Heparin) 5,000 units SC Q12 [facility] Last Admin: 10/18/17 21:31 Dose: 5,000 units Metronidazole (Flagyl) 250 mg in 50 mls @ 100 mls/hr IVPB Q8H [facility] PRN Reason: Protocol Stop: 10/20/17 21:01 Last Admin: 10/19/17 05:02 Dose: 100 mls/hr Ceftriaxone Sodium 1 gm/ (Sodium Chloride) 100 mls @ 100 mls/hr IVPB DAILY [facility] PRN Reason: Protocol Stop: 10/24/17 10:59 Last Admin: 10/18/17 10:53 Dose: 100 mls/hr Morphine Sulfate (Morphine) 2 mg IV Q6 PRN PRN Reason: Pain, severe (8-10) Last Admin: 10/19/17 08:13 Dose: 2 mg Ondansetron HCl (Zofran Inj) 4 mg IVP Q6H PRN PRN Reason: nausea/vomiting Last Admin: 10/15/17 21:53 Dose: 4 mg Oxycodone HCl (Oxycodone Immediate Release Tab) 15 mg PO Q6 PRN PRN Reason: Pain, moderate (4-7) Last Admin: 10/19/17 05:27 Dose: 15 mg Polyethylene Glycol (Miralax) 17 gm PO BID [facility] Last Admin: 10/18/17 17:33 Dose: 17 gm Senna/Docusate Sodium (Senokot S 50 Mg-8.6 Mg) 2 tab PO DAILY [facility] Last Admin: 10/18/17 10:54 Dose: Not Given Sodium Bicarbonate (Sodium Bicarbonate Tab) 1,300 mg PO BID [facility] Last Admin: 10/18/17 17:33 Dose: 1,300 mg Vitamin B Complex/Vit C/Folic Acid (Nephro-Edilberto) 1 tab PO 0800 [facility] Last Admin: 10/19/17 08:08 Dose: 1 tab - Labs Labs: 10/18/17 07:23 10/18/17 07:23 APTT 34 SECONDS (21-34) 10/16/17 05:57 - Constitutional Appears: Well, Non-toxic, No Acute Distress - Head Exam Head Exam: ATRAUMATIC, NORMOCEPHALIC - Eye Exam Eye Exam: EOMI - ENT Exam ENT Exam: Mucous Membranes Moist - Respiratory Exam Respiratory Exam: NORMAL BREATHING PATTERN - Cardiovascular Exam Cardiovascular Exam: +S1, +S2 Additional comments: palpable thrill over fistula site left arm - GI/Abdominal Exam GI & Abdominal Exam: Soft. absent: Distended, Firm, Guarding, Rigid, Tenderness Additional comments: dressings removed steri strips in place, cdi - Extremities Exam Extremities Exam: absent: Pedal Edema, Tenderness Additional comments: distal pulses RAdial and ulnar intact bilaterally - Neurological Exam Neurological Exam: Alert, Awake, Oriented x3 - Psychiatric Exam Psychiatric exam: Normal Affect, Normal Mood - Skin Skin Exam: Dry, Intact, Normal Color, Warm Assessment and Plan - Assessment and Plan (Free Text) Assessment: 22M s/p peritoneal dialysis catheter removal 10/16 and AV fistula placement left arm 10/17 Plan: -Renal diet - continue stool softeners - Analgesics prn - Palpable thrill in L Arm - Clear for d/c from surgical standpoint, please reconsult as necessary - discussed with Dr. Mandel and Dr. Uriah Rosario, PGY 1
[2017-10-19] MEDS: POLYETHYLENE GLYCOL 3350 17 GM/Dose PACKET PO SCH ×2 (09:30→17:18)
[2017-10-19] MEDS: Docusate-Senna 50 mg-8.6 mg Tab PO SCH (09:31)
[2017-10-19 11:25] LABS: BASO # 0.1 K/uL (0.0-0.2); EOS # 0.3 K/uL (0.0-0.7); HEMOGLOBIN 9.5 g/dL (12.0-18.0); LYMPH # 2.2 K/uL (1.0-4.3); LYMPH % 34.3 % (20.0-40.0); MEAN CELL VOLUME 79.3 fL (80.0-94.0); MEAN CORPUSCULAR HEMOGLOBIN 27.6 pg (27.0-31.0); MEAN CORPUSCULAR HGB CONC 34.8 g/dL (33.0-37.0); MEAN PLATELET VOLUME 7.8 fL (7.2-11.7); MONO # 0.4 K/uL (0.0-0.8); MONO % 6.6 % (0.0-10.0); NEUT # 3.5 K/uL (1.8-7.0); NEUT % 54.1 % (50.0-75.0); RBC 3.45 Mil/uL (4.40-5.90); RED CELL DISTRIBUTION WIDTH 13.5 % (11.5-14.5); WHITE BLOOD COUNT 6.4 K/uL (4.8-10.8)
[2017-10-19 11:39] LABS: CALCIUM 9.1 mg/dl (8.6-10.4)
--- NOTE | 2017-10-19 12:26 | CP.PCM.PN ---
Subjective - Date & Time of Evaluation Date of Evaluation: 10/19/17 Time of Evaluation: 12:24 - Subjective Subjective: pt still has abd pain moved his bpwel Objective - Vital Signs/Intake and Output Vital Signs (last 24 hours): Temp Pulse Resp BP Pulse Ox 97.3 F L 80 20 148/90 99 10/19/17 08:00 10/19/17 08:00 10/19/17 08:00 10/19/17 08:00 10/19/17 08:00 Intake and Output: 10/19/17 10/19/17 06:59 18:59 Intake Total 660 Output Total 2700 Balance -2040 - Medications Medications: Current Medications Acetaminophen (Tylenol 325mg Tab) 650 mg PO Q6 PRN PRN Reason: Fever >100.4 F Last Admin: 10/16/17 20:15 Dose: 650 mg Amlodipine Besylate (Norvasc) 5 mg PO DAILY [facility] Last Admin: 10/19/17 09:30 Dose: 5 mg Calcitriol (Rocaltrol) 0.25 mcg PO MWF [facility] Last Admin: 10/19/17 08:07 Dose: 0.25 mcg Calcium Acetate (Phoslo) 667 mg PO TIDCC [facility] Last Admin: 10/19/17 08:08 Dose: 667 mg Epoetin Sundar (Procrit) 10,000 unit SC TTS [facility] Last Admin: 10/18/17 10:18 Dose: 10,000 unit Heparin Sodium (Porcine) (Heparin) 5,000 units SC Q12 [facility] Last Admin: 10/19/17 09:31 Dose: 5,000 units Metronidazole (Flagyl) 250 mg in 50 mls @ 100 mls/hr IVPB Q8H [facility] PRN Reason: Protocol Stop: 10/20/17 21:01 Last Admin: 10/19/17 05:02 Dose: 100 mls/hr Ceftriaxone Sodium 1 gm/ (Sodium Chloride) 100 mls @ 100 mls/hr IVPB DAILY [facility] PRN Reason: Protocol Stop: 10/24/17 10:59 Last Admin: 10/19/17 09:30 Dose: 100 mls/hr Morphine Sulfate (Morphine) 2 mg IV Q6 PRN PRN Reason: Pain, severe (8-10) Last Admin: 10/19/17 08:13 Dose: 2 mg Ondansetron HCl (Zofran Inj) 4 mg IVP Q6H PRN PRN Reason: nausea/vomiting Last Admin: 10/15/17 21:53 Dose: 4 mg Oxycodone HCl (Oxycodone Immediate Release Tab) 15 mg PO Q6 PRN PRN Reason: Pain, moderate (4-7) Last Admin: 10/19/17 05:27 Dose: 15 mg Polyethylene Glycol (Miralax) 17 gm PO BID [facility] Last Admin: 10/19/17 09:30 Dose: 17 gm Senna/Docusate Sodium (Senokot S 50 Mg-8.6 Mg) 2 tab PO DAILY [facility] Last Admin: 10/19/17 09:31 Dose: 2 tab Sodium Bicarbonate (Sodium Bicarbonate Tab) 1,300 mg PO BID [facility] Last Admin: 10/19/17 09:35 Dose: 1,300 mg Vitamin B Complex/Vit C/Folic Acid (Nephro-Edilberto) 1 tab PO 0800 [facility] Last Admin: 10/19/17 08:08 Dose: 1 tab - Labs Labs: 10/19/17 11:12 10/19/17 11:12 APTT 34 SECONDS (21-34) 10/16/17 05:57 - Constitutional Appears: Non-toxic - Head Exam Head Exam: NORMAL INSPECTION - Eye Exam Eye Exam: Normal appearance Pupil Exam: NORMAL ACCOMODATION - ENT Exam ENT Exam: Mucous Membranes Moist - Neck Exam Neck Exam: Full ROM - Respiratory Exam Respiratory Exam: Clear to Ausculation Bilateral - Cardiovascular Exam Cardiovascular Exam: REGULAR RHYTHM - GI/Abdominal Exam GI & Abdominal Exam: Tenderness, Normal Bowel Sounds - Exam Exam: NORMAL INSPECTION - Extremities Exam Extremities Exam: Full ROM - Back Exam Back Exam: NORMAL INSPECTION - Neurological Exam Neurological Exam: Alert, Normal Gait, Oriented x3 - Psychiatric Exam Psychiatric exam: Normal Mood - Skin Skin Exam: Pallor Assessment and Plan - Assessment and Plan (Free Text) Assessment: ac urosepses cont iv antibiotics ac abd mariah n s/p removal of peritoneal dialysis cath s/p isersion of av shunt renal failiur Plan: as per orders
--- NOTE | 2017-10-19 13:40 | CP.PCM.PN ---
Subjective - Date & Time of Evaluation Date of Evaluation: 10/19/17 Time of Evaluation: 13:40 - Subjective Subjective: Nephrology Consultation Note Assessment: stable PD catheter dysfunction with extensive foreign body reaction and ? pelvic abscess s/p removal 10/16/17 b/l severe hydronephrosis with UTI Chronic Kidney Disease (N18.5) Stage 5 with 3 gm proteinuria (R80.9) likely due to chronic obstructive uropathy neurogenic bladder, hx of spina bifida Anemia (D64.9), Hyperphosphatemia (E83.39), Secondary Hyperparathyroidism (E21.1 ), HTN (I12.9), metabolic acidosis Plan no acute need for dialysis at present. vascular consult for AVF appreciated. hopefully can wait for AVF (10/17/[address] Mandel) to mature for dialysis initiation Hypertension control; added norvasc 5 mg for now Monitor Input/Output, daily weights and renal function with basic metabolic panel indwelling cardoza catheter continue added phoslo 667 mg 1 cap TID with meals defer oral iron supplements due to constipation. started epogen. IV iron deferred due to concerns for infection added sodium bicarb 1300 mg bid and calcitriol 0.25 mcg 3 times a week at d/c ID following Dose meds/antibiotics for reduced GFR. Avoid phos based fleets enema/magnesium based laxatives. Avoid nephrotoxins/NSAIDs/ iodinated contrast (unless needed emergently) Glycemic control Further work up for as per primary team Thanks for allowing me to participate in care of your patient. Will follow patient with you. Please call if any Qs. had d/w team Dr Julio Perez Office: [phone] CC: pain abdomen reason for consult: ESRD HPI: pt is a 22 M with CKD 5 (s/p PD catheter 09/17/[address] Michael) due to chronic obstructive uropathy managed by pt as self intermittent catheterization at home, spina bifida neurogenic bladder came with worsening pain abdomen with fever/chills s/p PD catheter removal 10/16/17. pt feels better now. pt had PD catheter dysfunction, s/p tPA but yesterday wasn't functioning again and had significant pain with flushing in PD unit. he doesn't want PD and rather wants HD makes urine. appetite low for last 2 days otherwise had gotten better. 10/16/17: PD catheter was removed as intra-op showed extensive foreign body reaction and ? pelvic abscess ROS: Denies chest pain, palpitation, leg swelling. improved pain abdomen . had BM All other negative. making urine. self intermittent catheterization at home. Physical Examination: General Appearance: comfortable, in no acute respiratory distress, co-operative . Vitals reviewed and noted as below Head; Atraumatic, normocephalic ENT: no ulcers no thrush. Tongue is midline. Oropharynx: no rash or ulcers. EYES: Pupils are equal, round and reactive to light accommodation. Eye muscles and extraocular movement intact. Sclera is anicteric. Neck; supple no lymphadenopathy, no thyromegaly or bruit Lungs: Normal respiratory rate/effort. Breath sounds bilateral equal and clear Heart: Normal rate. s1s2 normal. No rub or gallop. Extremities: no edema. No varicose veins Neurological: Patient is alert, awake and oriented to person, place and time. No focal deficit. Strength bilateral appropriate and equal Skin: Warm and dry. Normal turgor. No rash. Palpitation: Normal elasticity for age Abdomen: Abdomen is soft. Bowel sounds +. There is no abdominal tenderness, no guarding/rigidity no organomegaly. Psych: normal insight and normal affect/mood MSK: no joint tenderness or swelling. Digits and nails normal, no deformity : kidney not palpable. has cardoza Labs/imaging reviewed. Past medical history, past surgical history, family history, social history, allergy reviewed and noted as below Family hx: no hx of CKD. Rest non-contributory renal imaging: b/l severe hydronephrosis last TSAT 15% Ferritin 130 Vit D 27 PTH 353 Objective - Vital Signs/Intake and Output Vital Signs (last 24 hours): Temp Pulse Resp BP Pulse Ox 97.3 F L 80 20 148/90 99 10/19/17 08:00 10/19/17 08:00 10/19/17 08:00 10/19/17 08:00 10/19/17 08:00 Intake and Output: 10/19/17 10/19/17 06:59 18:59 Intake Total 660 Output Total 2700 Balance -2039 - Medications Medications: Current Medications Acetaminophen (Tylenol 325mg Tab) 650 mg PO Q6 PRN PRN Reason: Fever >100.4 F Last Admin: 10/16/17 20:15 Dose: 650 mg Amlodipine Besylate (Norvasc) 5 mg PO DAILY [facility] Last Admin: 10/19/17 09:30 Dose: 5 mg Calcitriol (Rocaltrol) 0.25 mcg PO MWF [facility] Last Admin: 10/19/17 08:07 Dose: 0.25 mcg Calcium Acetate (Phoslo) 667 mg PO TIDCC [facility] Last Admin: 10/19/17 12:29 Dose: 667 mg Epoetin Sundar (Procrit) 10,000 unit SC TTS [facility] Last Admin: 10/18/17 10:18 Dose: 10,000 unit Heparin Sodium (Porcine) (Heparin) 5,000 units SC Q12 [facility] Last Admin: 10/19/17 09:31 Dose: 5,000 units Metronidazole (Flagyl) 250 mg in 50 mls @ 100 mls/hr IVPB Q8H [facility] PRN Reason: Protocol Stop: 10/20/17 21:01 Last Admin: 10/19/17 13:10 Dose: 100 mls/hr Ceftriaxone Sodium 1 gm/ (Sodium Chloride) 100 mls @ 100 mls/hr IVPB DAILY [facility] PRN Reason: Protocol Stop: 10/24/17 10:59 Last Admin: 10/19/17 09:30 Dose: 100 mls/hr Morphine Sulfate (Morphine) 2 mg IV Q6 PRN PRN Reason: Pain, severe (8-10) Last Admin: 10/19/17 08:13 Dose: 2 mg Ondansetron HCl (Zofran Inj) 4 mg IVP Q6H PRN PRN Reason: nausea/vomiting Last Admin: 10/15/17 21:53 Dose: 4 mg Oxycodone HCl (Oxycodone Immediate Release Tab) 15 mg PO Q6 PRN PRN Reason: Pain, moderate (4-7) Last Admin: 10/19/17 12:27 Dose: 15 mg Polyethylene Glycol (Miralax) 17 gm PO BID [facility] Last Admin: 10/19/17 09:30 Dose: 17 gm Senna/Docusate Sodium (Senokot S 50 Mg-8.6 Mg) 2 tab PO DAILY [facility] Last Admin: 10/19/17 09:31 Dose: 2 tab Sodium Bicarbonate (Sodium Bicarbonate Tab) 1,300 mg PO BID [facility] Last Admin: 10/19/17 09:35 Dose: 1,300 mg Vitamin B Complex/Vit C/Folic Acid (Nephro-Edilberto) 1 tab PO 0800 [facility] Last Admin: 10/19/17 08:08 Dose: 1 tab - Labs Labs: 10/19/17 11:12 10/19/17 11:12 APTT 34 SECONDS (21-34) 10/16/17 05:57
--- NOTE | 2017-10-19 17:59 | CP.PCM.PN ---
Subjective - Date & Time of Evaluation Date of Evaluation: 10/19/17 Time of Evaluation: 09:00 - Subjective Subjective: awake alert afebrile Objective - Vital Signs/Intake and Output Vital Signs (last 24 hours): Temp Pulse Resp BP Pulse Ox 98.4 F 78 20 134/84 97 10/19/17 16:42 10/19/17 16:42 10/19/17 16:42 10/19/17 16:42 10/19/17 16:42 Intake and Output: 10/19/17 10/19/17 06:59 18:59 Intake Total 660 450 Output Total 2700 1000 Balance -2040 -550 - Medications Medications: Current Medications Acetaminophen (Tylenol 325mg Tab) 650 mg PO Q6 PRN PRN Reason: Fever >100.4 F Last Admin: 10/16/17 20:15 Dose: 650 mg Amlodipine Besylate (Norvasc) 5 mg PO DAILY [facility] Last Admin: 10/19/17 09:30 Dose: 5 mg Calcitriol (Rocaltrol) 0.25 mcg PO MWF [facility] Last Admin: 10/19/17 08:07 Dose: 0.25 mcg Calcium Acetate (Phoslo) 667 mg PO TIDCC [facility] Last Admin: 10/19/17 17:18 Dose: 667 mg Epoetin Sundar (Procrit) 10,000 unit SC TTS [facility] Last Admin: 10/18/17 10:18 Dose: 10,000 unit Heparin Sodium (Porcine) (Heparin) 5,000 units SC Q12 [facility] Last Admin: 10/19/17 09:31 Dose: 5,000 units Metronidazole (Flagyl) 250 mg in 50 mls @ 100 mls/hr IVPB Q8H [facility] PRN Reason: Protocol Stop: 10/20/17 21:01 Last Admin: 10/19/17 13:10 Dose: 100 mls/hr Ceftriaxone Sodium 1 gm/ (Sodium Chloride) 100 mls @ 100 mls/hr IVPB DAILY [facility] PRN Reason: Protocol Stop: 10/24/17 10:59 Last Admin: 10/19/17 09:30 Dose: 100 mls/hr Morphine Sulfate (Morphine) 2 mg IV Q6 PRN PRN Reason: Pain, severe (8-10) Last Admin: 10/19/17 08:13 Dose: 2 mg Ondansetron HCl (Zofran Inj) 4 mg IVP Q6H PRN PRN Reason: nausea/vomiting Last Admin: 10/15/17 21:53 Dose: 4 mg Oxycodone HCl (Oxycodone Immediate Release Tab) 15 mg PO Q6 PRN PRN Reason: Pain, moderate (4-7) Last Admin: 10/19/17 12:27 Dose: 15 mg Polyethylene Glycol (Miralax) 17 gm PO BID [facility] Last Admin: 10/19/17 17:18 Dose: 17 gm Senna/Docusate Sodium (Senokot S 50 Mg-8.6 Mg) 2 tab PO DAILY [facility] Last Admin: 10/19/17 09:31 Dose: 2 tab Sodium Bicarbonate (Sodium Bicarbonate Tab) 1,300 mg PO BID [facility] Last Admin: 10/19/17 17:17 Dose: 1,300 mg Vitamin B Complex/Vit C/Folic Acid (Nephro-Edilberto) 1 tab PO 0800 [facility] Last Admin: 10/19/17 08:08 Dose: 1 tab - Labs Labs: 10/19/17 11:12 10/19/17 11:12 APTT 34 SECONDS (21-34) 10/16/17 05:57 - Constitutional Appears: Non-toxic, Chronically Ill - Head Exam Head Exam: NORMOCEPHALIC - Eye Exam Eye Exam: PERRL - ENT Exam ENT Exam: Mucous Membranes Dry - Neck Exam Neck Exam: absent: Lymphadenopathy - Respiratory Exam Respiratory Exam: Decreased Breath Sounds - Cardiovascular Exam Cardiovascular Exam: REGULAR RHYTHM - GI/Abdominal Exam GI & Abdominal Exam: Distended, Soft Assessment and Plan (1) Abdominal discomfort Status: Acute (2) UTI (urinary tract infection) Status: Acute (3) CKD (chronic kidney disease) Status: Acute - Assessment and Plan (Free Text) Assessment: cont iv rx as ordered
[2017-10-20] MEDS: oxyCODONE 5 mg Immediate Release Tab PO PRN ×4 (04:00→22:29)
[2017-10-20] MEDS: metroNIDAZOLE IV 250mg/50 ml 250 MG/50 ML BAG IVPB SCH ×3 (04:02→20:49)
[2017-10-20] MEDS: Multivitamin Vitamin B Complex (Nephro-Vite) Tab PO SCH (08:45)
[2017-10-20] MEDS: Docusate-Senna 50 mg-8.6 mg Tab PO SCH (09:12)
[2017-10-20] MEDS: POLYETHYLENE GLYCOL 3350 17 GM/Dose PACKET PO SCH ×2 (09:13→18:01)
[2017-10-20] MEDS: EPOETIN ALFA 10,000 UNIT/ML ML SC SCH (09:14)
--- NOTE | 2017-10-20 11:08 | CP.PCM.PN ---
Subjective - Date & Time of Evaluation Date of Evaluation: 10/20/17 Time of Evaluation: 11:04 - Subjective Subjective: PT HAS LESS ABD PAIN NO BOWEL MOVEMENTS Objective - Vital Signs/Intake and Output Vital Signs (last 24 hours): Temp Pulse Resp BP Pulse Ox 98.2 F 89 20 128/78 98 10/20/17 08:17 10/20/17 08:17 10/20/17 08:17 10/20/17 08:17 10/20/17 08:17 Intake and Output: 10/20/17 10/20/17 06:59 18:59 Intake Total 1050 600 Output Total 1300 1200 Balance -250 -600 - Medications Medications: Current Medications Acetaminophen (Tylenol 325mg Tab) 650 mg PO Q6 PRN PRN Reason: Fever >100.4 F Last Admin: 10/16/17 20:15 Dose: 650 mg Amlodipine Besylate (Norvasc) 5 mg PO DAILY [facility] Last Admin: 10/20/17 09:13 Dose: 5 mg Calcitriol (Rocaltrol) 0.25 mcg PO MWF [facility] Last Admin: 10/19/17 08:07 Dose: 0.25 mcg Calcium Acetate (Phoslo) 667 mg PO TIDCC [facility] Last Admin: 10/20/17 08:45 Dose: 667 mg Epoetin Sundar (Procrit) 10,000 unit SC TTS [facility] Last Admin: 10/20/17 09:14 Dose: 10,000 unit Heparin Sodium (Porcine) (Heparin) 5,000 units SC Q12 [facility] Last Admin: 10/20/17 09:15 Dose: 5,000 units Metronidazole (Flagyl) 250 mg in 50 mls @ 100 mls/hr IVPB Q8H [facility] PRN Reason: Protocol Stop: 10/20/17 21:01 Last Admin: 10/20/17 04:02 Dose: 100 mls/hr Ceftriaxone Sodium 1 gm/ (Sodium Chloride) 100 mls @ 100 mls/hr IVPB DAILY [facility] PRN Reason: Protocol Stop: 10/24/17 10:59 Last Admin: 10/20/17 09:11 Dose: 100 mls/hr Morphine Sulfate (Morphine) 2 mg IV Q6 PRN PRN Reason: Pain, severe (8-10) Last Admin: 10/19/17 21:37 Dose: 2 mg Ondansetron HCl (Zofran Inj) 4 mg IVP Q6H PRN PRN Reason: nausea/vomiting Last Admin: 10/15/17 21:53 Dose: 4 mg Oxycodone HCl (Oxycodone Immediate Release Tab) 15 mg PO Q6 PRN PRN Reason: Pain, moderate (4-7) Last Admin: 10/20/17 10:08 Dose: 15 mg Polyethylene Glycol (Miralax) 17 gm PO BID [facility] Last Admin: 10/20/17 09:13 Dose: 17 gm Senna/Docusate Sodium (Senokot S 50 Mg-8.6 Mg) 2 tab PO DAILY [facility] Last Admin: 10/20/17 09:12 Dose: 2 tab Sodium Bicarbonate (Sodium Bicarbonate Tab) 1,300 mg PO BID [facility] Last Admin: 10/20/17 09:13 Dose: 1,300 mg Vitamin B Complex/Vit C/Folic Acid (Nephro-Edilberto) 1 tab PO 0800 [facility] Last Admin: 10/20/17 08:45 Dose: 1 tab - Labs Labs: 10/19/17 11:12 10/19/17 11:12 APTT 34 SECONDS (21-34) 10/16/17 05:57 - Constitutional Appears: Non-toxic - Head Exam Head Exam: ATRAUMATIC - Eye Exam Eye Exam: EOMI Pupil Exam: NORMAL ACCOMODATION - ENT Exam ENT Exam: Mucous Membranes Moist - Neck Exam Neck Exam: Normal Inspection - Respiratory Exam Respiratory Exam: Clear to Ausculation Bilateral - Cardiovascular Exam Cardiovascular Exam: REGULAR RHYTHM - GI/Abdominal Exam GI & Abdominal Exam: Tenderness, Diminished Bowel Sounds - Extremities Exam Extremities Exam: Normal Inspection - Back Exam Back Exam: NORMAL INSPECTION - Neurological Exam Neurological Exam: Alert, Awake, Oriented x3 - Psychiatric Exam Psychiatric exam: Normal Affect Assessment and Plan - Assessment and Plan (Free Text) Assessment: UROSEPSES SPINABIFIDA CONSTIPATION RENAL FIAILR Plan: CONT IV ANTIBIOTICS ANS ASPER ORDERS
[2017-10-20] MEDS ORDERED: Magnesium Hydroxide Susp 30 ml UD PO ONE (20:27)
[2017-10-20] MEDS ORDERED: Bisacodyl 5mg EC Tab PO ONE (22:00)
[2017-10-20 22:46] LABS: URINE BACTERIA RARE (<OCC); URINE BILIRUBIN NEGATIVE (NEGATIVE); URINE BLOOD 1+ (NEGATIVE); URINE CLARITY Clear (Clear); URINE COLOR Yellow (YELLOW); URINE GLUCOSE (UA) 1+ mg/dL (Normal); URINE LEUKOCYTE ESTERASE 1+ Leu/uL (Negative); URINE PROTEIN 2+ mg/dL (NEGATIVE); URINE UROBILINOGEN NORMAL mg/dL (0.2-1.0)
[2017-10-21] MEDS: oxyCODONE 5 mg Immediate Release Tab PO PRN ×3 (07:14→20:58)
[2017-10-21] MEDS: Multivitamin Vitamin B Complex (Nephro-Vite) Tab PO SCH (08:15)
[2017-10-21] MEDS: POLYETHYLENE GLYCOL 3350 17 GM/Dose PACKET PO SCH ×2 (09:41→17:44)
[2017-10-21] MEDS: Docusate-Senna 50 mg-8.6 mg Tab PO SCH (09:43)
[2017-10-21] MEDS ORDERED: Magnesium Citrate Oral SOL (300 ml) PO ONE (10:37)
--- NOTE | 2017-10-21 10:37 | CP.PCM.PN ---
Subjective - Date & Time of Evaluation Date of Evaluation: 10/21/17 Time of Evaluation: 10:35 - Subjective Subjective: pain llq abd no bowel movemebta yesterday untill now Objective - Vital Signs/Intake and Output Vital Signs (last 24 hours): Temp Pulse Resp BP Pulse Ox 97.9 F 74 20 133/86 96 10/21/17 09:03 10/21/17 09:03 10/21/17 09:03 10/21/17 09:03 10/21/17 09:03 Intake and Output: 10/21/17 10/21/17 06:59 18:59 Intake Total 600 500 Output Total 1750 1500 Balance -1150 -1000 - Medications Medications: Current Medications Acetaminophen (Tylenol 325mg Tab) 650 mg PO Q6 PRN PRN Reason: Fever >100.4 F Last Admin: 10/16/17 20:15 Dose: 650 mg Amlodipine Besylate (Norvasc) 5 mg PO DAILY [facility] Last Admin: 10/21/17 09:43 Dose: 5 mg Calcitriol (Rocaltrol) 0.25 mcg PO MWF [facility] Last Admin: 10/19/17 08:07 Dose: 0.25 mcg Calcium Acetate (Phoslo) 667 mg PO TIDCC [facility] Last Admin: 10/21/17 08:15 Dose: 667 mg Epoetin Sundar (Procrit) 10,000 unit SC TTS [facility] Last Admin: 10/20/17 09:14 Dose: 10,000 unit Heparin Sodium (Porcine) (Heparin) 5,000 units SC Q12 [facility] Last Admin: 10/21/17 09:42 Dose: 5,000 units Ceftriaxone Sodium 1 gm/ (Sodium Chloride) 100 mls @ 100 mls/hr IVPB DAILY [facility] PRN Reason: Protocol Stop: 10/24/17 10:59 Last Admin: 10/21/17 09:41 Dose: 100 mls/hr Morphine Sulfate (Morphine) 2 mg IV Q6 PRN PRN Reason: Pain, severe (8-10) Last Admin: 10/21/17 09:42 Dose: 2 mg Ondansetron HCl (Zofran Inj) 4 mg IVP Q6H PRN PRN Reason: nausea/vomiting Last Admin: 10/21/17 09:43 Dose: 4 mg Oxycodone HCl (Oxycodone Immediate Release Tab) 15 mg PO Q6 PRN PRN Reason: Pain, moderate (4-7) Last Admin: 10/21/17 07:14 Dose: 15 mg Polyethylene Glycol (Miralax) 17 gm PO BID [facility] Last Admin: 10/21/17 09:41 Dose: 17 gm Senna/Docusate Sodium (Senokot S 50 Mg-8.6 Mg) 2 tab PO DAILY [facility] Last Admin: 10/21/17 09:43 Dose: 2 tab Sodium Bicarbonate (Sodium Bicarbonate Tab) 1,300 mg PO BID [facility] Last Admin: 10/21/17 09:42 Dose: 1,300 mg Vitamin B Complex/Vit C/Folic Acid (Nephro-Edilberto) 1 tab PO 0800 [facility] Last Admin: 10/21/17 08:15 Dose: 1 tab - Labs Labs: 10/19/17 11:12 10/19/17 11:12 APTT 34 SECONDS (21-34) 10/16/17 05:57 - Constitutional Appears: Non-toxic - Head Exam Head Exam: NORMAL INSPECTION - Eye Exam Eye Exam: Normal appearance Pupil Exam: NORMAL ACCOMODATION - ENT Exam ENT Exam: Mucous Membranes Moist - Neck Exam Neck Exam: Normal Inspection - Respiratory Exam Respiratory Exam: Clear to Ausculation Bilateral - Cardiovascular Exam Cardiovascular Exam: REGULAR RHYTHM - GI/Abdominal Exam GI & Abdominal Exam: Tenderness - Extremities Exam Extremities Exam: Normal Capillary Refill - Back Exam Back Exam: NORMAL INSPECTION - Neurological Exam Neurological Exam: Alert, Normal Gait, Oriented x3 Assessment and Plan - Assessment and Plan (Free Text) Assessment: constipation uti renal failiure Plan: order ctrate mag
--- NOTE | 2017-10-21 14:46 | CP.PCM.PN ---
Subjective - Date & Time of Evaluation Date of Evaluation: 10/21/17 Time of Evaluation: 08:00 - Subjective Subjective: no fever on iv rx less pain Objective - Vital Signs/Intake and Output Vital Signs (last 24 hours): Temp Pulse Resp BP Pulse Ox 97.9 F 74 20 133/86 96 10/21/17 09:03 10/21/17 09:03 10/21/17 09:03 10/21/17 09:03 10/21/17 09:03 Intake and Output: 10/21/17 10/21/17 06:59 18:59 Intake Total 600 1080 Output Total 1750 2700 Balance -1150 -1620 - Medications Medications: Current Medications Acetaminophen (Tylenol 325mg Tab) 650 mg PO Q6 PRN PRN Reason: Fever >100.4 F Last Admin: 10/16/17 20:15 Dose: 650 mg Amlodipine Besylate (Norvasc) 5 mg PO DAILY [facility] Last Admin: 10/21/17 09:43 Dose: 5 mg Calcitriol (Rocaltrol) 0.25 mcg PO MWF [facility] Last Admin: 10/19/17 08:07 Dose: 0.25 mcg Calcium Acetate (Phoslo) 667 mg PO TIDCC [facility] Last Admin: 10/21/17 11:32 Dose: 667 mg Epoetin Sundar (Procrit) 10,000 unit SC TTS [facility] Last Admin: 10/20/17 09:14 Dose: 10,000 unit Heparin Sodium (Porcine) (Heparin) 5,000 units SC Q12 [facility] Last Admin: 10/21/17 09:42 Dose: 5,000 units Ceftriaxone Sodium 1 gm/ (Sodium Chloride) 100 mls @ 100 mls/hr IVPB DAILY [facility] PRN Reason: Protocol Stop: 10/24/17 10:59 Last Admin: 10/21/17 09:41 Dose: 100 mls/hr Morphine Sulfate (Morphine) 2 mg IV Q6 PRN PRN Reason: Pain, severe (8-10) Last Admin: 10/21/17 09:42 Dose: 2 mg Ondansetron HCl (Zofran Inj) 4 mg IVP Q6H PRN PRN Reason: nausea/vomiting Last Admin: 10/21/17 09:43 Dose: 4 mg Oxycodone HCl (Oxycodone Immediate Release Tab) 15 mg PO Q6 PRN PRN Reason: Pain, moderate (4-7) Last Admin: 10/21/17 14:13 Dose: 15 mg Polyethylene Glycol (Miralax) 17 gm PO BID [facility] Last Admin: 10/21/17 09:41 Dose: 17 gm Senna/Docusate Sodium (Senokot S 50 Mg-8.6 Mg) 2 tab PO DAILY [facility] Last Admin: 10/21/17 09:43 Dose: 2 tab Sodium Bicarbonate (Sodium Bicarbonate Tab) 1,300 mg PO BID [facility] Last Admin: 10/21/17 09:42 Dose: 1,300 mg Vitamin B Complex/Vit C/Folic Acid (Nephro-Edilberto) 1 tab PO 0800 [facility] Last Admin: 10/21/17 08:15 Dose: 1 tab - Labs Labs: 10/19/17 11:12 10/19/17 11:12 APTT 34 SECONDS (21-34) 10/16/17 05:57 - Constitutional Appears: Non-toxic, Chronically Ill - Head Exam Head Exam: NORMOCEPHALIC - Eye Exam Eye Exam: PERRL - ENT Exam ENT Exam: Mucous Membranes Dry - Neck Exam Neck Exam: absent: Lymphadenopathy - Respiratory Exam Respiratory Exam: Decreased Breath Sounds - Cardiovascular Exam Cardiovascular Exam: REGULAR RHYTHM - GI/Abdominal Exam GI & Abdominal Exam: Distended, Soft Assessment and Plan (1) Abdominal discomfort Status: Acute (2) UTI (urinary tract infection) Status: Acute (3) CKD (chronic kidney disease) Status: Acute
--- NOTE | 2017-10-21 20:33 | CP.PCM.PN ---
Subjective - Date & Time of Evaluation Date of Evaluation: 10/21/17 Time of Evaluation: 11:00 - Subjective Subjective: renal follow up note Assessment: stable PD catheter dysfunction with extensive foreign body reaction and ? pelvic abscess s/p removal 10/16/17 b/l severe hydronephrosis with UTI Chronic Kidney Disease (N18.5) Stage 5 with 3 gm proteinuria (R80.9) likely due to chronic obstructive uropathy neurogenic bladder, hx of spina bifida Anemia (D64.9), Hyperphosphatemia (E83.39), Secondary Hyperparathyroidism (E21.1 ), HTN (I12.9), metabolic acidosis Plan no acute need for dialysis at present. AVF (10/17/[address] Mandel) to mature for dialysis initiation Hypertension continue meds Monitor Input/Output indwelling cardoza catheter continue continue phoslo 667 mg 1 cap TID with meals defer oral iron supplements due to constipation. continue epogen. IV iron deferred due to concerns for infection continue sodium bicarb 1300 mg bid and calcitriol 0.25 mcg 3 times a week at d/c ID following Physical Examination: General Appearance: comfortable, in no acute respiratory distress, co-operative . Vitals reviewed Head; Atraumatic, normocephalic ENT: no ulcers EYES:Eye muscles and extraocular movement intact. Sclera is anicteric. Neck; supple no thyromegaly or bruit Lungs: Normal respiratory rate/effort. Breath sounds bilateral equal and clear Heart: Normal rate. s1s2 normal. No rub or gallop. Extremities: no edema. Neurological: Patient is alert, awake and oriented to person, place and time. No focal deficit. Strength bilateral appropriate and equal Skin: Warm and dry. Normal turgor. Abdomen: Abdomen is soft. Bowel sounds +. There is no abdominal tenderness, no guarding/rigidity no organomegaly. Psych: normal insight and normal affect/mood MSK: no joint tenderness or swelling Objective - Vital Signs/Intake and Output Vital Signs (last 24 hours): Temp Pulse Resp BP Pulse Ox 97.9 F 82 20 136/84 99 10/21/17 16:00 10/21/17 16:00 10/21/17 16:00 10/21/17 16:00 10/21/17 16:00 Intake and Output: 10/21/17 10/22/17 18:59 06:59 Intake Total 1080 Output Total 2700 Balance -1620 - Medications Medications: Current Medications Acetaminophen (Tylenol 325mg Tab) 650 mg PO Q6 PRN PRN Reason: Fever >100.4 F Last Admin: 10/16/17 20:15 Dose: 650 mg Amlodipine Besylate (Norvasc) 5 mg PO DAILY [facility] Last Admin: 10/21/17 09:43 Dose: 5 mg Calcitriol (Rocaltrol) 0.25 mcg PO MWF [facility] Last Admin: 10/19/17 08:07 Dose: 0.25 mcg Calcium Acetate (Phoslo) 667 mg PO TIDCC [facility] Last Admin: 10/21/17 16:13 Dose: 667 mg Epoetin Sundar (Procrit) 10,000 unit SC TTS [facility] Last Admin: 10/20/17 09:14 Dose: 10,000 unit Heparin Sodium (Porcine) (Heparin) 5,000 units SC Q12 [facility] Last Admin: 10/21/17 09:42 Dose: 5,000 units Ceftriaxone Sodium 1 gm/ (Sodium Chloride) 100 mls @ 100 mls/hr IVPB DAILY [facility] PRN Reason: Protocol Stop: 10/24/17 10:59 Last Admin: 10/21/17 09:41 Dose: 100 mls/hr Morphine Sulfate (Morphine) 2 mg IV Q6 PRN PRN Reason: Pain, severe (8-10) Last Admin: 10/21/17 16:09 Dose: 2 mg Ondansetron HCl (Zofran Inj) 4 mg IVP Q6H PRN PRN Reason: nausea/vomiting Last Admin: 10/21/17 09:43 Dose: 4 mg Oxycodone HCl (Oxycodone Immediate Release Tab) 15 mg PO Q6 PRN PRN Reason: Pain, moderate (4-7) Last Admin: 10/21/17 14:13 Dose: 15 mg Polyethylene Glycol (Miralax) 17 gm PO BID [facility] Last Admin: 10/21/17 17:44 Dose: 17 gm Senna/Docusate Sodium (Senokot S 50 Mg-8.6 Mg) 2 tab PO DAILY [facility] Last Admin: 10/21/17 09:43 Dose: 2 tab Sodium Bicarbonate (Sodium Bicarbonate Tab) 1,300 mg PO BID [facility] Last Admin: 10/21/17 17:42 Dose: 1,300 mg Vitamin B Complex/Vit C/Folic Acid (Nephro-Edilberto) 1 tab PO 0800 [facility] Last Admin: 10/21/17 08:15 Dose: 1 tab - Labs Labs: 10/19/17 11:12 10/19/17 11:12 APTT 34 SECONDS (21-34) 10/16/17 05:57
[2017-10-22 00:28] VITALS: O2SAT 98
[2017-10-22] MEDS: oxyCODONE 5 mg Immediate Release Tab PO PRN (06:38)
[2017-10-22 08:31] VITALS: BP 135/85; PULSE 89; TEMP 98
[2017-10-22] MEDS: Multivitamin Vitamin B Complex (Nephro-Vite) Tab PO SCH (08:50)
[2017-10-22] MEDS: Docusate-Senna 50 mg-8.6 mg Tab PO SCH (09:17)
[2017-10-22] MEDS: POLYETHYLENE GLYCOL 3350 17 GM/Dose PACKET PO SCH (09:17)
[2017-10-22] MEDS ORDERED: oxyCODONE 10 mg Immediate Release Tab PO PRN (12:30)
[2017-10-22] MEDS ORDERED: oxyCODONE 5 mg Immediate Release Tab PO PRN (12:30)
--- NOTE | 2017-10-22 15:12 | CP.PCM.PN ---
Subjective - Date & Time of Evaluation Date of Evaluation: 10/22/17 Time of Evaluation: 15:11 - Subjective Subjective: Nephrology Consultation Note Assessment: stable PD catheter dysfunction with extensive foreign body reaction and ? pelvic abscess s/p removal 10/16/17 b/l severe hydronephrosis with UTI Chronic Kidney Disease (N18.5) Stage 5 with 3 gm proteinuria (R80.9) likely due to chronic obstructive uropathy neurogenic bladder, hx of spina bifida Anemia (D64.9), Hyperphosphatemia (E83.39), Secondary Hyperparathyroidism (E21.1 ), HTN (I12.9), metabolic acidosis Plan no acute need for dialysis at present. vascular consult for AVF appreciated. hopefully can wait for AVF (10/17/[address] Mandel) to mature for dialysis initiation Hypertension control; added norvasc 5 mg for now Monitor Input/Output, daily weights and renal function with basic metabolic panel indwelling cardoza catheter continue added phoslo 667 mg 1 cap TID with meals defer oral iron supplements due to constipation. started epogen. IV iron deferred due to concerns for infection continue with sodium bicarb 1300 mg bid and calcitriol 0.25 mcg 3 times a week at d/c ID following Dose meds/antibiotics for reduced GFR. Avoid phos based fleets enema/magnesium based laxatives. Avoid nephrotoxins/NSAIDs/ iodinated contrast (unless needed emergently) Glycemic control Further work up for as per primary team Thanks for allowing me to participate in care of your patient. Will follow patient with you. Please call if any Qs. had d/w team Dr Julio Perez Office: [phone] CC: pain abdomen reason for consult: ESRD HPI: pt is a 22 M with CKD 5 (s/p PD catheter 09/17/[address] Michael) due to chronic obstructive uropathy managed by pt as self intermittent catheterization at home, spina bifida neurogenic bladder came with worsening pain abdomen with fever/chills s/p PD catheter removal 10/16/17. pt feels better now. pt had PD catheter dysfunction, s/p tPA but yesterday wasn't functioning again and had significant pain with flushing in PD unit. he doesn't want PD and rather wants HD makes urine. appetite low for last 2 days otherwise had gotten better. 10/16/17: PD catheter was removed as intra-op showed extensive foreign body reaction and ? pelvic abscess ROS: Denies chest pain, palpitation, leg swelling. much improved pain abdomen . had BM All other negative. making urine. self intermittent catheterization at home. Physical Examination: General Appearance: comfortable, in no acute respiratory distress, co-operative . Vitals reviewed and noted as below Head; Atraumatic, normocephalic ENT: no ulcers no thrush. Tongue is midline. Oropharynx: no rash or ulcers. EYES: Pupils are equal, round and reactive to light accommodation. Eye muscles and extraocular movement intact. Sclera is anicteric. Neck; supple no lymphadenopathy, no thyromegaly or bruit Lungs: Normal respiratory rate/effort. Breath sounds bilateral equal and clear Heart: Normal rate. s1s2 normal. No rub or gallop. Extremities: no edema. No varicose veins Neurological: Patient is alert, awake and oriented to person, place and time. No focal deficit. Strength bilateral appropriate and equal Skin: Warm and dry. Normal turgor. No rash. Palpitation: Normal elasticity for age Abdomen: Abdomen is soft. Bowel sounds +. There is no abdominal tenderness, no guarding/rigidity no organomegaly. Psych: normal insight and normal affect/mood MSK: no joint tenderness or swelling. Digits and nails normal, no deformity : kidney not palpable. has cardoza Labs/imaging reviewed. Past medical history, past surgical history, family history, social history, allergy reviewed and noted as below Family hx: no hx of CKD. Rest non-contributory renal imaging: b/l severe hydronephrosis last TSAT 15% Ferritin 130 Vit D 27 PTH 353 Objective - Vital Signs/Intake and Output Vital Signs (last 24 hours): Temp Pulse Resp BP Pulse Ox 98 F 89 20 135/85 98 10/22/17 08:30 10/22/17 08:30 10/22/17 08:30 10/22/17 08:30 10/22/17 08:30 Intake and Output: 10/22/17 10/22/17 06:59 18:59 Intake Total 750 Output Total 800 Balance -50 - Medications Medications: Current Medications Acetaminophen (Tylenol 325mg Tab) 650 mg PO Q6 PRN PRN Reason: Fever >100.4 F Last Admin: 10/16/17 20:15 Dose: 650 mg Amlodipine Besylate (Norvasc) 5 mg PO DAILY [facility] Last Admin: 10/22/17 09:17 Dose: 5 mg Calcitriol (Rocaltrol) 0.25 mcg PO MWF [facility] Last Admin: 10/22/17 09:17 Dose: 0.25 mcg Calcium Acetate (Phoslo) 667 mg PO TIDCC [facility] Last Admin: 10/22/17 12:25 Dose: 667 mg Epoetin Sundar (Procrit) 10,000 unit SC TTS [facility] Last Admin: 10/20/17 09:14 Dose: 10,000 unit Heparin Sodium (Porcine) (Heparin) 5,000 units SC Q12 [facility] Last Admin: 10/22/17 09:17 Dose: 5,000 units Ceftriaxone Sodium 1 gm/ (Sodium Chloride) 100 mls @ 100 mls/hr IVPB DAILY [facility] PRN Reason: Protocol Stop: 10/24/17 10:59 Last Admin: 10/22/17 09:24 Dose: 100 mls/hr Morphine Sulfate (Morphine) 2 mg IV Q6 PRN PRN Reason: Pain, severe (8-10) Last Admin: 10/22/17 00:08 Dose: 2 mg Ondansetron HCl (Zofran Inj) 4 mg IVP Q6H PRN PRN Reason: nausea/vomiting Last Admin: 10/21/17 09:43 Dose: 4 mg Oxycodone HCl (Oxycodone Immediate Release Tab) 10 mg PO Q6 PRN PRN Reason: Pain, moderate (4-7) Last Admin: 10/22/17 12:44 Dose: 10 mg Oxycodone HCl (Oxycodone Immediate Release Tab) 5 mg PO Q6H PRN Polyethylene Glycol (Miralax) 17 gm PO BID [facility] Last Admin: 10/22/17 09:17 Dose: 17 gm Senna/Docusate Sodium (Senokot S 50 Mg-8.6 Mg) 2 tab PO DAILY [facility] Last Admin: 10/22/17 09:17 Dose: 2 tab Sodium Bicarbonate (Sodium Bicarbonate Tab) 1,300 mg PO BID [facility] Last Admin: 10/22/17 09:17 Dose: 1,300 mg Vitamin B Complex/Vit C/Folic Acid (Nephro-Edilberto) 1 tab PO 0800 [facility] Last Admin: 10/22/17 08:50 Dose: 1 tab - Labs Labs: 10/19/17 11:12 10/19/17 11:12 APTT 34 SECONDS (21-34) 10/16/17 05:57
--- NOTE | 2017-10-22 16:38 | CP.PCM.PN ---
Subjective - Date & Time of Evaluation Date of Evaluation: 10/22/17 Time of Evaluation: 11:00 - Subjective Subjective: alert and orientedx3, NAD. Objective - Vital Signs/Intake and Output Vital Signs (last 24 hours): Temp Pulse Resp BP Pulse Ox 98 F 89 20 135/85 98 10/22/17 08:30 10/22/17 08:30 10/22/17 08:30 10/22/17 08:30 10/22/17 08:30 Intake and Output: 10/22/17 10/22/17 06:59 18:59 Intake Total 750 Output Total 800 Balance -50 - Medications Medications: Current Medications Acetaminophen (Tylenol 325mg Tab) 650 mg PO Q6 PRN PRN Reason: Fever >100.4 F Last Admin: 10/16/17 20:15 Dose: 650 mg Amlodipine Besylate (Norvasc) 5 mg PO DAILY [facility] Last Admin: 10/22/17 09:17 Dose: 5 mg Calcitriol (Rocaltrol) 0.25 mcg PO MWF [facility] Last Admin: 10/22/17 09:17 Dose: 0.25 mcg Calcium Acetate (Phoslo) 667 mg PO TIDCC [facility] Last Admin: 10/22/17 12:25 Dose: 667 mg Epoetin Sundar (Procrit) 10,000 unit SC TTS [facility] Last Admin: 10/20/17 09:14 Dose: 10,000 unit Heparin Sodium (Porcine) (Heparin) 5,000 units SC Q12 [facility] Last Admin: 10/22/17 09:17 Dose: 5,000 units Ceftriaxone Sodium 1 gm/ (Sodium Chloride) 100 mls @ 100 mls/hr IVPB DAILY [facility] PRN Reason: Protocol Stop: 10/24/17 10:59 Last Admin: 10/22/17 09:24 Dose: 100 mls/hr Morphine Sulfate (Morphine) 2 mg IV Q6 PRN PRN Reason: Pain, severe (8-10) Last Admin: 10/22/17 00:08 Dose: 2 mg Ondansetron HCl (Zofran Inj) 4 mg IVP Q6H PRN PRN Reason: nausea/vomiting Last Admin: 10/21/17 09:43 Dose: 4 mg Oxycodone HCl (Oxycodone Immediate Release Tab) 10 mg PO Q6 PRN PRN Reason: Pain, moderate (4-7) Last Admin: 10/22/17 12:44 Dose: 10 mg Oxycodone HCl (Oxycodone Immediate Release Tab) 5 mg PO Q6H PRN Polyethylene Glycol (Miralax) 17 gm PO BID [facility] Last Admin: 10/22/17 09:17 Dose: 17 gm Senna/Docusate Sodium (Senokot S 50 Mg-8.6 Mg) 2 tab PO DAILY [facility] Last Admin: 10/22/17 09:17 Dose: 2 tab Sodium Bicarbonate (Sodium Bicarbonate Tab) 1,300 mg PO BID [facility] Last Admin: 10/22/17 09:17 Dose: 1,300 mg Vitamin B Complex/Vit C/Folic Acid (Nephro-Edilberto) 1 tab PO 0800 [facility] Last Admin: 10/22/17 08:50 Dose: 1 tab - Labs Labs: 10/19/17 11:12 10/19/17 11:12 APTT 34 SECONDS (21-34) 10/16/17 05:57 Assessment and Plan - Assessment and Plan (Free Text) Assessment: 22 year old male with UTI, renal failure, spontaneous bacterial peritonitis, seen and examined. Feeling better, alert and orientedx3, no fever or signs of infection. Discussed with DR Pitts and DR Jones, plan to discharge home on oral vantin for 5 days. Advised to follow up with the nephrologyst, PMD and surgery in 1 week. Left arm AVF site intact, positive thrills, wound healing, dressing changed.
--- NOTE | 2017-10-22 16:49 | CP.PCM.PN ---
Subjective - Date & Time of Evaluation Date of Evaluation: 10/22/17 Time of Evaluation: 16:47 - Subjective Subjective: feels beter no pain uti is beter Objective - Vital Signs/Intake and Output Vital Signs (last 24 hours): Temp Pulse Resp BP Pulse Ox 98 F 89 20 135/85 98 10/22/17 08:30 10/22/17 08:30 10/22/17 08:30 10/22/17 08:30 10/22/17 08:30 Intake and Output: 10/22/17 10/22/17 06:59 18:59 Intake Total 750 Output Total 800 Balance -50 - Medications Medications: Current Medications Acetaminophen (Tylenol 325mg Tab) 650 mg PO Q6 PRN PRN Reason: Fever >100.4 F Last Admin: 10/16/17 20:15 Dose: 650 mg Amlodipine Besylate (Norvasc) 5 mg PO DAILY [facility] Last Admin: 10/22/17 09:17 Dose: 5 mg Calcitriol (Rocaltrol) 0.25 mcg PO MWF [facility] Last Admin: 10/22/17 09:17 Dose: 0.25 mcg Calcium Acetate (Phoslo) 667 mg PO TIDCC [facility] Last Admin: 10/22/17 12:25 Dose: 667 mg Epoetin Sundar (Procrit) 10,000 unit SC TTS [facility] Last Admin: 10/20/17 09:14 Dose: 10,000 unit Heparin Sodium (Porcine) (Heparin) 5,000 units SC Q12 [facility] Last Admin: 10/22/17 09:17 Dose: 5,000 units Ceftriaxone Sodium 1 gm/ (Sodium Chloride) 100 mls @ 100 mls/hr IVPB DAILY [facility] PRN Reason: Protocol Stop: 10/24/17 10:59 Last Admin: 10/22/17 09:24 Dose: 100 mls/hr Morphine Sulfate (Morphine) 2 mg IV Q6 PRN PRN Reason: Pain, severe (8-10) Last Admin: 10/22/17 00:08 Dose: 2 mg Ondansetron HCl (Zofran Inj) 4 mg IVP Q6H PRN PRN Reason: nausea/vomiting Last Admin: 10/21/17 09:43 Dose: 4 mg Oxycodone HCl (Oxycodone Immediate Release Tab) 10 mg PO Q6 PRN PRN Reason: Pain, moderate (4-7) Last Admin: 10/22/17 12:44 Dose: 10 mg Oxycodone HCl (Oxycodone Immediate Release Tab) 5 mg PO Q6H PRN Polyethylene Glycol (Miralax) 17 gm PO BID [facility] Last Admin: 10/22/17 09:17 Dose: 17 gm Senna/Docusate Sodium (Senokot S 50 Mg-8.6 Mg) 2 tab PO DAILY [facility] Last Admin: 10/22/17 09:17 Dose: 2 tab Sodium Bicarbonate (Sodium Bicarbonate Tab) 1,300 mg PO BID [facility] Last Admin: 10/22/17 09:17 Dose: 1,300 mg Vitamin B Complex/Vit C/Folic Acid (Nephro-Edilberto) 1 tab PO 0800 [facility] Last Admin: 10/22/17 08:50 Dose: 1 tab - Labs Labs: 10/19/17 11:12 10/19/17 11:12 APTT 34 SECONDS (21-34) 10/16/17 05:57 - Constitutional Appears: Non-toxic - Head Exam Head Exam: NORMAL INSPECTION - Eye Exam Eye Exam: Normal appearance Pupil Exam: NORMAL ACCOMODATION - ENT Exam ENT Exam: Mucous Membranes Moist - Neck Exam Neck Exam: Normal Inspection - Respiratory Exam Respiratory Exam: Clear to Ausculation Bilateral - GI/Abdominal Exam GI & Abdominal Exam: Soft - Extremities Exam Extremities Exam: Normal Capillary Refill - Back Exam Back Exam: CVA tenderness (R), NORMAL INSPECTION - Neurological Exam Neurological Exam: Alert, Normal Gait, Oriented x3 - Psychiatric Exam Psychiatric exam: Normal Mood - Skin Skin Exam: Normal Color Assessment and Plan - Assessment and Plan (Free Text) Assessment: ac uti spina bifida s/p shunt renal failiur will d/c today cont opo antibiotics f/u in office Plan: as orders
== END 2017-10-22 17:09 | disposition home or self-care (01) | DRG 583 ==
LOC: C.ER 15:13 → C.9E 18:10 → C.3T 21:12
PROVIDERS: ADMIT Internal Medicine; ATTEND Internal Medicine
PROC: 0Y9 Anatomical Regions, Lower Extremities, Drainage (ICD-10-PCS; 2017-10-16)
PROC: 0WPG03Z Removal of Infusion Device from Peritoneal Cavity, Open Approach (ICD-10-PCS; principal; 2017-10-16 07:30)
PROC: 0DNW4ZZ Release Peritoneum, Percutaneous Endoscopic Approach (ICD-10-PCS; 2017-10-16 07:30)
PROC: 051F0ZY Bypass Left Cephalic Vein to Upper Vein, Open Approach (ICD-10-PCS; 2017-10-17)
PROC: 051 Upper Veins, Bypass (ICD-10-PCS; 2017-10-17)
DX: T85.611A Breakdown (mechanical) of intraperitoneal dialysis catheter, initial encounter (principal); K65.1 Peritoneal abscess; E87.2 Acidosis; I12.0 Hypertensive chronic kidney disease with stage 5 chronic kidney disease or end stage renal disease; N18.6 End stage renal disease; N31.2 Flaccid neuropathic bladder, not elsewhere classified; Q05.9 Spina bifida, unspecified; G89.29 Other chronic pain; K59.09 Other constipation; K66.0 Peritoneal adhesions (postprocedural) (postinfection); N25.81 Secondary hyperparathyroidism of renal origin; Z87.728 Personal history of other specified (corrected) congenital malformations of nervous system and sense organs; Z99.2 Dependence on renal dialysis

== ENCOUNTER 2018-03-28 09:03 | Inpatient (IN) | payer MEDICAID ==
[2018-03-28 09:04] VITALS: BMI 25.5
[2018-03-28 09:47] LABS: BASO # 0.1 K/uL (0.0-0.2); BASO % 0.8 % (0.0-2.0); EOS # 0.1 K/uL (0.0-0.7); EOS % 0.9 % (0.0-4.0); LYMPH # 1.1 K/uL (1.0-4.3); MEAN CELL VOLUME 78.3 fL (80.0-94.0); MEAN CORPUSCULAR HEMOGLOBIN 27.7 pg (27.0-31.0); MEAN CORPUSCULAR HGB CONC 35.4 g/dL (33.0-37.0); MEAN PLATELET VOLUME 7.6 fL (7.2-11.7); MONO # 0.7 K/uL (0.0-0.8); MONO % 7.3 % (0.0-10.0); NEUT # 7.7 K/uL (1.8-7.0); RBC 2.2 Mil/uL (4.40-5.90); RED CELL DISTRIBUTION WIDTH 14.5 % (11.5-14.5); WHITE BLOOD COUNT 9.6 K/uL (4.8-10.8)
[2018-03-28 09:52] LABS: HEMOGLOBIN 6.1 g/dL (12.0-18.0)
[2018-03-28 09:57] LABS: SQUAMOUS EPITHIAL 2 /hpf (0-5); URINE AMORPHOUS SEDIMENT RARE /ul (<OCC); URINE BACTERIA MOD (<OCC); URINE BILIRUBIN NEGATIVE (NEGATIVE); URINE BLOOD 1+ (NEGATIVE); URINE CLARITY Hazy (Clear); URINE COLOR Yellow (YELLOW); URINE GLUCOSE (UA) NORMAL (Normal); URINE LEUKOCYTE ESTERASE 3+ Leu/uL (Negative); URINE PROTEIN 3+ mg/dL (NEGATIVE); URINE UROBILINOGEN NORMAL mg/dL (0.2-1.0); WBC CLUMPS MANY /hpf
[2018-03-28 10:11] LABS: TROPONIN I 0.015 ng/mL (0.00-0.120)
[2018-03-28] MEDS ORDERED: Sodium Chloride 0.9% 250 ML IV ONE ×2 (10:23→11:25)
--- NOTE | 2018-03-28 10:32 | C.PDOC ---
History Of Present Illness 22 yo male, with history of CKD (not yet on HD), spina bifida, HTN, obstructive uropathy, PNA comes to ER with complaint of nausea, vomiting and upper abdominal pain x 1 week. He reports the abdominal pain is a burning sensation; patient denies any diarrhea. He also reports right sided low back pain, which he states he has had in the past when he has a UTI. Patient also c/o exertional shortness of breath and fatigue. Otherwise, he denies chest pain, fever, cough, rhinorrhea, sore throat, rash, hematuria. Of note, patient has to self-catheterize for urine. PMD: Dr. Cool Nephrology: Dr. Perez Time Seen by Provider: 03/28/18 09:09 Chief Complaint (Nursing): Abdominal Pain History Per: Patient History/Exam Limitations: no limitations Onset/Duration Of Symptoms: Days Current Symptoms Are (Timing): Still Present Severity: Moderate Location Of Pain/Discomfort: RUQ, Epigastric Quality Of Discomfort: Burning Associated Symptoms: Nausea, Back Pain. denies: Fever, Chills Additional History Per: Patient Past Medical History Reviewed: Historical Data, Nursing Documentation, Vital Signs Vital Signs: Last Vital Signs Temp 98.3 F 03/28/18 09:10 Pulse 88 03/28/18 09:10 Resp 18 03/28/18 09:10 BP 162/76 H 03/28/18 09:10 Pulse Ox 100 03/28/18 09:10 - Medical History PMH: HTN, Pneumonia, Chronic Kidney Disease - [facility] Procedures BYPASS LEFT BRACHIAL VEIN TO UPPER VEIN, OPEN APPROACH (10/15/17) BYPASS LEFT CEPHALIC VEIN TO UPPER VEIN, OPEN APPROACH (10/15/17) DRAINAGE OF LARGE INTESTINE, ENDO, DIAGN (10/01/17) DRAINAGE OF LEFT INGUINAL REGION, PERC ENDO APPROACH (10/15/17) EXCISION OF LARGE INTESTINE, ENDO, DIAGN (10/01/17) RELEASE PERITONEUM, PERCUTANEOUS ENDOSCOPIC APPROACH (10/15/17) REMOVAL OF INFUSION DEVICE FROM PERITON CAV, OPEN APPROACH (10/15/17) Family History: States: No Known Family Hx - Social History Hx Tobacco Use: No Hx Alcohol Use: No Hx Substance Use: No - Immunization History Hx Tetanus Toxoid Vaccination: (Unk) Hx Influenza Vaccination: No Hx Pneumococcal Vaccination: Yes Review Of Systems Constitutional: Positive for: Weakness. Negative for: Fever, Chills ENT: Negative for: Nose Discharge Cardiovascular: Negative for: Chest Pain Respiratory: Positive for: SOB with Excertion. Negative for: Cough Gastrointestinal: Positive for: Nausea, Vomiting, Abdominal Pain. Negative for: Diarrhea Genitourinary: Negative for: Hematuria Musculoskeletal: Positive for: Back Pain Skin: Negative for: Rash Neurological: Negative for: Weakness, Numbness Physical Exam - Physical Exam Appears: Well, Non-toxic, Chronically Ill Skin: Warm, Dry, Pale Head: Normacephalic Eye(s): bilateral: Normal Inspection Oral Mucosa: Moist Neck: Supple Chest: Symmetrical Cardiovascular: Rhythm Regular Respiratory: Normal Breath Sounds, No Rales, No Rhonchi, No Wheezing Gastrointestinal/Abdominal: Bowel Sounds, Soft, Tenderness (RUQ and epigastric TTP), No Guarding, No Rebound, No Other ((-) McBurney's ) Back: Normal Inspection, No CVA Tenderness, Other (right sided paralumbar tend erness) Extremity: Normal ROM, No Deformity, Other (AV fistula noted to left arm; palpable thrill) Neurological/Psych: Oriented x3 ED Course And Treatment - Laboratory Results Result Diagrams: 04/02/18 06:07 04/02/18 06:07 Lab Results: Troponin I 0.0150 ng/mL (0.00-0.120) 03/28/18 09:44 Urine Color Yellow (YELLOW) 03/28/18 09:44 Urine Clarity Hazy (Clear) 03/28/18 09:44 Urine pH 6.0 (5.0-8.0) 03/28/18 09:44 Ur Specific [place] 1.010 (1.003-1.030) 03/28/18 09:44 Urine Protein 3+ mg/dL (NEGATIVE) H 03/28/18 09:44 Urine Glucose (UA) Normal mg/dL (Normal) 03/28/18 09:44 Urine Ketones Negative mg/dL (NEGATIVE) 03/28/18 09:44 Urine Blood 1+ (NEGATIVE) H 03/28/18 09:44 Urine Nitrate Negative (NEGATIVE) 03/28/18 09:44 Urine Bilirubin Negative (NEGATIVE) 03/28/18 09:44 Urine Urobilinogen Normal mg/dL (0.2-1.0) 03/28/18 09:44 Ur Leukocyte Esterase 3+ Omar/uL (Negative) H 03/28/18 09:44 Urine WBC (Auto) 1227 /hpf (0-5) H 03/28/18 09:44 Urine RBC (Auto) 12 /hpf (0-3) H 03/28/18 09:44 Urine WBC Clumps (Auto) Many /hpf (NONE) H 03/28/18 09:44 Ur Squamous Epith Cells 2 /hpf (0-5) 03/28/18 09:44 Amorphous Sediment Rare /ul (<OCC) H 03/28/18 09:44 Urine Bacteria Mod (<OCC) H 03/28/18 09:44 ECG: Interpreted By Me, Viewed By Me (sinus rhythm 79 bpm, normal axis, LVH, no acute ST changes) ECG Interpretation: Abnormal O2 Sat by Pulse Oximetry: 100 (RA) Pulse Ox Interpretation: Normal - Radiology CXR: Interpreted by Me, Viewed By Me (cardiomegaly (new compared to CXR on 10/10/17) no infiltrates ) Progress Note: Blood work, UA, EKG, US of RUQ ordered. Patient given IV NS bolus, IV zofran. 0950: Patient with hemoglobin level of 6.1; type and screen, packed red blood cells ordered. Patient consent for transfusion obtained. 1038: Patient with markedly elevated BUN and creatinine levels; elevated lipase as well. Patient with low CO2 on CMP, VBG ordered to eval pH. Call placed to Dr. Perez nephrology, pending call back. 10:50- Spoke with Dr. Jones agrees with admission to her service. Dr. Perez spoken with, plans to start dialysis today. CXR shows cardiomegaly - nonemergent echo ordered. 11:13: Patient discussed with speech pathology teacher Dr. Price, accepts patient for ICU admission. - Physician Consult Information Physician Contacted: Amaya Jones Critical Care Time - Critical Care Note Total Time (in mins): 60 Documented critical care: time excludes all time spent performing seperately billable procedures. Disposition - Disposition Disposition: HOSPITALIZED Disposition Time: 11:13 Condition: FAIR - Clinical Impression Clinical Impression: Acute on chronic renal failure, Acidosis, Severe anemia, Pancreatitis, UTI (urinary tract infection) - Scribe Statement The provider has reviewed the documentation as recorded by the Scribe Mala Deyanira Provider Attestation: All medical record entries made by the Scribe were at my direction and personally dictated by me. I have reviewed the chart and agree that the record accurately reflects my personal performance of the history, physical exam, medical decision making, and the department course for this patient. I have also personally directed, reviewed, and agree with the discharge instructions and disposition. Decision To Admit - Pt Status Changed To: Hospital Disposition Of: Inpatient - Admit Certification Admit to Inpatient:: After my assessment, the patient will require hospitalization for at least two midnights. This is because of the severity of symptoms shown, intensity of services needed, and/or the medical risk in this patient being treated as an outpatient. - InPatient: Physician Admission Certification:: see notes - . Bed Request Type: ICU Admitting Physician: Amaya Jones Patient Diagnosis: Acute on chronic renal failure, Acidosis, UTI (urinary tract infection), Severe anemia, Pancreatitis
[2018-03-28 10:34] LABS: ALB/GLOB RATIO 1.7 (1.0-2.1); ALBUMIN 4.5 g/dL (3.5-5.0)
[2018-03-28] MEDS ORDERED: Piperacillin/Tazobact 3.375 gm 100 ML IV STA ×2 (10:41→13:45)
[2018-03-28 11:11] LABS: VENOUS BLOOD GAS BASE EXCESS -15.9 mmol/L (0.0-2.0); VENOUS BLOOD GAS PCO2 21 mmHg (40-60); VENOUS BLOOD GAS PO2 84 mm/Hg (30-55); VENOUS BLOOD PH 7.25 (7.32-7.43)
--- NOTE | 2018-03-28 11:15 | RAD ---
HISTORY: SOB COMPARISON: Chest x-ray portion of obstructive series performed 10/10/17 TECHNIQUE: Chest, one view. FINDINGS: LUNGS: Mild pulmonary venous congestion. No focal consolidation. Please note that chest x-ray has limited sensitivity for the detection of pulmonary masses. PLEURA: No significant pleural effusion identified. No definite pneumothorax . CARDIOVASCULAR: Cardiomegaly. No atherosclerotic calcifications appreciated. OSSEOUS STRUCTURES: No acute osseous abnormality identified. VISUALIZED UPPER ABDOMEN: Unremarkable. OTHER FINDINGS: None. IMPRESSION: Mild pulmonary venous congestion. Cardiomegaly.
[2018-03-28] MEDS ORDERED: Morphine 4 MG/ML VIAL ONE (11:25)
[2018-03-28] MEDS ORDERED: Piperacillin/Tazobact 3.375 gm 100 ML IVPB ONE (11:57)
[2018-03-28 12:16] LABS: IRON 83 ug/dL (49-181)
--- NOTE | 2018-03-28 12:24 | US ---
HISTORY: ruq pain, r/o cholecystitis COMPARISON: CT abdomen and pelvis with contrast performed 10/10/17 TECHNIQUE: Sonographic evaluation of the abdomen. FINDINGS: LIVER: Measures 18.6 cm in sagittal dimension. Echogenic liver may be seen in setting of hepatic parenchymal disease or fatty infiltration. No focal hepatic mass identified. The main portal vein appears patent with normal directional flow. No intrahepatic bile duct dilatation. GALLBLADDER: No gallstones. Gallbladder wall thickening/edema measuring approximately 5 mm in diameter. Negative sonographic Salcido's sign as assessed by the electrical test technician. COMMON BILE DUCT: Measures 5 mm. PANCREAS: Not well visualized. RIGHT KIDNEY: Measures 11.1 x 5.2 x 5.9cm. Renal cortical atrophy. Moderate to severe hydronephrosis. No obstructing calculus identified. LEFT KIDNEY: Measures 13.5 x 6.3 x 5.3cm. Renal cortical atrophy. Moderate to severe hydronephrosis. No obstructing calculus identified. SPLEEN: Measures approximately 13.9 cm. AORTA: Limited views appear unremarkable. IVC: Limited views appear unremarkable. OTHER FINDINGS: Incidental note is made of right pleural effusion. IMPRESSION: Echogenic liver may be seen in setting of hepatic parenchymal disease or fatty infiltration. Gallbladder wall thickening/pericholecystic edema. No gallstones or gallbladder sludge identified. Negative sonographic Salcido's sign as assessed by the electrical test technician. Moderate to severe bilateral hydronephrosis. No obstructing calculi identified. Splenomegaly. Incidental note is made of right pleural effusion.
[2018-03-28 12:25] LABS: % IRON SATURATION 36 (20-55); TOTAL IRON BINDING CAPACITY 234 ug/dL (250-450)
[2018-03-28 12:39] LABS: BLOOD UREA NITROGEN 198 mg/dL (9-20); CALCIUM 7.1 mg/dl (8.6-10.4); GFR NON-AFRICAN AMERICAN 2
[2018-03-28 13:09] LABS: FOLATE > 20.0 ng/mL
--- NOTE | 2018-03-28 13:44 | CP.PCM.CON ---
<Chris Price - Last Filed: 03/28/18 17:47> Meds Allergies/Adverse Reactions: Allergies Allergy/AdvReac Type Severity Reaction Status Date / Time No Known Allergies Allergy Verified 03/28/18 09:15 - Medications Medications: Current Medications Acetaminophen (Tylenol 325mg Tab) 650 mg PO Q6 PRN PRN Reason: Pain, moderate (4-7) Last Admin: 03/28/18 14:11 Dose: 650 mg Amlodipine Besylate (Norvasc) 10 mg PO DAILY [facility] Last Admin: 03/28/18 17:37 Dose: 10 mg Calcium Acetate (Phoslo) 1,334 mg PO TIDCC [facility] Last Admin: 03/28/18 17:37 Dose: 1,334 mg Docusate Sodium (Colace) 100 mg PO BID PRN PRN Reason: Constipation Epoetin Sundar (Procrit) 10,000 unit IV TTS [facility] Last Admin: 03/28/18 15:57 Dose: 10,000 unit Ferric Sodium Gluconate Complex 62.5 mg/ Sodium Chloride 105 mls @ 110 mls/hr IVPB Q24H SIMONE Stop: 04/04/18 17:01 Last Admin: 03/28/18 17:36 Dose: 110 mls/hr Meropenem 500 mg/ Sodium (Chloride) 100 mls @ 100 mls/hr IVPB Q12H [facility]; Protocol Metoprolol Tartrate (Lopressor) 100 mg PO BID [facility] Last Admin: 03/28/18 17:37 Dose: 100 mg Vitamin B Complex/Vit C/Folic Acid (Nephro-Edilberto) 1 tab PO 0800 [facility] Results - Vital Signs Recent Vital Signs: Last Vital Signs Temp 98.3 F 03/28/18 17:00 Pulse 85 03/28/18 17:00 Resp 17 03/28/18 17:00 BP 140/73 03/28/18 17:00 Pulse Ox 100 03/28/18 17:00 - Labs Result Diagrams: 03/28/18 09:44 03/28/18 11:35 Labs: Laboratory Results - last 24 hr 03/28/18 03/28/18 03/28/18 09:44 09:44 09:44 WBC 9.6 RBC 2.20 L Hgb 6.1 L* D Hct 17.2 L MCV 78.3 L MCH 27.7 MCHC 35.4 RDW 14.5 Plt Count 236 D MPV 7.6 Neut % (Auto) 80.0 H Lymph % (Auto) 11.0 L [place] % (Auto) 7.3 Eos % (Auto) 0.9 Baso % (Auto) 0.8 Neut # (Auto) 7.7 H Lymph # (Auto) 1.1 [place] # (Auto) 0.7 Eos # (Auto) 0.1 Baso # (Auto) 0.1 Retic Count pO2 VBG pH VBG pCO2 VBG HCO3 VBG Total CO2 VBG O2 Sat (Calc) VBG Base Excess VBG Potassium Glucose Lactate Sodium 131 L Potassium 5.2 Chloride 95 L Carbon Dioxide 7 L* D Anion Gap 33 H BUN 206 H* D Creatinine 31.1 H* D Est GFR ( Amer) 2 Est GFR (Non-Af Amer) 2 Random Glucose 121 H Calcium 7.0 L Phosphorus Magnesium Iron TIBC % Saturation Transferrin Ferritin Total Bilirubin 0.6 AST 17 D ALT 18 L Alkaline Phosphatase 70 Troponin I 0.0150 NT-Pro-B Natriuret Pep 09646 H Total Protein 7.1 Albumin 4.5 Globulin 2.6 Albumin/Globulin Ratio 1.7 Lipase 1350 H Vitamin B12 Folate Venous Blood Potassium Urine Color Yellow Urine Clarity Hazy Urine pH 6.0 Ur Specific [place] 1.010 Urine Protein 3+ H Urine Glucose (UA) Normal Urine Ketones Negative Urine Blood 1+ H Urine Nitrate Negative Urine Bilirubin Negative Urine Urobilinogen Normal Ur Leukocyte Esterase 3+ H Urine WBC (Auto) 1227 H Urine RBC (Auto) 12 H Urine WBC Clumps (Auto) Many H Ur Squamous Epith Cells 2 Amorphous Sediment Rare H Urine Bacteria Mod H Blood Type Antibody Screen 03/28/18 03/28/18 03/28/18 10:26 11:00 11:35 WBC RBC Hgb Hct MCV MCH MCHC RDW Plt Count MPV Neut % (Auto) Lymph % (Auto) [place] % (Auto) Eos % (Auto) Baso % (Auto) Neut # (Auto) Lymph # (Auto) [place] # (Auto) Eos # (Auto) Baso # (Auto) Retic Count 3.8 H pO2 84 H VBG pH 7.25 L VBG pCO2 21 L VBG HCO3 12.4 VBG Total CO2 9.8 L VBG O2 Sat (Calc) 98.1 H VBG Base Excess -15.9 L VBG Potassium 5.4 H Glucose 110 Lactate 0.6 L Sodium 130.0 L Potassium Chloride 98.0 Carbon Dioxide Anion Gap BUN Creatinine Est GFR ( Amer) Est GFR (Non-Af Amer) Random Glucose Calcium Phosphorus Magnesium Iron TIBC % Saturation Transferrin Ferritin Total Bilirubin AST ALT Alkaline Phosphatase Troponin I NT-Pro-B Natriuret Pep Total Protein Albumin Globulin Albumin/Globulin Ratio Lipase Vitamin B12 Folate Venous Blood Potassium 5.4 H Urine Color Urine Clarity Urine pH Ur Specific [place] Urine Protein Urine Glucose (UA) Urine Ketones Urine Blood Urine Nitrate Urine Bilirubin Urine Urobilinogen Ur Leukocyte Esterase Urine WBC (Auto) Urine RBC (Auto) Urine WBC Clumps (Auto) Ur Squamous Epith Cells Amorphous Sediment Urine Bacteria Blood Type O POSITIVE Antibody Screen Negative 03/28/18 03/28/18 03/28/18 11:35 11:35 12:10 WBC RBC Hgb Hct MCV MCH MCHC RDW Plt Count MPV Neut % (Auto) Lymph % (Auto) [place] % (Auto) Eos % (Auto) Baso % (Auto) Neut # (Auto) Lymph # (Auto) [place] # (Auto) Eos # (Auto) Baso # (Auto) Retic Count pO2 VBG pH VBG pCO2 VBG HCO3 VBG Total CO2 VBG O2 Sat (Calc) VBG Base Excess VBG Potassium Glucose Lactate Sodium 131 L Potassium 5.5 H Chloride 95 L Carbon Dioxide 9 L* D Anion Gap 32 H BUN 198 H* Creatinine 32.0 H* Est GFR ( Amer) 2 Est GFR (Non-Af Amer) 2 Random Glucose 116 H Calcium 7.1 L Phosphorus 12.9 H Magnesium 2.5 H Iron 83 TIBC 234 L % Saturation 36 Transferrin 166.10 L Ferritin 276.0 Total Bilirubin AST ALT Alkaline Phosphatase Troponin I NT-Pro-B Natriuret Pep Total Protein Albumin Globulin Albumin/Globulin Ratio Lipase Vitamin B12 642 Folate > 20.0 Venous Blood Potassium Urine Color Urine Clarity Urine pH Ur Specific [place] Urine Protein Urine Glucose (UA) Urine Ketones Urine Blood Urine Nitrate Urine Bilirubin Urine Urobilinogen Ur Leukocyte Esterase Urine WBC (Auto) Urine RBC (Auto) Urine WBC Clumps (Auto) Ur Squamous Epith Cells Amorphous Sediment Urine Bacteria Blood Type Antibody Screen Attending/Attestation - Attestation I have personally seen and examined this patient.: Yes I have fully participated in the care of the patient.: Yes I have reviewed all pertinent clinical information: Yes Notes (Text): 03/28/18 17:47 I have seen and examined the patient. Medical records, lab studies, and imaging were reviewed by me and a management plan was formulated on multidisciplinary rounds with resident Dr. Colmenares. I agree with their documented assessment and plan. Patient admitted for urgent dialysis with hyperuricemia with n/v. Patient also has pancreatitis, maintain NPO for now. Patient was also significantly anemic with tachycardia, transfusing 2 units PRBC. Critical Care Time 35 minutes. Multi-disciplinary rounds were performed with house staff, nursing, speech therapy, respiratory therapy, pharmacy and nutrition with integrated input from the primary team/attending and other consulting services. The documented time is cumulative and includes review of patient data/exams/labs/chart review and examination of the patient on rounds and throughout the day; time is exclusive of any procedures or teaching time. <Srinivasan Colmenares - Last Filed: 03/28/18 19:02> History of Present Illness - History of Present Illness History of Present Illness: ICU consult note for Dr Chayito Price Patient is 22 year old male with pmhx of spina bifida, neurogenic bladder, HTN, CKD, chronic obstructive uropathy, multiple UTI, PNA came to ER today complaining of daily vomiting, about twice a day, with burning abdominal pain in the umbilical area that started one week ago. Vomit is mostly bilious, not bloody. Patient vomits mostly when eating or taking medication. Patient takes oxycodone for pain and pepcid and albertina seltzer, with minimal relief. Admits to right sided flank pain, patient states he has had UTI in the past, he self catherizes every 2-4 hours. Patient has noticed less urine in the past days. Patient admits to shortness of breath with exertion and fatigue, no diarrhea, and mild constipation. Denies fever, chills, dizziness, chest pain, rash, or other symptoms. in the ED, patient was found to be uremic and proteinuria. lipase levels are significantly elevated. AVF placed 10/17 and matured, placed by Dr Mandel.Plans to be HD today. PMD: Dr Cool Nephro: Dr Perez All: NKDA pmhx: as stated above Shx: AVF 10/17/17, PD catheter Sochx: denies tobacco, alcohol or drug use. 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 fmhx: Father (lung cancer) Meds: see records Review of Systems - Review of Systems All systems: reviewed and no additional remarkable complaints except Review of Systems: as stated in HPI Past Patient History - Infectious Disease Hx of Infectious Diseases: None - Past Medical History & Family History Past Medical History?: Yes - Past Social History Smoking Status: Never Smoked - CARDIAC Hx Hypertension: Yes - PULMONARY Hx Pneumonia: Yes - NEUROLOGICAL Hx Neurological Disorder: Yes Other/Comment: Spina Bifida, Tethered Spinal Cord - HEENT Hx HEENT Problems: No - RENAL Hx Chronic Kidney Disease: Yes - ENDOCRINE/METABOLIC Hx Endocrine Disorders: No - HEMATOLOGICAL/ONCOLOGICAL Hx Blood Disorders: No - INTEGUMENTARY Hx Dermatological Problems: No - MUSCULOSKELETAL/RHEUMATOLOGICAL Hx Musculoskeletal Disorders: No Hx Falls: No Other/Comment: Spina Bipida - GASTROINTESTINAL Hx Gastrointestinal Disorders: No - GENITOURINARY/GYNECOLOGICAL Hx Genitourinary Disorders: Yes Hx Urinary Tract Infection: Yes Other/Comment: SELF CATHETERIZE - PSYCHIATRIC Hx Substance Use: No - SURGICAL HISTORY Hx Surgeries: Yes Other/Comment: Spinal cord repair (Spina Bifida). L A/V shunt. PD catheter (d/c'd) - ANESTHESIA Hx Anesthesia: Yes Hx Anesthesia Reactions: No Hx Malignant Hyperthermia: No Meds - Medications Medications: Current Medications Acetaminophen (Tylenol 325mg Tab) 650 mg PO Q6 PRN PRN Reason: Pain, moderate (4-7) Physical Exam - Constitutional Appears: Non-toxic, No Acute Distress - Head Exam Head Exam: ATRAUMATIC, NORMAL INSPECTION, NORMOCEPHALIC - Eye Exam Eye Exam: EOMI, Normal appearance - ENT Exam ENT Exam: Mucous Membranes Moist, Normal Exam - Neck Exam Neck exam: Positive for: Normal Inspection - Respiratory Exam Respiratory Exam: Decreased Breath Sounds (right middle and lower lobe), NORMAL BREATHING PATTERN. absent: Accessory Muscle Use, Wheezes, Respiratory Distress - Cardiovascular Exam Cardiovascular Exam: Tachycardia, REGULAR RHYTHM, +S1, +S2 - GI/Abdominal Exam GI & Abdominal Exam: Normal Bowel Sounds, Soft, Tenderness (epigastric and right upper quadrant area). absent: Distended - Extremities Exam Extremities exam: Positive for: full ROM, pedal edema (left foot pedal edema). Negative for: tenderness - Back Exam Back exam: CVA tenderness (R) - Neurological Exam Neurological exam: Alert, CN II-XII Intact, Oriented x3 - Psychiatric Exam Psychiatric exam: Normal Affect, Normal Mood - Skin Skin Exam: Dry, Normal Color, Warm Results - Vital Signs Recent Vital Signs: Last Vital Signs Temp 98.3 F 03/28/18 09:10 Pulse 88 03/28/18 09:10 Resp 20 03/28/18 12:55 BP 162/76 H 03/28/18 09:10 Pulse Ox 100 03/28/18 11:21 - Labs Result Diagrams: 03/28/18 09:44 03/28/18 11:35 Labs: Laboratory Results - last 24 hr 03/28/18 03/28/18 03/28/18 09:44 09:44 09:44 WBC 9.6 RBC 2.20 L Hgb 6.1 L* D Hct 17.2 L MCV 78.3 L MCH 27.7 MCHC 35.4 RDW 14.5 Plt Count 236 D MPV 7.6 Neut % (Auto) 80.0 H Lymph % (Auto) 11.0 L [place] % (Auto) 7.3 Eos % (Auto) 0.9 Baso % (Auto) 0.8 Neut # (Auto) 7.7 H Lymph # (Auto) 1.1 [place] # (Auto) 0.7 Eos # (Auto) 0.1 Baso # (Auto) 0.1 Retic Count pO2 VBG pH VBG pCO2 VBG HCO3 VBG Total CO2 VBG O2 Sat (Calc) VBG Base Excess VBG Potassium Glucose Lactate Sodium 131 L Potassium 5.2 Chloride 95 L Carbon Dioxide 7 L* D Anion Gap 33 H BUN 206 H* D Creatinine 31.1 H* D Est GFR ( Amer) 2 Est GFR (Non-Af Amer) 2 Random Glucose 121 H Calcium 7.0 L Phosphorus Magnesium Iron TIBC % Saturation Transferrin Ferritin Total Bilirubin 0.6 AST 17 D ALT 18 L Alkaline Phosphatase 70 Troponin I 0.0150 NT-Pro-B Natriuret Pep 96779 H Total Protein 7.1 Albumin 4.5 Globulin 2.6 Albumin/Globulin Ratio 1.7 Lipase 1350 H Vitamin B12 Folate Venous Blood Potassium Urine Color Yellow Urine Clarity Hazy Urine pH 6.0 Ur Specific [place] 1.010 Urine Protein 3+ H Urine Glucose (UA) Normal Urine Ketones Negative Urine Blood 1+ H Urine Nitrate Negative Urine Bilirubin Negative Urine Urobilinogen Normal Ur Leukocyte Esterase 3+ H Urine WBC (Auto) 1227 H Urine RBC (Auto) 12 H Urine WBC Clumps (Auto) Many H Ur Squamous Epith Cells 2 Amorphous Sediment Rare H Urine Bacteria Mod H Blood Type Antibody Screen 03/28/18 03/28/18 03/28/18 10:26 11:00 11:35 WBC RBC Hgb Hct MCV MCH MCHC RDW Plt Count MPV Neut % (Auto) Lymph % (Auto) [place] % (Auto) Eos % (Auto) Baso % (Auto) Neut # (Auto) Lymph # (Auto) [place] # (Auto) Eos # (Auto) Baso # (Auto) Retic Count 3.8 H pO2 84 H VBG pH 7.25 L VBG pCO2 21 L VBG HCO3 12.4 VBG Total CO2 9.8 L VBG O2 Sat (Calc) 98.1 H VBG Base Excess -15.9 L VBG Potassium 5.4 H Glucose 110 Lactate 0.6 L Sodium 130.0 L Potassium Chloride 98.0 Carbon Dioxide Anion Gap BUN Creatinine Est GFR ( Amer) Est GFR (Non-Af Amer) Random Glucose Calcium Phosphorus Magnesium Iron TIBC % Saturation Transferrin Ferritin Total Bilirubin AST ALT Alkaline Phosphatase Troponin I NT-Pro-B Natriuret Pep Total Protein Albumin Globulin Albumin/Globulin Ratio Lipase Vitamin B12 Folate Venous Blood Potassium 5.4 H Urine Color Urine Clarity Urine pH Ur Specific [place] Urine Protein Urine Glucose (UA) Urine Ketones Urine Blood Urine Nitrate Urine Bilirubin Urine Urobilinogen Ur Leukocyte Esterase Urine WBC (Auto) Urine RBC (Auto) Urine WBC Clumps (Auto) Ur Squamous Epith Cells Amorphous Sediment Urine Bacteria Blood Type O POSITIVE Antibody Screen Negative 03/28/18 03/28/18 03/28/18 11:35 11:35 12:10 WBC RBC Hgb Hct MCV MCH MCHC RDW Plt Count MPV Neut % (Auto) Lymph % (Auto) [place] % (Auto) Eos % (Auto) Baso % (Auto) Neut # (Auto) Lymph # (Auto) [place] # (Auto) Eos # (Auto) Baso # (Auto) Retic Count pO2 VBG pH VBG pCO2 VBG HCO3 VBG Total CO2 VBG O2 Sat (Calc) VBG Base Excess VBG Potassium Glucose Lactate Sodium 131 L Potassium 5.5 H Chloride 95 L Carbon Dioxide 9 L* D Anion Gap 32 H BUN 198 H* Creatinine 32.0 H* Est GFR ( Amer) 2 Est GFR (Non-Af Amer) 2 Random Glucose 116 H Calcium 7.1 L Phosphorus 12.9 H Magnesium 2.5 H Iron 83 TIBC 234 L % Saturation 36 Transferrin 166.10 L Ferritin 276.0 Total Bilirubin AST ALT Alkaline Phosphatase Troponin I NT-Pro-B Natriuret Pep Total Protein Albumin Globulin Albumin/Globulin Ratio Lipase Vitamin B12 642 Folate > 20.0 Venous Blood Potassium Urine Color Urine Clarity Urine pH Ur Specific [place] Urine Protein Urine Glucose (UA) Urine Ketones Urine Blood Urine Nitrate Urine Bilirubin Urine Urobilinogen Ur Leukocyte Esterase Urine WBC (Auto) Urine RBC (Auto) Urine WBC Clumps (Auto) Ur Squamous Epith Cells Amorphous Sediment Urine Bacteria Blood Type Antibody Screen Assessment & Plan - Assessment and Plan (Free Text) Plan: Neuro AAOx 3 no acute issues Cardio HTN On tele HD to better control BP - fluid removal Recheck BP Restart home meds Norvasc and metoprolol Pulm Mild pulmonary congestion, cardiomegaly On HD for fluid removal GI Lipase elevated NPO except med diet Colace for constipation Renal 3gm porteinuria Hyperphosphatemia. hyperuricemia f/u phosphorus level HD today and tomorrow Dr Perez on case - Nephrovite 1 tab daily, Phoslo Check PTH and Vit D Nephro - Dr Perez Heme Anemia Iron panel Check CBC 2 PRBC given IV iron PRBC as needed Procrit ID U/A + LE, + WBC, +1 Blood Previous Urine cultures shows Kleb Pneumonia and Ecoli - sensitive to Borad spectrum antibiotics Pending Urine and blood cultures, MRSA screen Zosyn given in ED Meropenem Q12 IVPB ID- Dr Pitts Blood culture, Urine culture PPX GI not indicated at this time DVT- SCDs, Heparin SC 5000 Q12H Oxycodone 15mg PO Q4 PRN for severe pain Tylenol Q6 PRN for moderate pain Plan discuss with Dr Albert Colmenares, PGY-1 - Date & Time Date: 03/28/18 Time: 14:00
[2018-03-28] MEDS ORDERED: Ferric Sodium Gluconat Complex 62.5 mg/5 ml Vial IVPB SCH (15:00)
--- NOTE | 2018-03-28 15:05 | CP.PCM.CON ---
History of Present Illness - History of Present Illness History of Present Illness: Nephrology Consultation Note Assessment: critical CKD 5 with uremia: ESRD b/l severe hydronephrosis with UTI Chronic Kidney Disease (N18.5) Stage 5 with 3 gm proteinuria (R80.9) likely due to chronic obstructive uropathy neurogenic bladder, hx of spina bifida Anemia (D64.9), Hyperphosphatemia (E83.39), Secondary Hyperparathyroidism (E21.1), HTN (I12.9), metabolic acidosis hyperkalemia ? pancreatitis chronic obstructive uropathy managed by pt as self intermittent catheterization at home Plan s/p AVF (10/17/[address] Mandel) appears mature for dialysis initiation which is indicated now. d/w pt and he agreed. HD today and next session tomorrow. nephrovite 1 tab daily Hypertension control; anticipate better with dialysis and fluid removal Monitor Input/Output, daily weights and renal function with basic metabolic panel added phoslo 667 mg 2 cap TID with meals started epogen. IV iron. PRBC as needed check PTH and Vit D SW consult for outpt HD placement discussed with ICU staff Dose meds/antibiotics for reduced GFR. Avoid phos based fleets enema/magnesium based laxatives. Avoid nephrotoxins/NSAIDs/ iodinated contrast (unless needed emergently) Glycemic control Further work up for as per primary team Thanks for allowing me to participate in care of your patient. Will follow patient with you. Please call if any Qs. had d/w team Dr Julio Perez Office: [phone] CC: pain abdomen SOB vomiting reason for consult: ESRD HPI: pt is a 22 M with CKD 5 due to chronic obstructive uropathy managed by pt as self intermittent catheterization at home, spina bifida neurogenic bladder ca me with worsening pain abdomen with SOB, nausea/vomiting x 1 week, decreased urine output also pt has been feeling sick for last 1 week. he had missed appt with me in renal clinic. 10/16/17: PD catheter was removed as intra-op showed extensive foreign body reaction and ? pelvic abscess ROS: Denies chest pain, palpitation, leg swelling. has pain abdomen . had vomitting All other negative. making less urine. self intermittent catheterization at home. Physical Examination: General Appearance: uncomfortable, in no acute respiratory distress, co- operative . ill appearing Vitals reviewed and noted as below Head; Atraumatic, normocephalic ENT: no ulcers no thrush. Tongue is midline. Oropharynx: no rash or ulcers. EYES: Pupils are equal, round and reactive to light accommodation. Eye muscles and extraocular movement intact. Sclera is anicteric. Neck; supple no lymphadenopathy, no thyromegaly or bruit Lungs: Normal respiratory rate/effort. Breath sounds bilateral reduced at bases Heart: Normal rate. s1s2 normal. No rub or gallop. Extremities: no edema. No varicose veins Neurological: Patient is alert, awake and oriented to person, place and time. No focal deficit. Strength bilateral appropriate and equal Skin: Warm and dry. Normal turgor. No rash. Palpitation: Normal elasticity for age Abdomen: Abdomen is soft. Bowel sounds +. There is no abdominal tenderness, no guarding/rigidity no organomegaly. Psych: normal insight and normal affect/mood MSK: no joint tenderness or swelling. Digits and nails normal, no deformity : kidney not palpable. Labs/imaging reviewed. Past medical history, past surgical history, family history, social history, allergy reviewed and noted as below Family hx: no hx of CKD. Rest non-contributory in past, renal imaging: b/l severe hydronephrosis Past Patient History - Infectious Disease Hx of Infectious Diseases: None - Past Medical History & Family History Past Medical History?: Yes - Past Social History Smoking Status: Never Smoked - CARDIAC Hx Hypertension: Yes - PULMONARY Hx Pneumonia: Yes - NEUROLOGICAL Hx Neurological Disorder: Yes Other/Comment: Spina Bifida, Tethered Spinal Cord - HEENT Hx HEENT Problems: No - RENAL Hx Chronic Kidney Disease: Yes - ENDOCRINE/METABOLIC Hx Endocrine Disorders: No - HEMATOLOGICAL/ONCOLOGICAL Hx Blood Disorders: No - INTEGUMENTARY Hx Dermatological Problems: No - MUSCULOSKELETAL/RHEUMATOLOGICAL Hx Musculoskeletal Disorders: No Hx Falls: No Other/Comment: Spina Bipida - GASTROINTESTINAL Hx Gastrointestinal Disorders: No - GENITOURINARY/GYNECOLOGICAL Hx Genitourinary Disorders: Yes Hx Urinary Tract Infection: Yes Other/Comment: SELF CATHETERIZE - PSYCHIATRIC Hx Substance Use: No - SURGICAL HISTORY Hx Surgeries: Yes Other/Comment: Spinal cord repair (Spina Bifida). L A/V shunt. PD catheter (d/c'd) - ANESTHESIA Hx Anesthesia: Yes Hx Anesthesia Reactions: No Hx Malignant Hyperthermia: No Meds Allergies/Adverse Reactions: Allergies Allergy/AdvReac Type Severity Reaction Status Date / Time No Known Allergies Allergy Verified 03/28/18 09:15 - Medications Medications: Current Medications Acetaminophen (Tylenol 325mg Tab) 650 mg PO Q6 PRN PRN Reason: Pain, moderate (4-7) Last Admin: 03/28/18 14:11 Dose: 650 mg Calcium Acetate (Phoslo) 1,334 mg PO TIDCC [facility] Epoetin Sundar (Procrit) 10,000 unit IV TTS [facility] Ferric Sodium Gluconate Complex (Ferrlecit) 125 mg IVPB DAILY [facility] Stop: 04/04/18 10:01 Vitamin B Complex/Vit C/Folic Acid (Nephro-Edilberto) 1 tab PO 0800 [facility] Results - Vital Signs Recent Vital Signs: Last Vital Signs Temp 98.5 F 03/28/18 14:23 Pulse 83 03/28/18 14:23 Resp 16 03/28/18 14:23 BP 146/83 03/28/18 14:23 Pulse Ox 100 03/28/18 11:21 - Labs Result Diagrams: 03/28/18 09:44 03/28/18 11:35 Labs: Laboratory Results - last 24 hr 03/28/18 03/28/18 03/28/18 09:44 09:44 09:44 WBC 9.6 RBC 2.20 L Hgb 6.1 L* D Hct 17.2 L MCV 78.3 L MCH 27.7 MCHC 35.4 RDW 14.5 Plt Count 236 D MPV 7.6 Neut % (Auto) 80.0 H Lymph % (Auto) 11.0 L [place] % (Auto) 7.3 Eos % (Auto) 0.9 Baso % (Auto) 0.8 Neut # (Auto) 7.7 H Lymph # (Auto) 1.1 [place] # (Auto) 0.7 Eos # (Auto) 0.1 Baso # (Auto) 0.1 Retic Count pO2 VBG pH VBG pCO2 VBG HCO3 VBG Total CO2 VBG O2 Sat (Calc) VBG Base Excess VBG Potassium Glucose Lactate Sodium 131 L Potassium 5.2 Chloride 95 L Carbon Dioxide 7 L* D Anion Gap 33 H BUN 206 H* D Creatinine 31.1 H* D Est GFR ( Amer) 2 Est GFR (Non-Af Amer) 2 Random Glucose 121 H Calcium 7.0 L Phosphorus Magnesium Iron TIBC % Saturation Transferrin Ferritin Total Bilirubin 0.6 AST 17 D ALT 18 L Alkaline Phosphatase 70 Troponin I 0.0150 NT-Pro-B Natriuret Pep 75686 H Total Protein 7.1 Albumin 4.5 Globulin 2.6 Albumin/Globulin Ratio 1.7 Lipase 1350 H Vitamin B12 Folate Venous Blood Potassium Urine Color Yellow Urine Clarity Hazy Urine pH 6.0 Ur Specific [place] 1.010 Urine Protein 3+ H Urine Glucose (UA) Normal Urine Ketones Negative Urine Blood 1+ H Urine Nitrate Negative Urine Bilirubin Negative Urine Urobilinogen Normal Ur Leukocyte Esterase 3+ H Urine WBC (Auto) 1227 H Urine RBC (Auto) 12 H Urine WBC Clumps (Auto) Many H Ur Squamous Epith Cells 2 Amorphous Sediment Rare H Urine Bacteria Mod H Blood Type Antibody Screen 03/28/18 03/28/18 03/28/18 10:26 11:00 11:35 WBC RBC Hgb Hct MCV MCH MCHC RDW Plt Count MPV Neut % (Auto) Lymph % (Auto) [place] % (Auto) Eos % (Auto) Baso % (Auto) Neut # (Auto) Lymph # (Auto) [place] # (Auto) Eos # (Auto) Baso # (Auto) Retic Count 3.8 H pO2 84 H VBG pH 7.25 L VBG pCO2 21 L VBG HCO3 12.4 VBG Total CO2 9.8 L VBG O2 Sat (Calc) 98.1 H VBG Base Excess -15.9 L VBG Potassium 5.4 H Glucose 110 Lactate 0.6 L Sodium 130.0 L Potassium Chloride 98.0 Carbon Dioxide Anion Gap BUN Creatinine Est GFR ( Amer) Est GFR (Non-Af Amer) Random Glucose Calcium Phosphorus Magnesium Iron TIBC % Saturation Transferrin Ferritin Total Bilirubin AST ALT Alkaline Phosphatase Troponin I NT-Pro-B Natriuret Pep Total Protein Albumin Globulin Albumin/Globulin Ratio Lipase Vitamin B12 Folate Venous Blood Potassium 5.4 H Urine Color Urine Clarity Urine pH Ur Specific [place] Urine Protein Urine Glucose (UA) Urine Ketones Urine Blood Urine Nitrate Urine Bilirubin Urine Urobilinogen Ur Leukocyte Esterase Urine WBC (Auto) Urine RBC (Auto) Urine WBC Clumps (Auto) Ur Squamous Epith Cells Amorphous Sediment Urine Bacteria Blood Type O POSITIVE Antibody Screen Negative 03/28/18 03/28/1819 11:35 11:35 12:10 WBC RBC Hgb Hct MCV MCH MCHC RDW Plt Count MPV Neut % (Auto) Lymph % (Auto) [place] % (Auto) Eos % (Auto) Baso % (Auto) Neut # (Auto) Lymph # (Auto) [place] # (Auto) Eos # (Auto) Baso # (Auto) Retic Count pO2 VBG pH VBG pCO2 VBG HCO3 VBG Total CO2 VBG O2 Sat (Calc) VBG Base Excess VBG Potassium Glucose Lactate Sodium 131 L Potassium 5.5 H Chloride 95 L Carbon Dioxide 9 L* D Anion Gap 32 H BUN 198 H* Creatinine 32.0 H* Est GFR ( Amer) 2 Est GFR (Non-Af Amer) 2 Random Glucose 116 H Calcium 7.1 L Phosphorus 12.9 H Magnesium 2.5 H Iron 83 TIBC 234 L % Saturation 36 Transferrin 166.10 L Ferritin 276.0 Total Bilirubin AST ALT Alkaline Phosphatase Troponin I NT-Pro-B Natriuret Pep Total Protein Albumin Globulin Albumin/Globulin Ratio Lipase Vitamin B12 642 Folate > 20.0 Venous Blood Potassium Urine Color Urine Clarity Urine pH Ur Specific [place] Urine Protein Urine Glucose (UA) Urine Ketones Urine Blood Urine Nitrate Urine Bilirubin Urine Urobilinogen Ur Leukocyte Esterase Urine WBC (Auto) Urine RBC (Auto) Urine WBC Clumps (Auto) Ur Squamous Epith Cells Amorphous Sediment Urine Bacteria Blood Type Antibody Screen
[2018-03-28] MEDS: Epoetin Alfa 10,000 unit/ml Dialysis IV SCH (15:57)
[2018-03-28] MEDS ORDERED: Ferric Sodium Gluconat Complex 62.5 MG in Sodium Chloride 0.9% 100 ML IVPB SCH (17:00)
--- NOTE | 2018-03-28 17:02 | CP.PCM.PN ---
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 Objective - Vital Signs/Intake and Output Vital Signs (last 24 hours): Temp Pulse Resp BP Pulse Ox 98.6 F 83 17 136/75 100 03/28/18 15:00 03/28/18 16:08 03/28/18 16:08 03/28/18 16:30 03/28/18 15:00 Intake and Output: 03/28/18 03/28/18 06:59 18:59 Intake Total 470 Balance 470 - Medications Medications: Current Medications Acetaminophen (Tylenol 325mg Tab) 650 mg PO Q6 PRN PRN Reason: Pain, moderate (4-7) Last Admin: 03/28/18 14:11 Dose: 650 mg Amlodipine Besylate (Norvasc) 10 mg PO DAILY [facility] Calcium Acetate (Phoslo) 1,334 mg PO TIDCC [facility] Docusate Sodium (Colace) 100 mg PO BID PRN PRN Reason: Constipation Epoetin Sundar (Procrit) 10,000 unit IV TTS [facility] Last Admin: 03/28/18 15:57 Dose: 10,000 unit Ferric Sodium Gluconate Complex 62.5 mg/ Sodium Chloride 105 mls @ 110 mls/hr IVPB Q24H [facility] Stop: 04/04/18 17:01 Metoprolol Tartrate (Lopressor) 100 mg PO BID [facility] Vitamin B Complex/Vit C/Folic Acid (Nephro-Edilberto) 1 tab PO 0800 [facility] - Labs Labs: 03/28/18 09:44 03/28/18 11:35
--- NOTE | 2018-03-28 18:26 | CP.PCM.HP ---
History of Present Illness - History of Present Illness History of Present Illness: pt came in to ed c/o vomiting and abdominal pain radiats to the back crf on dialysis has svere aneamia Present on Admission - Present on Admission Any Indicators Present on Admission: Yes Review of Systems - Review of Systems Systems not reviewed;Unavailable: Acuity of Condition - Constitutional Constitutional: Anorexia, Fatigue - EENT Eyes: As Per HPI Ears: As Per HPI Nose/Mouth/Throat: As Per HPI - Cardiovascular Cardiovascular: As Per HPI - Respiratory Respiratory: As Per HPI - Gastrointestinal Gastrointestinal: Abdominal Pain, Bloating, Vomiting - Genitourinary Additional comments: esrf on dialysis - Reproductive: Male Additional comments: spina bifida - Musculoskeletal Musculoskeletal: Back Pain Additional comments: spinabifida - Integumentary Integumentary: As Per HPI - Neurological Neurological: As Per HPI - Psychiatric Psychiatric: As Per HPI - Endocrine Endocrine: Cold Intolorance - Hematologic/Lymphatic Additional comments: severe aneamia Past Patient History - Infectious Disease Hx of Infectious Diseases: None - Past Medical History & Family History Past Medical History?: Yes - Past Social History Smoking Status: Never Smoked - CARDIAC Hx Hypertension: Yes - PULMONARY Hx Pneumonia: Yes - NEUROLOGICAL Hx Neurological Disorder: Yes Other/Comment: Spina Bifida, Tethered Spinal Cord - HEENT Hx HEENT Problems: No - RENAL Hx Chronic Kidney Disease: Yes - ENDOCRINE/METABOLIC Hx Endocrine Disorders: No - HEMATOLOGICAL/ONCOLOGICAL Hx Blood Disorders: No - INTEGUMENTARY Hx Dermatological Problems: No - MUSCULOSKELETAL/RHEUMATOLOGICAL Hx Musculoskeletal Disorders: No Hx Falls: No Other/Comment: Spina Bipida - GASTROINTESTINAL Hx Gastrointestinal Disorders: No - GENITOURINARY/GYNECOLOGICAL Hx Genitourinary Disorders: Yes Hx Urinary Tract Infection: Yes Other/Comment: SELF CATHETERIZE - PSYCHIATRIC Hx Substance Use: No - SURGICAL HISTORY Hx Surgeries: Yes Other/Comment: Spinal cord repair (Spina Bifida). L A/V shunt. PD catheter (d/c'd) - ANESTHESIA Hx Anesthesia: Yes Hx Anesthesia Reactions: No Hx Malignant Hyperthermia: No Meds Allergies/Adverse Reactions: Allergies Allergy/AdvReac Type Severity Reaction Status Date / Time No Known Allergies Allergy Verified 03/28/18 09:15 Physical Exam - Constitutional Appears: In Acute Distress - Head Exam Head Exam: ATRAUMATIC - Eye Exam Eye Exam: Normal appearance Pupil Exam: NORMAL ACCOMODATION - ENT Exam ENT Exam: Mucous Membranes Moist - Neck Exam Neck exam: Positive for: Normal Inspection - Respiratory Exam Respiratory Exam: Clear to Auscultation Bilateral - Cardiovascular Exam Cardiovascular Exam: REGULAR RHYTHM - GI/Abdominal Exam GI & Abdominal Exam: Distended, Hypoactive Bowel Sounds, Tenderness - Extremities Exam Extremities exam: Positive for: normal inspection - Back Exam Back exam: CVA tenderness (L) - Neurological Exam Neurological exam: Alert, Oriented x3 - Psychiatric Exam Psychiatric exam: Normal Affect - Skin Skin Exam: Pallor Results - Vital Signs Recent Vital Signs: Last Vital Signs Temp 98.3 F 03/28/18 17:00 Pulse 85 03/28/18 17:00 Resp 17 03/28/18 17:00 BP 140/73 03/28/18 17:00 Pulse Ox 100 03/28/18 17:00 - Labs Result Diagrams: 03/28/18 09:44 03/28/18 11:35 Labs: Laboratory Results - last 24 hr 03/28/18 03/28/18 03/28/18 09:44 09:44 09:44 WBC 9.6 RBC 2.20 L Hgb 6.1 L* D Hct 17.2 L MCV 78.3 L MCH 27.7 MCHC 35.4 RDW 14.5 Plt Count 236 D MPV 7.6 Neut % (Auto) 80.0 H Lymph % (Auto) 11.0 L [place] % (Auto) 7.3 Eos % (Auto) 0.9 Baso % (Auto) 0.8 Neut # (Auto) 7.7 H Lymph # (Auto) 1.1 [place] # (Auto) 0.7 Eos # (Auto) 0.1 Baso # (Auto) 0.1 Retic Count pO2 VBG pH VBG pCO2 VBG HCO3 VBG Total CO2 VBG O2 Sat (Calc) VBG Base Excess VBG Potassium Glucose Lactate Sodium 131 L Potassium 5.2 Chloride 95 L Carbon Dioxide 7 L* D Anion Gap 33 H BUN 206 H* D Creatinine 31.1 H* D Est GFR ( Amer) 2 Est GFR (Non-Af Amer) 2 Random Glucose 121 H Calcium 7.0 L Phosphorus Magnesium Iron TIBC % Saturation Transferrin Ferritin Total Bilirubin 0.6 AST 17 D ALT 18 L Alkaline Phosphatase 70 Troponin I 0.0150 NT-Pro-B Natriuret Pep 56231 H Total Protein 7.1 Albumin 4.5 Globulin 2.6 Albumin/Globulin Ratio 1.7 Lipase 1350 H Vitamin B12 Folate Venous Blood Potassium Urine Color Yellow Urine Clarity Hazy Urine pH 6.0 Ur Specific [place] 1.010 Urine Protein 3+ H Urine Glucose (UA) Normal Urine Ketones Negative Urine Blood 1+ H Urine Nitrate Negative Urine Bilirubin Negative Urine Urobilinogen Normal Ur Leukocyte Esterase 3+ H Urine WBC (Auto) 1227 H Urine RBC (Auto) 12 H Urine WBC Clumps (Auto) Many H Ur Squamous Epith Cells 2 Amorphous Sediment Rare H Urine Bacteria Mod H Blood Type Antibody Screen 03/28/18 03/28/18 03/28/18 10:26 11:00 11:35 WBC RBC Hgb Hct MCV MCH MCHC RDW Plt Count MPV Neut % (Auto) Lymph % (Auto) [place] % (Auto) Eos % (Auto) Baso % (Auto) Neut # (Auto) Lymph # (Auto) [place] # (Auto) Eos # (Auto) Baso # (Auto) Retic Count 3.8 H pO2 84 H VBG pH 7.25 L VBG pCO2 21 L VBG HCO3 12.4 VBG Total CO2 9.8 L VBG O2 Sat (Calc) 98.1 H VBG Base Excess -15.9 L VBG Potassium 5.4 H Glucose 110 Lactate 0.6 L Sodium 130.0 L Potassium Chloride 98.0 Carbon Dioxide Anion Gap BUN Creatinine Est GFR ( Amer) Est GFR (Non-Af Amer) Random Glucose Calcium Phosphorus Magnesium Iron TIBC % Saturation Transferrin Ferritin Total Bilirubin AST ALT Alkaline Phosphatase Troponin I NT-Pro-B Natriuret Pep Total Protein Albumin Globulin Albumin/Globulin Ratio Lipase Vitamin B12 Folate Venous Blood Potassium 5.4 H Urine Color Urine Clarity Urine pH Ur Specific [place] Urine Protein Urine Glucose (UA) Urine Ketones Urine Blood Urine Nitrate Urine Bilirubin Urine Urobilinogen Ur Leukocyte Esterase Urine WBC (Auto) Urine RBC (Auto) Urine WBC Clumps (Auto) Ur Squamous Epith Cells Amorphous Sediment Urine Bacteria Blood Type O POSITIVE Antibody Screen Negative 03/28/18 03/28/18 03/28/18 11:35 11:35 12:10 WBC RBC Hgb Hct MCV MCH MCHC RDW Plt Count MPV Neut % (Auto) Lymph % (Auto) [place] % (Auto) Eos % (Auto) Baso % (Auto) Neut # (Auto) Lymph # (Auto) [place] # (Auto) Eos # (Auto) Baso # (Auto) Retic Count pO2 VBG pH VBG pCO2 VBG HCO3 VBG Total CO2 VBG O2 Sat (Calc) VBG Base Excess VBG Potassium Glucose Lactate Sodium 131 L Potassium 5.5 H Chloride 95 L Carbon Dioxide 9 L* D Anion Gap 32 H BUN 198 H* Creatinine 32.0 H* Est GFR ( Amer) 2 Est GFR (Non-Af Amer) 2 Random Glucose 116 H Calcium 7.1 L Phosphorus 12.9 H Magnesium 2.5 H Iron 83 TIBC 234 L % Saturation 36 Transferrin 166.10 L Ferritin 276.0 Total Bilirubin AST ALT Alkaline Phosphatase Troponin I NT-Pro-B Natriuret Pep Total Protein Albumin Globulin Albumin/Globulin Ratio Lipase Vitamin B12 642 Folate > 20.0 Venous Blood Potassium Urine Color Urine Clarity Urine pH Ur Specific [place] Urine Protein Urine Glucose (UA) Urine Ketones Urine Blood Urine Nitrate Urine Bilirubin Urine Urobilinogen Ur Leukocyte Esterase Urine WBC (Auto) Urine RBC (Auto) Urine WBC Clumps (Auto) Ur Squamous Epith Cells Amorphous Sediment Urine Bacteria Blood Type Antibody Screen Assessment & Plan - Assessment and Plan (Free Text) Assessment: acute vomiting ac pancreatitis aneamia esrf spina bifida Plan: as per orders - Date & Time Date: 03/28/18 Time: 18:29
[2018-03-28] MEDS: Meropenem 500 MG in Sodium Chloride 0.9% 100 ML IVPB SCH (18:31)
--- NOTE | 2018-03-28 18:45 | CP.PCM.CON ---
History of Present Illness - History of Present Illness History of Present Illness: 22 year old male came to ER today complaining of daily vomiting that started one week ago. Admitted via ER for pancreatitis and uremia and septic work up done First HD completed and tolerated ID consulted for antibiotic management All: NKDA pmhx: spina bifida, neurogenic bladder, HTN, CKD, chronic obstructive uropathy, multiple UTI, PNA Shx: AVF 10/17/17, PD catheter Sochx: denies tobacco, alcohol or drug use. 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 fmhx: Father (lung cancer) Review of Systems - Review of Systems All systems: reviewed and no additional remarkable complaints except - Constitutional Constitutional: absent: Anorexia, Chills - EENT Eyes: absent: Blurred Vision, Change in Vision - Cardiovascular Cardiovascular: absent: Chest Pain, Dyspnea - Respiratory Respiratory: absent: Cough, Dyspnea - Gastrointestinal Gastrointestinal: absent: Belching, Heartburn, Nausea, Vomiting - Genitourinary Genitourinary: absent: Difficulty Urinating, Dysuria - Integumentary Integumentary: absent: Dry Skin, Skin Pain Past Patient History - Infectious Disease Hx of Infectious Diseases: None - Past Medical History & Family History Past Medical History?: Yes - Past Social History Smoking Status: Never Smoked - CARDIAC Hx Hypertension: No - PULMONARY Hx Pneumonia: Yes - NEUROLOGICAL Hx Neurological Disorder: Yes Other/Comment: Spina Bifida, Tethered Spinal Cord Past Patient History - Infectious Disease Hx of Infectious Diseases: None - Past Medical History & Family History Past Medical History?: Yes - Past Social History Smoking Status: Never Smoked - CARDIAC Hx Hypertension: Yes - PULMONARY Hx Pneumonia: Yes - NEUROLOGICAL Hx Neurological Disorder: Yes Other/Comment: Spina Bifida, Tethered Spinal Cord - HEENT Hx HEENT Problems: No - RENAL Hx Chronic Kidney Disease: Yes - ENDOCRINE/METABOLIC Hx Endocrine Disorders: No - HEMATOLOGICAL/ONCOLOGICAL Hx Blood Disorders: No - INTEGUMENTARY Hx Dermatological Problems: No - MUSCULOSKELETAL/RHEUMATOLOGICAL Hx Musculoskeletal Disorders: No Hx Falls: No Other/Comment: Spina Bipida - GASTROINTESTINAL Hx Gastrointestinal Disorders: No - GENITOURINARY/GYNECOLOGICAL Hx Genitourinary Disorders: Yes Hx Urinary Tract Infection: Yes Other/Comment: SELF CATHETERIZE - PSYCHIATRIC Hx Substance Use: No - SURGICAL HISTORY Hx Surgeries: Yes Other/Comment: Spinal cord repair (Spina Bifida). L A/V shunt. PD catheter (d/c'd) - ANESTHESIA Hx Anesthesia: Yes Hx Anesthesia Reactions: No Hx Malignant Hyperthermia: No Meds Allergies/Adverse Reactions: Allergies Allergy/AdvReac Type Severity Reaction Status Date / Time No Known Allergies Allergy Verified 03/28/18 09:15 - Medications Medications: Current Medications Acetaminophen (Tylenol 325mg Tab) 650 mg PO Q6 PRN PRN Reason: Pain, moderate (4-7) Last Admin: 03/28/18 14:11 Dose: 650 mg Amlodipine Besylate (Norvasc) 10 mg PO DAILY [facility] Last Admin: 03/28/18 17:37 Dose: 10 mg Calcium Acetate (Phoslo) 1,334 mg PO TIDCC [facility] Last Admin: 03/28/18 17:37 Dose: 1,334 mg Docusate Sodium (Colace) 100 mg PO BID PRN PRN Reason: Constipation Epoetin Sundar (Procrit) 10,000 unit IV TTS [facility] Last Admin: 03/28/18 15:57 Dose: 10,000 unit Ferric Sodium Gluconate Complex 62.5 mg/ Sodium Chloride 105 mls @ 110 mls/hr IVPB Q24H [facility] Stop: 04/04/18 17:01 Last Admin: 03/28/18 17:36 Dose: 110 mls/hr Meropenem 500 mg/ Sodium (Chloride) 100 mls @ 100 mls/hr IVPB Q12H [facility]; Protocol Last Admin: 03/28/18 18:31 Dose: 100 mls/hr Metoprolol Tartrate (Lopressor) 100 mg PO BID [facility] Last Admin: 03/28/18 17:37 Dose: 100 mg Oxycodone HCl (Oxycodone Immediate Release Tab) 15 mg PO Q4 PRN PRN Reason: Pain, moderate (4-7) Vitamin B Complex/Vit C/Folic Acid (Nephro-Edilberto) 1 tab PO 0800 [facility] Physical Exam - Constitutional Appears: No Acute Distress, Chronically Ill - Head Exam Head Exam: ATRAUMATIC, NORMOCEPHALIC - Eye Exam Eye Exam: absent: Scleral icterus - ENT Exam ENT Exam: Mucous Membranes Dry - Neck Exam Neck exam: Negative for: Lymphadenopathy - Respiratory Exam Respiratory Exam: Decreased Breath Sounds - Cardiovascular Exam Cardiovascular Exam: REGULAR RHYTHM - GI/Abdominal Exam GI & Abdominal Exam: Diminished Bowel Sounds - Rectal Exam Rectal Exam: Deferred - Exam Exam: NORMAL INSPECTION - Extremities Exam Extremities exam: Positive for: pedal pulses present. Negative for: calf tenderness, pedal edema, tenderness Additional comments: weakness both lower extremities - Back Exam Back exam: absent: CVA tenderness (L), CVA tenderness (R), paraspinal tenderness - Neurological Exam Neurological exam: Alert, CN II-XII Intact, Oriented x3 - Psychiatric Exam Psychiatric exam: Depressed - Skin Skin Exam: Dry Results - Vital Signs Recent Vital Signs: Last Vital Signs Temp 98.3 F 03/28/18 17:00 Pulse 85 03/28/18 17:00 Resp 17 03/28/18 17:00 BP 140/73 03/28/18 17:00 Pulse Ox 100 03/28/18 17:00 - Labs Result Diagrams: 03/28/18 09:44 03/28/18 11:35 Labs: Laboratory Results - last 24 hr 03/28/18 03/28/18 03/28/18 09:44 09:44 09:44 WBC 9.6 RBC 2.20 L Hgb 6.1 L* D Hct 17.2 L MCV 78.3 L MCH 27.7 MCHC 35.4 RDW 14.5 Plt Count 236 D MPV 7.6 Neut % (Auto) 80.0 H Lymph % (Auto) 11.0 L Ward % (Auto) 7.3 Eos % (Auto) 0.9 Baso % (Auto) 0.8 Neut # (Auto) 7.7 H Lymph # (Auto) 1.1 Ward # (Auto) 0.7 Eos # (Auto) 0.1 Baso # (Auto) 0.1 Retic Count pO2 VBG pH VBG pCO2 VBG HCO3 VBG Total CO2 VBG O2 Sat (Calc) VBG Base Excess VBG Potassium Glucose Lactate Sodium 131 L Potassium 5.2 Chloride 95 L Carbon Dioxide 7 L* D Anion Gap 33 H BUN 206 H* D Creatinine 31.1 H* D Est GFR ( Amer) 2 Est GFR (Non-Af Amer) 2 Random Glucose 121 H Calcium 7.0 L Phosphorus Magnesium Iron TIBC % Saturation Transferrin Ferritin Total Bilirubin 0.6 AST 17 D ALT 18 L Alkaline Phosphatase 70 Troponin I 0.0150 NT-Pro-B Natriuret Pep 26678 H Total Protein 7.1 Albumin 4.5 Globulin 2.6 Albumin/Globulin Ratio 1.7 Lipase 1350 H Vitamin B12 Folate Venous Blood Potassium Urine Color Yellow Urine Clarity Hazy Urine pH 6.0 Ur Specific [place] 1.010 Urine Protein 3+ H Urine Glucose (UA) Normal Urine Ketones Negative Urine Blood 1+ H Urine Nitrate Negative Urine Bilirubin Negative Urine Urobilinogen Normal Ur Leukocyte Esterase 3+ H Urine WBC (Auto) 1227 H Urine RBC (Auto) 12 H Urine WBC Clumps (Auto) Many H Ur Squamous Epith Cells 2 Amorphous Sediment Rare H Urine Bacteria Mod H Blood Type Antibody Screen 03/28/18 03/28/18 03/28/18 10:26 11:00 11:35 WBC RBC Hgb Hct MCV MCH MCHC RDW Plt Count MPV Neut % (Auto) Lymph % (Auto) Ward % (Auto) Eos % (Auto) Baso % (Auto) Neut # (Auto) Lymph # (Auto) Ward # (Auto) Eos # (Auto) Baso # (Auto) Retic Count 3.8 H pO2 84 H VBG pH 7.25 L VBG pCO2 21 L VBG HCO3 12.4 VBG Total CO2 9.8 L VBG O2 Sat (Calc) 98.1 H VBG Base Excess -15.9 L VBG Potassium 5.4 H Glucose 110 Lactate 0.6 L Sodium 130.0 L Potassium Chloride 98.0 Carbon Dioxide Anion Gap BUN Creatinine Est GFR ( Amer) Est GFR (Non-Af Amer) Random Glucose Calcium Phosphorus Magnesium Iron TIBC % Saturation Transferrin Ferritin Total Bilirubin AST ALT Alkaline Phosphatase Troponin I NT-Pro-B Natriuret Pep Total Protein Albumin Globulin Albumin/Globulin Ratio Lipase Vitamin B12 Folate Venous Blood Potassium 5.4 H Urine Color Urine Clarity Urine pH Ur Specific [place] Urine Protein Urine Glucose (UA) Urine Ketones Urine Blood Urine Nitrate Urine Bilirubin Urine Urobilinogen Ur Leukocyte Esterase Urine WBC (Auto) Urine RBC (Auto) Urine WBC Clumps (Auto) Ur Squamous Epith Cells Amorphous Sediment Urine Bacteria Blood Type O POSITIVE Antibody Screen Negative 03/28/18 03/28/18 03/28/18 11:35 11:35 12:10 WBC RBC Hgb Hct MCV MCH MCHC RDW Plt Count MPV Neut % (Auto) Lymph % (Auto) Ward % (Auto) Eos % (Auto) Baso % (Auto) Neut # (Auto) Lymph # (Auto) Ward # (Auto) Eos # (Auto) Baso # (Auto) Retic Count pO2 VBG pH VBG pCO2 VBG HCO3 VBG Total CO2 VBG O2 Sat (Calc) VBG Base Excess VBG Potassium Glucose Lactate Sodium 131 L Potassium 5.5 H Chloride 95 L Carbon Dioxide 9 L* D Anion Gap 32 H BUN 198 H* Creatinine 32.0 H* Est GFR ( Amer) 2 Est GFR (Non-Af Amer) 2 Random Glucose 116 H Calcium 7.1 L Phosphorus 12.9 H Magnesium 2.5 H Iron 83 TIBC 234 L % Saturation 36 Transferrin 166.10 L Ferritin 276.0 Total Bilirubin AST ALT Alkaline Phosphatase Troponin I NT-Pro-B Natriuret Pep Total Protein Albumin Globulin Albumin/Globulin Ratio Lipase Vitamin B12 642 Folate > 20.0 Venous Blood Potassium Urine Color Urine Clarity Urine pH Ur Specific [place] Urine Protein Urine Glucose (UA) Urine Ketones Urine Blood Urine Nitrate Urine Bilirubin Urine Urobilinogen Ur Leukocyte Esterase Urine WBC (Auto) Urine RBC (Auto) Urine WBC Clumps (Auto) Ur Squamous Epith Cells Amorphous Sediment Urine Bacteria Blood Type Antibody Screen Assessment & Plan - Assessment and Plan (Free Text) Assessment: acute pancreatitis renal failure r/o sepsis IV Merrem ordered ( hx of ESBL UTI in past )
[2018-03-28] MEDS: oxyCODONE 5 mg Immediate Release Tab PO PRN (19:42)
--- NOTE | 2018-03-28 22:19 | CARD ---
APPROVED REPORT Date of service: 03/28/2018 EXAM: Two-dimensional and M-mode echocardiogram with Doppler and color Doppler. Other Information Quality : GoodRhythm : RISK FACTORS Hypertension 2D DIMENSIONS IVSd1.1 (0.7-1.1cm)Aortic Root (2D)3.1 (2.0-3.7cm) LVDd5.2 (3.9-5.9cm)PWd1.2 (0.7-1.1cm) LA Icsvsi58 (18-58mL)LVDs3.7 (2.5-4.0cm) FS (%) 28.1 %LVEF (%)54.1 (>50%) LVEF (Dukes's)54 % M-Mode DIMENSIONS Left Atrium (MM)3.81 (2.5-4.0cm)IVSd0.91 (0.7-1.1cm) Aortic Root2.83 (2.2-3.7cm)LVDd4.69 (4.0-5.6cm) Aortic Cusp Exc.1.95 (1.5-2.0cm)PWd1.24 (0.7-1.1cm) FS (%) 35 %LVDs3.03 (2.0-3.8cm) TAPSE43.28 cmLVEF (%)65 (>50%) Aortic Valve AoV Peak Nlapcqsu424.6cm/Leia Peak GR.14mmHg Mitral Valve MV E Rsdyxkms156.3cm/sMV A Dtwnadmk88.4cm/sE/A ratio1.5 TDI Lateral E' Peak V13.87cm/sMedial E' Peak V8.80cm/sE/Lateral E'8.3 E/Medial E'13.1 Tricuspid Valve TR Peak Acoondgo416iy/sTR Peak Gr.13vvFpBFVT46rdQe <Conclusion> Left ventricle: thickness: normal; size: normal; overall ejection fraction: 60%: diastolic filling pressures: normal Mitral valve: annulus: normal: leaflets: calcific thickening excursion: normal; no significant trans-mitral gradient: no significant incompetence: left atrium: dilated Aortic valve: leaflets: normal morphology: excursion: normal; no significant trans-aortic gradient: No significant incompetence: aortic root: normal; Right sided Structures: Pulmonary valve: normal; no significant incompetence; Tricuspid valve: normal; mild incompetence: Intra-cardiac hemodynamics: pulmonary systolic pressures:42mHg; central venous pressures: normal TRace to mild concentric pericardial effusion
[2018-03-29] MEDS: oxyCODONE 5 mg Immediate Release Tab PO PRN ×3 (04:16→20:38)
[2018-03-29] MEDS: Meropenem 500 MG in Sodium Chloride 0.9% 100 ML IVPB SCH ×2 (05:37→17:46)
[2018-03-29 06:32] LABS: BASO % 0.7 % (0.0-2.0); EOS # 0.1 K/uL (0.0-0.7); LYMPH # 1.6 K/uL (1.0-4.3); LYMPH % 27.1 % (20.0-40.0); MEAN CELL VOLUME 77.9 fL (80.0-94.0); MEAN CORPUSCULAR HEMOGLOBIN 27.3 pg (27.0-31.0); MEAN PLATELET VOLUME 7.7 fL (7.2-11.7); MONO # 0.8 K/uL (0.0-0.8); MONO % 13.9 % (0.0-10.0); NEUT # 3.2 K/uL (1.8-7.0); NEUT % 56.3 % (50.0-75.0); NRBC % 0.1 % (0.0-2.0); RBC 2.33 Mil/uL (4.40-5.90); RED CELL DISTRIBUTION WIDTH 14.1 % (11.5-14.5); WHITE BLOOD COUNT 5.7 K/uL (4.8-10.8)
[2018-03-29 06:45] LABS: HEMOGLOBIN 6.3 g/dL (12.0-18.0)
[2018-03-29 07:06] LABS: ALB/GLOB RATIO 1.5 (1.0-2.1); ALBUMIN 3.6 g/dL (3.5-5.0); CALCIUM 6.7 mg/dl (8.6-10.4)
[2018-03-29 10:43] LABS: LIPASE 1149 U/L (23-300)
--- NOTE | 2018-03-29 11:09 | CP.PCM.PN ---
Subjective - Date & Time of Evaluation Date of Evaluation: 03/29/18 Time of Evaluation: 11:06 - Subjective Subjective: still has abd pain no vomiting severe aneamia geting dialysis now Objective - Vital Signs/Intake and Output Vital Signs (last 24 hours): Temp Pulse Resp BP Pulse Ox 98.2 F 78 18 157/79 H 99 03/29/18 11:02 03/29/18 11:02 03/29/18 11:02 03/29/18 11:02 03/29/18 09:50 Intake and Output: 03/29/18 03/29/18 06:59 18:59 Intake Total 880 0 Output Total 0 Balance 880 0 - Medications Medications: Current Medications Acetaminophen (Tylenol 325mg Tab) 650 mg PO Q6 PRN PRN Reason: Pain, moderate (4-7) Last Admin: 03/28/18 14:11 Dose: 650 mg Amlodipine Besylate (Norvasc) 10 mg PO DAILY [facility] Last Admin: 03/28/18 17:37 Dose: 10 mg Calcium Acetate (Phoslo) 1,334 mg PO TIDCC [facility] Last Admin: 03/29/18 10:22 Dose: 1,334 mg Docusate Sodium (Colace) 100 mg PO BID PRN PRN Reason: Constipation Last Admin: 03/29/18 10:22 Dose: 100 mg Epoetin Sundar (Procrit) 10,000 unit IV TTS [facility] Last Admin: 03/28/18 15:57 Dose: 10,000 unit Meropenem 500 mg/ Sodium (Chloride) 100 mls @ 100 mls/hr IVPB Q12H [facility]; Protocol Last Admin: 03/29/18 05:37 Dose: 100 mls/hr Ferric Sodium Gluconate Complex 125 mg/ Sodium Chloride 110 mls @ 110 mls/hr IVPB Q24H [facility] Stop: 04/04/18 17:01 Metoprolol Tartrate (Lopressor) 100 mg PO BID [facility] Last Admin: 03/29/18 10:22 Dose: 100 mg Oxycodone HCl (Oxycodone Immediate Release Tab) 15 mg PO Q4 PRN PRN Reason: Pain, moderate (4-7) Last Admin: 03/29/18 04:16 Dose: 15 mg Vitamin B Complex/Vit C/Folic Acid (Nephro-Edilberto) 1 tab PO 0800 [facility] - Labs Labs: 03/29/18 06:24 03/29/18 06:21 - Constitutional Appears: In Acute Distress - Head Exam Head Exam: ATRAUMATIC - Eye Exam Eye Exam: Normal appearance Pupil Exam: NORMAL ACCOMODATION, PERRL - ENT Exam ENT Exam: Normal Exam - Neck Exam Neck Exam: Full ROM - Respiratory Exam Respiratory Exam: Decreased Breath Sounds - Cardiovascular Exam Cardiovascular Exam: REGULAR RHYTHM - GI/Abdominal Exam GI & Abdominal Exam: Tenderness - Extremities Exam Extremities Exam: Normal Inspection - Back Exam Back Exam: NORMAL INSPECTION - Neurological Exam Neurological Exam: Awake, Oriented x3 - Psychiatric Exam Psychiatric exam: Normal Affect - Skin Skin Exam: Pallor Assessment and Plan - Assessment and Plan (Free Text) Assessment: ac pancreatitis severe aneamia require transfusion esrf spinabifida Plan: cont as per icu orders
[2018-03-29 11:16] LABS: HEPATITIS B SURFACE AG Negative (NEGATIVE)
[2018-03-29 11:21] LABS: HEPATITIS B CORE AB NEGATIVE (NEGATIVE)
[2018-03-29] MEDS: Multivitamin Vitamin B Complex (Nephro-Vite) Tab PO SCH (11:28)
[2018-03-29 11:34] LABS: HEPATITIS C ANTIBODY NEGATIVE (NEGATIVE)
--- NOTE | 2018-03-29 12:11 | CP.CCUPN ---
<Srinivasan Colmenares - Last Filed: 03/29/18 15:06> CCU Subjective - Physician Review Subjective (Free Text): PGY-1 ICU progress note for Dr Price Patient is seen and examined at bedside. Patient states feeling well today. Had one episode of nausea, and heartburn earlier today, states he gets it when not eating anything, as patient is NPO. Denies dizziness, weakness, palpitations, nausea, vomiting, diarrhea, constipation. continues to self catheterize. no other complaints at this time. Critical Care Time Spent (in minutes): 35 CCU Objective - Vital Signs / Intake & Output Vital Signs (Last 4 hours): Vital Signs Temp Pulse Pulse Resp BP BP Pulse Ox 03/29/18 12:05 70 17 146/81 03/29/18 11:50 146/85 03/29/18 11:40 97.9 F 73 73 14 139/83 139/83 03/29/18 11:32 98.2 F 70 18 143/82 03/29/18 11:17 98.3 F 72 76 18 142/75 142/75 100 03/29/18 11:02 98.2 F 78 78 18 157/79 H 157/79 H 03/29/18 11:00 81 18 99 03/29/18 10:58 79 20 157/79 H 100 03/29/18 10:50 156/81 H 03/29/18 10:43 83 16 156/81 H 100 03/29/18 10:35 81 17 156/85 H 03/29/18 10:28 88 18 156/85 H 100 03/29/18 10:20 148/79 03/29/18 10:13 76 18 148/79 98 03/29/18 10:07 74 17 147/84 99 03/29/18 10:05 147/84 03/29/18 10:00 79 15 100 03/29/18 09:52 75 16 138/83 100 03/29/18 09:50 98.3 F 75 14 138/83 99 03/29/18 09:45 98.3 F 75 14 130/78 03/29/18 09:07 73 15 141/82 98 03/29/18 09:00 73 14 98 Intake and Output (Last 8hrs): Intake & Output 03/28/18 03/29/18 03/29/18 22:59 06:59 14:59 Intake Total 1125 780 525 Output Total 275 0 Balance 850 780 525 Weight 171 lb 8.314 oz 184 lb Intake: Intake, IV Amount 500 100 100 Left Forearm 500 100 100 Tube Feeding 200 680 100 Blood Product 325 325 Red Blood Cells Cpd As1 325 Lr Unit [id number] Red Blood Cells Cpd As1 325 Lr Unit [id number] Other 100 Red Blood Cells Cpd As1 100 Lr Unit [id number] Output: Urine 275 0 Straight 275 0 Other: # Bowel Movements 0 0 - Physical Exam Head: Positive for: Atraumatic, Normocephalic Pupils: Positive for: PERRL Extroacular Muscles: Positive for: EOMI Conjunctiva: Positive for: Normal Mouth: Positive for: Moist Mucous Membranes Neck: Positive for: Normal Range of Motion Respiratory/Chest: Positive for: Clear to Auscultation, Decreased Breath Sounds (right lower quadrant). Negative for: Respiratory Distress, Wheezes, Retracting, Rhonchi Cardiovascular: Positive for: Regular Rate and Rhythm, Normal S1, S2. Negative for: Irregular Rhythm, Tachycardic, Bradycardic Abdomen: Positive for: Tenderness (right upper quadrant, epigastric and umbilical area tenderness to palpation ), Guarding. Negative for: Distention Back: Positive for: Other (healed incision lower lumbar area L3-L4). Negative for: CVA Tenderness Upper Extremity: Positive for: Normal Inspection. Negative for: Cyanosis, Edema Lower Extremity: Positive for: Normal Inspection. Negative for: Edema Neurological: Positive for: GCS=15, CN II-XII Intact, Speech Normal Skin: Positive for: Warm, Dry, Normal Color Psychiatric: Positive for: Alert, Oriented x 3, Normal Insight, Normal Concentration - Medications Active Medications: Active Medications Generic Name Dose Route Start Last Admin Trade Name Freq PRN Reason Stop Dose Admin Acetaminophen 650 mg 03/28/18 13:44 03/28/18 14:11 Tylenol 325mg Tab PO 650 mg Q6 PRN Administration Pain, moderate (4-7) Amlodipine Besylate 10 mg 03/28/18 16:00 03/28/18 17:37 Norvasc PO 10 mg DAILY SIMONE Administration Calcium Acetate 1,334 mg 03/28/18 17:00 03/29/18 10:22 Phoslo PO 1,334 mg TIDCC SIMONE Administration Docusate Sodium 100 mg 03/28/18 15:54 03/29/18 10:22 Colace PO 100 mg BID PRN Administration Constipation Epoetin Sundar 10,000 unit 03/28/18 15:00 03/28/18 15:57 Procrit IV 10,000 unit TTS SIMONE Administration Meropenem 500 mg/ Sodium 100 mls @ 100 mls/hr 03/28/18 17:30 03/29/18 05:37 Chloride IVPB 100 mls/hr Q12H SIMONE Administration Protocol Ferric Sodium Gluconate 110 mls @ 110 mls/hr 03/29/18 17:00 Complex 125 mg/ Sodium IVPB 04/04/18 17:01 Chloride Q24H SIMONE Metoprolol Tartrate 100 mg 03/28/18 18:00 03/29/18 10:22 Lopressor PO 100 mg BID SIMONE Administration Oxycodone HCl 15 mg 03/28/18 18:30 03/29/18 04:16 Oxycodone Immediate Release Tab PO 15 mg Q4 PRN Administration Pain, moderate (4-7) Vitamin B Complex/Vit C/Folic Acid 1 tab 03/29/18 08:00 03/29/18 11:28 Nephro-Edilberto PO Not Given 0800 SIMONE - Patient Studies Lab Studies: Microbiology Studies 03/28/18 09:44 Urine Culture - Preliminary Urine Random Gram Negative D[place]rell Lab Studies 03/29/18 03/29/18 03/29/18 Range/Units 10:05 10:03 06:24 WBC 5.7 (4.8-10.8) K/uL RBC 2.33 L (4.40-5.90) Mil/uL Hgb 6.3 L* (12.0-18.0) g/dL Hct 18.1 L (35.0-51.0) % MCV 77.9 L (80.0-94.0) fL MCH 27.3 (27.0-31.0) pg MCHC 35.0 (33.0-37.0) g/dL RDW 14.1 (11.5-14.5) % Plt Count 158 (130-400) K/uL MPV 7.7 (7.2-11.7) fL Neut % (Auto) 56.3 (50.0-75.0) % Lymph % (Auto) 27.1 (20.0-40.0) % Mcnairy % (Auto) 13.9 H (0.0-10.0) % Eos % (Auto) 2.0 (0.0-4.0) % Baso % (Auto) 0.7 (0.0-2.0) % Neut # (Auto) 3.2 (1.8-7.0) K/uL Lymph # (Auto) 1.6 (1.0-4.3) K/uL Mcnairy # (Auto) 0.8 (0.0-0.8) K/uL Eos # (Auto) 0.1 (0.0-0.7) K/uL Baso # (Auto) 0.0 (0.0-0.2) K/uL Sodium (132-148) mmol/L Potassium (3.6-5.2) mmol/L Chloride (98-107) mmol/L Carbon Dioxide (22-30) mmol/L Anion Gap (10-20) BUN (9-20) mg/dL Creatinine (0.8-1.5) mg/dL Est GFR ( Amer) Est GFR (Non-Af Amer) Random Glucose (75-110) mg/dL Calcium (8.6-10.4) mg/dl Phosphorus (2.5-4.5) mg/dL Magnesium (1.6-2.3) mg/dL Iron (49-181) ug/dL TIBC (250-450) ug/dL % Saturation (20-55) Transferrin (206-381) mg/dL Ferritin ng/mL Total Bilirubin (0.2-1.3) mg/dL AST (17-59) U/L ALT (21-72) U/L Alkaline Phosphatase (38-126) U/L Total Protein (6.3-8.3) g/dL Albumin (3.5-5.0) g/dL Globulin (2.2-3.9) gm/dL Albumin/Globulin Ratio (1.0-2.1) Lipase 1149 H (23-300) U/L Vitamin B12 (239-931) pg/mL Folate ng/mL Hep Bs Antigen Negative (NEGATIVE) Hep B Core IgM Ab Negative (NEGATIVE) Hepatitis C Antibody Negative (NEGATIVE) Blood Type Antibody Screen 03/29/18 03/28/18 03/28/18 Range/Units 06:21 12:10 11:35 WBC (4.8-10.8) K/uL RBC (4.40-5.90) Mil/uL Hgb (12.0-18.0) g/dL Hct (35.0-51.0) % MCV (80.0-94.0) fL MCH (27.0-31.0) pg MCHC (33.0-37.0) g/dL RDW (11.5-14.5) % Plt Count (130-400) K/uL MPV (7.2-11.7) fL Neut % (Auto) (50.0-75.0) % Lymph % (Auto) (20.0-40.0) % Mcnairy % (Auto) (0.0-10.0) % Eos % (Auto) (0.0-4.0) % Baso % (Auto) (0.0-2.0) % Neut # (Auto) (1.8-7.0) K/uL Lymph # (Auto) (1.0-4.3) K/uL Mcnairy # (Auto) (0.0-0.8) K/uL Eos # (Auto) (0.0-0.7) K/uL Baso # (Auto) (0.0-0.2) K/uL Sodium 132 (132-148) mmol/L Potassium 3.8 (3.6-5.2) mmol/L Chloride 96 L (98-107) mmol/L Carbon Dioxide 17 L (22-30) mmol/L Anion Gap 23 H (10-20) BUN 144 H* D (9-20) mg/dL Creatinine 21.8 H* D (0.8-1.5) mg/dL Est GFR ( Amer) 3 Est GFR (Non-Af Amer) 3 Random Glucose 100 (75-110) mg/dL Calcium 6.7 L (8.6-10.4) mg/dl Phosphorus (2.5-4.5) mg/dL Magnesium 2.3 (1.6-2.3) mg/dL Iron 83 (49-181) ug/dL TIBC 234 L (250-450) ug/dL % Saturation 36 (20-55) Transferrin 166.10 L (206-381) mg/dL Ferritin ng/mL Total Bilirubin 0.5 (0.2-1.3) mg/dL AST 15 L (17-59) U/L ALT 25 (21-72) U/L Alkaline Phosphatase 73 (38-126) U/L Total Protein 6.1 L (6.3-8.3) g/dL Albumin 3.6 (3.5-5.0) g/dL Globulin 2.5 (2.2-3.9) gm/dL Albumin/Globulin Ratio 1.5 (1.0-2.1) Lipase (23-300) U/L Vitamin B12 (239-931) pg/mL Folate ng/mL Hep Bs Antigen (NEGATIVE) Hep B Core IgM Ab (NEGATIVE) Hepatitis C Antibody (NEGATIVE) Blood Type Antibody Screen 03/28/18 03/28/18 Range/Units 11:35 10:26 WBC (4.8-10.8) K/uL RBC (4.40-5.90) Mil/uL Hgb (12.0-18.0) g/dL Hct (35.0-51.0) % MCV (80.0-94.0) fL MCH (27.0-31.0) pg MCHC (33.0-37.0) g/dL RDW (11.5-14.5) % Plt Count (130-400) K/uL MPV (7.2-11.7) fL Neut % (Auto) (50.0-75.0) % Lymph % (Auto) (20.0-40.0) % Mcnairy % (Auto) (0.0-10.0) % Eos % (Auto) (0.0-4.0) % Baso % (Auto) (0.0-2.0) % Neut # (Auto) (1.8-7.0) K/uL Lymph # (Auto) (1.0-4.3) K/uL Mcnairy # (Auto) (0.0-0.8) K/uL Eos # (Auto) (0.0-0.7) K/uL Baso # (Auto) (0.0-0.2) K/uL Sodium 131 L (132-148) mmol/L Potassium 5.5 H (3.6-5.2) mmol/L Chloride 95 L (98-107) mmol/L Carbon Dioxide 9 L* D (22-30) mmol/L Anion Gap 32 H (10-20) BUN 198 H* (9-20) mg/dL Creatinine 32.0 H* (0.8-1.5) mg/dL Est GFR ( Amer) 2 Est GFR (Non-Af Amer) 2 Random Glucose 116 H (75-110) mg/dL Calcium 7.1 L (8.6-10.4) mg/dl Phosphorus 12.9 H (2.5-4.5) mg/dL Magnesium 2.5 H (1.6-2.3) mg/dL Iron (49-181) ug/dL TIBC (250-450) ug/dL % Saturation (20-55) Transferrin (206-381) mg/dL Ferritin 276.0 ng/mL Total Bilirubin (0.2-1.3) mg/dL AST (17-59) U/L ALT (21-72) U/L Alkaline Phosphatase (38-126) U/L Total Protein (6.3-8.3) g/dL Albumin (3.5-5.0) g/dL Globulin (2.2-3.9) gm/dL Albumin/Globulin Ratio (1.0-2.1) Lipase (23-300) U/L Vitamin B12 642 (239-931) pg/mL Folate > 20.0 ng/mL Hep Bs Antigen (NEGATIVE) Hep B Core IgM Ab (NEGATIVE) Hepatitis C Antibody (NEGATIVE) Blood Type O POSITIVE Antibody Screen Negative Laboratory Results - last 24 hr 03/28/18 03/28/18 03/28/18 10:26 11:35 11:35 WBC RBC Hgb Hct MCV MCH MCHC RDW Plt Count MPV Neut % (Auto) Lymph % (Auto) Mcnairy % (Auto) Eos % (Auto) Baso % (Auto) Neut # (Auto) Lymph # (Auto) Mcnairy # (Auto) Eos # (Auto) Baso # (Auto) Sodium 131 L Potassium 5.5 H Chloride 95 L Carbon Dioxide 9 L* D Anion Gap 32 H BUN 198 H* Creatinine 32.0 H* Est GFR ( Amer) 2 Est GFR (Non-Af Amer) 2 Random Glucose 116 H Calcium 7.1 L Phosphorus 12.9 H Magnesium 2.5 H Iron TIBC % Saturation Transferrin 166.10 L Ferritin 276.0 Total Bilirubin AST ALT Alkaline Phosphatase Total Protein Albumin Globulin Albumin/Globulin Ratio Lipase Vitamin B12 642 Folate > 20.0 Hep Bs Antigen Hep B Core IgM Ab Hepatitis C Antibody Blood Type O POSITIVE Antibody Screen Negative 03/28/18 03/29/18 03/29/18 12:10 06:21 06:24 WBC 5.7 RBC 2.33 L Hgb 6.3 L* Hct 18.1 L MCV 77.9 L MCH 27.3 MCHC 35.0 RDW 14.1 Plt Count 158 MPV 7.7 Neut % (Auto) 56.3 Lymph % (Auto) 27.1 Mcnairy % (Auto) 13.9 H Eos % (Auto) 2.0 Baso % (Auto) 0.7 Neut # (Auto) 3.2 Lymph # (Auto) 1.6 Mcnairy # (Auto) 0.8 Eos # (Auto) 0.1 Baso # (Auto) 0.0 Sodium 132 Potassium 3.8 Chloride 96 L Carbon Dioxide 17 L Anion Gap 23 H BUN 144 H* D Creatinine 21.8 H* D Est GFR ( Amer) 3 Est GFR (Non-Af Amer) 3 Random Glucose 100 Calcium 6.7 L Phosphorus Magnesium 2.3 Iron 83 TIBC 234 L % Saturation 36 Transferrin Ferritin Total Bilirubin 0.5 AST 15 L ALT 25 Alkaline Phosphatase 73 Total Protein 6.1 L Albumin 3.6 Globulin 2.5 Albumin/Globulin Ratio 1.5 Lipase Vitamin B12 Folate Hep Bs Antigen Hep B Core IgM Ab Hepatitis C Antibody Blood Type Antibody Screen 03/29/18 03/29/18 10:03 10:05 WBC RBC Hgb Hct MCV MCH MCHC RDW Plt Count MPV Neut % (Auto) Lymph % (Auto) Mcnairy % (Auto) Eos % (Auto) Baso % (Auto) Neut # (Auto) Lymph # (Auto) Mcnairy # (Auto) Eos # (Auto) Baso # (Auto) Sodium Potassium Chloride Carbon Dioxide Anion Gap BUN Creatinine Est GFR ( Amer) Est GFR (Non-Af Amer) Random Glucose Calcium Phosphorus Magnesium Iron TIBC % Saturation Transferrin Ferritin Total Bilirubin AST ALT Alkaline Phosphatase Total Protein Albumin Globulin Albumin/Globulin Ratio Lipase 1149 H Vitamin B12 Folate Hep Bs Antigen Negative Hep B Core IgM Ab Negative Hepatitis C Antibody Negative Blood Type Antibody Screen Radiology Impressions: Radiology Impressions Abdomen Ultrasound 03/28/18 10:23 IMPRESSION: Echogenic liver may be seen in setting of hepatic parenchymal disease or fatty infiltration. Gallbladder wall thickening/pericholecystic edema. No gallstones or gallbladder sludge identified. Negative sonographic Salcido's sign as assessed by the motion and time study teacher. Moderate to severe bilateral hydronephrosis. No obstructing calculi identified. Splenomegaly. Incidental note is made of right pleural effusion. Critical Care Progress Note - Nutrition Nutrition: Nutrition Category Date Time Status NPO Diet [DIET] Diets 03/28/18 Dinner Active Assessment/Plan - Assessment and Plan (Free Text) Plan: patient is 22 year old male with pmhx od spina bidifa, neurogenic bladder, HTN, CKD, chronic obstructive uropathy, multiple UTI, PNA came to ER today complaining of daily vomiting x 1 week, nausea, right upperquadrant and umbilical area pain and right flank side pain. Patient self catheterize and has had multiple UTI. Ed labs show hyperurecemia, pancreatitis with elevated lipase, matured AVF, started HD first dose 03/28, anemia received PRBCs during dialysis, to receive HD today, PRBCs, pending CT scan abd/pelvis due to repeat lipase continue to be elevated. Neuro AAOx 3 no acute issues Cardio HTN On tele controlled BP - cont to monitor home meds Norvasc and metoprolol Pulm Mild pulmonary congestion, cardiomegaly On HD for fluid removal no further issues GI U/S - gallbladder thickening, pericholec edema repeat lipase continues to be elevated at 1149 from 1350 prev day, T bili normal RUQ pain, epigastric pain CT Abdomen/pelvis with contrast - f/u results Colace for constipation Continue NPO except meds heartburn - 1 pepcid dose Nausea - Zofran x 1 dose Renal u/s hydronephrosis 1x HD dose for first time yesterday BUN/Cr improved but remains high 2nd HD today f/u CMP Na and potassium improved this morning, CO2 improved as well HD today and tomorrow Dr Perez on case Nephro - Dr Perez continue to self catheterize himself Heme Anemia, slightly improved but remains low Iron panel Check CBC Blood given today IV iron PRBC as needed Procrit ID U/A + LE, + WBC, +1 Blood Previous Urine cultures shows Kleb Pneumonia and Ecoli - sensitive to Borad spectrum antibiotics ucx - gram negative dontrell - pending sensitivities no WBC, afebrile bcx - no growth x 24 hours Meropenem Q12 IVPB ID- Dr Pitts PPX GI not indicated at this time DVT- SCDs, Heparin SC 5000 Q12H Oxycodone 15mg PO Q4 PRN for severe pain Tylenol Q6 PRN for moderate pain Plan discuss with Dr Albert Colmenares, PGY-1 - Date & Time Date: 03/29/18 Time: 13:00 <Chris Price - Last Filed: 03/29/18 17:43> CCU Objective - Vital Signs / Intake & Output Vital Signs (Last 4 hours): Vital Signs Temp Pulse Resp BP Pulse Ox 03/29/18 16:00 98.4 F 72 19 98 03/29/18 15:29 78 19 138/78 03/29/18 15:00 78 17 97 03/29/18 14:58 75 17 124/73 98 03/29/18 14:43 70 17 145/77 98 03/29/18 14:28 77 19 135/75 03/29/18 14:13 77 18 134/79 98 03/29/18 14:00 71 20 94 L 03/29/18 13:58 71 18 138/76 95 03/29/18 13:43 82 17 144/81 97 03/29/18 13:28 71 19 147/80 94 L 03/29/18 13:13 79 17 153/86 H 99 03/29/18 13:00 79 21 97 03/29/18 12:58 79 24 145/91 H 97 03/29/18 12:43 77 17 153/97 H 98 03/29/18 12:28 73 16 154/91 H 99 Intake and Output (Last 8hrs): Intake & Output 03/29/18 03/29/18 03/29/18 06:59 14:59 22:59 Intake Total 780 845 Output Total 0 400 Balance 780 445 Weight 184 lb Intake: Intake, IV Amount 100 Left Forearm 100 Oral 420 Tube Feeding 680 100 Blood Product 325 Red Blood Cells Cpd As1 325 Lr Unit [id number] Output: Urine 0 400 Straight 0 400 Other: # Bowel Movements 0 - Medications Active Medications: Active Medications Generic Name Dose Route Start Last Admin Trade Name Freq PRN Reason Stop Dose Admin Acetaminophen 650 mg 03/28/18 13:44 03/28/18 14:11 Tylenol 325mg Tab PO 650 mg Q6 PRN Administration Pain, moderate (4-7) Amlodipine Besylate 10 mg 03/28/18 16:00 03/29/18 12:18 Norvasc PO 10 mg DAILY SIMONE Administration Calcium Acetate 1,334 mg 03/28/18 17:00 03/29/18 12:21 Phoslo PO 1,334 mg TIDCC SIMONE Administration Docusate Sodium 100 mg 03/28/18 15:54 03/29/18 10:22 Colace PO 100 mg BID PRN Administration Constipation Epoetin Sundar 10,000 unit 03/28/18 15:00 03/28/18 15:57 Procrit IV 10,000 unit TTS SIMONE Administration Meropenem 500 mg/ Sodium 100 mls @ 100 mls/hr 03/28/18 17:30 03/29/18 05:37 Chloride IVPB 100 mls/hr Q12H [facility] Administration Protocol Ferric Sodium Gluconate 110 mls @ 110 mls/hr 03/29/18 17:00 Complex 125 mg/ Sodium IVPB 04/04/18 17:01 Chloride Q24H [facility] Metoprolol Tartrate 100 mg 03/28/18 18:00 03/29/18 10:22 Lopressor PO 100 mg BID SIMONE Administration Oxycodone HCl 15 mg 03/28/18 18:30 03/29/18 12:13 Oxycodone Immediate Release Tab PO 15 mg Q4 PRN Administration Pain, moderate (4-7) Vitamin B Complex/Vit C/Folic Acid 1 tab 03/29/18 08:00 03/29/18 11:28 Nephro-Edilberto PO Not Given 0800 SIMONE - Patient Studies Lab Studies: Microbiology Studies 03/28/18 13:29 Blood Culture - Preliminary Blood-Venous NO GROWTH AFTER 24 HOURS 03/28/18 13:29 Blood Culture - Preliminary Blood-Venous NO GROWTH AFTER 24 HOURS 03/28/18 09:44 Urine Culture - Preliminary Urine Random Gram Negative [place] Lab Studies 03/29/18 03/29/18 03/29/18 Range/Units 10:05 10:03 10:03 WBC (4.8-10.8) K/uL RBC (4.40-5.90) Mil/uL Hgb (12.0-18.0) g/dL Hct (35.0-51.0) % MCV (80.0-94.0) fL MCH (27.0-31.0) pg MCHC (33.0-37.0) g/dL RDW (11.5-14.5) % Plt Count (130-400) K/uL MPV (7.2-11.7) fL Neut % (Auto) (50.0-75.0) % Lymph % (Auto) (20.0-40.0) % Mcnairy % (Auto) (0.0-10.0) % Eos % (Auto) (0.0-4.0) % Baso % (Auto) (0.0-2.0) % Neut # (Auto) (1.8-7.0) K/uL Lymph # (Auto) (1.0-4.3) K/uL Mcnairy # (Auto) (0.0-0.8) K/uL Eos # (Auto) (0.0-0.7) K/uL Baso # (Auto) (0.0-0.2) K/uL Sodium (132-148) mmol/L Potassium (3.6-5.2) mmol/L Chloride (98-107) mmol/L Carbon Dioxide (22-30) mmol/L Anion Gap (10-20) BUN (9-20) mg/dL Creatinine (0.8-1.5) mg/dL Est GFR ( Amer) Est GFR (Non-Af Amer) Random Glucose (75-110) mg/dL Calcium (8.6-10.4) mg/dl Magnesium (1.6-2.3) mg/dL Total Bilirubin (0.2-1.3) mg/dL AST (17-59) U/L ALT (21-72) U/L Alkaline Phosphatase (38-126) U/L Total Protein (6.3-8.3) g/dL Albumin (3.5-5.0) g/dL Globulin (2.2-3.9) gm/dL Albumin/Globulin Ratio (1.0-2.1) Lipase 1149 H (23-300) U/L Hep Bs Antigen Negative (NEGATIVE) Hep Bs Antibody Indeterminate (NEGATIVE) Hep B Core IgM Ab Negative (NEGATIVE) Hepatitis C Antibody Negative (NEGATIVE) Blood Type Antibody Screen 03/29/18 03/29/18 03/28/18 Range/Units 06:24 06:21 10:26 WBC 5.7 (4.8-10.8) K/uL RBC 2.33 L (4.40-5.90) Mil/uL Hgb 6.3 L* (12.0-18.0) g/dL Hct 18.1 L (35.0-51.0) % MCV 77.9 L (80.0-94.0) fL MCH 27.3 (27.0-31.0) pg MCHC 35.0 (33.0-37.0) g/dL RDW 14.1 (11.5-14.5) % Plt Count 158 (130-400) K/uL MPV 7.7 (7.2-11.7) fL Neut % (Auto) 56.3 (50.0-75.0) % Lymph % (Auto) 27.1 (20.0-40.0) % Mcnairy % (Auto) 13.9 H (0.0-10.0) % Eos % (Auto) 2.0 (0.0-4.0) % Baso % (Auto) 0.7 (0.0-2.0) % Neut # (Auto) 3.2 (1.8-7.0) K/uL Lymph # (Auto) 1.6 (1.0-4.3) K/uL Mcnairy # (Auto) 0.8 (0.0-0.8) K/uL Eos # (Auto) 0.1 (0.0-0.7) K/uL Baso # (Auto) 0.0 (0.0-0.2) K/uL Sodium 132 (132-148) mmol/L Potassium 3.8 (3.6-5.2) mmol/L Chloride 96 L (98-107) mmol/L Carbon Dioxide 17 L (22-30) mmol/L Anion Gap 23 H (10-20) BUN 144 H* D (9-20) mg/dL Creatinine 21.8 H* D (0.8-1.5) mg/dL Est GFR ( Amer) 3 Est GFR (Non-Af Amer) 3 Random Glucose 100 (75-110) mg/dL Calcium 6.7 L (8.6-10.4) mg/dl Magnesium 2.3 (1.6-2.3) mg/dL Total Bilirubin 0.5 (0.2-1.3) mg/dL AST 15 L (17-59) U/L ALT 25 (21-72) U/L Alkaline Phosphatase 73 (38-126) U/L Total Protein 6.1 L (6.3-8.3) g/dL Albumin 3.6 (3.5-5.0) g/dL Globulin 2.5 (2.2-3.9) gm/dL Albumin/Globulin Ratio 1.5 (1.0-2.1) Lipase (23-300) U/L Hep Bs Antigen (NEGATIVE) Hep Bs Antibody (NEGATIVE) Hep B Core IgM Ab (NEGATIVE) Hepatitis C Antibody (NEGATIVE) Blood Type O POSITIVE Antibody Screen Negative Laboratory Results - last 24 hr 03/28/18 03/29/18 03/29/18 10:26 06:21 06:24 WBC 5.7 RBC 2.33 L Hgb 6.3 L* Hct 18.1 L MCV 77.9 L MCH 27.3 MCHC 35.0 RDW 14.1 Plt Count 158 MPV 7.7 Neut % (Auto) 56.3 Lymph % (Auto) 27.1 Mcnairy % (Auto) 13.9 H Eos % (Auto) 2.0 Baso % (Auto) 0.7 Neut # (Auto) 3.2 Lymph # (Auto) 1.6 Mcnairy # (Auto) 0.8 Eos # (Auto) 0.1 Baso # (Auto) 0.0 Sodium 132 Potassium 3.8 Chloride 96 L Carbon Dioxide 17 L Anion Gap 23 H BUN 144 H* D Creatinine 21.8 H* D Est GFR ( Amer) 3 Est GFR (Non-Af Amer) 3 Random Glucose 100 Calcium 6.7 L Magnesium 2.3 Total Bilirubin 0.5 AST 15 L ALT 25 Alkaline Phosphatase 73 Total Protein 6.1 L Albumin 3.6 Globulin 2.5 Albumin/Globulin Ratio 1.5 Lipase Hep Bs Antigen Hep Bs Antibody Hep B Core IgM Ab Hepatitis C Antibody Blood Type O POSITIVE Antibody Screen Negative 03/29/18 03/29/18 03/29/18 10:03 10:03 10:05 WBC RBC Hgb Hct MCV MCH MCHC RDW Plt Count MPV Neut % (Auto) Lymph % (Auto) [place]nairy % (Auto) Eos % (Auto) Baso % (Auto) Neut # (Auto) Lymph # (Auto) Mcnairy # (Auto) Eos # (Auto) Baso # (Auto) Sodium Potassium Chloride Carbon Dioxide Anion Gap BUN Creatinine Est GFR ( Amer) Est GFR (Non-Af Amer) Random Glucose Calcium Magnesium Total Bilirubin AST ALT Alkaline Phosphatase Total Protein Albumin Globulin Albumin/Globulin Ratio Lipase 1149 H Hep Bs Antigen Negative Hep Bs Antibody Indeterminate Hep B Core IgM Ab Negative Hepatitis C Antibody Negative Blood Type Antibody Screen Critical Care Progress Note - Nutrition Nutrition: Nutrition Category Date Time Status NPO Diet [DIET] Diets 03/28/18 Dinner Active Attending/Attestation - Attestation I have personally seen and examined this patient.: Yes I have fully participated in the care of the patient.: Yes I have reviewed all pertinent clinical information: Yes Notes (Text): 03/29/18 16:21 I have seen and examined the patient. Medical records, lab studies, and imaging were reviewed by me and a management plan was formulated on multidisciplinary rounds with resident Dr. Colmenares. I agree with their documented assessment and plan. abdominal imaging does show pancreatitis, will start early feeding patient. Severe obstructive uropathy with severe hydronephrosis. constipation, or neurogenic bowel, starting colace/senna. Tolerating dialysis. Critical Care Time 35 minutes. Multi-disciplinary rounds were performed with house staff, nursing, speech therapy, respiratory therapy, pharmacy and nutrition with integrated input from the primary team/attending and other consulting services. The documented time is cumulative and includes review of patient data/exams/labs/chart review and examination of the patient on rounds and throughout the day; time is exclusive of any procedures or teaching time.
--- NOTE | 2018-03-29 13:10 | CP.PCM.PN ---
Subjective - Date & Time of Evaluation Date of Evaluation: 03/29/18 Time of Evaluation: 13:09 - Subjective Subjective: Nephrology Consultation Note Assessment: critical CKD 5 with uremia: ESRD started [facility] HD 03/28/18 b/l severe hydronephrosis with UTI Chronic Kidney Disease (N18.5) Stage 5 with 3 gm proteinuria (R80.9) likely due to chronic obstructive uropathy neurogenic bladder, hx of spina bifida Anemia (D64.9), Hyperphosphatemia (E83.39), Secondary Hyperparathyroidism (E21.1), HTN (I12.9), metabolic acidosis hyperkalemia ? pancreatitis chronic obstructive uropathy managed by pt as self intermittent catheterization at home Plan HD today and next session tomorrow. nephrovite 1 tab daily Hypertension control; anticipate better with dialysis and fluid removal Monitor Input/Output, daily weights and renal function with basic metabolic pa sharon added phoslo 667 mg 2 cap TID with meals started epogen. IV iron. PRBC as needed check PTH and Vit D SW consult for outpt HD placement discussed with ICU staff Dose meds/antibiotics for reduced GFR. Avoid phos based fleets enema/magnesium based laxatives. Avoid nephrotoxins/NSAIDs/ iodinated contrast (unless needed emergently) Glycemic control Further work up for as per primary team Thanks for allowing me to participate in care of your patient. Will follow patient with you. Please call if any Qs. had d/w team Dr Julio Perez Office: [phone] CC: pain abdomen SOB vomiting reason for consult: ESRD HPI: pt is a 22 M with CKD 5 due to chronic obstructive uropathy managed by pt as self intermittent catheterization at home, spina bifida neurogenic bladder came with worsening pain abdomen with SOB, nausea/vomiting x 1 week, decreased urine output also pt has been feeling sick for last 1 week. he had missed appt with me in renal clinic. 10/16/17: PD catheter was removed as intra-op showed extensive foreign body reaction and ? pelvic abscess ROS: Denies chest pain, palpitation, leg swelling. has pain abdomen . had nausea. SOB better All other negative. making less urine. self intermittent catheterization at home. Physical Examination: seen at end of dialysis General Appearance: comfortable, in no acute respiratory distress, co-operative . better appearing Vitals reviewed and noted as below Head; Atraumatic, normocephalic ENT: no ulcers no thrush. Tongue is midline. Oropharynx: no rash or ulcers. EYES: Pupils are equal, round and reactive to light accommodation. Eye muscles and extraocular movement intact. Sclera is anicteric. Neck; supple no lymphadenopathy, no thyromegaly or bruit Lungs: Normal respiratory rate/effort. Breath sounds bilateral reduced at bases Heart: Normal rate. s1s2 normal. No rub or gallop. Extremities: no edema. No varicose veins Neurological: Patient is alert, awake and oriented to person, place and time. No focal deficit. Strength bilateral appropriate and equal Skin: Warm and dry. Normal turgor. No rash. Palpitation: Normal elasticity for age Abdomen: Abdomen is soft. Bowel sounds +. There is mild epigastric abdominal tenderness, no guarding/rigidity no organomegaly. Psych: normal insight and normal affect/mood MSK: no joint tenderness or swelling. Digits and nails normal, no deformity : kidney not palpable. AVF as access Labs/imaging reviewed. Past medical history, past surgical history, family history, social history, allergy reviewed and noted as below Family hx: no hx of CKD. Rest non-contributory in past, renal imaging: b/l severe hydronephrosis Objective - Vital Signs/Intake and Output Vital Signs (last 24 hours): Temp Pulse Resp BP Pulse Ox 97.9 F 72 14 144/86 100 03/29/18 12:20 03/29/18 12:20 03/29/18 12:20 03/29/18 12:20 03/29/18 12:20 Intake and Output: 03/29/18 03/29/18 06:59 18:59 Intake Total 880 525 Output Total 0 Balance 880 525 - Medications Medications: Current Medications Acetaminophen (Tylenol 325mg Tab) 650 mg PO Q6 PRN PRN Reason: Pain, moderate (4-7) Last Admin: 03/28/18 14:11 Dose: 650 mg Amlodipine Besylate (Norvasc) 10 mg PO DAILY [facility] Last Admin: 03/29/18 12:18 Dose: 10 mg Calcium Acetate (Phoslo) 1,334 mg PO TIDCC [facility] Last Admin: 03/29/18 12:21 Dose: 1,334 mg Docusate Sodium (Colace) 100 mg PO BID PRN PRN Reason: Constipation Last Admin: 03/29/18 10:22 Dose: 100 mg Epoetin Sundar (Procrit) 10,000 unit IV TTS [facility] Last Admin: 03/28/18 15:57 Dose: 10,000 unit Meropenem 500 mg/ Sodium (Chloride) 100 mls @ 100 mls/hr IVPB Q12H [facility]; Protocol Last Admin: 03/29/18 05:37 Dose: 100 mls/hr Ferric Sodium Gluconate Complex 125 mg/ Sodium Chloride 110 mls @ 110 mls/hr IVPB Q24H [facility] Stop: 04/04/18 17:01 Metoprolol Tartrate (Lopressor) 100 mg PO BID [facility] Last Admin: 03/29/18 10:22 Dose: 100 mg Oxycodone HCl (Oxycodone Immediate Release Tab) 15 mg PO Q4 PRN PRN Reason: Pain, moderate (4-7) Last Admin: 03/29/18 12:13 Dose: 15 mg Vitamin B Complex/Vit C/Folic Acid (Nephro-Edilberto) 1 tab PO 0800 [facility] Last Admin: 03/29/18 11:28 Dose: Not Given - Labs Labs: 03/29/18 06:24 03/29/18 06:21
[2018-03-29] MEDS ORDERED: Iodixanol 320 MG/ML 100 ML BOTTLE IV ONE (15:55)
--- NOTE | 2018-03-29 17:00 | CT ---
Date of service: 03/29/2018 PROCEDURE: CT Abdomen and Pelvis. HISTORY: Elevated lipase, rule out pancreatitis COMPARISON: Comparison made with prior CT scan the abdomen pelvis dated 10/10/2017. Correlation also made with abdominal ultrasound 03/28/2018. TECHNIQUE: Contiguous axial images of the abdomen and pelvis performed following intravenous injection of approximately 100 cc Visipaque 320 contrast material. Additional 2D sagittal and coronal reformats generated. Radiation dose: Total exam DLP = 843.49 mGy-cm. This CT exam was performed using one or more of the following dose reduction techniques: Automated exposure control, adjustment of the mA and/or kV according to patient size, and/or use of iterative reconstruction technique. FINDINGS: LOWER THORAX: Heart is enlarged. No significant pericardial effusion.. Head There is a small hiatal hernia. Bilateral effusions and bibasilar atelectasis right greater than left.. LIVER: Liver is enlarged measuring approximately 27 mm in CC dimension. Minimal fatty hepatic infiltration. No obvious hepatic mass collection or calcification. Portal and splenic veins are opacified. GALLBLADDER AND BILE DUCTS: There is mild gallbladder wall thickening. No evidence of intraluminal gallbladder calculi. Obvious intraluminal gallbladder calculi PANCREAS: The pancreas appears somewhat edematous with mild infiltration changes in the adjacent peripancreatic mesentery. Findings may represent acute pancreatitis. No pancreatic masses, collections or calcifications. No significant pancreatic ductal dilatation. SPLEEN: Spleen appears borderline/mildly enlarged measuring approximately 13 cm in CC dimension. No obvious splenic masses or collections. ADRENALS: No adrenal lesions. KIDNEYS AND URETERS: Kidneys demonstrate cortical atrophy with persistent moderate hydronephrosis.. There appears to be a small amount of perinephric fluid right greater than left with multiple bilateral cortical cystic changes some of which are slightly exophytic. BLADDER: Urinary bladder is incompletely distended which in part accounts for thick-walled appearance however muscular hypertrophy presumably contributes. The bladder exhibits trabeculations as well.. Cystitis and/or other intrinsic/invasive wall lesion should be excluded. Note also made of correlation with urinalysis recommended. Note also made of what probably represent bilateral bladder diverticula arising from the posterior inferior margins of the urinary bladder however the possibility of extra - vesicular bilateral ureteroceles not excluded REPRODUCTIVE: Prostate gland measures approximately 4.7 cm in transverse dimension. APPENDIX: The appendix best seen on axial series 3 image number [id number] and coronal series 601 image number [id number] appears unremarkable with no obvious surrounding inflammatory changes. BOWEL: The stomach is incompletely distended with thick-walled appearance. Visualized loops of small bowel exhibit normal contour and caliber. No evidence of acute mechanical small bowel obstruction. There is a large amount of stool seen throughout the colon consistent with fecal retention/constipation. PERITONEUM: There is a small amount of free fluid seen in the pelvis. No gross free intraperitoneal air. LYMPH NODES: Unremarkable. No enlarged lymph nodes. VASCULATURE: Unremarkable. No aortic aneurysm. No the aortic atherosclerotic calcification or mural plaque present. BONES: The vertebral bodies exhibit increased attenuation/homogeneous sclerosis suggesting sequela of renal osteodystrophy. Clinical correlation recommended. OTHER FINDINGS: None. IMPRESSION: Small right and tiny left-sided effusion with mild bibasilar atelectasis. Marked cardiomegaly. Hepatomegaly with minor fatty hepatic infiltration.. Gallbladder wall edema- thickening. No intraluminal gallbladder calculi. Borderline splenomegaly. The pancreas appears somewhat edematous with mild infiltration changes in the adjacent peripancreatic mesentery. Findings may represent acute pancreatitis. No pancreatic masses, collections or calcifications. No significant pancreatic ductal dilatation. Cortical atrophic changes with persistent moderate hydronephrosis. There appears to be a small amount of perinephric fluid right greater than left with multiple bilateral cortical cystic changes some of which are slightly exophytic. Urinary bladder wall thickening which in part is likely due to incomplete distention and muscular hypertrophy however possibility of cystitis or other intrinsic/invasive wall lesion not excluded.. Note also made of what probably represent bilateral bladder diverticula arising from the posterior inferior margins of the urinary bladder however the possibility of extra - vesicular bilateral ureteroceles not excluded. There is a small amount of free fluid seen in the pelvis. Findings consistent with constipation. Additional findings suggest renal osteodystrophy.
[2018-03-29] MEDS: Ferric Sodium Gluconat Complex 125 MG in Sodium Chloride 0.9% 100 ML IVPB SCH (17:30)
--- NOTE | 2018-03-29 18:16 | CP.PCM.PN ---
Subjective - Date & Time of Evaluation Date of Evaluation: 03/29/18 Time of Evaluation: 08:00 - Subjective Subjective: seen in ICU tolerating HD in good spirits NAd Objective - Vital Signs/Intake and Output Vital Signs (last 24 hours): Temp Pulse Resp BP Pulse Ox 98.4 F 71 19 138/78 98 03/29/18 16:00 03/29/18 16:00 03/29/18 16:00 03/29/18 15:29 03/29/18 16:00 Intake and Output: 03/29/18 03/29/18 06:59 18:59 Intake Total 880 845 Output Total 0 400 Balance 880 445 - Medications Medications: Current Medications Acetaminophen (Tylenol 325mg Tab) 650 mg PO Q6 PRN PRN Reason: Pain, moderate (4-7) Last Admin: 03/28/18 14:11 Dose: 650 mg Amlodipine Besylate (Norvasc) 10 mg PO DAILY [facility] Last Admin: 03/29/18 12:18 Dose: 10 mg Calcium Acetate (Phoslo) 1,334 mg PO TIDCC [facility] Last Admin: 03/29/18 18:04 Dose: 1,334 mg Epoetin Sundar (Procrit) 10,000 unit IV TTS [facility] Last Admin: 03/28/18 15:57 Dose: 10,000 unit Famotidine (Pepcid) 20 mg PO BID [facility] Last Admin: 03/29/18 18:05 Dose: 20 mg Meropenem 500 mg/ Sodium (Chloride) 100 mls @ 100 mls/hr IVPB Q12H [facility]; Protoc ol Last Admin: 03/29/18 17:46 Dose: 100 mls/hr Ferric Sodium Gluconate Complex 125 mg/ Sodium Chloride 110 mls @ 110 mls/hr IVPB Q24H [facility] Stop: 04/04/18 17:01 Last Admin: 03/29/18 17:30 Dose: 110 mls/hr Metoprolol Tartrate (Lopressor) 100 mg PO BID [facility] Last Admin: 03/29/18 18:03 Dose: 100 mg Oxycodone HCl (Oxycodone Immediate Release Tab) 15 mg PO Q4 PRN PRN Reason: Pain, moderate (4-7) Last Admin: 03/29/18 12:13 Dose: 15 mg Pantoprazole Sodium (Protonix Inj) 40 mg IVP DAILY [facility] Senna/Docusate Sodium (Senokot S 50 Mg-8.6 Mg) 1 tab PO BID [facility] Vitamin B Complex/Vit C/Folic Acid (Nephro-Edilberto) 1 tab PO 0800 [facility] Last Admin: 03/29/18 11:28 Dose: Not Given - Labs Labs: 03/29/18 06:24 03/29/18 06:21 - Constitutional Appears: Non-toxic, Chronically Ill - Head Exam Head Exam: NORMOCEPHALIC - Eye Exam Eye Exam: absent: Scleral icterus - ENT Exam ENT Exam: Mucous Membranes Dry - Neck Exam Neck Exam: absent: Lymphadenopathy - Respiratory Exam Respiratory Exam: Decreased Breath Sounds - Cardiovascular Exam Cardiovascular Exam: REGULAR RHYTHM - GI/Abdominal Exam GI & Abdominal Exam: Distended, Soft - Rectal Exam Rectal Exam: Deferred - Exam Exam: NORMAL INSPECTION - Extremities Exam Extremities Exam: absent: Pedal Edema Assessment and Plan (1) CKD (chronic kidney disease) Status: Acute (2) Spina bifida Status: Acute (3) UTI (urinary tract infection) Status: Acute - Assessment and Plan (Free Text) Assessment: cont rx as ordered
[2018-03-29] MEDS: Docusate-Senna 50 mg-8.6 mg Tab PO SCH (19:06)
[2018-03-29] MEDS: Mupirocin 2% Ointment (NASAL) NAS SCH (22:41)
[2018-03-29] MEDS: POLYETHYLENE GLYCOL 3350 17 GM/Dose PACKET PO SCH (22:42)
[2018-03-30] MEDS: oxyCODONE 5 mg Immediate Release Tab PO PRN ×3 (05:29→18:38)
[2018-03-30] MEDS: Meropenem 500 MG in Sodium Chloride 0.9% 100 ML IVPB SCH ×2 (05:30→17:23)
[2018-03-30 05:46] LABS: BASO # 0.1 K/uL (0.0-0.2); BASO % 0.9 % (0.0-2.0); EOS # 0.2 K/uL (0.0-0.7); EOS % 2.8 % (0.0-4.0); HEMOGLOBIN 8.1 g/dL (12.0-18.0); LYMPH % 27.9 % (20.0-40.0); MEAN CELL VOLUME 79.1 fL (80.0-94.0); MEAN CORPUSCULAR HEMOGLOBIN 27.2 pg (27.0-31.0); MEAN CORPUSCULAR HGB CONC 34.3 g/dL (33.0-37.0); MEAN PLATELET VOLUME 7.9 fL (7.2-11.7); MONO % 14.4 % (0.0-10.0); NEUT # 3.8 K/uL (1.8-7.0); RBC 2.99 Mil/uL (4.40-5.90); RED CELL DISTRIBUTION WIDTH 14.9 % (11.5-14.5)
[2018-03-30 06:27] LABS: ALB/GLOB RATIO 1.4 (1.0-2.1); ALBUMIN 3.7 g/dL (3.5-5.0); CALCIUM 7.9 mg/dl (8.6-10.4)
[2018-03-30] MEDS: Mupirocin 2% Ointment (NASAL) NAS SCH ×2 (10:04→17:24)
[2018-03-30] MEDS: Multivitamin Vitamin B Complex (Nephro-Vite) Tab PO SCH (10:05)
[2018-03-30] MEDS: Docusate-Senna 50 mg-8.6 mg Tab PO SCH ×2 (10:05→17:22)
[2018-03-30] MEDS: Epoetin Alfa 10,000 unit/ml Dialysis IV SCH (11:35)
--- NOTE | 2018-03-30 12:31 | CP.PCM.PN ---
Subjective - Date & Time of Evaluation Date of Evaluation: 03/30/18 Time of Evaluation: 12:28 - Subjective Subjective: PT STILL HAS PAIN ABD RADIATE TO THE BACK RECEIVED TRANSFUSION HAS DIALYSIS TODAY Objective - Vital Signs/Intake and Output Vital Signs (last 24 hours): Temp Pulse Resp BP Pulse Ox 98.8 F 78 17 154/92 H 98 03/30/18 09:57 03/30/18 11:45 03/30/18 11:45 03/30/18 11:45 03/30/18 09:45 Intake and Output: 03/30/18 03/30/18 06:59 18:59 Intake Total 940 50 Output Total 250 Balance 690 50 - Medications Medications: Current Medications Acetaminophen (Tylenol 325mg Tab) 650 mg PO Q6 PRN PRN Reason: Pain, moderate (4-7) Last Admin: 03/28/18 14:11 Dose: 650 mg Amlodipine Besylate (Norvasc) 10 mg PO DAILY [facility] Last Admin: 03/29/18 12:18 Dose: 10 mg Calcium Acetate (Phoslo) 1,334 mg PO TIDCC [facility] Last Admin: 03/30/18 12:06 Dose: 1,334 mg Epoetin Sundar (Procrit) 10,000 unit IV TTS [facility] Last Admin: 03/30/18 11:35 Dose: 10,000 unit Meropenem 500 mg/ Sodium (Chloride) 100 mls @ 100 mls/hr IVPB Q12H [facility]; Protocol Last Admin: 03/30/18 05:30 Dose: 100 mls/hr Ferric Sodium Gluconate Complex 125 mg/ Sodium Chloride 110 mls @ 110 mls/hr IVPB Q24H [facility] Stop: 04/04/18 17:01 Last Admin: 03/29/18 17:30 Dose: 110 mls/hr Metoprolol Tartrate (Lopressor) 100 mg PO BID [facility] Last Admin: 03/29/18 18:03 Dose: 100 mg Mupirocin (Bactroban 2% Nasal) 0.25 gm ОЛЕГ BID [facility] Last Admin: 03/30/18 10:04 Dose: 0.25 gm Oxycodone HCl (Oxycodone Immediate Release Tab) 15 mg PO Q4 PRN PRN Reason: Pain, moderate (4-7) Last Admin: 03/30/18 12:04 Dose: 15 mg Pantoprazole Sodium (Protonix Inj) 40 mg IVP DAILY [facility] Last Admin: 03/30/18 10:05 Dose: 40 mg Polyethylene Glycol (Miralax) 17 gm PO Q24H [facility] Last Admin: 03/29/18 22:42 Dose: 17 gm Senna/Docusate Sodium (Senokot S 50 Mg-8.6 Mg) 1 tab PO BID [facility] Last Admin: 03/30/18 10:05 Dose: 1 tab Vitamin B Complex/Vit C/Folic Acid (Nephro-Edilberto) 1 tab PO 0800 [facility] Last Admin: 03/30/18 10:05 Dose: 1 tab - Labs Labs: 03/30/18 05:40 03/30/18 05:40 - Constitutional Appears: Non-toxic - Head Exam Head Exam: ATRAUMATIC - Eye Exam Eye Exam: Normal appearance Pupil Exam: NORMAL ACCOMODATION - ENT Exam ENT Exam: Mucous Membranes Moist - Neck Exam Neck Exam: Normal Inspection - Respiratory Exam Respiratory Exam: NORMAL BREATHING PATTERN - Cardiovascular Exam Cardiovascular Exam: REGULAR RHYTHM - GI/Abdominal Exam GI & Abdominal Exam: Tenderness - Rectal Exam Additional comments: SPINA BIFIDA - Exam Exam: NORMAL INSPECTION - Extremities Exam Extremities Exam: Normal Inspection - Back Exam Back Exam: CVA tenderness (R) - Neurological Exam Neurological Exam: Awake, Oriented x3 - Psychiatric Exam Psychiatric exam: Normal Affect - Skin Skin Exam: Pallor Assessment and Plan - Assessment and Plan (Free Text) Assessment: ACC PANCREATITIS ESRF UTI SPINA BIFIDA Plan: PER ORDERS
--- NOTE | 2018-03-30 13:16 | CP.PCM.PN ---
Subjective - Date & Time of Evaluation Date of Evaluation: 03/30/18 Time of Evaluation: 13:14 - Subjective Subjective: Nephrology Consultation Note Assessment: critical CKD 5 with uremia: [facility] b/l severe hydronephrosis with UTI Chronic Kidney Disease (N18.5) Stage 5 with 3 gm proteinuria (R80.9) likely due to chronic obstructive uropathy neurogenic bladder, hx of spina bifida Anemia (D64.9), Hyperphosphatemia (E83.39), Secondary Hyperparathyroidism (E21.1), HTN (I12.9), metabolic acidosis hyperkalemia ? pancreatitis chronic obstructive uropathy managed by pt as self intermittent catheterization at home Plan HD today. nephrovite 1 tab daily bp relatively stable Monitor Input/Output, daily weights and renal function with basic metabolic panel continue phoslo 667 mg 2 cap TID with meals continue epogen. IV iron. PRBC as needed Physical Examination: General Appearance: NAD Vitals reviewed and noted as below Head; Atraumatic, normocephalic ENT: no ulcers no thrush. Tongue is midline. Oropharynx: no rash or ulcers. EYES: Pupils are equal, round and reactive to light accommodation. Eye muscles and extraocular movement intact. Sclera is anicteric. Neck; supple no lymphadenopathy, no thyromegaly or bruit Lungs: Normal respiratory rate/effort. Breath sounds bilateral reduced at bases Heart: Normal rate. s1s2 normal. No rub or gallop. Extremities: no edema. No varicose veins Neurological: Patient is alert, awake and oriented to person, place and time. No focal deficit. Strength bilateral appropriate and equal Skin: Warm and dry. Normal turgor. No rash. Palpitation: Normal elasticity for age Abdomen: Abdomen is soft. Psych: normal insight and normal affect/mood MSK: no joint tenderness or swelling. Digits and nails normal, no deformity : kidney not palpable. AVF as access Labs/imaging reviewed. Past medical history, past surgical history, family history, social history, allergy reviewed and noted as below Family hx: no hx of CKD. Rest non-contributory in past, renal imaging: b/l severe hydronephrosis Objective - Vital Signs/Intake and Output Vital Signs (last 24 hours): Temp Pulse Resp BP Pulse Ox 98.8 F 83 17 144/90 98 03/30/18 09:57 03/30/18 13:00 03/30/18 13:00 03/30/18 13:00 03/30/18 09:45 Intake and Output: 03/30/18 03/30/18 06:59 18:59 Intake Total 940 50 Output Total 250 Balance 690 50 - Medications Medications: Current Medications Acetaminophen (Tylenol 325mg Tab) 650 mg PO Q6 PRN PRN Reason: Pain, moderate (4-7) Last Admin: 03/28/18 14:11 Dose: 650 mg Amlodipine Besylate (Norvasc) 10 mg PO DAILY [facility] Last Admin: 03/29/18 12:18 Dose: 10 mg Calcium Acetate (Phoslo) 1,334 mg PO TIDCC [facility] Last Admin: 03/30/18 12:06 Dose: 1,334 mg Epoetin Sundar (Procrit) 10,000 unit IV TTS [facility] Last Admin: 03/30/18 11:35 Dose: 10,000 unit Meropenem 500 mg/ Sodium (Chloride) 100 mls @ 100 mls/hr IVPB Q12H [facility]; Protocol Last Admin: 03/30/18 05:30 Dose: 100 mls/hr Ferric Sodium Gluconate Complex 125 mg/ Sodium Chloride 110 mls @ 110 mls/hr IVPB Q24H [facility] Stop: 04/04/18 17:01 Last Admin: 03/29/18 17:30 Dose: 110 mls/hr Metoprolol Tartrate (Lopressor) 100 mg PO BID [facility] Last Admin: 03/29/18 18:03 Dose: 100 mg Mupirocin (Bactroban 2% Nasal) 0.25 gm ОЛЕГ BID [facility] Last Admin: 03/30/18 10:04 Dose: 0.25 gm Oxycodone HCl (Oxycodone Immediate Release Tab) 15 mg PO Q4 PRN PRN Reason: Pain, moderate (4-7) Last Admin: 03/30/18 12:04 Dose: 15 mg Pantoprazole Sodium (Protonix Inj) 40 mg IVP DAILY [facility] Last Admin: 03/30/18 10:05 Dose: 40 mg Polyethylene Glycol (Miralax) 17 gm PO Q24H [facility] Last Admin: 03/29/18 22:42 Dose: 17 gm Senna/Docusate Sodium (Senokot S 50 Mg-8.6 Mg) 1 tab PO BID [facility] Last Admin: 03/30/18 10:05 Dose: 1 tab Vitamin B Complex/Vit C/Folic Acid (Nephro-Edilberto) 1 tab PO 0800 [facility] Last Admin: 03/30/18 10:05 Dose: 1 tab - Labs Labs: 03/30/18 05:40 03/30/18 05:40
[2018-03-30] MEDS: Ferric Sodium Gluconat Complex 125 MG in Sodium Chloride 0.9% 100 ML IVPB SCH (17:24)
--- NOTE | 2018-03-30 18:29 | CARD ---
APPROVED REPORT Date of service: 03/28/2018 EKG Measurement Heart [id number] <Conclusion> Sinus rhythm with 1st degree AV block Left ventricular hypertrophy with repolarization abnormality Abnormal ECG
[2018-03-30] MEDS: POLYETHYLENE GLYCOL 3350 17 GM/Dose PACKET PO SCH (18:34)
[2018-03-31] MEDS: oxyCODONE 5 mg Immediate Release Tab PO PRN ×4 (00:41→23:26)
[2018-03-31] MEDS: Meropenem 500 MG in Sodium Chloride 0.9% 100 ML IVPB SCH (05:01)
[2018-03-31 06:26] LABS: BASO % 0.7 % (0.0-2.0); EOS # 0.3 K/uL (0.0-0.7); EOS % 4.4 % (0.0-4.0); HEMOGLOBIN 8.5 g/dL (12.0-18.0); LYMPH # 1.5 K/uL (1.0-4.3); LYMPH % 24.7 % (20.0-40.0); MEAN CELL VOLUME 78.9 fL (80.0-94.0); MEAN CORPUSCULAR HEMOGLOBIN 26.8 pg (27.0-31.0); MEAN PLATELET VOLUME 7.7 fL (7.2-11.7); MONO # 1.2 K/uL (0.0-0.8); MONO % 19.6 % (0.0-10.0); NEUT % 50.6 % (50.0-75.0); RBC 3.17 Mil/uL (4.40-5.90); RED CELL DISTRIBUTION WIDTH 14.6 % (11.5-14.5); WHITE BLOOD COUNT 5.9 K/uL (4.8-10.8)
[2018-03-31 06:59] LABS: ALB/GLOB RATIO 1.3 (1.0-2.1); ALBUMIN 3.5 g/dL (3.5-5.0); CALCIUM 7.6 mg/dl (8.6-10.4)
[2018-03-31] MEDS: Multivitamin Vitamin B Complex (Nephro-Vite) Tab PO SCH (08:15)
[2018-03-31] MEDS: Docusate-Senna 50 mg-8.6 mg Tab PO SCH ×2 (09:13→17:38)
[2018-03-31] MEDS: Mupirocin 2% Ointment (NASAL) NAS SCH ×2 (09:13→17:38)
--- NOTE | 2018-03-31 11:49 | CP.PCM.PN ---
Subjective - Date & Time of Evaluation Date of Evaluation: 03/31/18 Time of Evaluation: 11:46 - Subjective Subjective: less abd pain but still back pain tolerating liquid diet will advance Objective - Vital Signs/Intake and Output Vital Signs (last 24 hours): Temp Pulse Resp BP Pulse Ox 99.5 F 74 16 145/87 98 03/31/18 08:00 03/31/18 08:00 03/31/18 08:00 03/31/18 08:00 03/31/18 08:00 Intake and Output: 03/31/18 03/31/18 06:59 18:59 Intake Total 580 Output Total 250 Balance 330 - Medications Medications: Current Medications Acetaminophen (Tylenol 325mg Tab) 650 mg PO Q6 PRN PRN Reason: Pain, moderate (4-7) Last Admin: 03/28/18 14:11 Dose: 650 mg Amlodipine Besylate (Norvasc) 10 mg PO DAILY [facility] Last Admin: 03/30/18 10:00 Dose: Not Given Calcium Acetate (Phoslo) 1,334 mg PO TIDCC [facility] Last Admin: 03/31/18 08:12 Dose: 1,334 mg Epoetin Sundar (Procrit) 10,000 unit IV TTS [facility] Last Admin: 03/30/18 11:35 Dose: 10,000 unit Meropenem 500 mg/ Sodium (Chloride) 100 mls @ 100 mls/hr IVPB Q12H [facility]; Protocol Last Admin: 03/31/18 05:01 Dose: 100 mls/hr Ferric Sodium Gluconate Complex 125 mg/ Sodium Chloride 110 mls @ 110 mls/hr IVPB Q24H [facility] Stop: 04/04/18 17:01 Last Admin: 03/30/18 17:24 Dose: 110 mls/hr Metoprolol Tartrate (Lopressor) 100 mg PO BID [facility] Last Admin: 03/31/18 09:13 Dose: 100 mg Mupirocin (Bactroban 2% Nasal) 0.25 gm ОЛЕГ BID [facility] Last Admin: 03/31/18 09:13 Dose: 0.25 gm Oxycodone HCl (Oxycodone Immediate Release Tab) 15 mg PO Q4 PRN PRN Reason: Pain, moderate (4-7) Last Admin: 03/31/18 09:11 Dose: 15 mg Pantoprazole Sodium (Protonix Inj) 40 mg IVP DAILY [facility] Last Admin: 03/31/18 09:12 Dose: 40 mg Polyethylene Glycol (Miralax) 17 gm PO Q24H [facility] Last Admin: 03/30/18 18:34 Dose: 17 gm Senna/Docusate Sodium (Senokot S 50 Mg-8.6 Mg) 1 tab PO BID [facility] Last Admin: 03/31/18 09:13 Dose: 1 tab Vitamin B Complex/Vit C/Folic Acid (Nephro-Edilberto) 1 tab PO 0800 [facility] Last Admin: 03/31/18 08:15 Dose: 1 tab - Labs Labs: 03/31/18 06:18 03/31/18 06:18 - Constitutional Appears: Non-toxic - Head Exam Head Exam: ATRAUMATIC - Eye Exam Eye Exam: Normal appearance Pupil Exam: NORMAL ACCOMODATION - ENT Exam ENT Exam: Mucous Membranes Moist - Neck Exam Neck Exam: Full ROM - Respiratory Exam Respiratory Exam: Clear to Ausculation Bilateral - Cardiovascular Exam Cardiovascular Exam: REGULAR RHYTHM - GI/Abdominal Exam GI & Abdominal Exam: Soft - Rectal Exam Additional comments: spinabifida - Exam Exam: NORMAL INSPECTION - Extremities Exam Extremities Exam: Normal Inspection - Back Exam Back Exam: NORMAL INSPECTION - Neurological Exam Neurological Exam: Alert, Awake, Normal Gait, Oriented x3 - Psychiatric Exam Psychiatric exam: Normal Mood - Skin Skin Exam: Pallor Assessment and Plan - Assessment and Plan (Free Text) Assessment: s/p ac pancreatitis aneamia required transfusion esrf on dialysis Plan: inc diet
--- NOTE | 2018-03-31 12:56 | CP.PCM.PN ---
Subjective - Date & Time of Evaluation Date of Evaluation: 03/31/18 Time of Evaluation: 12:55 - Subjective Subjective: Nephrology Consultation Note Assessment: critical CKD 5 with uremia: ESRD started half-way HD 03/28/18 b/l severe hydronephrosis with UTI Chronic Kidney Disease (N18.5) Stage 5 with 3 gm proteinuria (R80.9) likely due to chronic obstructive uropathy neurogenic bladder, hx of spina bifida Anemia (D64.9), Hyperphosphatemia (E83.39), Secondary Hyperparathyroidism (E21.1), HTN (I12.9), metabolic acidosis hyperkalemia ? pancreatitis chronic obstructive uropathy managed by pt as self intermittent catheterization at home Plan HD TTS. nephrovite 1 tab daily bp relatively stable Monitor Input/Output, daily weights and renal function with basic metabolic panel continue phoslo 667 mg 2 cap TID with meals continue epogen. IV iron. PRBC as needed Physical Examination: General Appearance: NAD Vitals reviewed and noted as below Head; Atraumatic, normocephalic ENT: no ulcers no thrush. Tongue is midline. Oropharynx: no rash or ulcers. EYES: Pupils are equal, round and reactive to light accommodation. Eye muscles and extraocular movement intact. Sclera is anicteric. Neck; supple no lymphadenopathy, no thyromegaly or bruit Lungs: Normal respiratory rate/effort. Breath sounds bilateral reduced at bases Heart: Normal rate. s1s2 normal. No rub or gallop. Extremities: no edema. No varicose veins Neurological: Patient is alert, awake and oriented to person, place and time. No focal deficit. Strength bilateral appropriate and equal Skin: Warm and dry. Normal turgor. No rash. Palpitation: Normal elasticity for age Abdomen: Abdomen is soft. Psych: normal insight and normal affect/mood MSK: no joint tenderness or swelling. Digits and nails normal, no deformity : kidney not palpable. AVF as access Labs/imaging reviewed. Past medical history, past surgical history, family history, social history, allergy reviewed and noted as below Family hx: no hx of CKD. Rest non-contributory in past, renal imaging: b/l severe hydronephrosis Objective - Vital Signs/Intake and Output Vital Signs (last 24 hours): Temp Pulse Resp BP Pulse Ox 99.5 F 74 16 145/87 98 03/31/18 08:00 03/31/18 08:00 03/31/18 08:00 03/31/18 08:00 03/31/18 08:00 Intake and Output: 03/31/18 03/31/18 06:59 18:59 Intake Total 580 Output Total 250 Balance 330 - Medications Medications: Current Medications Acetaminophen (Tylenol 325mg Tab) 650 mg PO Q6 PRN PRN Reason: Pain, moderate (4-7) Last Admin: 03/28/18 14:11 Dose: 650 mg Amlodipine Besylate (Norvasc) 10 mg PO DAILY [facility] Last Admin: 03/30/18 10:00 Dose: Not Given Calcium Acetate (Phoslo) 1,334 mg PO TIDCC [facility] Last Admin: 03/31/18 08:12 Dose: 1,334 mg Epoetin Sundar (Procrit) 10,000 unit IV TTS [facility] Last Admin: 03/30/18 11:35 Dose: 10,000 unit Meropenem 500 mg/ Sodium (Chloride) 100 mls @ 100 mls/hr IVPB Q12H [facility]; Protocol Last Admin: 03/31/18 05:01 Dose: 100 mls/hr Ferric Sodium Gluconate Complex 125 mg/ Sodium Chloride 110 mls @ 110 mls/hr IVPB Q24H [facility] Stop: 04/04/18 17:01 Last Admin: 03/30/18 17:24 Dose: 110 mls/hr Metoprolol Tartrate (Lopressor) 100 mg PO BID [facility] Last Admin: 03/31/18 09:13 Dose: 100 mg Mupirocin (Bactroban 2% Nasal) 0.25 gm ОЛЕГ BID [facility] Last Admin: 03/31/18 09:13 Dose: 0.25 gm Oxycodone HCl (Oxycodone Immediate Release Tab) 15 mg PO Q4 PRN PRN Reason: Pain, moderate (4-7) Last Admin: 03/31/18 09:11 Dose: 15 mg Pantoprazole Sodium (Protonix Inj) 40 mg IVP DAILY [facility] Last Admin: 03/31/18 09:12 Dose: 40 mg Polyethylene Glycol (Miralax) 17 gm PO Q24H [facility] Last Admin: 03/30/18 18:34 Dose: 17 gm Senna/Docusate Sodium (Senokot S 50 Mg-8.6 Mg) 1 tab PO BID [facility] Last Admin: 03/31/18 09:13 Dose: 1 tab Vitamin B Complex/Vit C/Folic Acid (Nephro-Edilberto) 1 tab PO 0800 [facility] Last Admin: 03/31/18 08:15 Dose: 1 tab - Labs Labs: 03/31/18 06:18 03/31/18 06:18
[2018-03-31] MEDS: Cefepime IV 1 gm in Dextrose 1 GM/50 ML BAG IVPB SCH (15:38)
--- NOTE | 2018-03-31 17:21 | CP.PCM.PN ---
Subjective - Date & Time of Evaluation Date of Evaluation: 03/31/18 Time of Evaluation: 09:00 - Subjective Subjective: improving uremic symptoms Objective - Vital Signs/Intake and Output Vital Signs (last 24 hours): Temp Pulse Resp BP Pulse Ox 98.1 F 85 15 134/88 98 03/31/18 15:30 03/31/18 15:30 03/31/18 15:30 03/31/18 15:30 03/31/18 08:00 Intake and Output: 03/31/18 03/31/18 06:59 18:59 Intake Total 580 650 Output Total 250 400 Balance 330 250 - Medications Medications: Current Medications Acetaminophen (Tylenol 325mg Tab) 650 mg PO Q6 PRN PRN Reason: Pain, moderate (4-7) Last Admin: 03/28/18 14:11 Dose: 650 mg Amlodipine Besylate (Norvasc) 10 mg PO DAILY [facility] Last Admin: 03/31/18 15:38 Dose: 10 mg Calcium Acetate (Phoslo) 1,334 mg PO TIDCC [facility] Last Admin: 03/31/18 13:09 Dose: 1,334 mg Epoetin Sundar (Procrit) 10,000 unit IV TTS [facility] Last Admin: 03/30/18 11:35 Dose: 10,000 unit Ferric Sodium Gluconate Complex 125 mg/ Sodium Chloride 110 mls @ 110 mls/hr IVPB Q24H [facility] Stop: 04/04/18 17:01 Last Admin: 03/30/18 17:24 Dose: 110 mls/hr Cefepime HCl (Maxipime Iv 1 Gm Premix) 1 gm in 50 mls @ 100 mls/hr IVPB Q24H [facility]; Protocol Last Admin: 03/31/18 15:38 Dose: 100 mls/hr Metoprolol Tartrate (Lopressor) 100 mg PO BID [facility] Last Admin: 03/31/18 09:13 Dose: 100 mg Mupirocin (Bactroban 2% Nasal) 0.25 gm ОЛЕГ BID [facility] Last Admin: 03/31/18 09:13 Dose: 0.25 gm Oxycodone HCl (Oxycodone Immediate Release Tab) 15 mg PO Q4 PRN PRN Reason: Pain, moderate (4-7) Last Admin: 03/31/18 15:55 Dose: 15 mg Pantoprazole Sodium (Protonix Inj) 40 mg IVP DAILY [facility] Last Admin: 03/31/18 09:12 Dose: 40 mg Polyethylene Glycol (Miralax) 17 gm PO Q24H [facility] Last Admin: 03/30/18 18:34 Dose: 17 gm Senna/Docusate Sodium (Senokot S 50 Mg-8.6 Mg) 1 tab PO BID [facility] Last Admin: 03/31/18 09:13 Dose: 1 tab Vitamin B Complex/Vit C/Folic Acid (Nephro-Edilberto) 1 tab PO 0800 [facility] Last Admin: 03/31/18 08:15 Dose: 1 tab - Labs Labs: 03/31/18 06:18 03/31/18 06:18 - Constitutional Appears: Non-toxic, Chronically Ill - Head Exam Head Exam: NORMOCEPHALIC - Eye Exam Eye Exam: absent: Scleral icterus - ENT Exam ENT Exam: Mucous Membranes Dry - Neck Exam Neck Exam: absent: Lymphadenopathy - Respiratory Exam Respiratory Exam: Decreased Breath Sounds - Cardiovascular Exam Cardiovascular Exam: REGULAR RHYTHM - GI/Abdominal Exam GI & Abdominal Exam: Distended, Soft Assessment and Plan (1) CKD (chronic kidney disease) Status: Acute (2) Spina bifida Status: Acute (3) UTI (urinary tract infection) Status: Acute - Assessment and Plan (Free Text) Assessment: CKD 5 with uremia: 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 pancreatitis chronic obstructive uropathy managed by pt as self intermittent catheterization at home
[2018-03-31] MEDS: Ferric Sodium Gluconat Complex 125 MG in Sodium Chloride 0.9% 100 ML IVPB SCH (17:38)
[2018-03-31] MEDS: POLYETHYLENE GLYCOL 3350 17 GM/Dose PACKET PO SCH (18:56)
[2018-04-01 06:15] LABS: BASO # 0.1 K/uL (0.0-0.2); BASO % 1.1 % (0.0-2.0); EOS # 0.4 K/uL (0.0-0.7); EOS % 6.6 % (0.0-4.0); LYMPH # 1.6 K/uL (1.0-4.3); LYMPH % 29.2 % (20.0-40.0); MEAN CELL VOLUME 79.8 fL (80.0-94.0); MEAN CORPUSCULAR HEMOGLOBIN 27.4 pg (27.0-31.0); MEAN CORPUSCULAR HGB CONC 34.3 g/dL (33.0-37.0); MEAN PLATELET VOLUME 8.4 fL (7.2-11.7); NEUT # 2.5 K/uL (1.8-7.0); NEUT % 45.1 % (50.0-75.0); RBC 3.27 Mil/uL (4.40-5.90); RED CELL DISTRIBUTION WIDTH 14.5 % (11.5-14.5); WHITE BLOOD COUNT 5.6 K/uL (4.8-10.8)
[2018-04-01 06:40] LABS: ALB/GLOB RATIO 1.2 (1.0-2.1); ALBUMIN 3.2 g/dL (3.5-5.0); CALCIUM 7.5 mg/dl (8.6-10.4)
[2018-04-01] MEDS: oxyCODONE 5 mg Immediate Release Tab PO PRN ×3 (07:05→20:31)
[2018-04-01] MEDS: Epoetin Alfa 10,000 unit/ml Dialysis IV SCH (11:11)
[2018-04-01] MEDS: Docusate-Senna 50 mg-8.6 mg Tab PO SCH ×2 (11:27→18:01)
[2018-04-01] MEDS: Multivitamin Vitamin B Complex (Nephro-Vite) Tab PO SCH (11:28)
[2018-04-01] MEDS: Mupirocin 2% Ointment (NASAL) NAS SCH ×2 (11:29→18:01)
--- NOTE | 2018-04-01 12:56 | CP.PCM.PN ---
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 pancreatitis chronic obstructive uropathy managed by pt as self intermittent catheterization at home Plan HD as MWF schedule as ordered. nephrovite 1 tab daily Hypertension control; acceptable on current meds Monitor Input/Output, daily weights and renal function with basic metabolic panel added phoslo 667 mg 2 cap TID with meals started epogen. IV iron. PRBC as needed check PTH and Vit D SW consult for outpt HD placement discussed with staff Dose meds/antibiotics for reduced GFR. Avoid phos based fleets enema/magnesium based laxatives. Avoid nephrotoxins/NSAIDs/ iodinated contrast (unless needed emergently) Glycemic control Further work up for as per primary team pt stable from renal perspective for d/c when planned and when arranged for outpt HD Thanks for allowing me to participate in care of your patient. Will follow patient with you. Please call if any Qs. had d/w team Dr Julio Perez Office: [phone] CC: pain abdomen SOB vomiting reason for consult: ESRD HPI: pt is a 22 M with CKD 5 due to chronic obstructive uropathy managed by pt as self intermittent catheterization at home, spina bifida neurogenic bladder came with worsening pain abdomen with SOB, nausea/vomiting x 1 week, decreased urine output also pt has been feeling sick for last 1 week. he had missed appt with me in renal clinic. 10/16/17: PD catheter was removed as intra-op showed extensive foreign body reaction and ? pelvic abscess ROS: Denies chest pain, palpitation, leg swelling. no pain abdomen . no nausea. SOB resolved All other negative. making less urine. self intermittent catheterization at home. Physical Examination: seen on HD General Appearance: comfortable, in no acute respiratory distress, co-operative . better appearing Vitals reviewed and noted as below Head; Atraumatic, normocephalic ENT: no ulcers no thrush. Tongue is midline. Oropharynx: no rash or ulcers. EYES: Pupils are equal, round and reactive to light accommodation. Eye muscles and extraocular movement intact. Sclera is anicteric. Neck; supple no lymphadenopathy, no thyromegaly or bruit Lungs: Normal respiratory rate/effort. Breath sounds bilateral clear Extremities: no edema. No varicose veins Neurological: Patient is alert, awake and oriented to person, place and time. No focal deficit. Strength bilateral appropriate and equal Skin: Warm and dry. Normal turgor. No rash. Palpitation: Normal elasticity for age Abdomen: Abdomen is soft. Bowel sounds +. There is no abdominal tenderness, no guarding/rigidity no organomegaly. Psych: normal insight and normal affect/mood MSK: no joint tenderness or swelling. Digits and nails normal, no deformity : kidney not palpable. AVF as access Labs/imaging reviewed. Past medical history, past surgical history, family history, social history, allergy reviewed and noted as below Family hx: no hx of CKD. Rest non-contributory in past, renal imaging: b/l severe hydronephrosis Objective - Vital Signs/Intake and Output Vital Signs (last 24 hours): Temp Pulse Resp BP Pulse Ox 98.7 F 74 14 148/95 H 99 04/01/18 09:30 04/01/18 09:30 04/01/18 09:30 04/01/18 12:45 04/01/18 08:00 Intake and Output: 04/01/18 04/01/18 06:59 18:59 Intake Total 350 Output Total 200 Balance 150 - Medications Medications: Current Medications Acetaminophen (Tylenol 325mg Tab) 650 mg PO Q6 PRN PRN Reason: Pain, moderate (4-7) Last Admin: 04/01/18 11:28 Dose: 650 mg Amlodipine Besylate (Norvasc) 10 mg PO DAILY [facility] Last Admin: 03/31/18 15:38 Dose: 10 mg Calcium Acetate (Phoslo) 1,334 mg PO TIDCC [facility] Last Admin: 04/01/18 11:28 Dose: 1,334 mg Epoetin Sundar (Procrit) 10,000 unit IV MWF [facility] Last Admin: 04/01/18 11:11 Dose: 10,000 unit Ferric Sodium Gluconate Complex 125 mg/ Sodium Chloride 110 mls @ 110 mls/hr IVPB Q24H [facility] Stop: 04/04/18 17:01 Last Admin: 03/31/18 17:38 Dose: 110 mls/hr Cefepime HCl (Maxipime Iv 1 Gm Premix) 1 gm in 50 mls @ 100 mls/hr IVPB Q24H [facility]; Protocol Last Admin: 03/31/18 15:38 Dose: 100 mls/hr Metoprolol Tartrate (Lopressor) 100 mg PO BID [facility] Last Admin: 04/01/18 11:29 Dose: Not Given Mupirocin (Bactroban 2% Nasal) 0.25 gm ОЛЕГ BID [facility] Last Admin: 04/01/18 11:29 Dose: 0.25 gm Oxycodone HCl (Oxycodone Immediate Release Tab) 15 mg PO Q4 PRN PRN Reason: Pain, moderate (4-7) Last Admin: 04/01/18 07:05 Dose: 15 mg Pantoprazole Sodium (Protonix Inj) 40 mg IVP DAILY [facility] Last Admin: 04/01/18 10:00 Dose: 40 mg Polyethylene Glycol (Miralax) 17 gm PO Q24H [facility] Last Admin: 03/31/18 18:56 Dose: 17 gm Senna/Docusate Sodium (Senokot S 50 Mg-8.6 Mg) 1 tab PO BID [facility] Last Admin: 04/01/18 11:27 Dose: 1 tab Vitamin B Complex/Vit C/Folic Acid (Nephro-Edilberto) 1 tab PO 0800 [facility] Last Admin: 04/01/18 11:28 Dose: 1 tab - Labs Labs: 04/01/18 06:03 04/01/18 06:06
[2018-04-01] MEDS: Cefepime IV 1 gm in Dextrose 1 GM/50 ML BAG IVPB SCH (15:00)
--- NOTE | 2018-04-01 15:59 | CP.PCM.PN ---
Subjective - Date & Time of Evaluation Date of Evaluation: 04/01/18 Time of Evaluation: 09:00 - Subjective Subjective: afebrile alert less abd pain Objective - Vital Signs/Intake and Output Vital Signs (last 24 hours): Temp Pulse Resp BP Pulse Ox 98.4 F 77 15 150/99 H 99 04/01/18 13:00 04/01/18 13:00 04/01/18 13:00 04/01/18 13:00 04/01/18 08:00 Intake and Output: 04/01/18 04/01/18 06:59 18:59 Intake Total 350 Output Total 200 Balance 150 - Medications Medications: Current Medications Acetaminophen (Tylenol 325mg Tab) 650 mg PO Q6 PRN PRN Reason: Pain, moderate (4-7) Last Admin: 04/01/18 11:28 Dose: 650 mg Amlodipine Besylate (Norvasc) 10 mg PO DAILY [facility] Last Admin: 03/31/18 15:38 Dose: 10 mg Calcium Acetate (Phoslo) 1,334 mg PO TIDCC [facility] Last Admin: 04/01/18 11:28 Dose: 1,334 mg Epoetin Sundar (Procrit) 10,000 unit IV MWF [facility] Last Admin: 04/01/18 11:11 Dose: 10,000 unit Ferric Sodium Gluconate Complex 125 mg/ Sodium Chloride 110 mls @ 110 mls/hr IVPB Q24H [facility] Stop: 04/04/18 17:01 Last Admin: 03/31/18 17:38 Dose: 110 mls/hr Cefepime HCl (Maxipime Iv 1 Gm Premix) 1 gm in 50 mls @ 100 mls/hr IVPB Q24H [facility]; Protocol Last Admin: 03/31/18 15:38 Dose: 100 mls/hr Metoprolol Tartrate (Lopressor) 100 mg PO BID [facility] Last Admin: 04/01/18 11:29 Dose: Not Given Mupirocin (Bactroban 2% Nasal) 0.25 gm ОЛЕГ BID [facility] Last Admin: 04/01/18 11:29 Dose: 0.25 gm Oxycodone HCl (Oxycodone Immediate Release Tab) 15 mg PO Q4 PRN PRN Reason: Pain, moderate (4-7) Last Admin: 04/01/18 14:30 Dose: 15 mg Pantoprazole Sodium (Protonix Inj) 40 mg IVP DAILY [facility] Last Admin: 04/01/18 10:00 Dose: 40 mg Polyethylene Glycol (Miralax) 17 gm PO Q24H [facility] Last Admin: 03/31/18 18:56 Dose: 17 gm Senna/Docusate Sodium (Senokot S 50 Mg-8.6 Mg) 1 tab PO BID [facility] Last Admin: 04/01/18 11:27 Dose: 1 tab Vitamin B Complex/Vit C/Folic Acid (Nephro-Edilberto) 1 tab PO 0800 [facility] Last Admin: 04/01/18 11:28 Dose: 1 tab - Labs Labs: 04/01/18 06:03 04/01/18 06:06 - Constitutional Appears: Non-toxic, Chronically Ill - Head Exam Head Exam: NORMOCEPHALIC - Eye Exam Eye Exam: PERRL Pupil Exam: NORMAL ACCOMODATION - ENT Exam ENT Exam: Mucous Membranes Dry - Neck Exam Neck Exam: absent: Lymphadenopathy - Respiratory Exam Respiratory Exam: Decreased Breath Sounds - Cardiovascular Exam Cardiovascular Exam: REGULAR RHYTHM - GI/Abdominal Exam GI & Abdominal Exam: Distended - Rectal Exam Rectal Exam: Deferred - Exam Exam: NORMAL INSPECTION - Extremities Exam Extremities Exam: absent: Pedal Edema - Neurological Exam Neurological Exam: Alert, CN II-XII Intact, Oriented x3 - Psychiatric Exam Psychiatric exam: Depressed - Skin Skin Exam: Dry Assessment and Plan (1) CKD (chronic kidney disease) Status: Acute (2) Spina bifida Status: Acute (3) UTI (urinary tract infection) Status: Acute - Assessment and Plan (Free Text) Assessment: cont rx as orderedx
[2018-04-01] MEDS: Ferric Sodium Gluconat Complex 125 MG in Sodium Chloride 0.9% 100 ML IVPB SCH (18:00)
[2018-04-01] MEDS: POLYETHYLENE GLYCOL 3350 17 GM/Dose PACKET PO SCH (18:42)
[2018-04-02] MEDS: oxyCODONE 5 mg Immediate Release Tab PO PRN ×4 (03:20→21:27)
[2018-04-02 06:17] LABS: EOS # 0.3 K/uL (0.0-0.7); EOS % 5.6 % (0.0-4.0); HEMOGLOBIN 8.5 g/dL (12.0-18.0); LYMPH # 1.3 K/uL (1.0-4.3); LYMPH % 27.2 % (20.0-40.0); MEAN CELL VOLUME 80.2 fL (80.0-94.0); MEAN CORPUSCULAR HEMOGLOBIN 27.6 pg (27.0-31.0); MEAN CORPUSCULAR HGB CONC 34.4 g/dL (33.0-37.0); MEAN PLATELET VOLUME 8.4 fL (7.2-11.7); MONO # 0.8 K/uL (0.0-0.8); MONO % 17.2 % (0.0-10.0); NEUT # 2.4 K/uL (1.8-7.0); RBC 3.07 Mil/uL (4.40-5.90); RED CELL DISTRIBUTION WIDTH 14.3 % (11.5-14.5); WHITE BLOOD COUNT 4.8 K/uL (4.8-10.8)
[2018-04-02 07:08] LABS: ALB/GLOB RATIO 1.3 (1.0-2.1); ALBUMIN 3.5 g/dL (3.5-5.0); CALCIUM 8.3 mg/dl (8.6-10.4)
[2018-04-02] MEDS: Multivitamin Vitamin B Complex (Nephro-Vite) Tab PO SCH (08:09)
[2018-04-02] MEDS: Mupirocin 2% Ointment (NASAL) NAS SCH ×2 (09:24→17:41)
[2018-04-02] MEDS: Pantoprazole 40 mg EC Tab PO SCH (09:24)
--- NOTE | 2018-04-02 10:05 | CP.PCM.PN ---
Subjective - Date & Time of Evaluation Date of Evaluation: 04/02/18 Time of Evaluation: 10:04 Objective - Vital Signs/Intake and Output Vital Signs (last 24 hours): Temp Pulse Resp BP Pulse Ox 97.9 F 71 20 150/97 H 99 04/02/18 08:00 04/02/18 08:00 04/02/18 08:00 04/02/18 08:00 04/02/18 08:00 Intake and Output: 04/02/18 04/02/18 06:59 18:59 Intake Total 200 Balance 200 - Medications Medications: Current Medications Acetaminophen (Tylenol 325mg Tab) 650 mg PO Q6 PRN PRN Reason: Pain, moderate (4-7) Last Admin: 04/01/18 11:28 Dose: 650 mg Amlodipine Besylate (Norvasc) 10 mg PO DAILY [facility] Last Admin: 04/02/18 09:24 Dose: 10 mg Calcitriol (Rocaltrol) 0.25 mcg PO MWF [facility] Calcium Acetate (Phoslo) 1,334 mg PO TIDCC [facility] Last Admin: 04/02/18 08:09 Dose: 1,334 mg Epoetin Sundar (Procrit) 10,000 unit IV [facility] Last Admin: 04/01/18 11:11 Dose: 10,000 unit Ferric Sodium Gluconate Complex 125 mg/ Sodium Chloride 110 mls @ 110 mls/hr IVPB Q24H [facility] Stop: 04/04/18 17:01 Last Admin: 04/01/18 18:00 Dose: 110 mls/hr Cefepime HCl (Maxipime Iv 1 Gm Premix) 1 gm in 50 mls @ 100 mls/hr IVPB Q24H [facility]; Protocol Last Admin: 04/01/18 15:00 Dose: 100 mls/hr Metoprolol Tartrate (Lopressor) 100 mg PO BID [facility] Last Admin: 04/02/18 09:25 Dose: 100 mg Mupirocin (Bactroban 2% Nasal) 0.25 gm ОЛЕГ BID [facility] Last Admin: 04/02/18 09:24 Dose: 0.25 gm Oxycodone HCl (Oxycodone Immediate Release Tab) 15 mg PO Q4H PRN PRN Reason: Pain, moderate (4-7) Last Admin: 04/02/18 08:14 Dose: 15 mg Pantoprazole Sodium (Protonix Ec Tab) 40 mg PO DAILY [facility] Last Admin: 04/02/18 09:24 Dose: 40 mg Polyethylene Glycol (Miralax) 17 gm PO Q24H [facility] Last Admin: 04/01/18 18:42 Dose: 17 gm Senna/Docusate Sodium (Senokot S 50 Mg-8.6 Mg) 1 tab PO BID [facility] Last Admin: 04/01/18 18:01 Dose: 1 tab Vitamin B Complex/Vit C/Folic Acid (Nephro-Edilberto) 1 tab PO 0800 [facility] Last Admin: 04/02/18 08:09 Dose: 1 tab - Labs Labs: 04/02/18 06:07 04/02/18 06:07
--- NOTE | 2018-04-02 10:13 | CP.PCM.PN ---
Subjective - Date & Time of Evaluation Date of Evaluation: 04/02/18 Time of Evaluation: 10:11 - Subjective Subjective: pt out of icu c/o of back pain has MRSA nose Objective - Vital Signs/Intake and Output Vital Signs (last 24 hours): Temp Pulse Resp BP Pulse Ox 97.9 F 71 20 150/97 H 99 04/02/18 08:00 04/02/18 08:00 04/02/18 08:00 04/02/18 08:00 04/02/18 08:00 Intake and Output: 04/02/18 04/02/18 06:59 18:59 Intake Total 200 Balance 200 - Medications Medications: Current Medications Acetaminophen (Tylenol 325mg Tab) 650 mg PO Q6 PRN PRN Reason: Pain, moderate (4-7) Last Admin: 04/01/18 11:28 Dose: 650 mg Amlodipine Besylate (Norvasc) 10 mg PO DAILY [facility] Last Admin: 04/02/18 09:24 Dose: 10 mg [facility] Calcium Acetate (Phoslo) 1,334 mg PO TIDCC [facility] Last Admin: 04/02/18 08:09 Dose: 1,334 mg Epoetin Sundar (Procrit) 10,000 unit [place] [facility] Last Admin: 04/01/18 11:11 Dose: 10,000 unit Ferric Sodium Gluconate Complex 125 mg/ Sodium Chloride 110 mls @ 110 mls/hr IVPB Q24H [facility] Stop: 04/04/18 17:01 Last Admin: 04/01/18 18:00 Dose: 110 mls/hr Cefepime HCl (Maxipime Iv 1 Gm Premix) 1 gm in 50 mls @ 100 mls/hr IVPB Q24H [facility]; Protocol Last Admin: 04/01/18 15:00 Dose: 100 mls/hr Metoprolol Tartrate (Lopressor) 100 mg PO BID [facility] Last Admin: 04/02/18 09:25 Dose: 100 mg Mupirocin (Bactroban 2% Nasal) 0.25 gm ОЛЕГ BID [facility] Last Admin: 04/02/18 09:24 Dose: 0.25 gm Oxycodone HCl (Oxycodone Immediate Release Tab) 15 mg PO Q4H PRN PRN Reason: Pain, moderate (4-7) Last Admin: 04/02/18 08:14 Dose: 15 mg Pantoprazole Sodium (Protonix Ec Tab) 40 mg PO DAILY [facility] Last Admin: 04/02/18 09:24 Dose: 40 mg Polyethylene Glycol (Miralax) 17 gm PO Q24H [facility] Last Admin: 04/01/18 18:42 Dose: 17 gm Senna/Docusate Sodium (Senokot S 50 Mg-8.6 Mg) 1 tab PO BID [facility] Last Admin: 04/01/18 18:01 Dose: 1 tab Vitamin B Complex/Vit C/Folic Acid (Nephro-Edilberto) 1 tab PO 0800 [facility] Last Admin: 04/02/18 08:09 Dose: 1 tab - Labs Labs: 04/02/18 06:07 04/02/18 06:07 - Constitutional Appears: Non-toxic - Head Exam Head Exam: NORMAL INSPECTION - Eye Exam Eye Exam: Normal appearance Pupil Exam: NORMAL ACCOMODATION - ENT Exam ENT Exam: Mucous Membranes Moist - Neck Exam Neck Exam: Tenderness - Respiratory Exam Respiratory Exam: Clear to Ausculation Bilateral - Cardiovascular Exam Cardiovascular Exam: REGULAR RHYTHM - GI/Abdominal Exam GI & Abdominal Exam: Normal Bowel Sounds - Exam Additional comments: spina bifida - Extremities Exam Extremities Exam: Normal Inspection - Back Exam Back Exam: NORMAL INSPECTION - Neurological Exam Neurological Exam: Awake, Normal Gait, Oriented x3 - Skin Skin Exam: Dry, Pallor Assessment and Plan - Assessment and Plan (Free Text) Assessment: aneamia mrsa infection nose ESRF ON DIALYSIS BACK PAIN Plan: XRY SPINE
--- NOTE | 2018-04-02 11:10 | CP.PCM.PN ---
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 pancreatitis chronic obstructive uropathy managed by pt as self intermittent catheterization at home Plan HD as MWF schedule as ordered. nephrovite 1 tab daily Hypertension control; acceptable on current meds Monitor Input/Output, daily weights and renal function with basic metabolic panel added phoslo 667 mg 2 cap TID with meals started epogen. IV iron. PRBC as needed started calcitriol MWF SW consult for outpt HD placement discussed with staff Dr Tsang for vasc follow up added claritin cardoza catheter x 1-2 day to help with hydronephrosis and possibly related back pain Dose meds/antibiotics for reduced GFR. Avoid phos based fleets enema/magnesium based laxatives. Avoid nephrotoxins/NSAIDs/ iodinated contrast (unless needed emergently) Glycemic control Further work up for as per primary team pt stable from renal perspective for d/c when planned and when arranged for outpt HD Thanks for allowing me to participate in care of your patient. Will follow patient with you. Please call if any Qs. had d/w team Dr Julio Perez Office: [phone] CC: pain abdomen SOB vomiting reason for consult: ESRD HPI: pt is a 22 M with CKD 5 due to chronic obstructive uropathy managed by pt as self intermittent catheterization at home, spina bifida neurogenic bladder came with worsening pain abdomen with SOB, nausea/vomiting x 1 week, decreased urine output also pt has been feeling sick for last 1 week. he had missed appt with me in renal clinic. 10/16/17: PD catheter was removed as intra-op showed extensive foreign body reaction and ? pelvic abscess ROS: Denies chest pain, palpitation, leg swelling. no pain abdomen . no nausea. SOB resolved All other negative. making less urine. self intermittent catheterization at home. c/o low back/flank pain, sneezing anf left forearm swelling Physical Examination: General Appearance: comfortable, in no acute respiratory distress, co-operative . well appearing Vitals reviewed and noted as below Head; Atraumatic, normocephalic ENT: no ulcers no thrush. Tongue is midline. Oropharynx: no rash or ulcers. EYES: Pupils are equal, round and reactive to light accommodation. Eye muscles and extraocular movement intact. Sclera is anicteric. Neck; supple no lymphadenopathy, no thyromegaly or bruit Lungs: Normal respiratory rate/effort. Breath sounds bilateral clear Extremities: no edema. No varicose veins Neurological: Patient is alert, awake and oriented to person, place and time. No focal deficit. Strength bilateral appropriate and equal Skin: Warm and dry. Normal turgor. No rash. Palpitation: Normal elasticity for age Abdomen: Abdomen is soft. Bowel sounds +. There is no abdominal tenderness, no guarding/rigidity no organomegaly. Psych: normal insight and normal affect/mood MSK: no joint tenderness or swelling. Digits and nails normal, no deformity : kidney not palpable. AVF as access. left foream swelling noted Labs/imaging reviewed. Past medical history, past surgical history, family history, social history, allergy reviewed and noted as below Family hx: no hx of CKD. Rest non-contributory in past, renal imaging: b/l severe hydronephrosis Objective - Vital Signs/Intake and Output Vital Signs (last 24 hours): Temp Pulse Resp BP Pulse Ox 97.9 F 71 20 150/97 H 99 04/02/18 08:00 04/02/18 08:00 04/02/18 08:00 04/02/18 08:00 04/02/18 08:00 Intake and Output: 04/02/18 04/02/18 06:59 18:59 Intake Total 200 Balance 200 - Medications Medications: Current Medications Acetaminophen (Tylenol 325mg Tab) 650 mg PO Q6 PRN PRN Reason: Pain, moderate (4-7) Last Admin: 04/01/18 11:28 Dose: 650 mg Amlodipine Besylate (Norvasc) 10 mg PO DAILY [facility] Last Admin: 04/02/18 09:24 Dose: 10 mg Calcitriol (Rocaltrol) 0.25 mcg PO MWF [facility] Calcium Acetate (Phoslo) 1,334 mg PO TIDCC [facility] Last Admin: 04/02/18 08:09 Dose: 1,334 mg Epoetin Sundar (Procrit) 10,000 unit IV MWF [facility] Last Admin: 04/01/18 11:11 Dose: 10,000 unit Ferric Sodium Gluconate Complex 125 mg/ Sodium Chloride 110 mls @ 110 mls/hr IVPB Q24H [facility] Stop: 04/04/18 17:01 Last Admin: 04/01/18 18:00 Dose: 110 mls/hr Cefepime HCl (Maxipime Iv 1 Gm Premix) 1 gm in 50 mls @ 100 mls/hr IVPB Q24H [facility]; Protocol Last Admin: 04/01/18 15:00 Dose: 100 mls/hr Metoprolol Tartrate (Lopressor) 100 mg PO BID [facility] Last Admin: 04/02/18 09:25 Dose: 100 mg Mupirocin (Bactroban 2% Nasal) 0.25 gm ОЛЕГ BID [facility] Last Admin: 04/02/18 09:24 Dose: 0.25 gm Oxycodone HCl (Oxycodone Immediate Release Tab) 15 mg PO Q4H PRN PRN Reason: Pain, moderate (4-7) Last Admin: 04/02/18 08:14 Dose: 15 mg Pantoprazole Sodium (Protonix Ec Tab) 40 mg PO DAILY [facility] Last Admin: 04/02/18 09:24 Dose: 40 mg Polyethylene Glycol (Miralax) 17 gm PO Q24H [facility] Last Admin: 04/01/18 18:42 Dose: 17 gm Senna/Docusate Sodium (Senokot S 50 Mg-8.6 Mg) 1 tab PO BID [facility] Last Admin: 04/01/18 18:01 Dose: 1 tab Vitamin B Complex/Vit C/Folic Acid (Nephro-Edilberto) 1 tab PO 0800 [facility] Last Admin: 04/02/18 08:09 Dose: 1 tab - Labs Labs: 04/02/18 06:07 04/02/18 06:07
--- NOTE | 2018-04-02 11:56 | CP.PCM.CON ---
History of Present Illness - History of Present Illness History of Present Illness: Surgery Consult Note for Dr. Mandel 22 M w/ PMhx of CKD 5 due to chronic obstructive uropathy managed by pt as self intermittent catheterization at home, spina bifida neurogenic bladder, AVF placement in 2018 presented to ED on 03/28 for worsening SOB, nausea/vomiting X1 week. Patient found to have acute pancreatitis and UTI and currently treated for it. Additionally patient began HD last week with the use of the L AVF. Surgery consulted as L UE became edematous on 04/01 after dialysis. Patient reports no pain in arm, just swelling from the elbow to the distal part of the arm. Patient states he has full motor and sensation, just some minor swelling. Patient offers no other complaints. Patient denies headaches, vision changes, throat pain, ear pain, chest pain, SOB, abd pain, N/V, dysuira, hematuria, arm pain. PMHx: CKD 5 due to chronic obstructive uropathy managed by pt as self intermittent catheterization at home, spina bifida neurogenic bladder, AVF placement in 201 Meds: See EMR PSHx: L AVF 2018, PD cath 2018 (removed in November) Allergies: NKDA SHx: Denies tobacco use, ETOH Review of Systems - Review of Systems All systems: reviewed and no additional remarkable complaints except - Constitutional Constitutional: As Per HPI Past Patient History - Infectious Disease Hx of Infectious Diseases: None - Past Medical History & Family History Past Medical History?: Yes - Past Social History Smoking Status: Never Smoked - CARDIAC Hx Hypertension: Yes - PULMONARY Hx Pneumonia: Yes - NEUROLOGICAL Hx Neurological Disorder: Yes Other/Comment: Spina Bifida, Tethered Spinal Cord - HEENT Hx HEENT Problems: No - RENAL Hx Chronic Kidney Disease: Yes - ENDOCRINE/METABOLIC Hx Endocrine Disorders: No - HEMATOLOGICAL/ONCOLOGICAL Hx Blood Disorders: No - INTEGUMENTARY Hx Dermatological Problems: No - MUSCULOSKELETAL/RHEUMATOLOGICAL Hx Musculoskeletal Disorders: No Hx Falls: No Other/Comment: Spina Bipida - GASTROINTESTINAL Hx Gastrointestinal Disorders: No - GENITOURINARY/GYNECOLOGICAL Hx Genitourinary Disorders: Yes Hx Urinary Tract Infection: Yes Other/Comment: SELF CATHETERIZE - PSYCHIATRIC Hx Substance Use: No - SURGICAL HISTORY Hx Surgeries: Yes Other/Comment: Spinal cord repair (Spina Bifida). L A/V shunt. PD catheter (d/c'd) - ANESTHESIA Hx Anesthesia: Yes Hx Anesthesia Reactions: No Hx Malignant Hyperthermia: No Meds Allergies/Adverse Reactions: Allergies Allergy/AdvReac Type Severity Reaction Status Date / Time No Known Allergies Allergy Verified 03/28/18 09:15 - Medications Medications: Current Medications Acetaminophen (Tylenol 325mg Tab) 650 mg PO Q6 PRN PRN Reason: Pain, moderate (4-7) Last Admin: 04/01/18 11:28 Dose: 650 mg Amlodipine Besylate (Norvasc) 10 mg PO DAILY [facility] Last Admin: 04/02/18 09:24 Dose: 10 mg Calcitriol (Rocaltrol) 0.25 mcg PO [facility] Calcium Acetate (Phoslo) 1,334 mg PO TIDCC [facility] Last Admin: 04/02/18 08:09 Dose: 1,334 mg Epoetin Sundar (Procrit) 10,000 unit IV [facility] Last Admin: 04/01/18 11:11 Dose: 10,000 unit Ferric Sodium Gluconate Complex 125 mg/ Sodium Chloride 110 mls @ 110 mls/hr IVPB Q24H [facility] Stop: 04/04/18 17:01 Last Admin: 04/01/18 18:00 Dose: 110 mls/hr Cefepime HCl (Maxipime Iv 1 Gm Premix) 1 gm in 50 mls @ 100 mls/hr IVPB Q24H [facility]; Protocol Last Admin: 04/01/18 15:00 Dose: 100 mls/hr Loratadine (Claritin) 10 mg PO Q2D [facility] Stop: 04/09/18 11:16 Metoprolol Tartrate (Lopressor) 100 mg PO BID [facility] Last Admin: 04/02/18 09:25 Dose: 100 mg Mupirocin (Bactroban 2% Nasal) 0.25 gm ОЛЕГ BID [facility] Last Admin: 04/02/18 09:24 Dose: 0.25 gm Oxycodone HCl (Oxycodone Immediate Release Tab) 15 mg PO Q4H PRN PRN Reason: Pain, moderate (4-7) Last Admin: 04/02/18 08:14 Dose: 15 mg Pantoprazole Sodium (Protonix Ec Tab) 40 mg PO DAILY [facility] Last Admin: 04/02/18 09:24 Dose: 40 mg Polyethylene Glycol (Miralax) 17 gm PO Q24H [facility] Last Admin: 04/01/18 18:42 Dose: 17 gm Senna/Docusate Sodium (Senokot S 50 Mg-8.6 Mg) 1 tab PO BID [facility] Last Admin: 04/01/18 18:01 Dose: 1 tab Vitamin B Complex/Vit C/Folic Acid (Nephro-Edilberto) 1 tab PO 0800 [facility] Last Admin: 04/02/18 08:09 Dose: 1 tab Physical Exam - Constitutional Appears: Non-toxic, No Acute Distress - Head Exam Head Exam: NORMAL INSPECTION - Eye Exam Eye Exam: Normal appearance - ENT Exam ENT Exam: Mucous Membranes Moist - Neck Exam Neck exam: Positive for: Normal Inspection - Respiratory Exam Respiratory Exam: Clear to Auscultation Bilateral, NORMAL BREATHING PATTERN - Cardiovascular Exam Cardiovascular Exam: +S1, +S2 - GI/Abdominal Exam GI & Abdominal Exam: Normal Bowel Sounds, Soft - Extremities Exam Extremities exam: Positive for: full ROM, normal inspection. Negative for: calf tenderness, pedal edema Additional comments: LUE at site of AVF has palpable thrill 2 areas proximal to AVF has veins enlarged with palpable thrill - Neurological Exam Neurological exam: Alert, Oriented x3 - Psychiatric Exam Psychiatric exam: Normal Affect, Normal Mood - Skin Skin Exam: Dry, Normal Color, Warm Results - Vital Signs Recent Vital Signs: Last Vital Signs Temp 97.9 F 04/02/18 08:00 Pulse 71 04/02/18 08:00 Resp 20 04/02/18 08:00 BP 150/97 H 04/02/18 08:00 Pulse Ox 99 04/02/18 08:00 - Labs Result Diagrams: 04/02/18 06:07 04/02/18 06:07 Labs: Laboratory Results - last 24 hr 03/28/18 04/02/18 04/02/18 16:33 06:07 06:07 WBC 4.8 RBC 3.07 L Hgb 8.5 L Hct 24.6 L MCV 80.2 MCH 27.6 MCHC 34.4 RDW 14.3 Plt Count 116 L D MPV 8.4 Neut % (Auto) 49.0 L Lymph % (Auto) 27.2 [place] % (Auto) 17.2 H Eos % (Auto) 5.6 H Baso % (Auto) 1.0 Neut # (Auto) 2.4 Lymph # (Auto) 1.3 [place] # (Auto) 0.8 Eos # (Auto) 0.3 Baso # (Auto) 0.0 Sodium 133 Potassium 3.8 Chloride 94 L Carbon Dioxide 29 Anion Gap 14 BUN 35 H Creatinine 8.5 H* D Est GFR ( Amer) 10 Est GFR (Non-Af Amer) 8 Random Glucose 92 Calcium 8.3 L Total Bilirubin 0.5 AST 15 L D ALT 20 L Alkaline Phosphatase 59 Total Protein 6.2 L Albumin 3.5 Globulin 2.7 Albumin/Globulin Ratio 1.3 PTH Intact Whole Molec 475 H Assessment & Plan - Assessment and Plan (Free Text) Assessment: 22 M w/ swelling in L UE following dialysis using L AVF Plan: - swelling likely secondary to new use of AVF - recommend keeping arm elevated - Hand exercises to promote circulation - No surgical intervention warranted at this time - Further recs per Dr. Tequila Tabares, PGY1
--- NOTE | 2018-04-02 12:08 | RAD ---
Date of service: 04/02/2018 PROCEDURE: Radiographs of the Lumbar Spine. HISTORY: BACK PAIN COMPARISON: CT abdomen and pelvis with contrast performed 03/29/18 FINDINGS: BONES: Alignment appears satisfactory. No listhesis. No acute displaced fracture identified. DISC SPACES: Unremarkable. OTHER FINDINGS: None. IMPRESSION: No acute displaced fracture or subluxation. Please note that spina bifida changes at L4-L5 levels demonstrated on CT performed 03/29/18 are not adequately assessed by plain film.
[2018-04-02] MEDS: Docusate-Senna 50 mg-8.6 mg Tab PO SCH ×2 (12:40→18:00)
[2018-04-02] MEDS: Cefepime IV 1 gm in Dextrose 1 GM/50 ML BAG IVPB SCH (14:01)
[2018-04-02] MEDS: Ferric Sodium Gluconat Complex 125 MG in Sodium Chloride 0.9% 100 ML IVPB SCH (18:02)
[2018-04-02] MEDS: POLYETHYLENE GLYCOL 3350 17 GM/Dose PACKET PO SCH (19:30)
[2018-04-03] MEDS: oxyCODONE 5 mg Immediate Release Tab PO PRN ×3 (06:00→18:11)
[2018-04-03] MEDS: Multivitamin Vitamin B Complex (Nephro-Vite) Tab PO SCH (07:28)
[2018-04-03] MEDS: Pantoprazole 40 mg EC Tab PO SCH (09:47)
[2018-04-03] MEDS: Docusate-Senna 50 mg-8.6 mg Tab PO SCH ×2 (09:47→18:10)
[2018-04-03] MEDS: Mupirocin 2% Ointment (NASAL) NAS SCH ×2 (09:47→18:09)
--- NOTE | 2018-04-03 12:19 | CP.PCM.PN ---
Subjective - Date & Time of Evaluation Date of Evaluation: 04/03/18 Time of Evaluation: 12:17 - Subjective Subjective: slight abd pain and back pain Objective - Vital Signs/Intake and Output Vital Signs (last 24 hours): Temp Pulse Resp BP Pulse Ox 98.4 F 70 20 155/85 H 96 04/03/18 07:41 04/03/18 07:41 04/03/18 07:41 04/03/18 07:41 04/03/18 07:41 Intake and Output: 04/03/18 04/03/18 06:59 18:59 Intake Total 600 Output Total 1100 Balance -500 - Medications Medications: Current Medications Acetaminophen (Tylenol 325mg Tab) 650 mg PO Q6 PRN PRN Reason: Pain, moderate (4-7) Last Admin: 04/01/18 11:28 Dose: 650 mg Amlodipine Besylate (Norvasc) 10 mg PO DAILY [facility] Last Admin: 04/03/18 09:48 Dose: Not Given Calcitriol (Rocaltrol) 0.25 mcg PO MWF [facility] Last Admin: 04/03/18 09:47 Dose: 0.25 mcg Calcium Acetate (Phoslo) 1,334 mg PO TIDCC [facility] Last Admin: 04/03/18 07:28 Dose: 1,334 mg Epoetin Sundar (Procrit) 10,000 unit IV [facility] Last Admin: 04/01/18 11:11 Dose: 10,000 unit Ferric Sodium Gluconate Complex 125 mg/ Sodium Chloride 110 mls @ 110 mls/hr IVPB Q24H [facility] Stop: 04/04/18 17:01 Last Admin: 04/02/18 18:02 Dose: 110 mls/hr Cefepime HCl (Maxipime Iv 1 Gm Premix) 1 gm in 50 mls @ 100 mls/hr IVPB Q24H [facility]; Protocol Last Admin: 04/02/18 14:01 Dose: 100 mls/hr Loratadine (Claritin) 10 mg PO Q2D [facility] Stop: 04/09/18 11:16 Last Admin: 04/02/18 12:24 Dose: 10 mg Metoprolol Tartrate (Lopressor) 100 mg PO BID [facility] Last Admin: 04/03/18 09:47 Dose: Not Given Mupirocin (Bactroban 2% Nasal) 0.25 gm ОЛЕГ BID [facility] Last Admin: 04/03/18 09:47 Dose: 0.25 gm Oxycodone HCl (Oxycodone Immediate Release Tab) 15 mg PO Q4H PRN PRN Reason: Pain, moderate (4-7) Last Admin: 04/03/18 06:00 Dose: 15 mg Pantoprazole Sodium (Protonix Ec Tab) 40 mg PO DAILY [facility] Last Admin: 04/03/18 09:47 Dose: 40 mg Polyethylene Glycol (Miralax) 17 gm PO Q24H [facility] Last Admin: 04/02/18 19:30 Dose: Not Given Senna/Docusate Sodium (Senokot S 50 Mg-8.6 Mg) 1 tab PO BID [facility] Last Admin: 04/03/18 09:47 Dose: 1 tab Vitamin B Complex/Vit C/Folic Acid (Nephro-Edilberto) 1 tab PO 0800 [facility] Last Admin: 04/03/18 07:28 Dose: 1 tab - Labs Labs: 04/02/18 06:07 04/02/18 06:07 - Constitutional Appears: Non-toxic - Head Exam Head Exam: NORMAL INSPECTION - Eye Exam Eye Exam: Normal appearance Pupil Exam: NORMAL ACCOMODATION - ENT Exam ENT Exam: Mucous Membranes Moist - Neck Exam Neck Exam: Full ROM - Respiratory Exam Respiratory Exam: Clear to Ausculation Bilateral - Cardiovascular Exam Cardiovascular Exam: REGULAR RHYTHM - GI/Abdominal Exam GI & Abdominal Exam: Tenderness, Normal Bowel Sounds - Rectal Exam Rectal Exam: NORMAL INSPECTION - Extremities Exam Extremities Exam: Normal Inspection - Back Exam Back Exam: NORMAL INSPECTION - Neurological Exam Neurological Exam: Alert, Awake, Oriented x3 - Psychiatric Exam Psychiatric exam: Normal Mood - Skin Skin Exam: Normal Color Assessment and Plan - Assessment and Plan (Free Text) Assessment: s/p ac pancreatitis pfatty liver cardiomegaly esrf pernephric fluid atelectasis i Plan: add incentive spirometer cont med and dialydsis
[2018-04-03] MEDS: Epoetin Alfa 10,000 unit/ml Dialysis IV SCH (14:38)
[2018-04-03] MEDS: Cefepime IV 1 gm in Dextrose 1 GM/50 ML BAG IVPB SCH (15:25)
--- NOTE | 2018-04-03 16:39 | CP.PCM.PN ---
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 pancreatitis chronic obstructive uropathy managed by pt as self intermittent catheterization at home Plan HD as MWF schedule as ordered. nephrovite 1 tab daily Hypertension control; acceptable on current meds Monitor Input/Output, daily weights and renal function with basic metabolic panel added phoslo 667 mg 2 cap TID with meals started epogen. IV iron. PRBC as needed started calcitriol MWF SW consult for outpt HD placement discussed with staff Dr Tsang for vasc follow up appreciated added claritin cardoza catheter x 1-2 day to help with hydronephrosis and possibly related back pain: pt feels better Dose meds/antibiotics for reduced GFR. Avoid phos based fleets enema/magnesium based laxatives. Avoid nephrotoxins/NSAIDs/ iodinated contrast (unless needed emergently) Glycemic control Further work up for as per primary team pt stable from renal perspective for d/c when planned and when arranged for outpt HD Thanks for allowing me to participate in care of your patient. Will follow patient with you. Please call if any Qs. had d/w team Dr Julio Perez Office: [phone] CC: pain abdomen SOB vomiting reason for consult: ESRD HPI: pt is a 22 M with CKD 5 due to chronic obstructive uropathy managed by pt as self intermittent catheterization at home, spina bifida neurogenic bladder came with worsening pain abdomen with SOB, nausea/vomiting x 1 week, decreased urine output also pt has been feeling sick for last 1 week. he had missed appt with me in renal clinic. 10/16/17: PD catheter was removed as intra-op showed extensive foreign body reaction and ? pelvic abscess ROS: Denies chest pain, palpitation, leg swelling. no pain abdomen . no nausea. SOB resolved All other negative. making less urine. self intermittent catheterization at home. c/o low back/flank pain, sneezing anf left forearm swelling: ALL BETTER Physical Examination: seen on HD General Appearance: comfortable, in no acute respiratory distress, co-operative . well appearing Vitals reviewed and noted as below Head; Atraumatic, normocephalic ENT: no ulcers no thrush. Tongue is midline. Oropharynx: no rash or ulcers. EYES: Pupils are equal, round and reactive to light accommodation. Eye muscles and extraocular movement intact. Sclera is anicteric. Neck; supple no lymphadenopathy, no thyromegaly or bruit Lungs: Normal respiratory rate/effort. Breath sounds bilateral clear Extremities: no edema. No varicose veins Neurological: Patient is alert, awake and oriented to person, place and time. No focal deficit. Strength bilateral appropriate and equal Skin: Warm and dry. Normal turgor. No rash. Palpitation: Normal elasticity for age Abdomen: Abdomen is soft. Bowel sounds +. There is no abdominal tenderness, no guarding/rigidity no organomegaly. Psych: normal insight and normal affect/mood MSK: no joint tenderness or swelling. Digits and nails normal, no deformity : kidney not palpable. has cardoza AVF as access. left foream swelling noted but better Labs/imaging reviewed. Past medical history, past surgical history, family history, social history, allergy reviewed and noted as below Family hx: no hx of CKD. Rest non-contributory in past, renal imaging: b/l severe hydronephrosis Objective - Vital Signs/Intake and Output Vital Signs (last 24 hours): Temp Pulse Resp BP Pulse Ox 97.8 F 71 20 155/95 H 98 04/03/18 13:50 04/03/18 13:50 04/03/18 13:50 04/03/18 16:20 04/03/18 13:50 Intake and Output: 04/03/18 04/03/18 06:59 18:59 Intake Total 600 Output Total 1100 Balance -500 - Medications Medications: Current Medications Acetaminophen (Tylenol 325mg Tab) 650 mg PO Q6 PRN PRN Reason: Pain, moderate (4-7) Last Admin: 04/01/18 11:28 Dose: 650 mg Amlodipine Besylate (Norvasc) 10 mg PO DAILY [facility] Last Admin: 04/03/18 09:48 Dose: Not Given Calcitriol (Rocaltrol) 0.25 mcg PO MWF [facility] Last Admin: 04/03/18 09:47 Dose: 0.25 mcg Calcium Acetate (Phoslo) 1,334 mg PO TIDCC [facility] Last Admin: 04/03/18 12:21 Dose: 1,334 mg Epoetin Sundar (Procrit) 10,000 unit IV [facility] Last Admin: 04/03/18 14:38 Dose: 10,000 unit Ferric Sodium Gluconate Complex 125 mg/ Sodium Chloride 110 mls @ 110 mls/hr IVPB Q24H [facility] Stop: 04/04/18 17:01 Last Admin: 04/02/18 18:02 Dose: 110 mls/hr Cefepime HCl (Maxipime Iv 1 Gm Premix) 1 gm in 50 mls @ 100 mls/hr IVPB Q24H [facility]; Protocol Last Admin: 04/03/18 15:25 Dose: Not Given Loratadine (Claritin) 10 mg PO Q2D [facility] Stop: 04/09/18 11:16 Last Admin: 04/02/18 12:24 Dose: 10 mg Metoprolol Tartrate (Lopressor) 100 mg PO BID [facility] Last Admin: 04/03/18 09:47 Dose: Not Given Mupirocin (Bactroban 2% Nasal) 0.25 gm ОЛЕГ BID [facility] Last Admin: 04/03/18 09:47 Dose: 0.25 gm Oxycodone HCl (Oxycodone Immediate Release Tab) 15 mg PO Q4H PRN PRN Reason: Pain, moderate (4-7) Last Admin: 04/03/18 12:21 Dose: 15 mg Pantoprazole Sodium (Protonix Ec Tab) 40 mg PO DAILY [facility] Last Admin: 04/03/18 09:47 Dose: 40 mg Polyethylene Glycol (Miralax) 17 gm PO Q24H [facility] Last Admin: 04/02/18 19:30 Dose: Not Given Senna/Docusate Sodium (Senokot S 50 Mg-8.6 Mg) 1 tab PO BID [facility] Last Admin: 04/03/18 09:47 Dose: 1 tab Vitamin B Complex/Vit C/Folic Acid (Nephro-Edilberto) 1 tab PO 0800 [facility] Last Admin: 04/03/18 07:28 Dose: 1 tab - Labs Labs: 04/02/18 06:07 04/02/18 06:07
[2018-04-03] MEDS: Ferric Sodium Gluconat Complex 125 MG in Sodium Chloride 0.9% 100 ML IVPB SCH (22:05)
[2018-04-03] MEDS: POLYETHYLENE GLYCOL 3350 17 GM/Dose PACKET PO SCH (22:06)
[2018-04-04] MEDS: oxyCODONE 5 mg Immediate Release Tab PO PRN ×5 (00:55→23:49)
[2018-04-04] MEDS: Multivitamin Vitamin B Complex (Nephro-Vite) Tab PO SCH (08:06)
[2018-04-04] MEDS: Pantoprazole 40 mg EC Tab PO SCH (09:52)
[2018-04-04] MEDS: Docusate-Senna 50 mg-8.6 mg Tab PO SCH ×2 (09:52→17:50)
[2018-04-04] MEDS: Mupirocin 2% Ointment (NASAL) NAS SCH ×2 (09:53→17:49)
--- NOTE | 2018-04-04 12:12 | CP.PCM.PN ---
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 pancreatitis chronic obstructive uropathy managed by pt as self intermittent catheterization at home Plan HD as MWF schedule as ordered. nephrovite 1 tab daily Hypertension control; acceptable on current meds Monitor Input/Output, daily weights and renal function with basic metabolic panel added phoslo 667 mg 2 cap TID with meals started epogen. IV iron. PRBC as needed started calcitriol MWF SW consult for outpt HD placement discussed with staff Dr Tsang for vasc follow up appreciated added claritin for few days cardoza catheter x 1-2 day to help with hydronephrosis and possibly related back pain: plan to DC cardoza at d/c Dose meds/antibiotics for reduced GFR. Avoid phos based fleets enema/magnesium based laxatives. Avoid nephrotoxins/NSAIDs/ iodinated contrast (unless needed emergently) Glycemic control Further work up for as per primary team pt stable from renal perspective for d/c when planned and when arranged for outpt HD Thanks for allowing me to participate in care of your patient. Will follow patient with you. Please call if any Qs. had d/w team Dr Julio Perez Office: [phone] CC: pain abdomen SOB vomiting reason for consult: ESRD HPI: pt is a 22 M with CKD 5 due to chronic obstructive uropathy managed by pt as self intermittent catheterization at home, spina bifida neurogenic bladder came with worsening pain abdomen with SOB, nausea/vomiting x 1 week, decreased urine output also pt has been feeling sick for last 1 week. he had missed appt with me in renal clinic. 10/16/17: PD catheter was removed as intra-op showed extensive foreign body reaction and ? pelvic abscess ROS: Denies chest pain, palpitation, leg swelling. no pain abdomen . no nausea. SOB resolved All other negative. making less urine. self intermittent catheterization at home. c/o low back/flank pain, sneezing anf left forearm swelling: ALL BETTER Physical Examination: General Appearance: comfortable, in no acute respiratory distress, co-operative . well appearing Vitals reviewed and noted as below Head; Atraumatic, normocephalic ENT: no ulcers no thrush. Tongue is midline. Oropharynx: no rash or ulcers. EYES: Pupils are equal, round and reactive to light accommodation. Eye muscles and extraocular movement intact. Sclera is anicteric. Neck; supple no lymphadenopathy, no thyromegaly or bruit Lungs: Normal respiratory rate/effort. Breath sounds bilateral clear Extremities: no edema. No varicose veins Neurological: Patient is alert, awake and oriented to person, place and time. No focal deficit. Strength bilateral appropriate and equal Skin: Warm and dry. Normal turgor. No rash. Palpitation: Normal elasticity for age Abdomen: Abdomen is soft. Bowel sounds +. There is no abdominal tenderness, no guarding/rigidity no organomegaly. Psych: normal insight and normal affect/mood MSK: no joint tenderness or swelling. Digits and nails normal, no deformity : kidney not palpable. has cardoza AVF as access. left foream swelling noted but better Labs/imaging reviewed. Past medical history, past surgical history, family history, social history, allergy reviewed and noted as below Family hx: no hx of CKD. Rest non-contributory in past, renal imaging: b/l severe hydronephrosis Objective - Vital Signs/Intake and Output Vital Signs (last 24 hours): Temp Pulse Resp BP Pulse Ox 98 F 68 20 155/86 H 96 04/04/18 07:45 04/04/18 07:45 04/04/18 07:45 04/04/18 07:45 04/04/18 07:45 Intake and Output: 04/04/18 04/04/18 06:59 18:59 Intake Total 120 Output Total 200 Balance -80 - Medications Medications: Current Medications Acetaminophen (Tylenol 325mg Tab) 650 mg PO Q6 PRN PRN Reason: Pain, moderate (4-7) Last Admin: 04/01/18 11:28 Dose: 650 mg Amlodipine Besylate (Norvasc) 10 mg PO DAILY [facility] Last Admin: 04/04/18 09:52 Dose: 10 mg Calcitriol (Rocaltrol) 0.25 mcg PO MWF [facility] Last Admin: 04/03/18 09:47 Dose: 0.25 mcg Calcium Acetate (Phoslo) 1,334 mg PO TIDCC [facility] Last Admin: 04/04/18 11:09 Dose: 1,334 mg Epoetin Sundar (Procrit) 10,000 unit IV [facility] Last Admin: 04/03/18 14:38 Dose: 10,000 unit Ferric Sodium Gluconate Complex 125 mg/ Sodium Chloride 110 mls @ 110 mls/hr IVPB Q24H [facility] Stop: 04/04/18 17:01 Last Admin: 04/03/18 22:05 Dose: 110 mls/hr Cefepime HCl (Maxipime Iv 1 Gm Premix) 1 gm in 50 mls @ 100 mls/hr IVPB Q24H [facility]; Protocol Last Admin: 04/03/18 15:25 Dose: Not Given Loratadine (Claritin) 10 mg PO Q2D [facility] Stop: 04/09/18 11:16 Last Admin: 04/04/18 10:15 Dose: 10 mg Metoprolol Tartrate (Lopressor) 100 mg PO BID [facility] Last Admin: 04/04/18 09:51 Dose: 100 mg Mupirocin (Bactroban 2% Nasal) 0.25 gm ОЛЕГ BID [facility] Last Admin: 04/04/18 09:53 Dose: 0.25 gm Oxycodone HCl (Oxycodone Immediate Release Tab) 15 mg PO Q4H PRN PRN Reason: Pain, moderate (4-7) Last Admin: 04/04/18 08:50 Dose: 15 mg Pantoprazole Sodium (Protonix Ec Tab) 40 mg PO DAILY [facility] Last Admin: 04/04/18 09:52 Dose: 40 mg Polyethylene Glycol (Miralax) 17 gm PO Q24H [facility] Last Admin: 04/03/18 22:06 Dose: 17 gm Senna/Docusate Sodium (Senokot S 50 Mg-8.6 Mg) 1 tab PO BID [facility] Last Admin: 04/04/18 09:52 Dose: 1 tab Vitamin B Complex/Vit C/Folic Acid (Nephro-Edilberto) 1 tab PO 0800 [facility] Last Admin: 04/04/18 08:06 Dose: 1 tab - Labs Labs: 04/02/18 06:07 04/02/18 06:07
[2018-04-04] MEDS: Cefepime IV 1 gm in Dextrose 1 GM/50 ML BAG IVPB SCH (14:24)
--- NOTE | 2018-04-04 18:32 | CP.PCM.PN ---
Subjective - Date & Time of Evaluation Date of Evaluation: 04/04/18 Time of Evaluation: 18:29 - Subjective Subjective: pt uncomfotable in pain r flank area tenderct perinephric fluids r side Objective - Vital Signs/Intake and Output Vital Signs (last 24 hours): Temp Pulse Resp BP Pulse Ox 98.0 F 70 20 135/84 98 04/04/18 15:00 04/04/18 15:00 04/04/18 15:00 04/04/18 15:00 04/04/18 15:00 Intake and Output: 04/04/18 04/04/18 06:59 18:59 Intake Total 120 580 Output Total 200 400 Balance -80 180 - Medications Medications: Current Medications Acetaminophen (Tylenol 325mg Tab) 650 mg PO Q6 PRN PRN Reason: Pain, moderate (4-7) Last Admin: 04/01/18 11:28 Dose: 650 mg Amlodipine Besylate (Norvasc) 10 mg PO DAILY [facility] Last Admin: 04/04/18 09:52 Dose: 10 mg Calcitriol (Rocaltrol) 0.25 mcg PO MWF [facility] Last Admin: 04/03/18 09:47 Dose: 0.25 mcg Calcium Acetate (Phoslo) 1,334 mg PO TIDCC [facility] Last Admin: 04/04/18 17:50 Dose: 1,334 mg Epoetin Sundar (Procrit) 10,000 unit [place] [facility] Last Admin: 04/03/18 14:38 Dose: 10,000 unit Cefepime HCl (Maxipime Iv 1 Gm Premix) 1 gm in 50 mls @ 100 mls/hr IVPB Q24H [facility]; Protocol Last Admin: 04/04/18 14:24 Dose: 100 mls/hr Loratadine (Claritin) 10 mg PO Q2D [facility] Stop: 04/09/18 11:16 Last Admin: 04/04/18 10:15 Dose: 10 mg Metoprolol Tartrate (Lopressor) 100 mg PO BID [facility] Last Admin: 04/04/18 17:50 Dose: 100 mg Mupirocin (Bactroban 2% Nasal) 0.25 gm ОЛЕГ BID [facility] Last Admin: 04/04/18 17:49 Dose: 0.25 gm Oxycodone HCl (Oxycodone Immediate Release Tab) 15 mg PO Q4H PRN PRN Reason: Pain, moderate (4-7) Last Admin: 04/04/18 14:24 Dose: 15 mg Pantoprazole Sodium (Protonix Ec Tab) 40 mg PO DAILY [facility] Last Admin: 04/04/18 09:52 Dose: 40 mg Polyethylene Glycol (Miralax) 17 gm PO Q24H [facility] Last Admin: 04/03/18 22:06 Dose: 17 gm Senna/Docusate Sodium (Senokot S 50 Mg-8.6 Mg) 1 tab PO BID [facility] Last Admin: 04/04/18 17:50 Dose: 1 tab Vitamin B Complex/Vit C/Folic Acid (Nephro-Edilberto) 1 tab PO 0800 [facility] Last Admin: 04/04/18 08:06 Dose: 1 tab - Labs Labs: 04/02/18 06:07 04/02/18 06:07 - Constitutional Appears: Non-toxic, In Acute Distress - Head Exam Head Exam: ATRAUMATIC - Eye Exam Eye Exam: Normal appearance Pupil Exam: NORMAL ACCOMODATION - ENT Exam ENT Exam: Mucous Membranes Moist - Neck Exam Neck Exam: Full ROM - Respiratory Exam Respiratory Exam: NORMAL BREATHING PATTERN - Cardiovascular Exam Cardiovascular Exam: REGULAR RHYTHM - GI/Abdominal Exam GI & Abdominal Exam: Tenderness, Normal Bowel Sounds - Exam Exam: NORMAL INSPECTION - Extremities Exam Extremities Exam: Full ROM - Back Exam Back Exam: NORMAL INSPECTION - Neurological Exam Neurological Exam: Alert, Awake, Normal Gait, Oriented x3 - Psychiatric Exam Psychiatric exam: Normal Affect - Skin Skin Exam: Normal Color, Pallor Assessment and Plan - Assessment and Plan (Free Text) Assessment: renal pain pernephric inflamation esrf mrsa Plan: cont curent treatment
[2018-04-04] MEDS: Ferric Sodium Gluconat Complex 125 MG in Sodium Chloride 0.9% 100 ML IVPB SCH (23:40)
[2018-04-04] MEDS: POLYETHYLENE GLYCOL 3350 17 GM/Dose PACKET PO SCH (23:45)
[2018-04-05] MEDS: oxyCODONE 5 mg Immediate Release Tab PO PRN ×4 (06:01→21:04)
[2018-04-05] MEDS: Multivitamin Vitamin B Complex (Nephro-Vite) Tab PO SCH (07:56)
[2018-04-05] MEDS: Docusate-Senna 50 mg-8.6 mg Tab PO SCH ×2 (10:25→17:23)
[2018-04-05] MEDS: Pantoprazole 40 mg EC Tab PO SCH (10:25)
[2018-04-05] MEDS: Epoetin Alfa 10,000 unit/ml Dialysis IV SCH ×2 (11:12→12:14)
--- NOTE | 2018-04-05 11:56 | CP.PCM.PN ---
Subjective - Date & Time of Evaluation Date of Evaluation: 04/05/18 Time of Evaluation: 11:53 - Subjective Subjective: pt has dialysis today still slight discomfort r flank result of mrsa repeat negative Objective - Vital Signs/Intake and Output Vital Signs (last 24 hours): Temp Pulse Resp BP Pulse Ox 98.1 F 69 16 134/86 99 04/05/18 10:06 04/05/18 10:06 04/05/18 10:06 04/05/18 11:20 04/05/18 09:25 Intake and Output: 04/05/18 04/05/18 06:59 18:59 Intake Total 230 Output Total 200 Balance 30 - Medications Medications: Current Medications Acetaminophen (Tylenol 325mg Tab) 650 mg PO Q6 PRN PRN Reason: Pain, moderate (4-7) Last Admin: 04/01/18 11:28 Dose: 650 mg Amlodipine Besylate (Norvasc) 10 mg PO DAILY [facility] Last Admin: 04/05/18 10:25 Dose: Not Given Calcitriol (Rocaltrol) 0.25 mcg PO MWF [facility] Last Admin: 04/05/18 08:01 Dose: 0.25 mcg Calcium Acetate (Phoslo) 1,334 mg PO TIDCC [facility] Last Admin: 04/05/18 07:56 Dose: 1,334 mg Epoetin Sundar (Procrit) 10,000 unit IV [facility] Last Admin: 04/05/18 11:12 Dose: Not Given Cefepime HCl (Maxipime Iv 1 Gm Premix) 1 gm in 50 mls @ 100 mls/hr IVPB Q24H [facility]; Protocol Last Admin: 04/04/18 14:24 Dose: 100 mls/hr Loratadine (Claritin) 10 mg PO Q2D [facility] Stop: 04/09/18 11:16 Last Admin: 04/04/18 10:15 Dose: 10 mg Metoprolol Tartrate (Lopressor) 100 mg PO BID [facility] Last Admin: 04/05/18 10:24 Dose: Not Given Mupirocin (Bactroban 2% Nasal) 0.25 gm ОЛЕГ BID [facility] Last Admin: 04/04/18 17:49 Dose: 0.25 gm Oxycodone HCl (Oxycodone Immediate Release Tab) 15 mg PO Q4H PRN PRN Reason: Pain, moderate (4-7) Last Admin: 04/05/18 11:17 Dose: 15 mg Pantoprazole Sodium (Protonix Ec Tab) 40 mg PO DAILY [facility] Last Admin: 04/05/18 10:25 Dose: Not Given Polyethylene Glycol (Miralax) 17 gm PO Q24H [facility] Last Admin: 04/04/18 23:45 Dose: 17 gm Senna/Docusate Sodium (Senokot S 50 Mg-8.6 Mg) 1 tab PO BID [facility] Last Admin: 04/05/18 10:25 Dose: Not Given Vitamin B Complex/Vit C/Folic Acid (Nephro-Edilberto) 1 tab PO 0800 [facility] Last Admin: 04/05/18 07:56 Dose: 1 tab - Labs Labs: 04/02/18 06:07 04/02/18 06:07 - Constitutional Appears: Non-toxic - Head Exam Head Exam: ATRAUMATIC - Eye Exam Eye Exam: Normal appearance Pupil Exam: NORMAL ACCOMODATION - ENT Exam ENT Exam: Normal Exam - Neck Exam Neck Exam: Full ROM - Respiratory Exam Respiratory Exam: Clear to Ausculation Bilateral - Cardiovascular Exam Cardiovascular Exam: REGULAR RHYTHM - GI/Abdominal Exam GI & Abdominal Exam: Normal Bowel Sounds - Rectal Exam Rectal Exam: NORMAL INSPECTION - Exam Exam: NORMAL INSPECTION - Extremities Exam Extremities Exam: Normal Inspection - Back Exam Back Exam: NORMAL INSPECTION - Neurological Exam Neurological Exam: Alert, Normal Gait, Oriented x3 - Psychiatric Exam Psychiatric exam: Normal Affect - Skin Skin Exam: Pallor Assessment and Plan - Assessment and Plan (Free Text) Assessment: aneamia s/p pancreatitis s/p perrenal innflamation s/p mrsa nose improved esrf on dialysis aneamia spina bifida Plan: cont same await arrangement for out pt dialysis
[2018-04-05] MEDS: Mupirocin 2% Ointment (NASAL) NAS SCH ×2 (13:52→17:24)
--- NOTE | 2018-04-05 14:13 | CP.PCM.PN ---
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 pancreatitis chronic obstructive uropathy managed by pt as self intermittent catheterization at home Plan HD as MWF schedule as ordered. nephrovite 1 tab daily Hypertension control; acceptable on current meds Monitor Input/Output, daily weights and renal function with basic metabolic panel added phoslo 667 mg 2 cap TID with meals started epogen. IV iron. PRBC as needed started calcitriol MWF SW consult for outpt HD placement discussed with staff Dr Tsang for vasc follow up appreciated added claritin for few days cardoza catheter x 1-2 day to help with hydronephrosis and possibly related back pain: plan to DC cardoza at d/c Dose meds/antibiotics for reduced GFR. Avoid phos based fleets enema/magnesium based laxatives. Avoid nephrotoxins/NSAIDs/ iodinated contrast (unless needed emergently) Glycemic control Further work up for as per primary team pt stable from renal perspective for d/c when planned and when arranged for outpt HD Thanks for allowing me to participate in care of your patient. Will follow patient with you. Please call if any Qs. had d/w team Dr Julio Perez Office: [phone] CC: pain abdomen SOB vomiting reason for consult: ESRD HPI: pt is a 22 M with CKD 5 due to chronic obstructive uropathy managed by pt as self intermittent catheterization at home, spina bifida neurogenic bladder came with worsening pain abdomen with SOB, nausea/vomiting x 1 week, decreased urine output also pt has been feeling sick for last 1 week. he had missed appt with me in renal clinic. 10/16/17: PD catheter was removed as intra-op showed extensive foreign body reaction and ? pelvic abscess ROS: Denies chest pain, palpitation, leg swelling. no pain abdomen . no nausea. SOB resolved All other negative. making less urine. self intermittent catheterization at home. c/o low back pain, sneezing anf left forearm swelling: ALL BETTER Physical Examination: seen on HD General Appearance: comfortable, in no acute respiratory distress, co-operative . well appearing Vitals reviewed and noted as below Head; Atraumatic, normocephalic ENT: no ulcers no thrush. Tongue is midline. Oropharynx: no rash or ulcers. EYES: Pupils are equal, round and reactive to light accommodation. Eye muscles and extraocular movement intact. Sclera is anicteric. Neck; supple no lymphadenopathy, no thyromegaly or bruit Lungs: Normal respiratory rate/effort. Breath sounds bilateral clear Extremities: no edema. No varicose veins Neurological: Patient is alert, awake and oriented to person, place and time. No focal deficit. Strength bilateral appropriate and equal Skin: Warm and dry. Normal turgor. No rash. Palpitation: Normal elasticity for age Abdomen: Abdomen is soft. Bowel sounds +. There is no abdominal tenderness, no guarding/rigidity no organomegaly. Psych: normal insight and normal affect/mood MSK: no joint tenderness or swelling. Digits and nails normal, no deformity : kidney not palpable. has cardoza AVF as access. left foream swelling noted but better Labs/imaging reviewed. Past medical history, past surgical history, family history, social history, allergy reviewed and noted as below Family hx: no hx of CKD. Rest non-contributory in past, renal imaging: b/l severe hydronephrosis Objective - Vital Signs/Intake and Output Vital Signs (last 24 hours): Temp Pulse Resp BP Pulse Ox 98.1 F 69 16 134/86 99 04/05/18 10:06 04/05/18 10:06 04/05/18 10:06 04/05/18 11:20 04/05/18 09:25 Intake and Output: 04/05/18 04/05/18 06:59 18:59 Intake Total 230 Output Total 200 Balance 30 - Medications Medications: Current Medications Acetaminophen (Tylenol 325mg Tab) 650 mg PO Q6 PRN PRN Reason: Pain, moderate (4-7) Last Admin: 04/01/18 11:28 Dose: 650 mg Amlodipine Besylate (Norvasc) 10 mg PO DAILY [facility] Last Admin: 04/05/18 10:25 Dose: Not Given Calcitriol (Rocaltrol) 0.25 mcg PO [facility] Last Admin: 04/05/18 08:01 Dose: 0.25 mcg Calcium Acetate (Phoslo) 1,334 mg PO TIDCC [facility] Last Admin: 04/05/18 12:14 Dose: Not Given Epoetin Sundar (Procrit) 10,000 unit IV [facility] Last Admin: 04/05/18 12:14 Dose: 10,000 unit Cefepime HCl (Maxipime Iv 1 Gm Premix) 1 gm in 50 mls @ 100 mls/hr IVPB Q24H [facility]; Protocol Last Admin: 04/04/18 14:24 Dose: 100 mls/hr Loratadine (Claritin) 10 mg PO Q2D [facility] Stop: 04/09/18 11:16 Last Admin: 04/04/18 10:15 Dose: 10 mg Metoprolol Tartrate (Lopressor) 100 mg PO BID [facility] Last Admin: 04/05/18 10:24 Dose: Not Given Mupirocin (Bactroban 2% Nasal) 0.25 gm ОЛЕГ BID [facility] Last Admin: 04/05/18 13:52 Dose: 0.25 gm Oxycodone HCl (Oxycodone Immediate Release Tab) 15 mg PO Q4H PRN PRN Reason: Pain, moderate (4-7) Last Admin: 04/05/18 11:17 Dose: 15 mg Pantoprazole Sodium (Protonix Ec Tab) 40 mg PO DAILY [facility] Last Admin: 04/05/18 10:25 Dose: Not Given Polyethylene Glycol (Miralax) 17 gm PO Q24H [facility] Last Admin: 04/04/18 23:45 Dose: 17 gm Senna/Docusate Sodium (Senokot S 50 Mg-8.6 Mg) 1 tab PO BID [facility] Last Admin: 04/05/18 10:25 Dose: Not Given Vitamin B Complex/Vit C/Folic Acid (Nephro-Edilberto) 1 tab PO 0800 [facility] Last Admin: 04/05/18 07:56 Dose: 1 tab - Labs Labs: 04/02/18 06:07 04/02/18 06:07
[2018-04-05] MEDS: Cefepime IV 1 gm in Dextrose 1 GM/50 ML BAG IVPB SCH (14:21)
[2018-04-05] MEDS: POLYETHYLENE GLYCOL 3350 17 GM/Dose PACKET PO SCH (21:02)
[2018-04-06] MEDS: oxyCODONE 5 mg Immediate Release Tab PO PRN ×5 (02:59→23:06)
[2018-04-06] MEDS: Multivitamin Vitamin B Complex (Nephro-Vite) Tab PO SCH (09:52)
[2018-04-06] MEDS: Docusate-Senna 50 mg-8.6 mg Tab PO SCH ×2 (09:57→17:48)
[2018-04-06] MEDS: Pantoprazole 40 mg EC Tab PO SCH (09:59)
[2018-04-06] MEDS: Mupirocin 2% Ointment (NASAL) NAS SCH ×2 (10:08→17:41)
--- NOTE | 2018-04-06 12:09 | CP.PCM.PN ---
Subjective - Date & Time of Evaluation Date of Evaluation: 04/06/18 Time of Evaluation: 12:06 - Subjective Subjective: c/o pain r flank Objective - Vital Signs/Intake and Output Vital Signs (last 24 hours): Temp Pulse Resp BP Pulse Ox 97.9 F 74 20 153/83 H 100 04/06/18 08:20 04/06/18 08:20 04/06/18 08:20 04/06/18 08:20 04/06/18 11:21 Intake and Output: 04/06/18 04/06/18 06:59 18:59 Intake Total 350 Output Total 1130 Balance -780 - Medications Medications: Current Medications Acetaminophen (Tylenol 325mg Tab) 650 mg PO Q6 PRN PRN Reason: Pain, moderate (4-7) Last Admin: 04/01/18 11:28 Dose: 650 mg Amlodipine Besylate (Norvasc) 10 mg PO DAILY [facility] Last Admin: 04/06/18 09:57 Dose: 10 mg Calcitriol (Rocaltrol) 0.25 mcg PO MWF [facility] Last Admin: 04/05/18 08:01 Dose: 0.25 mcg Calcium Acetate (Phoslo) 1,334 mg PO TIDCC [facility] Last Admin: 04/06/18 09:52 Dose: 1,334 mg Epoetin Sundar (Procrit) 10,000 unit [place] [facility] Last Admin: 04/05/18 12:14 Dose: 10,000 unit Cefepime HCl (Maxipime Iv 1 Gm Premix) 1 gm in 50 mls @ 100 mls/hr IVPB Q24H [facility]; Protocol Last Admin: 04/05/18 14:21 Dose: 100 mls/hr Loratadine (Claritin) 10 mg PO Q2D [facility] Stop: 04/09/18 11:16 Last Admin: 04/06/18 09:57 Dose: 10 mg Metoprolol Tartrate (Lopressor) 100 mg PO BID [facility] Last Admin: 04/06/18 09:58 Dose: 100 mg Mupirocin (Bactroban 2% Nasal) 0.25 gm ОЛЕГ BID [facility] Last Admin: 04/06/18 10:08 Dose: 0.25 gm Oxycodone HCl (Oxycodone Immediate Release Tab) 15 mg PO Q4H PRN PRN Reason: Pain, moderate (4-7) Last Admin: 04/06/18 09:44 Dose: 15 mg Pantoprazole Sodium (Protonix Ec Tab) 40 mg PO DAILY [facility] Last Admin: 04/06/18 09:59 Dose: 40 mg Polyethylene Glycol (Miralax) 17 gm PO Q24H [facility] Last Admin: 04/05/18 21:02 Dose: 17 gm Senna/Docusate Sodium (Senokot S 50 Mg-8.6 Mg) 1 tab PO BID [facility] Last Admin: 04/06/18 09:57 Dose: 1 tab Vitamin B Complex/Vit C/Folic Acid (Nephro-Edilberto) 1 tab PO 0800 [facility] Last Admin: 04/06/18 09:52 Dose: 1 tab - Labs Labs: 04/02/18 06:07 04/02/18 06:07 - Constitutional Appears: Non-toxic - Head Exam Head Exam: ATRAUMATIC - Eye Exam Eye Exam: Normal appearance Pupil Exam: NORMAL ACCOMODATION - ENT Exam ENT Exam: Mucous Membranes Moist - Respiratory Exam Respiratory Exam: NORMAL BREATHING PATTERN - Cardiovascular Exam Cardiovascular Exam: REGULAR RHYTHM - GI/Abdominal Exam GI & Abdominal Exam: Tenderness - Rectal Exam Rectal Exam: Deferred - Exam Exam: NORMAL INSPECTION - Extremities Exam Extremities Exam: Normal Inspection - Back Exam Back Exam: CVA tenderness (R) - Neurological Exam Neurological Exam: Alert, Normal Gait, Oriented x3 - Skin Skin Exam: Pallor Assessment and Plan - Assessment and Plan (Free Text) Assessment: r flank pain pernephrec inflamation esrf uti Plan: cont medication and dialysis
[2018-04-06] MEDS: Cefepime IV 1 gm in Dextrose 1 GM/50 ML BAG IVPB SCH ×2 (13:57→15:00)
[2018-04-06] MEDS: POLYETHYLENE GLYCOL 3350 17 GM/Dose PACKET PO SCH (18:47)
[2018-04-07] MEDS: oxyCODONE 5 mg Immediate Release Tab PO PRN ×5 (04:35→22:32)
[2018-04-07] MEDS: Multivitamin Vitamin B Complex (Nephro-Vite) Tab PO SCH (07:42)
[2018-04-07] MEDS: Pantoprazole 40 mg EC Tab PO SCH (09:22)
[2018-04-07] MEDS: Mupirocin 2% Ointment (NASAL) NAS SCH (09:22)
[2018-04-07] MEDS: Docusate-Senna 50 mg-8.6 mg Tab PO SCH ×2 (09:22→17:57)
--- NOTE | 2018-04-07 10:35 | CP.PCM.PN ---
Subjective - Date & Time of Evaluation Date of Evaluation: 04/07/18 Time of Evaluation: 10:32 - Subjective Subjective: still has pain r flank area Objective - Vital Signs/Intake and Output Vital Signs (last 24 hours): Temp Pulse Resp BP Pulse Ox 98 F 65 20 162/90 H 100 04/07/18 08:00 04/07/18 08:00 04/07/18 08:00 04/07/18 08:00 04/07/18 08:00 Intake and Output: 04/07/18 04/07/18 06:59 18:59 Intake Total 1200 Output Total 750 Balance 450 - Medications Medications: Current Medications Acetaminophen (Tylenol 325mg Tab) 650 mg PO Q6 PRN PRN Reason: Pain, moderate (4-7) Last Admin: 04/01/18 11:28 Dose: 650 mg Amlodipine Besylate (Norvasc) 10 mg PO DAILY [facility] Last Admin: 04/07/18 09:22 Dose: 10 mg Calcitriol (Rocaltrol) 0.25 mcg PO MWF [facility] Last Admin: 04/05/18 08:01 Dose: 0.25 mcg Calcium Acetate (Phoslo) 1,334 mg PO TIDCC [facility] Last Admin: 04/07/18 07:42 Dose: 1,334 mg Epoetin Sundar (Procrit) 10,000 unit IV [facility] [place] Last Admin: 04/05/18 12:14 Dose: 10,000 unit Cefepime HCl (Maxipime Iv 1 Gm Premix) 1 gm in 50 mls @ 100 mls/hr IVPB Q24H [facility]; Protocol Last Admin: 04/06/18 15:00 Dose: Not Given Loratadine (Claritin) 10 mg PO Q2D [facility] Stop: 04/09/18 11:16 Last Admin: 04/06/18 14:01 Dose: Not Given Metoprolol Tartrate (Lopressor) 100 mg PO BID [facility] Last Admin: 04/07/18 09:22 Dose: 100 mg Mupirocin (Bactroban 2% Nasal) 0.25 gm ОЛЕГ BID [facility] Last Admin: 04/07/18 09:22 Dose: 0.25 gm Oxycodone HCl (Oxycodone Immediate Release Tab) 15 mg PO Q4H PRN PRN Reason: Pain, moderate (4-7) Last Admin: 04/07/18 09:22 Dose: 15 mg Pantoprazole Sodium (Protonix Ec Tab) 40 mg PO DAILY [facility] Last Admin: 04/07/18 09:22 Dose: 40 mg Polyethylene Glycol (Miralax) 17 gm PO Q24H [facility] Last Admin: 04/06/18 18:47 Dose: 17 gm Senna/Docusate Sodium (Senokot S 50 Mg-8.6 Mg) 1 tab PO BID [facility] Last Admin: 04/07/18 09:22 Dose: 1 tab Vitamin B Complex/Vit C/Folic Acid (Nephro-Edilberto) 1 tab PO 0800 [facility] Last Admin: 04/07/18 07:42 Dose: 1 tab - Labs Labs: 04/02/18 06:07 04/02/18 06:07 - Constitutional Appears: Non-toxic, Unkempt - Head Exam Head Exam: ATRAUMATIC - Eye Exam Eye Exam: Normal appearance Pupil Exam: NORMAL ACCOMODATION - ENT Exam ENT Exam: Mucous Membranes Moist - Neck Exam Neck Exam: Full ROM - Respiratory Exam Respiratory Exam: Clear to Ausculation Bilateral - Cardiovascular Exam Cardiovascular Exam: REGULAR RHYTHM - GI/Abdominal Exam GI & Abdominal Exam: Tenderness, Normal Bowel Sounds Additional comments: r flank tender - Rectal Exam Rectal Exam: Deferred - Exam Exam: NORMAL INSPECTION - Extremities Exam Extremities Exam: Normal Capillary Refill - Neurological Exam Neurological Exam: Alert, Awake, Normal Gait, Oriented x3 - Psychiatric Exam Psychiatric exam: Normal Affect - Skin Skin Exam: Normal Color Assessment and Plan - Assessment and Plan (Free Text) Assessment: perinephric inflamation uti mrsa improved esrf Plan: d/c bactroban continu iv antibiotics repeate u/a
[2018-04-07 15:17] LABS: SQUAMOUS EPITHIAL < 1 /hpf (0-5); URINE BACTERIA RARE (<OCC); URINE BILIRUBIN NEGATIVE (NEGATIVE); URINE BLOOD 2+ (NEGATIVE); URINE CALCIUM OXALATE CRYSTALS RARE /hpf (<OCC); URINE CLARITY Hazy (Clear); URINE COLOR Yellow (YELLOW); URINE GLUCOSE (UA) NORMAL (Normal); URINE LEUKOCYTE ESTERASE 3+ Leu/uL (Negative); URINE PROTEIN 3+ mg/dL (NEGATIVE); URINE UROBILINOGEN NORMAL mg/dL (0.2-1.0)
[2018-04-07] MEDS: Cefepime IV 1 gm in Dextrose 1 GM/50 ML BAG IVPB SCH (16:06)
--- NOTE | 2018-04-07 17:24 | CP.PCM.PN ---
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 pancreatitis chronic obstructive uropathy managed by pt as self intermittent catheterization at home Plan HD as MWF schedule as ordered. Hypertension controlled Monitor Input/Output= continue phoslo epogen. IV iron. PRBC as needed calcitriol MWF SW consult for outpt HD placement discussed with staff Dr Tsang for vasc follow up appreciated Physical Examination: General Appearance: comfortable, in no acute respiratory distress, co-operative . well appearing Vitals reviewed and not Head; Atraumatic, normocephalic ENT: no ulcers EYES: Eye muscles and extraocular movement intact. Sclera is anicteric. Neck; supple no lymphadenopathy, no thyromegaly or bruit Lungs: Normal respiratory rate/effort. Breath sounds bilateral clear Extremities: no edema. No varicose veins Neurological: Patient is alert, awake and oriented to person, place and time. No focal deficit. Strength bilateral appropriate and equal Skin: Warm and dry. Abdomen: Abdomen is soft. Bowel sounds +. There is no abdominal tenderness, no guarding/rigidity no organomegaly. Psych: normal insight and normal affect/mood MSK: no joint tenderness or swelling. Objective - Vital Signs/Intake and Output Vital Signs (last 24 hours): Temp Pulse Resp BP Pulse Ox 97.8 F 64 20 128/66 95 04/07/18 16:00 04/07/18 16:00 04/07/18 16:00 04/07/18 16:00 04/07/18 16:00 Intake and Output: 04/07/18 04/07/18 06:59 18:59 Intake Total 1200 Output Total 750 Balance 450 - Medications Medications: Current Medications Acetaminophen (Tylenol 325mg Tab) 650 mg PO Q6 PRN PRN Reason: Pain, moderate (4-7) Last Admin: 04/01/18 11:28 Dose: 650 mg Amlodipine Besylate (Norvasc) 10 mg PO DAILY [facility] Last Admin: 04/07/18 09:22 Dose: 10 mg Calcitriol (Rocaltrol) 0.25 mcg PO MWF [facility] Last Admin: 04/05/18 08:01 Dose: 0.25 mcg Calcium Acetate (Phoslo) 1,334 mg PO TIDCC [facility] Last Admin: 04/07/18 12:00 Dose: 1,334 mg Epoetin Sundar (Procrit) 10,000 unit IV [facility] [place] Last Admin: 04/05/18 12:14 Dose: 10,000 unit Cefepime HCl (Maxipime Iv 1 Gm Premix) 1 gm in 50 mls @ 100 mls/hr IVPB Q24H [facility]; Protocol Last Admin: 04/07/18 16:06 Dose: 100 mls/hr Loratadine (Claritin) 10 mg PO Q2D [facility] Stop: 04/09/18 11:16 Last Admin: 04/06/18 14:01 Dose: Not Given Metoprolol Tartrate (Lopressor) 100 mg PO BID [facility] Last Admin: 04/07/18 09:22 Dose: 100 mg Oxycodone HCl (Oxycodone Immediate Release Tab) 15 mg PO Q4H PRN PRN Reason: Pain, moderate (4-7) Last Admin: 04/07/18 14:06 Dose: 15 mg Pantoprazole Sodium (Protonix Ec Tab) 40 mg PO DAILY [facility] Last Admin: 04/07/18 09:22 Dose: 40 mg Polyethylene Glycol (Miralax) 17 gm PO Q24H [facility] Last Admin: 04/06/18 18:47 Dose: 17 gm Senna/Docusate Sodium (Senokot S 50 Mg-8.6 Mg) 1 tab PO BID [facility] Last Admin: 04/07/18 09:22 Dose: 1 tab Vitamin B Complex/Vit C/Folic Acid (Nephro-Edilberto) 1 tab PO 0800 [facility] Last Admin: 04/07/18 07:42 Dose: 1 tab - Labs Labs: 04/02/18 06:07 04/02/18 06:07
[2018-04-07] MEDS: POLYETHYLENE GLYCOL 3350 17 GM/Dose PACKET PO SCH (20:44)
[2018-04-08] MEDS: oxyCODONE 5 mg Immediate Release Tab PO PRN ×5 (03:35→22:21)
[2018-04-08] MEDS: Multivitamin Vitamin B Complex (Nephro-Vite) Tab PO SCH (07:59)
[2018-04-08] MEDS: Docusate-Senna 50 mg-8.6 mg Tab PO SCH ×2 (09:05→17:30)
[2018-04-08] MEDS: Pantoprazole 40 mg EC Tab PO SCH (09:05)
--- NOTE | 2018-04-08 12:45 | CP.PCM.PN ---
Subjective - Date & Time of Evaluation Date of Evaluation: 04/08/18 Time of Evaluation: 12:44 - Subjective Subjective: Nephrology Consultation Note Assessment: stable CKD 5 with uremia: ESRD started [employer] HD 03/28/18 b/l severe hydronephrosis with UTI Chronic Kidney Disease (N18.5) Stage 5 with 3 gm proteinuria (R80.9) likely due to chronic obstructive uropathy neurogenic bladder, hx of spina bifida Anemia (D64.9), Hyperphosphatemia (E83.39), Secondary Hyperparathyroidism (E21.1), HTN (I12.9), metabolic acidosis hyperkalemia ? pancreatitis chronic obstructive uropathy managed by pt as self intermittent catheterization at home Plan HD as MWF schedule as ordered. nephrovite 1 tab daily Hypertension control; acceptable on current meds. laisx 80 mg non HD days Monitor Input/Output, daily weights and renal function with basic metabolic panel added phoslo 667 mg 2 cap TID with meals started epogen. IV iron. PRBC as needed started calcitriol MWF SW consult for outpt HD placement discussed with staff Dr Tsang for vasc follow up appreciated added claritin for few days cardoza catheter x 1-2 day to help with hydronephrosis and possibly related back pain: plan to DC cardoza at d/c Dose meds/antibiotics for reduced GFR. Avoid phos based fleets enema/magnesium based laxatives. Avoid nephrotoxins/NSAIDs/ iodinated contrast (unless needed emergently) Glycemic control Further work up for as per primary team pt stable from renal perspective for d/c when planned and when arranged for outpt HD Thanks for allowing me to participate in care of your patient. Will follow patient with you. Please call if any Qs. had d/w team Dr Julio Perez Office: [phone] CC: pain abdomen SOB vomiting reason for consult: ESRD HPI: pt is a 22 M with CKD 5 due to chronic obstructive uropathy managed by pt as self intermittent catheterization at home, spina bifida neurogenic bladder came with worsening pain abdomen with SOB, nausea/vomiting x 1 week, decreased urine output also pt has been feeling sick for last 1 week. he had missed appt with me in renal clinic. 10/16/17: PD catheter was removed as intra-op showed extensive foreign body reaction and ? pelvic abscess ROS: Denies chest pain, palpitation, leg swelling. no pain abdomen . no nausea. SOB resolved All other negative. making less urine. self intermittent catheterization at home. c/o low back pain, sneezing anf left forearm swelling: ALL BETTER Physical Examination: General Appearance: comfortable, in no acute respiratory distress, co-operative . well appearing Vitals reviewed and noted as below Head; Atraumatic, normocephalic ENT: no ulcers no thrush. Tongue is midline. Oropharynx: no rash or ulcers. EYES: Pupils are equal, round and reactive to light accommodation. Eye muscles and extraocular movement intact. Sclera is anicteric. Neck; supple no lymphadenopathy, no thyromegaly or bruit Lungs: Normal respiratory rate/effort. Breath sounds bilateral clear Extremities: no edema. No varicose veins Neurological: Patient is alert, awake and oriented to person, place and time. No focal deficit. Strength bilateral appropriate and equal Skin: Warm and dry. Normal turgor. No rash. Palpitation: Normal elasticity for age Abdomen: Abdomen is soft. Bowel sounds +. There is no abdominal tenderness, no guarding/rigidity no organomegaly. Psych: normal insight and normal affect/mood MSK: no joint tenderness or swelling. Digits and nails normal, no deformity : kidney not palpable. has cardoza AVF as access. left foream swelling noted but better Labs/imaging reviewed. Past medical history, past surgical history, family history, social history, allergy reviewed and noted as below Family hx: no hx of CKD. Rest non-contributory in past, renal imaging: b/l severe hydronephrosis Objective - Vital Signs/Intake and Output Vital Signs (last 24 hours): Temp Pulse Resp BP Pulse Ox 97.8 F 63 18 144/83 98 04/08/18 08:17 04/08/18 08:17 04/08/18 08:17 04/08/18 08:17 04/08/18 08:17 Intake and Output: 04/08/18 04/08/18 06:59 18:59 Intake Total 1150 Output Total 950 Balance 200 - Medications Medications: Current Medications Acetaminophen (Tylenol 325mg Tab) 650 mg PO Q6 PRN PRN Reason: Pain, moderate (4-7) Last Admin: 04/01/18 11:28 Dose: 650 mg Amlodipine Besylate (Norvasc) 10 mg PO DAILY [facility] Last Admin: 04/08/18 09:05 Dose: 10 mg [facility] ([facility]) [facility] Last Admin: 04/08/18 08:55 Dose: 0.25 mcg Calcium Acetate (Phoslo) 1,334 mg PO TIDCC [facility] Last Admin: 04/08/18 11:37 Dose: 1,334 mg Epoetin Sundar (Procrit) 10,000 unit IV [facility] [place] Last Admin: 04/05/18 12:14 Dose: 10,000 unit Cefepime HCl (Maxipime Iv 1 Gm Premix) 1 gm in 50 mls @ 100 mls/hr IVPB Q24H [facility]; Protocol Last Admin: 04/07/18 16:06 Dose: 100 mls/hr Loratadine (Claritin) 10 mg PO Q2D [facility] Stop: 04/09/18 11:16 Last Admin: 04/08/18 11:03 Dose: Not Given Metoprolol Tartrate (Lopressor) 100 mg PO BID [facility] Last Admin: 04/08/18 09:05 Dose: 100 mg Oxycodone HCl (Oxycodone Immediate Release Tab) 15 mg PO Q4H PRN PRN Reason: Pain, moderate (4-7) Last Admin: 04/08/18 08:55 Dose: 15 mg Pantoprazole Sodium (Protonix Ec Tab) 40 mg PO DAILY [facility] Last Admin: 04/08/18 09:05 Dose: 40 mg Polyethylene Glycol (Miralax) 17 gm PO Q24H [facility] Last Admin: 04/07/18 20:44 Dose: 17 gm Senna/Docusate Sodium (Senokot S 50 Mg-8.6 Mg) 1 tab PO BID [facility] Last Admin: 04/08/18 09:05 Dose: 1 tab Vitamin B Complex/Vit C/Folic Acid (Nephro-Edilberto) 1 tab PO 0800 [facility] Last Admin: 04/08/18 07:59 Dose: 1 tab - Labs Labs: 04/02/18 06:07 04/02/18 06:07
[2018-04-08] MEDS: Cefepime IV 1 gm in Dextrose 1 GM/50 ML BAG IVPB SCH ×2 (15:29→19:36)
[2018-04-08] MEDS: Epoetin Alfa 10,000 unit/ml Dialysis IV SCH (16:05)
[2018-04-08] MEDS: POLYETHYLENE GLYCOL 3350 17 GM/Dose PACKET PO SCH ×2 (19:31→22:21)
[2018-04-09] MEDS: oxyCODONE 5 mg Immediate Release Tab PO PRN ×2 (03:43→08:47)
[2018-04-09] MEDS: Multivitamin Vitamin B Complex (Nephro-Vite) Tab PO SCH (07:27)
[2018-04-09 08:37] VITALS: O2SAT 97
[2018-04-09] MEDS: Docusate-Senna 50 mg-8.6 mg Tab PO SCH (08:59)
[2018-04-09] MEDS: Pantoprazole 40 mg EC Tab PO SCH (08:59)
--- NOTE | 2018-04-09 10:34 | CP.PCM.PN ---
Subjective - Date & Time of Evaluation Date of Evaluation: 04/09/18 Time of Evaluation: 10:31 - Subjective Subjective: pt has some discomfortr flank fluid per nephric had uti Objective - Vital Signs/Intake and Output Vital Signs (last 24 hours): Temp Pulse Resp BP Pulse Ox 98 F 66 18 140/80 97 04/09/18 08:00 04/09/18 08:00 04/09/18 08:00 04/09/18 09:00 04/09/18 08:00 Intake and Output: 04/09/18 04/09/18 06:59 18:59 Output Total 1400 Balance -1400 - Medications Medications: Current Medications Acetaminophen (Tylenol 325mg Tab) 650 mg PO Q6 PRN PRN Reason: Pain, moderate (4-7) Last Admin: 04/01/18 11:28 Dose: 650 mg Amlodipine Besylate (Norvasc) 10 mg PO DAILY [facility] Last Admin: 04/09/18 08:59 Dose: 10 mg Calcitriol (Rocaltrol) 0.25 mcg PO MWF [facility] Last Admin: 04/08/18 08:55 Dose: 0.25 mcg Calcium Acetate (Phoslo) 1,334 mg PO TIDCC [facility] Last Admin: 04/09/18 07:27 Dose: 1,334 mg Epoetin Sundar (Procrit) 10,000 unit IV MWF [facility] Last Admin: 04/08/18 16:05 Dose: 10,000 unit Furosemide (Lasix) 80 mg PO TTS [facility] Last Admin: 04/09/18 09:00 Dose: 80 mg Cefepime HCl (Maxipime Iv 1 Gm Premix) 1 gm in 50 mls @ 100 mls/hr IVPB Q24H [facility]; Protocol Last Admin: 04/08/18 19:36 Dose: 100 mls/hr Loratadine (Claritin) 10 mg PO Q2D [facility] Stop: 04/09/18 11:16 Last Admin: 04/08/18 11:03 Dose: Not Given Metoprolol Tartrate (Lopressor) 100 mg PO BID [facility] Last Admin: 04/09/18 08:59 Dose: 100 mg Oxycodone HCl (Oxycodone Immediate Release Tab) 15 mg PO Q4H PRN PRN Reason: Pain, moderate (4-7) Last Admin: 04/09/18 08:47 Dose: 15 mg Pantoprazole Sodium (Protonix Ec Tab) 40 mg PO DAILY [facility] Last Admin: 04/09/18 08:59 Dose: 40 mg Polyethylene Glycol (Miralax) 17 gm PO Q24H [facility] Last Admin: 04/08/18 22:21 Dose: 17 gm Senna/Docusate Sodium (Senokot S 50 Mg-8.6 Mg) 1 tab PO BID [facility] Last Admin: 04/09/18 08:59 Dose: 1 tab Vitamin B Complex/Vit C/Folic Acid (Nephro-Edilberto) 1 tab PO 0800 [facility] Last Admin: 04/09/18 07:27 Dose: 1 tab - Labs Labs: 04/02/18 06:07 04/02/18 06:07 - Constitutional Appears: Non-toxic - Eye Exam Eye Exam: Normal appearance Pupil Exam: NORMAL ACCOMODATION - ENT Exam ENT Exam: Mucous Membranes Moist - Neck Exam Neck Exam: Full ROM - Respiratory Exam Respiratory Exam: NORMAL BREATHING PATTERN - Cardiovascular Exam Cardiovascular Exam: REGULAR RHYTHM - GI/Abdominal Exam Additional comments: l flank tender - Exam Additional comments: esrf spinabifida - Extremities Exam Additional comments: l upper ext swalen s/pAV SHUNT - Psychiatric Exam Psychiatric exam: Normal Affect - Skin Skin Exam: Normal Color Assessment and Plan - Assessment and Plan (Free Text) Assessment: S/PAC UTI PERINEPHRIC FLUIDS SWALLEN L ARM S/P av SHUNT ESRF Plan: ID REVALUATION AWAITE ARRANGEMENT FOR OUTPT DIALYSIS
--- NOTE | 2018-04-09 12:33 | CP.PCM.PN ---
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 pancreatitis chronic obstructive uropathy managed by pt as self intermittent catheterization at home Plan HD as MWF schedule as ordered. nephrovite 1 tab daily Hypertension control; acceptable on current meds. Lasix 80 mg non HD days Monitor Input/Output, daily weights and renal function with basic metabolic panel added phoslo 667 mg 2 cap TID with meals started epogen. IV iron. PRBC as needed started calcitriol MWF SW consult for outpt HD placement discussed with staff Dr Tsang for vasc follow up appreciated cardoza catheter x 1-2 day to help with hydronephrosis and possibly related back pain: plan to DC cardoza at d/c Dose meds/antibiotics for reduced GFR. Avoid phos based fleets enema/magnesium based laxatives. Avoid nephrotoxins/NSAIDs/ iodinated contrast (unless needed emergently) Glycemic control Further work up for as per primary team pt stable from renal perspective for d/c when planned as arranged for outpt HD. has MWF spot 2nd shift @ [facility], pt agreeable with it. Thanks for allowing me to participate in care of your patient. Will follow patient with you. Please call if any Qs. had d/w team Dr Julio Perez Office: [phone] CC: pain abdomen SOB vomiting reason for consult: ESRD HPI: pt is a 22 M with CKD 5 due to chronic obstructive uropathy managed by pt as self intermittent catheterization at home, spina bifida neurogenic bladder ca me with worsening pain abdomen with SOB, nausea/vomiting x 1 week, decreased urine output also pt has been feeling sick for last 1 week. he had missed appt with me in renal clinic. 10/16/17: PD catheter was removed as intra-op showed extensive foreign body reaction and ? pelvic abscess ROS: Denies chest pain, palpitation, leg swelling. no pain abdomen . no nausea. SOB resolved All other negative. making less urine. self intermittent catheterization at home. c/o low back pain, sneezing and left forearm swelling: ALL BETTER Physical Examination: General Appearance: comfortable, in no acute respiratory distress, co-operative . well appearing Vitals reviewed and noted as below Head; Atraumatic, normocephalic ENT: no ulcers no thrush. Tongue is midline. Oropharynx: no rash or ulcers. EYES: Pupils are equal, round and reactive to light accommodation. Eye muscles and extraocular movement intact. Sclera is anicteric. Neck; supple no lymphadenopathy, no thyromegaly or bruit Lungs: Normal respiratory rate/effort. Breath sounds bilateral clear Extremities: no edema. No varicose veins Neurological: Patient is alert, awake and oriented to person, place and time. No focal deficit. Strength bilateral appropriate and equal Skin: Warm and dry. Normal turgor. No rash. Palpitation: Normal elasticity for age Abdomen: Abdomen is soft. Bowel sounds +. There is no abdominal tenderness, no guarding/rigidity no organomegaly. Psych: normal insight and normal affect/mood MSK: no joint tenderness or swelling. Digits and nails normal, no deformity : kidney not palpable. has cardoza AVF as access. left foream swelling noted but better Labs/imaging reviewed. Past medical history, past surgical history, family history, social history, allergy reviewed and noted as below Family hx: no hx of CKD. Rest non-contributory in past, renal imaging: b/l severe hydronephrosis Objective - Vital Signs/Intake and Output Vital Signs (last 24 hours): Temp Pulse Resp BP Pulse Ox 98 F 66 18 140/80 97 04/09/18 08:00 04/09/18 08:00 04/09/18 08:00 04/09/18 09:00 04/09/18 08:00 Intake and Output: 04/09/18 04/09/18 06:59 18:59 Output Total 1400 Balance -1400 - Medications Medications: Current Medications Acetaminophen (Tylenol 325mg Tab) 650 mg PO Q6 PRN PRN Reason: Pain, moderate (4-7) Last Admin: 04/01/18 11:28 Dose: 650 mg Amlodipine Besylate (Norvasc) 10 mg PO DAILY [facility] Last Admin: 04/09/18 08:59 Dose: 10 mg Calcitriol (Rocaltrol) 0.25 mcg PO MWF [facility] Last Admin: 04/08/18 08:55 Dose: 0.25 mcg Calcium Acetate (Phoslo) 1,334 mg PO TIDCC [facility] Last Admin: 04/09/18 11:32 Dose: 1,334 mg Epoetin Sundar (Procrit) 10,000 unit IV MWF [facility] Last Admin: 04/08/18 16:05 Dose: 10,000 unit Furosemide (Lasix) 80 mg PO TTS [facility] Last Admin: 04/09/18 09:00 Dose: 80 mg Cefepime HCl (Maxipime Iv 1 Gm Premix) 1 gm in 50 mls @ 100 mls/hr IVPB Q24H [facility]; Protocol Last Admin: 04/08/18 19:36 Dose: 100 mls/hr Metoprolol Tartrate (Lopressor) 100 mg PO BID [facility] Last Admin: 04/09/18 08:59 Dose: 100 mg Pantoprazole Sodium (Protonix Ec Tab) 40 mg PO DAILY [facility] Last Admin: 04/09/18 08:59 Dose: 40 mg Polyethylene Glycol (Miralax) 17 gm PO Q24H [facility] Last Admin: 04/08/18 22:21 Dose: 17 gm Senna/Docusate Sodium (Senokot S 50 Mg-8.6 Mg) 1 tab PO BID [facility] Last Admin: 04/09/18 08:59 Dose: 1 tab Vitamin B Complex/Vit C/Folic Acid (Nephro-Edilberto) 1 tab PO 0800 [facility] Last Admin: 04/09/18 07:27 Dose: 1 tab - Labs Labs: 04/02/18 06:07 04/02/18 06:07
[2018-04-09] MEDS ORDERED: oxyCODONE 5 mg Immediate Release Tab PO PRN (13:41)
[2018-04-09] MEDS: Cefepime IV 1 gm in Dextrose 1 GM/50 ML BAG IVPB SCH (14:01)
[2018-04-09 16:26] VITALS: BP 149/82; PULSE 68; RESP 20; TEMP 97.8
--- NOTE | 2018-04-09 16:51 | CP.PCM.PN ---
Subjective - Date & Time of Evaluation Date of Evaluation: 04/09/18 Time of Evaluation: 16:52 - Subjective Subjective: alert and orientedx3, ambulatory, no sob or chest pains, no distress. Objective - Vital Signs/Intake and Output Vital Signs (last 24 hours): Temp Pulse Resp BP Pulse Ox 97.8 F 68 20 149/82 97 04/09/18 15:00 04/09/18 15:00 04/09/18 15:00 04/09/18 15:00 04/09/18 15:00 Intake and Output: 04/09/18 04/09/18 06:59 18:59 Output Total 1400 600 Balance -1400 -600 - Labs Labs: 04/02/18 06:07 04/02/18 06:07 Assessment and Plan - Assessment and Plan (Free Text) Assessment: 22 year old male , new HD on MWF, seen and examined. Alert and orientedx3, understands the follow up care that he needs. Patient got outpatient HD spot [facility], cleared for discharge as per DR Perez. Discussed with DR Jones, plan to discharge home today. Advised to follow up with PMD in 1 week.
== END 2018-04-09 16:37 | disposition home or self-care (01) | DRG 568 ==
LOC: C.ER 09:03 → C.9E 11:13 → C.9I 12:49 → C.3T 04-02 05:00
PROVIDERS: ADMIT Internal Medicine; ATTEND Internal Medicine
PROC: 5A1D70Z Performance of Urinary Filtration, Intermittent, Less than 6 Hours Per Day (ICD-10-PCS; principal; 2018-03-28)
PROC: 5A1D70Z Performance of Urinary Filtration, Intermittent, Less than 6 Hours Per Day (ICD-10-PCS; 2018-03-29)
PROC: 30233N1 Transfusion of Nonautologous Red Blood Cells into Peripheral Vein, Percutaneous Approach (ICD-10-PCS; 2018-03-30)
PROC: 5A1D70Z Performance of Urinary Filtration, Intermittent, Less than 6 Hours Per Day (ICD-10-PCS; 2018-03-30)
PROC: 5A1D70Z Performance of Urinary Filtration, Intermittent, Less than 6 Hours Per Day (ICD-10-PCS; 2018-04-01)
PROC: 5A1D70Z Performance of Urinary Filtration, Intermittent, Less than 6 Hours Per Day (ICD-10-PCS; 2018-04-03)
PROC: 5A1D70Z Performance of Urinary Filtration, Intermittent, Less than 6 Hours Per Day (ICD-10-PCS; 2018-04-05)
PROC: 5A1D70Z Performance of Urinary Filtration, Intermittent, Less than 6 Hours Per Day (ICD-10-PCS; 2018-04-08)
DX: N17.9 Acute kidney failure, unspecified (principal); N13.6 Pyonephrosis; K85.90 Acute pancreatitis without necrosis or infection, unspecified; K65.1 Peritoneal abscess; N31.9 Neuromuscular dysfunction of bladder, unspecified; Q05.9 Spina bifida, unspecified; J90 Pleural effusion, not elsewhere classified; I13.11 Hypertensive heart and chronic kidney disease without heart failure, with stage 5 chronic kidney disease, or end stage renal disease; E87.2 Acidosis; E87.5 Hyperkalemia; K59.2 Neurogenic bowel, not elsewhere classified; N18.6 End stage renal disease; I51.7 Cardiomegaly; E21.1 Secondary hyperparathyroidism, not elsewhere classified; D64.9 Anemia, unspecified; I27.20 Pulmonary hypertension, unspecified; E83.39 Other disorders of phosphorus metabolism; K59.00 Constipation, unspecified; B95.62 Methicillin resistant Staphylococcus aureus infection as the cause of diseases classified elsewhere; Z86.14 Personal history of Methicillin resistant Staphylococcus aureus infection; Z87.01 Personal history of pneumonia (recurrent); Z87.440 Personal history of urinary (tract) infections; Z87.728 Personal history of other specified (corrected) congenital malformations of nervous system and sense organs; Z80.1 Family history of malignant neoplasm of trachea, bronchus and lung

== ENCOUNTER 2018-06-04 20:12 | Emergency (ER) | payer MEDICAID ==
[2018-06-04 20:12] VITALS: BMI 25.5
[2018-06-04 20:27] VITALS: O2SAT 100
--- NOTE | 2018-06-04 21:12 | C.PDOC ---
History Of Present Illness 22 year old male with Hx of spina bifida w/ renal failure on dialysis and pancreatitis presents with right sided abdominal pain and nausea since yesterday. Denies fever or other complaints. Last dialysis was yesterday. Time Seen by Provider: 06/04/18 20:59 Chief Complaint (Nursing): Abdominal Pain History Per: Patient History/Exam Limitations: no limitations Onset/Duration Of Symptoms: Days Current Symptoms Are (Timing): Still Present Location Of Pain/Discomfort: Other (Right sided) Associated Symptoms: Nausea. denies: Fever Exacerbating Factors: None Alleviating Factors: None Recent travel outside of the [place]: No Past Medical History Reviewed: Historical Data, Nursing Documentation, Vital Signs Vital Signs: Last Vital Signs Temp 98.7 F 06/04/18 20:20 Pulse 66 06/04/18 20:20 Resp 16 06/04/18 20:20 BP 161/97 H 06/04/18 20:20 Pulse Ox 100 06/04/18 20:20 - Medical History PMH: HTN, Pneumonia, End Stage Renal Disease, Chronic Kidney Disease - [facility] Procedures (03/28/18) BYPASS LEFT BRACHIAL VEIN TO UPPER VEIN, OPEN APPROACH (10/15/17) BYPASS LEFT CEPHALIC VEIN TO UPPER VEIN, OPEN APPROACH (10/15/17) DRAINAGE OF LARGE INTESTINE, ENDO, DIAGN (10/01/17) DRAINAGE OF LEFT INGUINAL REGION, PERC ENDO APPROACH (10/15/17) EXCISION OF LARGE INTESTINE, ENDO, DIAGN (10/01/17) RELEASE PERITONEUM, PERCUTANEOUS ENDOSCOPIC APPROACH (10/15/17) REMOVAL OF INFUSION DEVICE FROM PERITON CAV, OPEN APPROACH (10/15/17) TRANSFUSE NONAUT RED BLOOD CELLS IN PERIPH VEIN, PERC (03/28/18) Family History: States: No Known Family Hx - Social History Hx Tobacco Use: No Hx Alcohol Use: No Hx Substance Use: No - Immunization History Hx Tetanus Toxoid Vaccination: (Unk) Hx Influenza Vaccination: No Hx Pneumococcal Vaccination: Yes Review Of Systems Constitutional: Negative for: Fever, Chills Cardiovascular: Negative for: Chest Pain, Palpitations Respiratory: Negative for: Cough, Shortness of Breath Gastrointestinal: Positive for: Nausea, Abdominal Pain. Negative for: Vomiting Neurological: Negative for: Weakness, Numbness Physical Exam - Physical Exam Appears: Non-toxic Skin: Normal Color, Warm Head: Atraumatic, Normacephalic Eye(s): bilateral: Normal Inspection Oral Mucosa: Moist Neck: Normal, Supple Chest: Symmetrical, No Tenderness Cardiovascular: Rhythm Regular Respiratory: Normal Breath Sounds, No Rales, No Rhonchi, No Wheezing Gastrointestinal/Abdominal: Soft, Tenderness (Right sided), No Guarding, No Lina ound Neurological/Psych: Oriented x3, Normal Speech ED Course And Treatment - Laboratory Results Result Diagrams: 06/04/18 21:24 06/04/18 21:24 O2 Sat by Pulse Oximetry: 100 (Room air) Pulse Ox Interpretation: Normal - CT Scan/US CT abd/pel Other Rad Studies (CT/US): Read By Radiologist, Radiology Report Reviewed CT/US Interpretation: EXAM: CT Abdomen and Pelvis with IV contrast. CLINICAL HISTORY: Right lower sided abd pain. TECHNIQUE: Axial computed tomography lady ges of the abdomen and pelvis with intravenous contrast. 0.00 mGy-cm. CONTRAST: With; 100MLS VISI 320. COMPARISON: Comparison is made to prior CT abdomen and pelvis examination dated 03/29/2018. FINDINGS: LUNG BASES: The lung bases appear clear. No pleural effusions are seen. The previously noted bibasilar pleural effusions have resolved. LIVER: Unremarkable. GALLBLADDER AND BILE DUCTS: The gallbladder appears within normal limits. No radioopaque gallstones are seen. No biliary ductal dilatation is evident. PANCREAS: Unremarkable. SPLEEN: Unremarkable. ADRENAL GLANDS: Unremarkable. KIDNEYS, URETERS, AND BLADDER: The kidneys are normal in position. Both kidneys are small in size with cortical thinning noted thought compatible with bilateral renal atrophy. There is chronic bilateral hydronephrosis again demonstrated. No urinary calculi are seen. There is again thickening of the mucosal linares of the urinary bladder demonstrated thought compatible with chronic cystitis. STOMACH AND BOWEL: There is mucosal wall thickening of the stomach, duodenum and throughout the small intestinal tract with fluid in the lumen compatible with diffuse gastroenteritis. Infectious or inflammatory etiologies are thought most likely. No evidence of bowel obstruction. Abundant fecal material is noted throughout the colon compatible with constipation. APPENDIX: No evidence of acute appendicitis on CT examination. PERITONEUM: No free fluid. No free air. LYMPH NODES: No lymphadenopathy is evident. REPRODUCTIVE: Unremarkable as visualized. VASCULATURE: No evidence of abdominal aortic aneurysm. BONES: No aggressive appearing osseous lesion. No acute osseous pathology evident. Spina bifida occulta is noted involving L4, L5, S1, S2, S3. Perineural root cysts are seen in the right S2 sacral foramen and left S4 sacral foramen. 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 IMPRESSION: 1. Evidence of diffuse gastroenteritis. 2. Chronic bilateral hydronephrosis and renal atrophy. 3. Bladder wall thickening suggests chronic cystitis. 4. Evidence of constipation. 5. 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 Medical Decision Making Medical Decision Making: ro appendicitis, obstruction - Plan: * CT abd/pel * Blood work * UA * Zofran discussed with dr rosalind li for iv contrrast pt to recieve hd tommorow. if ct neg, can f/u outpt for [place] hd. labs neg. pain resolved. ct shows possible gastro. antibioitcs given. urine supected chronic but will be covered with antibiotics for gastor. advise outptfu. Disposition - Disposition Referrals: Miguel Suarez MD [Staff Provider] - [facility] [Outside] [facility] [Outside] Disposition: HOME/ ROUTINE Disposition Time: 00:19 Condition: STABLE Additional Instructions: see specialist. return to er with worsneing. follow up with your doctor/clinic. Prescriptions: Ciprofloxacin [Cipro] 500 mg PO BID #14 tab Metronidazole [Flagyl] 500 mg PO TID #21 tablet Instructions: Urinary Tract Infections in Adults, Viral Gastroenteritis, Colitis Forms: [facility] ([employer]) - Clinical Impression Clinical Impression: Gastroenteritis, Urinary tract infection, Abdominal pain - Scribe Statement The provider has reviewed the documentation as recorded by the Lisaibmiguel Baker All medical record entries made by the Lisaibmiguel were at my direction and personally dictated by me. I have reviewed the chart and agree that the record accurately reflects my personal performance of the history, physical exam, medical decision making, and the department course for this patient. I have also personally directed, reviewed, and agree with the discharge instructions and disposition.
[2018-06-04 21:28] LABS: BASO # 0.1 K/uL (0.0-0.2); BASO % 1.3 % (0.0-2.0); EOS # 0.4 K/uL (0.0-0.7); EOS % 6.9 % (0.0-4.0); HEMOGLOBIN 11.7 g/dL (12.0-18.0); LYMPH # 1.9 K/uL (1.0-4.3); LYMPH % 36.7 % (20.0-40.0); MEAN CORPUSCULAR HEMOGLOBIN 29.1 pg (27.0-31.0); MEAN CORPUSCULAR HGB CONC 34.4 g/dL (33.0-37.0); MONO # 0.5 K/uL (0.0-0.8); MONO % 9.7 % (0.0-10.0); NEUT # 2.4 K/uL (1.8-7.0); NEUT % 45.4 % (50.0-75.0); RBC 4.01 Mil/uL (4.40-5.90); WHITE BLOOD COUNT 5.3 K/uL (4.8-10.8)
[2018-06-04 21:30] LABS: MEAN CELL VOLUME 84.6 fL (80.0-94.0)
[2018-06-04 21:40] LABS: INR 1.3; PROTHROMBIN TIME 13.7 SECONDS (9.7-12.2)
[2018-06-04 21:42] LABS: ALB/GLOB RATIO 1.6 (1.0-2.1); ALBUMIN 4.7 g/dL (3.5-5.0); CALCIUM 9.3 mg/dl (8.6-10.4)
[2018-06-04 22:05] LABS: SQUAMOUS EPITHIAL 3 /hpf (0-5); URINE BACTERIA FEW (<OCC); URINE BILIRUBIN NEGATIVE (NEGATIVE); URINE BLOOD 1+ (NEGATIVE); URINE CLARITY Hazy (Clear); URINE COLOR Yellow (YELLOW); URINE GLUCOSE (UA) 1+ mg/dL (Normal); URINE LEUKOCYTE ESTERASE 3+ Leu/uL (Negative); URINE PROTEIN 2+ mg/dL (NEGATIVE); URINE UROBILINOGEN NORMAL mg/dL (0.2-1.0)
[2018-06-04] MEDS ORDERED: Iodixanol 320 MG/ML 100 ML BOTTLE IV ONE (22:45)
[2018-06-05 00:14] VITALS: BP 145/81; PULSE 56; RESP 18; TEMP 98.5
--- NOTE | 2018-06-05 08:23 | CT ---
Date of service: 06/04/2018 PROCEDURE: CT Abdomen and Pelvis with contrast HISTORY: right sided abd pain COMPARISON: Comparison is made with 03/29/2018 TECHNIQUE: Contrast dose: 100 mL of Visipaque 320 intravenously. Axial and reformatted coronal and sagittal CT images of the abdomen and pelvis were obtained after IV contrast administration. Radiation dose: Total exam DLP = 894.69 mGy-cm. This CT exam was performed using one or more of the following dose reduction techniques: Automated exposure control, adjustment of the mA and/or kV according to patient size, and/or use of iterative reconstruction technique. FINDINGS: LOWER THORAX: No evidence of acute pathology at the lung bases. LIVER: Mild hepatomegaly is again noted. GALLBLADDER AND BILE DUCTS: Mild diffuse gallbladder wall thickening is again noted. PANCREAS: Unremarkable. No gross lesion or ductal dilatation. SPLEEN: Unremarkable. ADRENALS: There a 0.9 centimeter nodule at the left adrenal gland noted. KIDNEYS AND URETERS: Moderate to severe bilateral hydronephrosis again noted. There is thinning of the renal cortex noted. There are multiple cystic lesions in the kidneys. The ureters are mildly dilated. There is [id number] diffuse thickening of the collecting system wall of both kidneys more prominent on the right. Correlate clinically for UTI and pyelonephritis. VASCULATURE: Unremarkable. No aortic aneurysm. No aortic atherosclerotic calcification or mural plaque present. BOWEL: [id number] constipation is noted. Diffuse small bowel moderate wall thickening suspicious for enteritis. APPENDIX: No evidence of appendicitis. PERITONEUM: Unremarkable. No free fluid. No free air. LYMPH NODES: Unremarkable. No enlarged lymph nodes. BLADDER: Moderate to severe circumferential urinary bladder wall thickening is noted consistent with cystitis. REPRODUCTIVE: Unremarkable. BONES: No acute fracture. OTHER FINDINGS: None. IMPRESSION: Small bowel wall thickening suspicious for enteritis. Redemonstrated is moderate to severe bilateral hydronephrosis. Diffuse thickening of the collecting system wall of both kidneys suspicious for UTI. Heterogeneous enhancement of the renal cortex. Correlate clinically for pyelonephritis. Moderate to severe circumferential urinary bladder wall thickening suspicious for cystitis. Preliminary report contains concordant findings was submitted by [facility].
== END 2018-06-05 00:36 | disposition home or self-care (01) ==
LOC: C.ER 20:12
DX: K52.9 Noninfective gastroenteritis and colitis, unspecified (principal); N39.0 Urinary tract infection, site not specified; I12.0 Hypertensive chronic kidney disease with stage 5 chronic kidney disease or end stage renal disease; N18.6 End stage renal disease; Z99.2 Dependence on renal dialysis; K85.90 Acute pancreatitis without necrosis or infection, unspecified
CPT/HCPCS: 74177; 80053; 81001; 83690; 85025; 85610; 85730; 87086; 96374; 99284; J2405; Q9967